=== PATIENT | female | born 1960 | race Caucasian/White ===

== ENCOUNTER → 2020-08-18 14:00 | Outpatient (BNVA) | payer OTHER, SELFPAY | PROVIDERS: PCP Nurse Practitioner Family; Referring Provider Nurse Practitioner Family; Visit Provider Nurse Practitioner Gerontology | DX: R73.03 Prediabetes (principal); E78.5 Hyperlipidemia, unspecified; I10 Essential (primary) hypertension; E66.9 Obesity, unspecified; Z59.9 Problem related to housing and economic circumstances, unspecified; F17.200 Nicotine dependence, unspecified, uncomplicated; Z71.6 Tobacco abuse counseling; Z71.3 Dietary counseling and surveillance; Z79.899 Other long term (current) drug therapy | CPT/HCPCS: 99212 ==

== ENCOUNTER 2020-08-19 11:13 | Outpatient (REF) | payer OTHER, SELFPAY ==
[2020-08-19 14:12] LABS: Estimated Average Glucose 120 mg/dL; Hemoglobin A1c % 5.8 %
[2020-08-19 14:24] LABS: Anion Gap 16 (12-20); Blood Urea Nitrogen 8 mg/dL (9-16); Calcium 8.5 mg/dL (8.4-10.2); Carbon Dioxide 25 mmol/L (22-29); Chloride 103 mmol/L (96-108); Cholesterol 110 mg/dL; Estimated Glomerular Filt Rate > 60; Glucose Fasting 105 mg/dL (60-99); HDL Cholesterol 34 mg/dL; LDL Cholesterol Calculated 53 mg/dl; Potassium 4.5 mmol/l (3.3-5.1); Sodium 139 mmol/L (135-145); Triglycerides 119 mg/dL
[2020-08-19 14:46] LABS: TSH reflex Free T4 1.52 mIU/mL (0.32-4.0)
== END 2020-08-19 11:14 | disposition home or self-care (01) ==
LOC: HO.HMGCLDS 11:13
PROVIDERS: PCP Nurse Practitioner Family; Visit Provider Nurse Practitioner Gerontology
DX: E78.5 Hyperlipidemia, unspecified (principal); R73.03 Prediabetes; I10 Essential (primary) hypertension
CPT/HCPCS: 80048; 80061; 83036; 84443

== ENCOUNTER → 2020-09-09 14:12 | Outpatient (BNVA) | payer OTHER, SELFPAY | PROVIDERS: PCP Nurse Practitioner Family; Visit Provider Internal Medicine Cardiovascular Disease | DX: I47.2 Ventricular tachycardia (principal); I10 Essential (primary) hypertension; I48.0 Paroxysmal atrial fibrillation; Z79.899 Other long term (current) drug therapy; Z86.79 Personal history of other diseases of the circulatory system; Z45.018 Encounter for adjustment and management of other part of cardiac pacemaker | CPT/HCPCS: 99212 ==

== ENCOUNTER → 2020-10-12 15:00 | Outpatient (BNVA) | payer OTHER, SELFPAY | PROVIDERS: PCP Nurse Practitioner Family; Visit Provider Nurse Practitioner | DX: Z76.89 Persons encountering health services in other specified circumstances (principal) ==

== ENCOUNTER 2020-10-18 15:08 | Outpatient (REF) | payer OTHER, SELFPAY ==
--- NOTE | 2020-10-18 15:12 | MM_ITS ---
EXAMINATION: MM SCREENING DIGITAL BREAST TOMOSYNTHESIS, BILATERAL CLINICAL INFORMATION: Screening. Asymptomatic. Family history breast cancer, daughter. The lifetime risk of breast cancer based on the Tyrer-Cuzick Model is 11%. COMPARISON: Mammography: 10/09/2019, 10/03/2018, 09/11/2017 TECHNIQUE: Digital breast tomosynthesis is performed in both the craniocaudal and mediolateral oblique views along with computer-aided detection (CAD). Synthesized 2D images are generated from the tomosynthesis. FINDINGS: There are scattered areas of fibroglandular density (ACR BI-RADS breast composition Category b). There are no significant masses, abnormal calcifications, or other abnormalities. There are no significant changes from prior studies. MM/MM tomosynthesis screening BI IMPRESSION: No mammographic evidence of malignancy. ASSESSMENT: BI-RADS 1: Negative RECOMMENDATION: Routine annual mammography screening. This patient's information was entered into a reminder system with a target due date for their next mammogram.
== END 2020-10-18 15:09 | disposition home or self-care (01) ==
LOC: HO.MAMMO 15:08
PROVIDERS: PCP Nurse Practitioner Family; Visit Provider Nurse Practitioner Family
DX: Z12.31 Encounter for screening mammogram for malignant neoplasm of breast (principal)
CPT/HCPCS: 77063; 77067

== ENCOUNTER 2021-01-26 15:12 | Outpatient (REF) | payer OTHER, SELFPAY ==
[2021-01-26 17:21] LABS: Creatinine Urine 153.72 mg/dL; Microalbum/Creatinine Ratio Ur 7.8 ug/mg cr
[2021-01-26 17:45] LABS: Estimated Average Glucose 117 mg/dL; Hemoglobin A1c % 5.7 %
[2021-01-26 18:25] LABS: Vitamin D 25-OH Total 5.6 ng/mL (>30)
[2021-01-26 18:31] LABS: Alanine Aminotransferase 12 U/L (0-31); Albumin Level 4.2 g/dL (3.5-5.0); Alkaline Phosphatase 90 U/L (39-117); Anion Gap 13 (12-20); Aspartate Amino Transferase 13 U/L (5-31); Bilirubin Total 0.3 mg/dL (0.0-1.0); Blood Urea Nitrogen 8 mg/dL (9-16); Calcium 8.7 mg/dL (8.4-10.2); Carbon Dioxide 25 mmol/L (22-29); Chloride 106 mmol/L (96-108); Cholesterol 128 mg/dL; Estimated Glomerular Filt Rate > 60; Glucose Fasting 99 mg/dL (60-99); HDL Cholesterol 46 mg/dL; LDL Cholesterol Calculated 59 mg/dl; Potassium 4.1 mmol/L (3.3-5.1); Sodium 140 mmol/L (135-145); Total Protein 6.8 g/dL (6.5-8.0); Triglycerides 116 mg/dL
== END 2021-01-26 15:13 | disposition home or self-care (01) ==
LOC: HO.HMGCLDS 15:12
PROVIDERS: Nurse Practitioner Gerontology; PCP Nurse Practitioner Family; Visit Provider Nurse Practitioner Family
DX: E11.9 Type 2 diabetes mellitus without complications (principal); E55.9 Vitamin D deficiency, unspecified
CPT/HCPCS: 36415; 80053; 80061; 82043; 82306; 83036; 84443

== ENCOUNTER → 2021-02-17 07:51 | Outpatient (BNVA) | payer OTHER, SELFPAY | PROVIDERS: PCP Nurse Practitioner Family; Visit Provider Nurse Practitioner Gerontology ==

== ENCOUNTER → 2021-03-03 14:22 | Outpatient (BNVA) | payer OTHER, SELFPAY | PROVIDERS: PCP Nurse Practitioner Family; Referring Provider Nurse Practitioner Family; Visit Provider Internal Medicine Cardiovascular Disease | DX: Z45.018 Encounter for adjustment and management of other part of cardiac pacemaker (principal); I48.0 Paroxysmal atrial fibrillation | CPT/HCPCS: 99212 ==

== ENCOUNTER 2021-04-07 14:15 | Outpatient (REF) | payer OTHER, SELFPAY ==
[2021-04-07 17:13] LABS: Vitamin D 25-OH Total 28.4 ng/mL (>30)
== END 2021-04-07 14:16 | disposition home or self-care (01) ==
LOC: HO.HMGCLDS 14:15
PROVIDERS: PCP Nurse Practitioner Family; Visit Provider Nurse Practitioner Family
DX: E55.9 Vitamin D deficiency, unspecified (principal)
CPT/HCPCS: 36415; 82306

== ENCOUNTER → 2021-04-15 09:15 | Outpatient (BNVA) | payer OTHER, SELFPAY | PROVIDERS: PCP Nurse Practitioner Family; Visit Provider Nurse Practitioner ==

== ENCOUNTER → 2021-05-30 13:50 | Outpatient (BNVA) | payer OTHER, SELFPAY | PROVIDERS: Visit Provider Nurse Practitioner ==

== ENCOUNTER → 2021-06-10 13:57 | Outpatient (BNVA) | payer OTHER, SELFPAY | PROVIDERS: PCP Nurse Practitioner Family; Visit Provider Nurse Practitioner ==

== ENCOUNTER 2021-06-14 15:17 | Outpatient (REF) | payer OTHER, SELFPAY ==
[2021-06-14 17:24] LABS: Alanine Aminotransferase 13 U/L (0-31); Albumin Level 4.1 g/dL (3.5-5.0); Alkaline Phosphatase 81 U/L (39-117); Anion Gap 14 (12-20); Aspartate Amino Transferase 14 U/L (5-31); Bilirubin Total 0.4 mg/dL (0.0-1.0); Blood Urea Nitrogen 12 mg/dL (9-16); Calcium 9.3 mg/dL (8.4-10.2); Carbon Dioxide 25 mmol/L (22-29); Chloride 107 mmol/L (96-108); Cholesterol 128 mg/dL; Estimated Glomerular Filt Rate > 60; Glucose Fasting 99 mg/dL (60-99); HDL Cholesterol 40 mg/dL; LDL Cholesterol Calculated 53 mg/dl; Potassium 4.5 mmol/L (3.3-5.1); Sodium 141 mmol/L (135-145); Total Protein 6.8 g/dL (6.5-8.0); Triglycerides 178 mg/dL
[2021-06-14 17:40] LABS: Vitamin D 25-OH Total 34.1 ng/mL (>30)
[2021-06-14 17:44] LABS: TSH reflex Free T4 1.76 uIU/mL (0.32-4.0)
== END 2021-06-14 15:18 | disposition home or self-care (01) ==
LOC: HO.HMGCLDS 15:17
PROVIDERS: Nurse Practitioner Gerontology; PCP Nurse Practitioner Family; Visit Provider Nurse Practitioner Family
DX: E11.9 Type 2 diabetes mellitus without complications (principal); E55.9 Vitamin D deficiency, unspecified
CPT/HCPCS: 36415; 80053; 80061; 82306; 84443

== ENCOUNTER 2021-08-11 09:59 | Outpatient (REF) | payer OTHER, SELFPAY ==
[2021-08-11 14:11] LABS: Appearance Urine HAZY; Color Urine YELLOW; Glucose Urine UA NEG (NEG); Leukocyte Esterase Urine 3+ (NEG); Nitrite Urine NEG (NEG); Specific Gravity - Urine <= 1.005 (1.005-1.025); UACC Culture Trigger YES; Urine Blood 1+ (NEG); Urine Ketones NEG (NEG); Urine Protein NEG (NEG-TRACE)
[2021-08-11 14:29] LABS: Bacteria Urine 1+ /LPF; UACC CULT YES
[2021-08-11 14:30] LABS: Squamous Epithelial Cell Urine 3+ /LPF
== END 2021-08-11 10:00 | disposition home or self-care (01) ==
LOC: HO.HMGCLDS 09:59
PROVIDERS: PCP Nurse Practitioner Family; Visit Provider Nurse Practitioner Family
DX: R30.0 Dysuria (principal)
CPT/HCPCS: 81001; 87086

== ENCOUNTER → 2021-08-24 13:55 | Outpatient (REF) | payer OTHER, SELFPAY ==
--- NOTE | 2021-08-24 13:59 | CA_ITS ---
Transthoracic Echocardiogram Patient (Last, First, Middle): Myrtle Ford R Gender: Female Date of : 1960 Age: 61 Procedure Date: 08/24/2021 Procedure Type: Transthoracic Echocardiogram Location: OP Height: 170.18 cm Weight: 87.09 kg BSA: 1.99 m2 Heart Rate: bpm BP: 98 / 56 mmHg Tub Mender: ROBERTO Zarate MD: Javier Callahan MD Adult Caregiver: Javier Callahan MD Symptoms: I48.0 - Paroxysmal atrial fibrillation Study Quality: Fair ECG Rhythm: Sinus Conclusions: - 1. Normal LV systolic function with impaired relaxation filling pattern 2. Normal cardiac valvular Doppler 3. Normal RV systolic pressure 4. Mildly dilated ascending aorta at 3.7 cm 5. No gross pericardial effusion Findings Left Ventricle Normal left ventricular size, thickness, and systolic function. The visually estimated ejection fraction is between 60-65%. Regional wall motion abnormalities can not be excluded due to suboptimal endocardial definition. Spectral Doppler is indicative of an impaired relaxation filling pattern. E/E prime ratio is <8, consistent with normal filling pressures. Evidence suggests grade I (mild) diastolic dysfunction. Right Ventricle Normal right ventricular cavity size and systolic function. Atria The left atrium is likely dilated. There is a mobile atrial septum noted. Interatrial shunt cannot be excluded. The right atrium is normal in size. Aortic Valve The aortic valve structure and function is likely normal. There is no aortic valve stenosis. There is no aortic valve regurgitation. Mitral Valve Likely normal mitral valve structure and function. There is trace mitral valve regurgitation. There is no mitral valve stenosis. Pulmonic Valve The pulmonic valve was not well visualized. Tricuspid Valve Likely normal tricuspid valve structure and function. There is trace tricuspid valve regurgitation. The right ventricular systolic pressure is normal. The right ventricular systolic pressure is 19 mmHg. Normal right atrial pressure. There is no evidence of pulmonary hypertension. Great Vessels The pulmonary artery was not well visualized. There is mild dilatation of the ascending aorta measuring 3.70 cm. Venous The inferior vena cava is normal in size and collapses greater than 50% with inspiration. Pericardium/Pleural There is no evidence of pericardial effusion. Prior Study Comparison No significant change compared to prior study dated: 07/18/2017. Measurements 2D Linear Measurements IVSd: 1.00 0.6-0.9/0.6-1.0 cm LVIDd: 4.63 3.9-5.3/4.2-5.9 cm LVIDd Index: 2.33 2.4-3.2/2.2-3.1 cm/m2 LVIDs: 2.30 2.0-3.6 cm LVPWd: 1.06 0.7-1.1 cm Ao Root: 3.60 2.1-3.5 cm LA Diam: 3.90 2.7-3.8/3.0-4.0 cm LAIDs Index: 1.96 1.5-2.3 cm/m2 LV Mass: 208.17 67-162/88-224 g LV Mass Index: 104.61 43-95/49-115 g/m2 LVOT Diam: 2.00 3.0+(-)1.3 cm 2D Systolic Function EF 4C: 61.90 >55% EF 2C: 52.50 >55% EF BiP: 59.40 >55% Mitral Valve MV Pk E: 0.84 MV PK A: 0.86 MV Decel Time: 304.00 E/A: 1.00 E'Lateral: 6.64 E'Medial: 7.94 E/E' Med: 10.50 E/E' Lat: 12.60 PHT: 89.00 MVA PHT: 2.47 Decel Foard: 2.76 Aortic Valve AoV Pk Srikanth: 1.27 AoV Mn Srikanth: 0.83 AoV VTI: 0.26 AoV Pk Grad: 6.00 Aov Mn Grad: 3.00 JOCY Cont.VTI: 2.69 LVOT LVOT Pk Srikanth: 1.07 LVOT Mn Srikanth: 0.67 LVOT VTI: 0.22 LVOT Pk Grad: 5.00 LVOT Mn Grad: 2.00 LVOT Diam: 2.00 LVOT Area: 3.14 Diastolic Function MV Pk E: 0.84 MV Pk A: 0.86 E/A: 1.00 E'Medial: 7.94 E/E' Med: 10.50 E' Laterial: 6.64 E/E' Lat: 12.60 Right Ventricle TAPSE (mm): 1.66 TVS' Srikanth: 9.79 Tricuspid Valve TR Pk Srikanth: 1.99 TR Pk Grad: 16.00 RA Press: 3.00 RVSP: 19.00 Great Vessels Aorta Ao Root-2D: 3.60 2.0-3.7 cm Ao Asc: 3.70 2.1-3.4 cm Ao Arch: 2.20 Updated in Other Vendor System with Status of Final Javier Callahan MD electronically signed on 08/24/2021 5:44:31 PM with status of Final
== END ==
LOC: HO.CARD 13:55
PROVIDERS: Visit Provider Internal Medicine Cardiovascular Disease
DX: I48.0 Paroxysmal atrial fibrillation (principal)
CPT/HCPCS: 93306

== ENCOUNTER 2021-09-08 14:15 | Outpatient (REF) | payer OTHER, SELFPAY ==
[2021-09-08 15:43] LABS: Appearance Urine CLEAR; Color Urine YELLOW; Glucose Urine UA NEG (NEG); Leukocyte Esterase Urine 1+ (NEG); Nitrite Urine NEG (NEG); Specific Gravity - Urine >= 1.030 (1.005-1.025); UACC Culture Trigger YES; Urine Blood 1+ (NEG); Urine Ketones NEG (NEG); Urine Protein 2+ MG/DL (NEG-TRACE)
[2021-09-08 16:00] LABS: Squamous Epithelial Cell Urine 1+ /LPF; WBC Urine 50-75 /HPF (0-4)
[2021-09-08 16:01] LABS: Bacteria Urine 1+ /LPF
== END 2021-09-08 14:16 | disposition home or self-care (01) ==
LOC: HO.LAB 14:15
PROVIDERS: PCP Nurse Practitioner Family; Referring Provider Nurse Practitioner Family; Visit Provider Internal Medicine Cardiovascular Disease
DX: I48.0 Paroxysmal atrial fibrillation (principal); Z95.0 Presence of cardiac pacemaker
CPT/HCPCS: 81001; 87086; 99212

== ENCOUNTER 2021-10-19 14:46 | Outpatient (REF) | payer OTHER, SELFPAY ==
--- NOTE | ~2021-10-19 | MM_ITS ---
EXAMINATION: MM SCREENING DIGITAL BREAST TOMOSYNTHESIS, BILATERAL CLINICAL INFORMATION: Screening. Asymptomatic. The lifetime risk of breast cancer based on the Tyrer-Cuzick Model is 11%. COMPARISON: Mammography: 10/18/2020, 10/09/2019 TECHNIQUE: Digital breast tomosynthesis is performed in both the craniocaudal and mediolateral oblique views along with computer-aided detection (CAD). Synthesized 2D images are generated from the tomosynthesis. FINDINGS: There are scattered areas of fibroglandular density (ACR BI-RADS breast composition Category b). Parenchymal pattern is similar to prior studies. There is no interval mass or developing density or architectural abnormality. The axilla and skin contours are unremarkable. No abnormal calcifications on left. Right CC view has tightly grouped punctate calcifications just medial to midline mid depth 10-11 cm from nipple. There are no grouped calcifications of similar number on MLO view. This may suggest pseudocalcification digital calcification digital processing artifact on CC view. Patient will be recalled for further imaging with magnification views. MM/MM tomosynthesis screening BI IMPRESSION: 1. Right: Tightly grouped punctate calcifications central posterior breast medial to midline on CC view. There may be superimposed digital calcification/digital processing artifact. 2. Left: No mammographic evidence of malignancy. ASSESSMENT: BI-RADS 0: Incomplete - Need Additional Imaging Evaluation RECOMMENDATION: 1. Additional views of the right breast (magnification CC, magnification LM. 2. Radiology department staff will contact the patient for additional imaging. This patient's information was entered into a reminder system with a target due date for their next mammogram.
== END 2021-10-19 14:47 | disposition home or self-care (01) ==
LOC: HO.MAMMO 14:46
PROVIDERS: Visit Provider Nurse Practitioner Family
DX: Z12.31 Encounter for screening mammogram for malignant neoplasm of breast (principal)
CPT/HCPCS: 77063; 77067

== ENCOUNTER 2021-11-01 10:24 | Outpatient (REF) | payer OTHER, SELFPAY ==
--- NOTE | ~2021-11-01 | MM_ITS ---
EXAMINATION: MM DIAGNOSTIC DIGITAL MAMMOGRAPHY, RIGHT CLINICAL INFORMATION: Recall from screening for tightly grouped punctate calcifications central posterior medial right breast. Family history breast cancer, daughter. TC score 11%. COMPARISON: Mammography: 10/19/2021, 10/18/2020, 10/09/2019 TECHNIQUE: Digital mammography is performed in the following views: Magnification CC x2, magnification LM x2. FINDINGS: There are scattered areas of fibroglandular density (ACR BI-RADS breast composition Category b). The additional magnification views confirm grouped calcifications posterior 1:00 position approximately 11 cm from nipple on CC view. There are at least 8-10 calcifications demonstrated. Calcifications vary in size and attenuation. This represents change from prior exams. Stereotactic sampling is recommended. Results are discussed with the patient at time of visit. MM/MM added views RT IMPRESSION: Grouped calcifications posterior 1:00 position which vary in size and attenuation. ASSESSMENT: BI-RADS 4: Suspicious RECOMMENDATION: Stereotactic sampling right breast calcifications. This patient's information was entered into a reminder system with a target due date for their next mammogram.
[2021-11-01] MEDS: Lidocaine HCl 1 % 20 ML VIAL 9 ML SUBCUT (10:56)
[2021-11-01] MEDS: Sodium Bicarbonate 8.4% 50 MEQ/50 ML VIAL SUBCUT (10:57)
== END 2021-11-01 10:25 | disposition home or self-care (01) ==
LOC: HO.MAMMO 10:24
PROVIDERS: Visit Provider Nurse Practitioner Family
DX: R92.1 Mammographic calcification found on diagnostic imaging of breast (principal)
CPT/HCPCS: 77065

== ENCOUNTER 2021-11-01 12:05 | Outpatient (REF) | payer OTHER, SELFPAY ==
[2021-11-01 13:44] LABS: Alanine Aminotransferase 14 U/L (0-31); Albumin Level 3.9 g/dL (3.5-5.0); Alkaline Phosphatase 77 U/L (39-117); Anion Gap 14 (12-20); Aspartate Amino Transferase 13 U/L (5-31); Bilirubin Total 0.3 mg/dL (0.0-1.0); Blood Urea Nitrogen 10 mg/dL (9-16); Calcium 9.9 mg/dL (8.4-10.2); Carbon Dioxide 27 mmol/L (22-29); Chloride 106 mmol/L (96-108); Cholesterol 147 mg/dL; Estimated Glomerular Filt Rate > 60; Glucose Fasting 91 mg/dL (60-99); HDL Cholesterol 48 mg/dL; LDL Cholesterol Calculated 56 mg/dl; Sodium 142 mmol/L (135-145); Total Protein 6.6 g/dL (6.5-8.0); Triglycerides 215 mg/dL
[2021-11-01 13:55] LABS: Appearance Urine CLEAR; Color Urine YELLOW; Glucose Urine UA NEG (NEG); Leukocyte Esterase Urine NEG (NEG); Nitrite Urine NEG (NEG); PH 5.5 (5.0-8.0); Specific Gravity - Urine >= 1.030 (1.005-1.025); Urine Blood NEG (NEG); Urine Ketones NEG (NEG); Urine Protein NEG (NEG-TRACE)
[2021-11-01 14:06] LABS: TSH reflex Free T4 1.93 uIU/mL (0.32-4.0)
== END 2021-11-01 12:06 | disposition home or self-care (01) ==
LOC: HO.LAB 12:05
PROVIDERS: PCP Nurse Practitioner Family; Visit Provider Nurse Practitioner Family
DX: E78.5 Hyperlipidemia, unspecified (principal); F17.200 Nicotine dependence, unspecified, uncomplicated
CPT/HCPCS: 36415; 80053; 80061; 81003; 84443

== ENCOUNTER 2021-11-09 09:36 | Outpatient (REF) | payer OTHER, SELFPAY ==
--- NOTE | ~2021-11-09 | MM_ITS ---
EXAMINATION: STEREOTACTIC TOMOSYNTHESIS-GUIDED VACUUM-ASSISTED BREAST BIOPSY, RIGHT SPECIMEN RADIOGRAPH, RIGHT POST PROCEDURE DIGITAL MAMMOGRAM, RIGHT CLINICAL INFORMATION: Grouped calcifications posterior central 1:00 right breast. Family history breast cancer, daughter. TC score 11%. COMPARISON: Mammography 11/01/2021, 10/19/2021, 10/18/2020. TECHNIQUE/PROCEDURE: Informed consent was obtained from the patient after discussion of the benefits, risks, and alternatives to biopsy today. Patient appeared to understand. Gave opportunity for questions. Patient signed consent form. BIOPSY TABLE: [employer] Prone Biopsy System. LESION: Grouped calcifications posterior central 1:00. LOCAL ANESTHESIA: 6 mL carbonated 1% lidocaine; 11 mL carbonated 1% lidocaine with epinephrine. DERMATOTOMY: Single skin kang dermatotomy performed. NEEDLE: TapnScrapiva 9-gauge vacuum assisted core biopsy device. APPROACH: craniocaudal. TARGETING: Combination of digital breast tomosynthesis and stereotactic digital mammography used for targeting. CORES: 6. CLIP: Platypus PlatformMark T-shaped marker. SPECIMEN RADIOGRAPH: Specimen radiograph is taken in separate room using digital mammography. The index calcifications are in the excised cores. There are at least 12 calcifications in the cores. POST PROCEDURE UNILATERAL DIGITAL MAMMOGRAM: The post biopsy mammogram is performed in separate room using separate digital mammography equipment from the biopsy procedure. CC and ML views are obtained. There are scattered areas of fibroglandular density (breast composition category: b). The clip marker is in position. The calcifications are decreased at the biopsy site and no longer clearly seen. No gross hematoma. The patient tolerated the procedure well. No immediate complications. Home instructions reviewed with the patient. Final pathology results are pending. MM/MM stereotactic biopsy RT IMPRESSION: 1. Digital tomosynthesis-guided core biopsy right breast with clip placement. 2. Specimen radiograph taken and post procedure mammogram. There is satisfactory positioning of the biopsy clip. 3. Final pathology results pending. An addendum report will be issued.
[2021-11-09] MEDS: Lidocaine HCl 1 % 20 ML VIAL 10 ML SUBCUT (13:51)
[2021-11-09] MEDS: Sodium Bicarbonate 8.4% 50 MEQ/50 ML VIAL SUBCUT (13:59)
== END 2021-11-09 09:37 | disposition home or self-care (01) ==
LOC: HO.MAMMO 09:36
PROVIDERS: Visit Provider Surgery
DX: R92.1 Mammographic calcification found on diagnostic imaging of breast (principal)
CPT/HCPCS: 19081; 88305; 99202; A4648

== ENCOUNTER → 2021-12-01 12:52 | Outpatient (BNVA) | payer OTHER, SELFPAY | PROVIDERS: PCP Nurse Practitioner Family; Referring Provider Nurse Practitioner Family; Visit Provider Nurse Practitioner | DX: K58.2 Mixed irritable bowel syndrome (principal); K21.9 Gastro-esophageal reflux disease without esophagitis; D12.6 Benign neoplasm of colon, unspecified; I48.0 Paroxysmal atrial fibrillation; Z79.01 Long term (current) use of anticoagulants | CPT/HCPCS: 99212 ==

== ENCOUNTER 2021-12-30 14:12 | Outpatient (REF) | payer OTHER, SELFPAY ==
[2021-12-30 16:41] LABS: Alanine Aminotransferase 16 U/L (0-31); Albumin Level 3.9 g/dL (3.5-5.0); Alkaline Phosphatase 73 U/L (39-117); Anion Gap 12 (12-20); Aspartate Amino Transferase 15 U/L (5-31); Bilirubin Total 0.4 mg/dL (0.0-1.0); Blood Urea Nitrogen 13 mg/dL (9-16); Calcium 9.4 mg/dL (8.4-10.2); Carbon Dioxide 30 mmol/L (22-29); Chloride 103 mmol/L (96-108); Cholesterol 128 mg/dL; Estimated Glomerular Filt Rate > 60; Glucose Fasting 97 mg/dL (60-99); HDL Cholesterol 49 mg/dL; LDL Cholesterol Calculated 61 mg/dl; Potassium 4.5 mmol/L (3.3-5.1); Sodium 140 mmol/L (135-145); Total Protein 6.5 g/dL (6.5-8.0); Triglycerides 93 mg/dL
[2021-12-30 17:02] LABS: TSH reflex Free T4 2.39 uIU/mL (0.32-4.0)
== END 2021-12-30 14:13 | disposition home or self-care (01) ==
LOC: HO.HMGCLDS 14:12
PROVIDERS: PCP Nurse Practitioner Family; Visit Provider Nurse Practitioner Family
DX: E78.5 Hyperlipidemia, unspecified (principal); Z00.00 Encounter for general adult medical examination without abnormal findings
CPT/HCPCS: 36415; 80053; 80061; 84443

== ENCOUNTER 2022-01-03 10:57 | Outpatient (REF) | payer OTHER, SELFPAY ==
[2022-01-03 14:36] LABS: Appearance Urine CLOUDY; Color Urine YELLOW; Glucose Urine UA NEG (NEG); Leukocyte Esterase Urine 1+ (NEG); Nitrite Urine POS (NEG); UACC Culture Trigger YES; Urine Blood TRACE (NEG); Urine Ketones NEG (NEG); Urine Protein TRACE MG/DL (NEG-TRACE)
[2022-01-03 15:05] LABS: Bacteria Urine 3+ /LPF; Squamous Epithelial Cell Urine 2+ /LPF; WBC Urine 50-75 /HPF (0-4)
== END 2022-01-03 10:58 | disposition home or self-care (01) ==
LOC: HO.HMGCLNP 10:57
PROVIDERS: Visit Provider Nurse Practitioner Family
DX: E11.9 Type 2 diabetes mellitus without complications (principal); E78.5 Hyperlipidemia, unspecified; R30.0 Dysuria
CPT/HCPCS: 81001; 81003; 87086; 87088; 87186

== ENCOUNTER → 2022-02-20 09:55 | Outpatient (BNVA) | payer OTHER, SELFPAY | PROVIDERS: PCP Nurse Practitioner Family; Visit Provider Nurse Practitioner Gerontology | DX: Z13.89 Encounter for screening for other disorder (principal) ==

== ENCOUNTER 2022-03-14 15:19 | Outpatient (REF) | payer OTHER, SELFPAY ==
[2022-03-14 18:14] LABS: Appearance Urine HAZY; Color Urine DK YELLOW; Glucose Urine UA NEG (NEG); Leukocyte Esterase Urine NEG (NEG); Nitrite Urine NEG (NEG); PH 5.5 (5.0-8.0); Specific Gravity - Urine >= 1.030 (1.005-1.025); UACC Culture Trigger NO; Urine Blood TRACE (NEG); Urine Ketones NEG (NEG); Urine Protein TRACE MG/DL (NEG-TRACE)
[2022-03-14 18:26] LABS: Bacteria Urine TRACE /LPF; Mucus Urine 4+ /LPF; Squamous Epithelial Cell Urine 3+ /LPF
[2022-03-14 18:27] LABS: Calcium Oxalate Crystals Urine TRACE /LPF
[2022-03-14 18:30] LABS: Microalbum/Creatinine Ratio Ur 10.2 ug/mg cr
[2022-03-15 06:27] LABS: Estimated Average Glucose 126 mg/dL
== END 2022-03-14 15:20 | disposition home or self-care (01) ==
LOC: HO.LAB 15:19
PROVIDERS: PCP Nurse Practitioner Family; Referring Provider Nurse Practitioner Family; Visit Provider Internal Medicine Cardiovascular Disease
DX: Z45.018 Encounter for adjustment and management of other part of cardiac pacemaker (principal); I48.0 Paroxysmal atrial fibrillation; I10 Essential (primary) hypertension; E11.9 Type 2 diabetes mellitus without complications
CPT/HCPCS: 36415; 81001; 82043; 83036; 93005; 93280; 99212

== ENCOUNTER 2022-03-17 08:03 | Day surgery (SDC) | payer OTHER, SELFPAY ==
[2022-01-20 11:08] VITALS: BMI 30.5
--- NOTE | 2022-03-16 08:58 | HO.ANESPROP2 ---
Documented by User: Ligia Rocha NP 03/16/22 09:03 HPI - Anesthesia Eval Consult details Narrative: 62yo F for Colonoscopy Xarelto for afib Pacer in situ Cardiac stable per 03/14/22 visit [facility] Active Problems Active Problems: All Active Problems (Updated 03/14/22 @ 18:37 by Elmer Dolan, [facility]) Microscopic hematuria (Acute) Acne (Acute) UTI (urinary tract infection) (Acute) Depression (Acute) GERD (gastroesophageal reflux disease) (Acute) Irritable bowel syndrome with both constipation and diarrhea (Acute) Diabetes (Acute) Vitamin D deficiency (Acute) Screening for colon cancer (Acute) Diarrhea (Acute) Tubular adenoma of colon (Acute) Diabetes (Acute) Otitis media (Acute) Urinary incontinence (Acute) Dysuria (Acute) Viral illness (Acute) Cough (Acute) Asthma (Acute) Chronic anticoagulation (Acute) Dyslipidemia (Acute) Breast calcification, right (Acute) Arthritis (Acute) Cardiac pacemaker in situ (Acute) NSVT (nonsustained ventricular tachycardia) (Acute) Paroxysmal atrial fibrillation (Acute) Pre-diabetes (Acute) Hyperlipidemia (Acute) Essential hypertension (Acute) Smoking (Acute) Obesity, Class I, BMI 30-34.9 (Acute) Past Medical History Medical History Arthritis Breast calcification, right Cardiac pacemaker in situ Chest pain Constipation COPD (chronic obstructive pulmonary disease) Depression Diverticulitis Essential hypertension Fatigue GERD (gastroesophageal reflux disease) Hematuria Hyperlipidemia Hypertensive retinopathy Insomnia LVH (left ventricular hypertrophy) Mesenteric lymphadenopathy NSVT (nonsustained ventricular tachycardia) Obesity, Class I, BMI 30-34.9 Paroxysmal atrial fibrillation Pre-diabetes Smoking SSS (sick sinus syndrome) Thrombocytopenia Tremor Family History Family History Father Family history of diabetes mellitus Mother Diabetes mellitus Substance use disorder Sister Uterine cancer Diabetes mellitus Mental health disorder Substance use disorder Maternal Grandfather No problems noted. Maternal Grandmother Unknown family medical history Paternal Grandfather No problems noted. Paternal Grandmother No problems noted. Surgical History Surgical History History of dilatation and curettage History of esophagogastroduodenoscopy (EGD) History of eye surgery History of pubovaginal sling History of tonsillectomy and adenoidectomy History of tubal ligation Hx of cholecystectomy Hx of colonoscopy Hx of right breast biopsy Social History Social History Household Members: Other Household Members Other:: Ex-, Daughter Housing: Apartment Alcohol intake: current Alcohol intake frequency: does not drink Patient Tobacco Use Status: Current everyday Tobacco user Tobacco use type: Cigarette Cigarette Packs Per Day: 10 Cigarettes Per Day: 200.0 e-Cigarette/Vaping Use: Never Used Use of substances other than those prescribed or required for medical reasons: No Have you been hit, kicked, punched, or otherwise hurt by someone within the past year? If so, by whom?: No Are you DNR?: No Advance Directives: Yes Advance Directives on File: Yes Advance Directives Date on File: 03/21/18 Recently lost weight without trying: No Nutrition Risks: No Nutritional Risk Current occupational status: disabled Meds Allergies Allergy/AdvReac Type Severity Reaction Status Date / Time dabigatran etexilate Allergy Intermediate SWELLING\hi Verified 02/20/22 10:18 [From PRADAXA] ves Home Medications Medication Instructions Recorded Confirmed Last Taken Type ssugpcyfnc-xprhothahbbwv-sbuigcjk 1 tab PO Q4H PRN 08/11/20 03/14/22 Unknown History 50 mg-325 mg-40 mg tablet clonazepam 1 mg tablet 1 mg PO BID 08/11/20 03/14/22 Unknown History lancets 28 gauge #100 ea 08/11/20 03/14/22 Unknown History mirabegron 50 mg tablet,extended 50 mg PO DAILY 08/11/20 03/14/22 Unknown History release 24 hr ofloxacin 0.3 % eye drops 0 drp OPHTHALMIC (EYE) 08/11/20 03/14/22 Unknown History primidone 50 mg tablet mg PO 08/11/20 03/14/22 Unknown History propranolol 40 mg tablet 40 mg PO BID 08/11/20 03/14/22 Unknown History trazodone 100 mg tablet 100 mg PO BEDTIME 08/11/20 03/14/22 Unknown History zolpidem 10 mg tablet 10 mg PO BEDTIME PRN 08/11/20 03/14/22 Unknown History lisinopril 40 mg tablet 20 mg PO DAILY tab 08/24/21 03/14/22 Unknown History Exam Exam Date and Time: March 16, 2022 0858 Height,Weight and Vital Signs: Height 5 ft 9 in Weight 93.894 kg Pertinent Lab Results Pertinent Lab Results: Laboratory Tests 10/19/19 12/30/21 06:34 14:22 WBC 6.6 Hgb 12.0 Hct 35.8 L Plt Count 114 L Sodium 140 Potassium 4.5 Chloride 103 Carbon Dioxide 30 H BUN 13 Creatinine 0.79 Narrative Narrative: EKG 02/2022 normal sinus rhythm with normal EKG Cardiac Device Check 02/2022 Details: Dual-chamber Medtronic pacemaker in place.? Programmed in MVP mode with rate response at 60 beats per minute.? Atrial pacing 56% of the time.? One fast ventricular rate episode consistent with SVT.? No episodes of atrial fibrillation noted.? Atrial ventricular pacing lead impedance is stable.? Atrial ventricular sensing is excellent.? Atrial pacing thresholds are adequate.? Ventricular pacing thresholds adequate and reprogrammed to enhance safety.? Battery life is 4 years ECHO 08/2021 Conclusions: - 1. Normal LV systolic function with impaired relaxation filling pattern? 2. Normal cardiac valvular Doppler ? 3. Normal RV systolic pressure ? 4. Mildly dilated ascending aorta at 3.7 cm? 5. No gross pericardial effusion ? ?? Assessment and Plan Assessment Anesthesia Assessment: Chart Reviewed
[2022-03-17 08:29] VITALS: BP 150/90; PULSE 75; RESP 16; TEMP 36.1; O2SAT 97
[2022-03-17 08:30] LABS: Glucose, Whole Blood 120 mg/dL (60-115)
[2022-03-17] MEDS: Lactated Ringers 1,000 ML 50 ML IVCONT (08:30)
--- NOTE | 2022-03-17 09:01 | MHC.SHP ---
Pre-Procedural Eval Section A Date of Service: 03/17/22 Section B Chief Complaint: benign neoplasm of colon Details of Present Illness: hx of colon polyps Relevant Family History (Specify if Yes): No Relevant Social History: Tobacco Use Present Medications: see Short Stay Collaborative assessment Medical History: Significant History (Arthritis Breast calcification, right Cardiac pacemaker in situ Chest pain Constipation COPD (chronic obstructive pulmonary disease) Depression Diverticulitis Essential hypertension Fatigue GERD (gastroesophageal reflux disease) Hematuria Hyperlipidemia Hypertensive retinopathy Insomnia LVH (left ve) History of Previous Operations: Relevant previous surgery/procedure and date(s) (History of dilatation and curettage History of esophagogastroduodenoscopy (EGD) History of eye surgery History of pubovaginal sling History of tonsillectomy and adenoidectomy History of tubal ligation Hx of cholecystectomy Hx of colonoscopy Hx of right breast biopsy) Allergies: Allergies Allergy/AdvReac Type Severity Reaction Status Date / Time dabigatran etexilate Allergy Intermediate SWELLING\hi Verified 02/20/22 10:18 [From PRADAXA] ves Review of Systems Sugical H&P ROS: Negative: Constitution, Cardiovascular, Respiratory, Neurological, Psychiatric, Hem-Onc, Allergic/Immunologic, Gastrointestinal, Genitourinary, Musculoskeletal, Integumentary, Endocrine and Eyes/Ears/Nose/Throat Exam Surgical H&P Exam: Normal: HEENT, Normal: Heart, Normal: Lungs, Normal: Extremities, Normal: Abdomen, Normal: Skin and Normal: Neurological Plan Diagnosis/Plan: Unchanged I have reviewed the history and physical and performed a pertinent physical examination on my patient. No changes have occurred unless specified.
--- NOTE | 2022-03-17 09:08 | P.CONAN_ITS ---
[facility] Active Problems Active Problems: All Active Problems (Updated 03/14/22 @ 18:37 by Elmer Dolan, [facility]) Microscopic hematuria (Acute) Acne (Acute) UTI (urinary tract infection) (Acute) Depression (Acute) GERD (gastroesophageal reflux disease) (Acute) Irritable bowel syndrome with both constipation and diarrhea (Acute) Diabetes (Acute) Vitamin D deficiency (Acute) Screening for colon cancer (Acute) Diarrhea (Acute) Tubular adenoma of colon (Acute) Diabetes (Acute) Otitis media (Acute) Urinary incontinence (Acute) Dysuria (Acute) Viral illness (Acute) Cough (Acute) Asthma (Acute) Chronic anticoagulation (Acute) Dyslipidemia (Acute) Breast calcification, right (Acute) Arthritis (Acute) Cardiac pacemaker in situ (Acute) NSVT (nonsustained ventricular tachycardia) (Acute) Paroxysmal atrial fibrillation (Acute) Pre-diabetes (Acute) Hyperlipidemia (Acute) Essential hypertension (Acute) Smoking (Acute) Obesity, Class I, BMI 30-34.9 (Acute) Past Medical History Medical History Arthritis Breast calcification, right Cardiac pacemaker in situ Chest pain Constipation COPD (chronic obstructive pulmonary disease) Depression Diverticulitis Essential hypertension Fatigue GERD (gastroesophageal reflux disease) Hematuria Hyperlipidemia Hypertensive retinopathy Insomnia LVH (left ventricular hypertrophy) Mesenteric lymphadenopathy NSVT (nonsustained ventricular tachycardia) Obesity, Class I, BMI 30-34.9 Paroxysmal atrial fibrillation Pre-diabetes Smoking SSS (sick sinus syndrome) Thrombocytopenia Tremor Family History Family History Father Family history of diabetes mellitus Mother Diabetes mellitus Substance use disorder Sister Uterine cancer Diabetes mellitus Mental health disorder Substance use disorder Maternal Grandfather No problems noted. Maternal Grandmother Unknown family medical history Paternal Grandfather No problems noted. Paternal Grandmother No problems noted. Surgical History Surgical History History of dilatation and curettage History of esophagogastroduodenoscopy (EGD) History of eye surgery History of pubovaginal sling History of tonsillectomy and adenoidectomy History of tubal ligation Hx of cholecystectomy Hx of colonoscopy Hx of right breast biopsy History of Problems with Anesthesia: No Social History Social History Household Members: Other Household Members Other:: Ex-, Daughter Housing: Apartment Alcohol intake: current Alcohol intake frequency: does not drink Patient Tobacco Use Status: Current everyday Tobacco user Tobacco use type: Cigarette Cigarette Packs Per Day: 10 Cigarettes Per Day: 200.0 e-Cigarette/Vaping Use: Never Used Use of substances other than those prescribed or required for medical reasons: No Have you been hit, kicked, punched, or otherwise hurt by someone within the past year? If so, by whom?: No Are you DNR?: No Advance Directives: Yes Advance Directives on File: Yes Advance Directives Date on File: 03/21/18 Recently lost weight without trying: No Nutrition Risks: No Nutritional Risk Current occupational status: disabled Meds Allergies Allergy/AdvReac Type Severity Reaction Status Date / Time dabigatran etexilate Allergy Intermediate SWELLING\hi Verified 02/20/22 10:18 [From PRADAXA] ves Active Medications: Current Medications Albuterol Sulfate (Albuterol Sulfate (0.083%) 2.5 Mg/3 Ml Vial.Neb) 2.5 mg INHALE ONCE PRN PRN Reason: Shortness of Breath/Wheezing Lactated Ringer's (Lr) 1,000 mls @ 50 mls/hr IVCONT .Q20H [facility] Last Admin: 03/17/22 08:30 Dose: 50 mls/hr Documented by: Lactated Ringer's (Lr) 1,000 mls @ 50 mls/hr IVCONT .Q20H [facility] Home Medications Medication Instructions Recorded Confirmed Last Taken Type huffmeitxp-wokvvikddamge-bqmnlcio 1 tab PO Q4H PRN 08/11/20 03/14/22 Unknown History 50 mg-325 mg-40 mg tablet clonazepam 1 mg tablet 1 mg PO BID 08/11/20 03/14/22 Unknown History lancets 28 gauge #100 ea 08/11/20 03/14/22 Unknown History mirabegron 50 mg tablet,extended 50 mg PO DAILY 08/11/20 03/14/22 Unknown History release 24 hr ofloxacin 0.3 % eye drops 0 drp OPHTHALMIC (EYE) 08/11/20 03/14/22 Unknown History primidone 50 mg tablet mg PO 08/11/20 03/14/22 Unknown History propranolol 40 mg tablet 40 mg PO BID 08/11/20 03/14/22 Unknown History trazodone 100 mg tablet 100 mg PO BEDTIME 08/11/20 03/14/22 Unknown History zolpidem 10 mg tablet 10 mg PO BEDTIME PRN 08/11/20 03/14/22 Unknown History lisinopril 40 mg tablet 20 mg PO DAILY tab 08/24/21 03/14/22 Unknown History Exam Exam Date and Time: March 17, 2022 0908 Height,Weight and Vital Signs: Height 5 ft 9 in Weight 93.894 kg Last Vital Signs Temp 97.0 F 03/17/22 08:29 Pulse 75 03/17/22 08:29 Resp 16 03/17/22 08:29 BP 150/90 H 03/17/22 08:29 Pulse Ox 97 03/17/22 08:29 Pertinent Lab Results Pertinent Lab Results: Laboratory Tests 03/17/22 08:25 POC Glucose 120 H Airway Mallampati Class: II TM Dist: >3cm Neck ROM: Full Heart: RRR Lungs: CTA Assessment and Plan Assessment Anesthesia Assessment: Anesthesia Plan Discussed and Chart Reviewed Final Anesthetic Review History of Problems with Anesthesia: No NPO: Yes ASA Class: III Final Preanesthetic Review: Meds/Allgs Chart Reviewed, Consent Obtained/Reviewed and Anes Risks/Benef Reviewed Patient Risk: Intermediate Procedure Risk: Low Anesthetic Plan Anesthetic Plan: MAC: Disposition: Standard PACU
--- NOTE | 2022-03-17 09:14 | PM.OP ---
Brief Operative Note Date of Service: 03/17/22 Pre-op diagnosis: hx of colon polyps Post-op diagnosis: same Procedure: see op note Surgeon: Verenice Quinn MD Anesthesia: MAC Was an Field Merchandiser used for this Procedure?: No Estimated blood loss (mL): 0 Condition: stable Disposition: PACU
--- NOTE | 2022-03-17 09:14 | W.PM.OPN ---
Operative Note Operative Note Date of Service: 03/17/22 Narrative: Operative Information Procedure Description: Colonoscopy Indication: hx of colon polyps Anesthesia: MAC COLONOSCOPY Instrument: Olympus variable stiffness pediatric scope 190L Colonoscopy Monitoring: Vital signs and clinical assessment, continuous EKG monitoring, Pulse oximetry, Carbon Dioxide monitoring and blood pressure monitoring were done throughout the procedure. Colon withdrawal time was 10 minutes. Procedure: The patient was placed in the left lateral decubitis position and pre-procedure medications were administered. After a digital rectal examination of the ano-rectum, the video colonoscope was inserted into the rectum and advanced through the colon to the cecum/TI. The colonoscope was slowly withdrawn in a retrograde panoramic fashion and the colon mucosa was carefully examined including a retroflexed view of the rectum. Findings and interventions are described below. Procedure Difficulty: moderate Findings: Terminal Ileum-normal Cecum:normal Ascending Colon: 8-10 mm sessile polyp removed with cold snare Transverse Colon -normal Descending Colon:normal Sigmoid Colon: moderate severe diverticulosis, with luminal narrowing and mucosal hypertrophy Rectum: Retroflexion with small internal hemorrhoids, grade I Anorectum - normal Colon preparation: [place] Bowel Preparation Scale Right colon; 2 Transverse colon: 2 Left colon; 1 (0 = Unprepared colon segment with mucosa not seen due to solid stool that cannot be cleared. 1 = Portion of mucosa of the colon segment seen, but other areas of the colon segment not well seen due to staining, residual stool and/or opaque liquid. 2 = Minor amount of residual staining, small fragments of stool and/or opaque liquid, but mucosa of colon segment seen well. 3 = Entire mucosa of colon segment seen well with no residual staining, small fragments of stool or opaque liquid) Impression and Post Procedure Diagnosis: polyp internal hemorrhoids diverticular disease Plan: High fiber diet leaflet Avoid straining at stool, epsom salts and sitz bath, anusol supps or cream Repeat Colonoscopy in 5 years due to prep on left side or earlier if clinically indicated can restart anti coagulation tomorrow Above findings were reviewed with the patient and relevant handouts were provided if indicated.
[2022-03-17 09:45] VITALS: BP 100/68; PULSE 69; RESP 10; TEMP 36.8; O2SAT 98
[2022-03-17 10:00] VITALS: BP 119/58; PULSE 64; RESP 18; TEMP 36.1; O2SAT 97
== END 2022-03-17 10:55 | disposition home or self-care (01) ==
PROVIDERS: PCP Nurse Practitioner Family; Visit Provider Internal Medicine Gastroenterology
PROC: 0DJD8ZZ Inspection of Lower Intestinal Tract, Via Natural or Artificial Opening Endoscopic (ICD-10-PCS; CPT 45378; principal; 2022-03-17 09:20)
DX: Z12.11 Encounter for screening for malignant neoplasm of colon (principal); Z86.010 Personal history of colon polyps; D12.2 Benign neoplasm of ascending colon; K57.30 Diverticulosis of large intestine without perforation or abscess without bleeding; K64.0 First degree hemorrhoids; K21.9 Gastro-esophageal reflux disease without esophagitis; K58.2 Mixed irritable bowel syndrome; I49.5 Sick sinus syndrome; Z95.0 Presence of cardiac pacemaker; I48.0 Paroxysmal atrial fibrillation; Z79.01 Long term (current) use of anticoagulants; E11.9 Type 2 diabetes mellitus without complications; E78.5 Hyperlipidemia, unspecified; J44.9 Chronic obstructive pulmonary disease, unspecified; I10 Essential (primary) hypertension; Z79.84 Long term (current) use of oral hypoglycemic drugs; Z79.899 Other long term (current) drug therapy; Z88.8 Allergy status to other drugs, medicaments and biological substances; Z90.49 Acquired absence of other specified parts of digestive tract; Z98.890 Other specified postprocedural states; F17.210 Nicotine dependence, cigarettes, uncomplicated
CPT/HCPCS: 45385; 82947; 88305

== ENCOUNTER 2022-05-11 16:02 | Outpatient (REF) | payer OTHER, SELFPAY | END 2022-05-11 16:03 | disposition home or self-care (01) | LOC: HO.LAB 16:02 | DX: R31.29 Other microscopic hematuria (principal) | CPT/HCPCS: 99202 ==

== ENCOUNTER → 2022-05-12 14:49 | Outpatient (BNVA) | payer OTHER, SELFPAY | PROVIDERS: PCP Nurse Practitioner Family; Visit Provider Nurse Practitioner | DX: K58.2 Mixed irritable bowel syndrome (principal); K21.9 Gastro-esophageal reflux disease without esophagitis | CPT/HCPCS: 99212 ==

== ENCOUNTER 2022-05-12 16:57 | Outpatient (REF) | payer OTHER, SELFPAY | END 2022-05-12 16:58 | disposition home or self-care (01) | LOC: HO.LNP 16:57 | PROVIDERS: Nurse Practitioner Family | DX: N39.0 Urinary tract infection, site not specified (principal); R30.0 Dysuria; E11.9 Type 2 diabetes mellitus without complications; E78.5 Hyperlipidemia, unspecified; B96.1 Klebsiella pneumoniae [K. pneumoniae] as the cause of diseases classified elsewhere; Z16.11 Resistance to penicillins | CPT/HCPCS: 81001; 81003; 87086; 87088; 87186 ==

== ENCOUNTER 2022-06-15 12:50 | Outpatient (REF) | payer OTHER, SELFPAY ==
[2022-06-15 16:44] LABS: Urine Cytology See Pathology rpt
== END 2022-06-15 12:51 | disposition home or self-care (01) ==
LOC: HO.LAB 12:50
PROVIDERS: PCP Nurse Practitioner Family; Visit Provider Urology
DX: C67.9 Malignant neoplasm of bladder, unspecified (principal); R32 Unspecified urinary incontinence; R31.29 Other microscopic hematuria
CPT/HCPCS: 51798; 88112

== ENCOUNTER 2022-06-15 12:50 | Outpatient (AMB) | payer OTHER, SELFPAY ==
--- NOTE | 2022-06-15 08:19 | A.OFFVIS_ITS ---
Intake Vital Signs 06/15/22 13:25 Height 5 ft 9 in Weight 204 lb BMI 30.1 BP 130/80 Blood Pressure Location Rt brachial Position Sitting Respiration 17 Pulse 84 Pulse Source Pulse Oximeter Intake Visit Reasons: 1 month follow up cytology / UA Intake Note: Patient is present for cytology/ UA Internal Medicine Doctor Required: No Accompanied by: Self / Same As Patient Allergies dabigatran etexilate [From PRADAXA] Allergy (Intermediate, Verified 12/10/23 15:28) SWELLING\hives Medication List - Last Reconciled 06/15/22 by Shahriar Dozier MD acetaminophen 1,000 mg (2 x 500 mg) PO Q8H PRN 15 days amlodipine 2.5 mg PO DAILY 90 days ascorbic acid (vitamin C) 500 mg PO BID 90 days atorvastatin 40 mg PO DAILY blood pressure test kit-large Use to check BP daily blood sugar diagnostic (FreeStyle Lite Strips) test BS TID blood-glucose meter (FreeStyle Lite Meter kit) Use to test blood sugar 3 times a day [id number]-ssodwcrrkvytn-yyrd 50-325-40 mg 1 tab PO Q4H PRN cholecalciferol (vitamin D3) 50 mcg PO DAILY clonazepam 1 mg PO BID cranberry fruit 450 mg PO BID 90 days ibuprofen 600 mg PO TID PRN 30 days lancets As directed lancets (FreeStyle Lancets) As directed lisinopril 20 mg PO DAILY metformin ER 500 mg PO DAILY mirabegron ER 50 mg PO DAILY ofloxacin 0.3% 0 drps ophthalmic (eye) omeprazole 20 mg PO .QD primidone 50 mg PO DAILY propranolol 40 mg PO BID [pull ups The patient is using 8 pull ups a day; size extra large] [Recliner lift chair As directed] rivaroxaban (Xarelto) 20 mg PO QPM 90 days sucralfate (Carafate) 2 grams (2 x 1 gram) PO .daily at 11pm 30 days sulfamethoxazole-trimethoprim 800-160 mg (Bactrim DS) 1 tab PO BID 10 days trazodone 100 mg PO BEDTIME zolpidem 10 mg PO BEDTIME PRN HPI HPI Comments History of Present Illness Details LAVERN IS A NEW PATIENT TO THE UROLOGY OFFICE.? SHE HAS BEEN REFERRED FOR EVALUATION AND MANAGEMENT OF MICRO HEMATURIA THIS WAS NOTED AT HER LAST DOCTOR'S OFFICE VISIT.? SHE HAS NOT SEEN ANY VISIBLE BLOOD IN THE URINE.? URINALYSIS TODAY IN THE OFFICE DEMONSTRATES 2+ LEUKOCYTE AND A TRACE AMOUNT OF BLOOD.? PATIENT DENIES COMPLAINTS OF PAIN OR DISCOMFORT.? SHE REPORTS HAVING GOOD APPETITE BUT IS HAVING SOME PROBLEMS WITH DIARRHEA WHICH MAKES HER NOT WANT TO EAT TOO MUCH.? SHE BELIEVES THAT HER LAST URINARY TRACT INFECTION WAS APPROXIMATELY 1 AND HALF MONTHS AGO.? SHE IS CURRENTLY SMOKING 2 CIGARETTES PER DAY WHICH IS DOWN FROM 10 PACK PER DAY SHE WAS UNABLE TO STOP PROVIDE ENOUGH URINE IN THE OFFICE TODAY TO SEND FOR CULTURE AND SENSITIVITY.? SHE REPEATEDLY ASKS IF SHE HAS URINARY TRACT INFECTION AND HAD BEEN TOLD 3 TIMES THAT THERE WAS NOT ENOUGH URINE TO SEND FOR CULTURE.? WE WOULD ALSO LIKE TO SEND URINE FOR CYTOLOGY SECONDARY TO THE FINDING OF MICRO HEMATURIA.? PATIENT WILL BE SENT HOME WITH A URINE CUP TO COLLECT URINE IF SHE IS ABLE TO AT HOME? PATIENT ADMITS TO BEING SEDENTARY AND IS SLEEPING MOST OF THE DAY. ? FOR[facility]LY [facility], [facility] Medical History Cardiac pacemaker in situ (~2014) Paroxysmal atrial fibrillation LVH (left ventricular hypertrophy) Essential hypertension Hyperlipidemia Diabetes COPD (chronic obstructive pulmonary disease) Nicotine dependence, cigarettes, uncomplicated Benign essential tremor Microscopic hematuria Recurrent UTI Osteopenia (~2021) Obesity, Class I, BMI 30-34.9 Hypertensive retinopathy GERD (gastroesophageal reflux disease) Diverticulitis Tubular adenoma of colon (~2017) Mesenteric lymphadenopathy Thrombocytopenia Depression Insomnia Arthritis Breast calcification, right Surgical History History of pacemaker History of cholecystectomy History of tonsillectomy and adenoidectomy History of eye surgery History of tubal ligation History of colonoscopy History of esophagogastroduodenoscopy (EGD) History of pubovaginal sling History of dilatation and curettage History of loop electrical excision procedure (LEEP) History of right breast biopsy History of vocal cord polypectomy Family History Father Family history of diabetes mellitus Mother Diabetes mellitus Substance use disorder Sister Uterine cancer Diabetes mellitus Mental health disorder Substance use disorder Maternal Grandfather No problems noted. Maternal Grandmother Unknown family medical history Paternal Grandfather No problems noted. Paternal Grandmother No problems noted. Social History Household Members: Other Household Members Other:: Ex-, Daughter Housing: Apartment Alcohol intake: former Year quit: 2001 Patient Tobacco Use Status: Current everyday Tobacco user Tobacco use type: Cigarette Cigarettes Per Day: 3 Years Smoked: (onset 16yo, 1ppd x 47yrs, 40pyh) e-Cigarette/Vaping Use: Never Used Second Hand Smoke Exposure: Yes Advance Directives Date on File: 03/21/22 service: No Current occupational status: disabled Cognitive needs: No Hearing needs: No Vision needs: No Female Reproductive History Menstrual Age of Menarche: 7 Review of Systems Const Denies chills and Denies fever(s) Card Reports no additional complaints and Denies syncope Resp Denies cough GI Denies abdominal pain and Denies heartburn Reports as per HPI and Denies change in libido Neuro Denies syncope Psych Denies change in libido Endo Denies change in libido Physical Exam Vital Signs: Last Vital Signs Pulse 84 06/15/22 13:25 Resp 17 06/15/22 13:25 BP 130/80 06/15/22 13:25 BMI result Body Mass Index 30.1 Const General: cooperative, healthy appearing, comfortable and no acute distress Orientation/consciousness: patient oriented x3 HEENT Face and sinus: Yes normal facial exam Mouth: moist mucous membranes Neck Neck: Yes normal visual inspection, Yes full ROM and Yes trachea midline Chest Chest palpation & inspection: normal inspection of the chest Resp Effort & Inspection: normal respiratory effort, able to speak in complete sentences and no respiratory distress GI Inspection: Yes normal to inspection Back/Spine/Pelvis Cervical Spine: normal cervical lordosis Thoracic/Lumbar Spine: thoracic and lumbar spine normal to inspection Skin General skin exam: no rashes or lesions noted Neuro General: patient oriented x3, gait normal, tone normal and moves all extremities Extrem General: Yes normal to inspection and Yes capillary refill normal Office Procedures Post Void Residual Post Residual Void Post Void Residual (PVR): 16 [id number] Void Residual by ultrasound Results AMB Urinalysis, Automated UA Leukoctes 0 Tamir/uL Last Edit by Gregorio Orellana on 06/15/22 13:19 UA Nitrite Negative Last Edit by Gregorio Orellana on 06/15/22 13:19 UA Urobilinogen 0.2 mg/dL Last Edit by Gregorio Orellana on 06/15/22 13:19 UA Protein 15 mg/dL Last Edit by Gregorio Orellana on 06/15/22 13:19 UA pH 6.0 Last Edit by Gregorio Orellana on 06/15/22 13:19 UA Blood 0 Vik/uL Last Edit by Gregorio Orellana on 06/15/22 13:19 UA Specific [place] 1.030 Last Edit by Gregorio Orellana on 06/15/22 13:19 UA Ketone Negative Last Edit by Gregorio Orellana on 06/15/22 13:19 UA Bilirubin 0 mg/dL Last Edit by Gregorio Orellana on 06/15/22 13:19 UA Glucose 250 mg/dL Last Edit by Gregorio Orellana on 06/15/22 13:19 Results Reviewed Results Reviewed: Laboratory Last Values Urine pH (Auto) 6.0 06/15/22 12:57 Specific [place] (Auto) 1.030 06/15/22 12:57 Urine Protein (Auto) 15 mg/dL 06/15/22 12:57 Glucose (UA)(Auto) 250 mg/dL 06/15/22 12:57 Urine Ketones (Auto) Negative 06/15/22 12:57 Urine Blood (Auto) 0 Vik/uL 06/15/22 12:57 Urine Nitrite (Auto) Negative 06/15/22 12:57 Urine Bilirubin (Auto) 0 mg/dL 06/15/22 12:57 Urine Urobilinogen (Auto) 0.2 mg/dL 06/15/22 12:57 Leukocyte Esterase (Auto) 0 Tamir/uL 06/15/22 12:57 Assessment & Plan Assessment & Plan (1) Recurrent UTI: Code(s): N39.0 - Urinary tract infection, site not specified Plan 12m f/u Orders: Orders US renal BI 1 Year R31.29 - Other microscopic hematuria Urine Cytology 06/15/22 C67.9 - Malignant neoplasm of bladder, unspecified AMB Urinalysis Automated 06/15/22 Z13.9 - Encounter for screening, unspecified AMB Post Void Residual by ultrasound 06/15/22 R32 - Unspecified urinary incontinence Patient Instructions: Imaging studies, laboratory and physical exam results were discussed and reviewed in detail. No major barriers to patient understanding were identified. An opportunity to ask questions regarding the treatment plan was provided. All questions were answered. The patient expressed understanding and agreement with the above treatment plan. The patient is aware they should contact our office by phone for worsening of their current condition or the appearance of new urologic symptoms. Compliance is encouraged with any medications and followup testing that is ordered. It is a privilege to participate in the urologic care of your patient. If you have any questions or concerns regarding treatment for the above conditions, or other urologic issues, please do not hesitate to contact me. The office telephone contact is [phone]. This note is constructed using voice recognition software. While every effort has been made to ensure accuracy admitting coordinator errors may have been included. Yours sincerely, Dr Shahriar Dozier MD, [facility] - Urology Providers of Expert, Compassionate Care for the Genitourinary System Coding Level of Care Code Est Pt Level 3 (99791) Diagnoses Recurrent UTI N39.0 CPT Codes Post Residual Void - PVR CPT Code: 08953-Vqsd Void Residual by ultrasound ([id number])
[2022-06-15 13:25] VITALS: BP 130/80; PULSE 84; RESP 17; BMI 30.1
== END 2022-06-15 13:55 | disposition home or self-care (01) ==
LOC: HO.HUSH 12:50
PROVIDERS: PCP Nurse Practitioner Family; Visit Provider Urology
DX: N39.0 Urinary tract infection, site not specified (principal)
CPT/HCPCS: 99499

== ENCOUNTER 2022-06-28 09:14 | Outpatient (REF) | payer OTHER, SELFPAY ==
[2022-06-28 11:29] LABS: Basophils Absolute Auto 0.1 X10*3/uL (0.0-0.2); Basophils Percent Auto 0.6 % (0-2); Eosinophils Absolute Auto 0.1 X10*3/uL (0.0-0.4); Eosinophils Percent Auto 1.1 % (0-4); Hematocrit 36.5 % (37.0-47.0); Hemoglobin 12.1 g/dl (12.0-16.0); Imm Gran Abs Auto 0.04 X10*3/uL (0.00-0.03); Imm Gran Pct Auto 0.5 % (0.0-0.4); Lymphocytes Percent Auto 24.7 % (20-40); MANUAL DIFF FLAG SCAN; Mean Corpuscular HGB Conc 33.2 g/dl (31.0-35.0); Mean Corpuscular Volume 87.5 fL (80.0-98.0); Monocytes Absolute Auto 0.7 X10*3/uL (0.1-1.2); Monocytes Percent Auto 8.3 % (2-11); Neutrophils Absolute Auto 5.2 x10*3/uL (2.0-8.3); Neutrophils Percent Auto 64.8 % (45-73); PLT CLUMP 1; Red Blood Count 4.17 X10*6/uL (4.20-5.50); Red Cell Distribution Width 14.3 % (11.0-16.0); SCAN SMEAR FLAG 1
[2022-06-28 11:30] LABS: Appearance Urine Clear; Color Urine Yellow; Glucose Urine UA Negative (Negative); Leukocyte Esterase Urine Trace (Negative); Nitrite Urine Negative (Negative); Specific Gravity - Urine 1.015 (1.005-1.025); Urine Blood Negative (Negative); Urine Ketones Negative (Negative); Urine Protein Negative (Neg-Trace)
[2022-06-28 11:37] LABS: Bacteria Urine Trace (None Seen); Hyaline Casts Urine 0-2 /LPF (0-2); RBC Urine 0-2 /HPF (0-2); WBC Urine 0-5 /HPF (0-5)
[2022-06-28 11:45] LABS: Alanine Aminotransferase 12 U/L (0-31); Albumin Level 3.8 g/dL (3.5-5.0); Alkaline Phosphatase 87 U/L (39-117); Anion Gap 17 (12-20); Aspartate Amino Transferase 15 U/L (5-31); Bilirubin Total 0.2 mg/dL (0.0-1.0); Blood Urea Nitrogen 10 mg/dL (9-16); Calcium 8.8 mg/dL (8.4-10.2); Carbon Dioxide 22 mmol/L (22-29); Chloride 105 mmol/L (96-108); Cholesterol 139 mg/dL; Estimated Glomerular Filt Rate > 60; Glucose Fasting 115 mg/dL (60-99); HDL Cholesterol 40 mg/dL; LDL Cholesterol Calculated 76 mg/dl; Potassium 4.2 mmol/L (3.3-5.1); Sodium 140 mmol/L (135-145); Total Protein 6.5 g/dL (6.5-8.0); Triglycerides 117 mg/dL
[2022-06-28 11:57] LABS: Platelet Count 109 X10*3/uL (160-400)
[2022-06-28 12:00] LABS: SLIDE REVIEW VERIFIED
== END 2022-06-28 09:15 | disposition home or self-care (01) ==
LOC: HO.HMGCLDS 09:14
PROVIDERS: PCP Nurse Practitioner Family; Visit Provider Nurse Practitioner Family
DX: E78.5 Hyperlipidemia, unspecified (principal); I10 Essential (primary) hypertension
CPT/HCPCS: 36415; 80053; 80061; 81001; 84443; 85025

== ENCOUNTER → 2022-07-20 14:19 | Outpatient (BNVA) | payer OTHER, SELFPAY | PROVIDERS: PCP Nurse Practitioner Family; Visit Provider Internal Medicine | DX: J44.9 Chronic obstructive pulmonary disease, unspecified (principal); G25.0 Essential tremor; Z87.891 Personal history of nicotine dependence | CPT/HCPCS: 99202 ==

== ENCOUNTER 2022-07-21 14:07 | Outpatient (REF) | payer OTHER, SELFPAY ==
--- NOTE | ~2022-07-21 | MM_ITS ---
EXAMINATION: BONE DENSITOMETRY CLINICAL INDICATION: Nicotine dependence, unspecified, uncomplicated. COMPARISON: Baseline BD dated 04/14/2010. TECHNIQUE: Using a [employer] DXA System (software version: 13.1) manufactured by [employer], dual-energy x-ray absorptiometry was performed of the lumbar spine and left hip. The images are of good technical quality. Summary results are attached. FINDINGS: AP SPINE L1-L4: Current: BMD 1.011 g/cm2, Z-score -0.8, T-score -1.4, osteopenia, 7.4% decrease from baseline (<5% change is not significant). Baseline: BMD 1.092 g/cm2. LEFT FEMUR, NECK: Current: BMD 0.821 g/cm2, Z-score -0.7, T-score -1.6, osteopenia. Baseline: BMD 0.922 g/cm2. LEFT FEMUR, TOTAL: Current: BMD 0.929 g/cm2, Z-score -0.1, T-score -0.6, normal, 7.7% decrease from baseline (<5% change is not significant). Baseline: BMD 1.007 g/cm2. IDENTIFIED RISK FACTORS: Rheumatoid arthritis. Current smoker. Recurrent falls. Secondary osteoporosis (early menopause). HISTORY OF FRACTURE: None listed. MEDICATIONS: Vitamin D. MM/XR DEXA axial skeleton IMPRESSION: 1. DIAGNOSIS: Osteopenia based on the lowest T-score value of -1.6 in the femoral neck applying World Health Organization criteria. 2. 10-YEAR FRACTURE RISK PREDICTION, FRAX: Major osteoporotic fracture (clinical spine, forearm, hip or shoulder) 11.2%. Hip fracture 2.1%. 3. Treatment Recommendations: NOF guidelines recommend consideration for treatment in postmenopausal women and men age 50 and older presenting with the following: -A hip or vertebral (clinical or morphometric) fracture. -T-score less than or equal to -2.5 at the femoral neck or spine after appropriate evaluation to exclude secondary causes. -Low bone mass at the hip or spine and a 10-year fracture probability by FRAX of greater than or equal to 3% for hip fracture or greater than or equal to 20% for major osteoporotic fracture based on the [place] adapted WHO algorithm. 4. Other Recommendations: All treatment decisions require clinical judgment and consideration of individual patient factors, including patient preferences, comorbidities, previous drug use, risk factors not captured in the FRAX model (e.g. frailty, falls, vitamin D deficiency, increased bone turnover, interval significant decline in bone density) and possible under or overestimation of fracture risk by FRAX. Additional medical evaluation for secondary cause of low bone mineral density may be appropriate. FUTURE SCAN RECOMMENDATION: People with diagnosed cases of osteoporosis or at high risk for fracture should have regular bone mineral density tests. For patients eligible for Medicare, routine testing is allowed once every 2 years. The testing frequency can be increased to one year for patients who have rapidly progressing disease, those who are receiving or discontinuing medical therapy to restore bone mass, or have additional risk factors.
== END 2022-07-21 14:08 | disposition home or self-care (01) ==
LOC: HO.MAMMO 14:07
PROVIDERS: PCP Nurse Practitioner Family; Visit Provider Nurse Practitioner Family
DX: Z13.820 Encounter for screening for osteoporosis (principal); Z78.0 Asymptomatic menopausal state; F17.200 Nicotine dependence, unspecified, uncomplicated
CPT/HCPCS: 77080

== ENCOUNTER 2022-09-01 13:45 | Outpatient (REF) | payer OTHER, SELFPAY ==
--- NOTE | 2022-09-01 16:33 | PFT_ITS ---
Forced vital capacity 37%, FEV1 30%, FEV1/FVC ratio is 62. HGH28-01 19% and MVV is 32%. Post bronchodilator therapy, there is significant improvement in FVC, FEV1, and FBL05-39. Total lung capacity 106%, residual volume 174%. Diffusion capacity 56%. CONCLUSION: Very severe obstructive airway disorder. Partial reversibility after bronchodilator therapy is noted. There is evidence of air trapping. These findings are consistent with asthma/COPD overlap syndrome. Clinical correlation recommended. MD KHOA Gibbons/MODL / [id number]
== END 2022-09-01 13:46 | disposition home or self-care (01) ==
LOC: HO.RESP 13:45
PROVIDERS: PCP Nurse Practitioner Family; Visit Provider Internal Medicine
DX: J44.9 Chronic obstructive pulmonary disease, unspecified (principal); Z87.891 Personal history of nicotine dependence
CPT/HCPCS: 94060; 94727; 94729

== ENCOUNTER → 2022-09-07 14:57 | Outpatient (BNVA) | payer OTHER, SELFPAY | PROVIDERS: PCP Nurse Practitioner Family; Visit Provider Internal Medicine | DX: J44.9 Chronic obstructive pulmonary disease, unspecified (principal); F17.210 Nicotine dependence, cigarettes, uncomplicated | CPT/HCPCS: 99212 ==

== ENCOUNTER 2022-09-11 15:33 | Outpatient (REF) | payer OTHER, SELFPAY ==
[2022-09-11 18:09] LABS: Anion Gap 12 (12-20); Blood Urea Nitrogen 17 mg/dL (9-16); Calcium 9.5 mg/dL (8.4-10.2); Carbon Dioxide 29 mmol/L (22-29); Chloride 104 mmol/L (96-108); Estimated Glomerular Filt Rate > 60; Glucose Random 137 mg/dL (60-115); Potassium 4.2 mmol/L (3.3-5.1); Sodium 141 mmol/L (135-145)
== END 2022-09-11 15:34 | disposition home or self-care (01) ==
LOC: HO.LAB 15:33
PROVIDERS: PCP Nurse Practitioner Family; Referring Provider Nurse Practitioner Family; Visit Provider Internal Medicine Cardiovascular Disease
DX: Z45.018 Encounter for adjustment and management of other part of cardiac pacemaker (principal); I48.0 Paroxysmal atrial fibrillation; I10 Essential (primary) hypertension; R19.7 Diarrhea, unspecified
CPT/HCPCS: 36415; 80048; 93280; 99212

== ENCOUNTER 2022-10-25 14:53 | Outpatient (REF) | payer OTHER, SELFPAY ==
--- NOTE | ~2022-10-25 | MM_ITS ---
EXAMINATION: MM SCREENING DIGITAL BREAST TOMOSYNTHESIS, BILATERAL CLINICAL INFORMATION: Screening. Asymptomatic. Benign right stereotactic biopsy 11/09/2021 (benign breast tissue with stromal fibrosis and calcification). The lifetime risk of breast cancer based on the Tyrer-Cuzick Model is 11%. COMPARISON: Mammography: 11/09/2021, 11/01/2021, 10/19/2021, 10/18/2020, 10/09/2019 TECHNIQUE: Digital breast tomosynthesis is performed in both the craniocaudal and mediolateral oblique views along with computer-aided detection (CAD). Synthesized 2D images are generated from the tomosynthesis. FINDINGS: There are scattered areas of fibroglandular density (ACR BI-RADS breast composition Category b). There are no significant masses, abnormal calcifications, or other abnormalities. Parenchymal pattern is similar to prior studies. There is no developing density or architectural abnormality. There is a biopsy clip marker posterior central 3:00 right breast. The axilla are unremarkable. Skin contours are smooth. No significant changes. MM/MM tomosynthesis screening BI IMPRESSION: No mammographic evidence of malignancy. ASSESSMENT: BI-RADS 2: Benign RECOMMENDATION: Routine annual mammography screening. This patient's information was entered into a reminder system with a target due date for their next mammogram.
== END 2022-10-25 14:54 | disposition home or self-care (01) ==
LOC: HO.MAMMO 14:53
PROVIDERS: PCP Nurse Practitioner Family; Visit Provider Nurse Practitioner Family
DX: Z12.31 Encounter for screening mammogram for malignant neoplasm of breast (principal)
CPT/HCPCS: 77063; 77067

== ENCOUNTER 2022-11-20 14:11 | Outpatient (REF) | payer OTHER, SELFPAY | END 2022-11-20 14:12 | disposition home or self-care (01) | LOC: HO.HMGCLDS 14:11 | PROVIDERS: Visit Provider Nurse Practitioner Family | DX: Z13.89 Encounter for screening for other disorder (principal) ==

== ENCOUNTER 2022-11-23 13:05 | Outpatient (REF) | payer OTHER, SELFPAY ==
[2022-11-23 14:01] LABS: MANUAL DIFF FLAG NO
[2022-11-23 14:08] LABS: Basophils Absolute Auto 0.1 X10*3/uL (0.0-0.2); Basophils Percent Auto 0.7 % (0-2); Eosinophils Absolute Auto 0.1 X10*3/uL (0.0-0.4); Eosinophils Percent Auto 1.2 % (0-4); Hematocrit 41.1 % (37.0-47.0); Hemoglobin 13.4 g/dl (12.0-16.0); Imm Gran Abs Auto 0.03 X10*3/uL (0.00-0.03); Imm Gran Pct Auto 0.3 % (0.0-0.4); Lymphocytes Absolute Auto 2.4 X10*3/uL (1.2-4.9); Lymphocytes Percent Auto 27.7 % (20-40); Mean Corpuscular HGB Conc 32.6 g/dl (31.0-35.0); Mean Corpuscular Hemoglobin 29.3 pg (27.0-33.0); Mean Corpuscular Volume 89.7 fL (80.0-98.0); Mean Platelet Volume 12.2 fL (9.4-12.3); Monocytes Absolute Auto 0.7 X10*3/uL (0.1-1.2); Monocytes Percent Auto 7.6 % (2-11); Neutrophils Absolute Auto 5.4 x10*3/uL (2.0-8.3); Neutrophils Percent Auto 62.5 % (45-73); Platelet Count 179 X10*3/uL (160-400); Red Blood Count 4.58 X10*6/uL (4.20-5.50); Red Cell Distribution Width 13.8 % (11.0-16.0); White Blood Count 8.7 X10*3/uL (4.8-10.8)
[2022-11-23 14:25] LABS: Estimated Average Glucose 148 mg/dL; Hemoglobin A1c % 6.8 %
[2022-11-23 14:34] LABS: Alanine Aminotransferase 17 U/L (0-31); Albumin Level 3.9 g/dL (3.5-5.0); Alkaline Phosphatase 89 U/L (39-117); Anion Gap 10 (12-20); Aspartate Amino Transferase 16 U/L (5-31); Bilirubin Total 0.3 mg/dL (0.0-1.0); Blood Urea Nitrogen 13 mg/dL (9-16); Carbon Dioxide 27 mmol/L (22-29); Chloride 107 mmol/L (96-108); Cholesterol 157 mg/dL; Estimated Glomerular Filt Rate > 60; Glucose Fasting 129 mg/dL (60-99); HDL Cholesterol 50 mg/dL; LDL Cholesterol Calculated 80 mg/dl; Potassium 4.3 mmol/L (3.3-5.1); Sodium 140 mmol/L (135-145); Total Protein 6.6 g/dL (6.5-8.0); Triglycerides 137 mg/dL
[2022-11-23 14:56] LABS: TSH reflex Free T4 2.47 uIU/mL (0.32-4.0)
== END 2022-11-23 13:06 | disposition home or self-care (01) ==
LOC: HO.HMGCLDS 13:05
PROVIDERS: PCP Nurse Practitioner Family; Visit Provider Nurse Practitioner Family
DX: E11.9 Type 2 diabetes mellitus without complications (principal); J44.9 Chronic obstructive pulmonary disease, unspecified; F17.200 Nicotine dependence, unspecified, uncomplicated; Z71.6 Tobacco abuse counseling
CPT/HCPCS: 36415; 80053; 80061; 81003; 83036; 84443; 85025; 99212

== ENCOUNTER → 2022-11-29 14:23 | Outpatient (BNVA) | payer OTHER, SELFPAY | PROVIDERS: PCP Nurse Practitioner Family; Visit Provider Nurse Practitioner | DX: Z01.818 Encounter for other preprocedural examination (principal); K21.9 Gastro-esophageal reflux disease without esophagitis; K58.2 Mixed irritable bowel syndrome; D12.6 Benign neoplasm of colon, unspecified | CPT/HCPCS: 99212 ==

== ENCOUNTER → 2023-01-24 15:43 | Outpatient (BNVA) | payer MEDICARE, MEDICAID, SELFPAY | PROVIDERS: PCP Nurse Practitioner Family; Visit Provider Internal Medicine | DX: J44.9 Chronic obstructive pulmonary disease, unspecified (principal); Z87.891 Personal history of nicotine dependence | CPT/HCPCS: 99212 ==

== ENCOUNTER 2023-02-14 19:31 | Emergency (ER) | payer MEDICARE, MEDICAID, SELFPAY ==
[2023-02-14] VITALS (7 sets, daily range): BP systolic 118–136; BP diastolic 61–84; PULSE 65–79; RESP 16–18; TEMP 36.9–37; O2SAT 94–97; BMI 34.4
--- NOTE | ~2023-02-14 | CT_ITS ---
EXAMINATION: CT HEAD WITHOUT CONTRAST CLINICAL INFORMATION: Dizziness. COMPARISON: Most recent head CT dated 07/29/2016. TECHNIQUE: Contiguous axial imaging was performed from the skull base to vertex without intravenous administration of contrast. This CT examination was performed using dose optimization techniques as appropriate, variously including the following: *Automated exposure control *Adjustment of mA and/or kV according to patient size (this includes techniques or standardized protocols for targeted exams where dose is matched to indication/reason for exam; i.e. extremities or head) *Use of iterative reconstruction technique DLP: 630 mGy-cm FINDINGS: No acute intracranial hemorrhage. No mass effect or midline shift. No parenchymal lesion. The zavala-white differentiation is maintained. No extra-axial fluid collection. The ventricles and sulci are unremarkable. The basal cisterns are patent. The calvarium is intact. The visualized paranasal sinuses and mastoid air cells are clear. CT/CT head/brain wo IV con IMPRESSION: No acute intracranial hemorrhage or mass effect.
--- NOTE | 2023-02-14 19:48 | ECG_ITS ---
Test Reason : DIZZINESS Blood Pressure : / mmHG Vent. Rate : 068 BPM Atrial Rate : 068 BPM P-R Int : 168 ms QRS Dur : 072 ms QT Int : 424 ms P-R-T Axes : 045 065 068 degrees QTc Int : 450 ms Normal sinus rhythm with sinus arrhythmia Normal ECG When compared with ECG of 17-OCT-2019 12:58, Premature atrial complexes are no longer Present T wave inversion less evident in Anterior leads Referred By: Meghna Davey Electronically Signed By:Shamar Araujo
--- NOTE | 2023-02-14 19:56 | ED_ITS ---
HPI - General Adult General Chief complaint: Urogenital-Female <MERVAT Dover - Last Filed: 02/14/23 20:01> Stated complaint: dizziness <MERVAT Dover - Last Filed: 02/14/23 20:01> Time Seen by Provider: 02/14/23 21:38 <MERVAT Dover - Last Filed: 02/14/23 20:01> Source: patient <Venkata Bey MD - Last Filed: 02/15/23 04:34> Mode of arrival: ambulatory <Venkata Bey MD - Last Filed: 02/15/23 04:34> Limitations: no limitations <Venkata Bey MD - Last Filed: 02/15/23 04:34> History of Present Illness HPI narrative: Patient with history of hypertension , COPD comes here for vertiginous feeling for last 4 days had similar episode last month but lasted only for 1 day this time been feeling dizzy whenever she turns her head especially to the left side with slight nausea and off balance no fever no chills no headache also complaining of urinary frequency last few days <Venkata Bey MD - Last Filed: 02/15/23 04:34> Related Data Home medications: Home Medications Medication Instructions Recorded Confirmed [id number] 1 tab PO Q4H PRN Migraine Headache 08/11/20 01/24/23 50 mg-325 mg-40 mg tablet clonazepam 1 mg tablet 1 mg PO BID 08/11/20 01/24/23 lancets 28 gauge #100 ea 08/11/20 01/24/23 mirabegron 50 mg tablet,extended 50 mg PO DAILY 08/11/20 01/24/23 release 24 hr propranolol 40 mg tablet 40 mg PO BID 08/11/20 01/24/23 trazodone 100 mg tablet 100 mg PO BEDTIME 08/11/20 01/24/23 zolpidem 10 mg tablet 10 mg PO BEDTIME PRN Insomnia 08/11/20 01/24/23 lisinopril 40 mg tablet 20 mg PO DAILY 08/24/21 01/24/23 budesonide-formoterol HFA 160 1 inh inhalation BID SEVERE COPD 01/24/23 01/24/23 mcg-4.5 mcg/actuation aerosol inhaler (Symbicort) Previous Rx's Medication Instructions Recorded Recliner lift chair #1 ea 08/25/21 acetaminophen 500 mg tablet 1,000 mg PO Q8H PRN pain 15 days 11/15/21 #90 tabs blood-glucose meter (FreeStyle #1 ea 01/05/22 Lite Meter kit) lancets 28 gauge (FreeStyle #100 ea 02/16/22 Lancets) pull ups #240 ea 05/22/22 blood pressure test kit-large #1 ea 06/01/22 amlodipine 2.5 mg tablet 2.5 mg PO DAILY 90 days #90 tabs 08/22/22 cranberry fruit 450 mg tablet 450 mg PO BID 90 days #180 tabs 09/06/22 albuterol sulfate 2.5 mg/3 mL 2.5 mg (3 mL) inhalation Q4-6H PRN 09/07/22 (0.083 %) solution for nebulization shortness of breath or wheezing 30 days #180 mL Ventolin HFA 90 mcg/actuation 2 puff inhalation Q4-6H PRN 09/11/22 aerosol inhaler (albuterol sulfate) shortness of breath or wheezing 30 days #18 grams rivaroxaban 20 mg tablet (Xarelto) 20 mg PO QPM #90 tabs 09/11/22 codeine 10 mg-guaifenesin 100 mg/5 10 ml PO Q4-6H PRN cough 5 days 11/02/22 mL oral liquid #120 mL omeprazole 20 mg capsule,delayed 20 mg PO .QD #30 caps 11/29/22 release sucralfate 1 gram tablet (Carafate) 2 g PO .daily at 11pm #60 tabs 11/29/22 ibuprofen 600 mg tablet 600 mg PO TID PRN pain 30 days #90 12/26/22 tabs Upright Posture Walker #1 ea 01/03/23 ascorbic acid (vitamin C) 500 mg 500 mg PO BID 90 days #180 tabs 01/09/23 tablet blood sugar diagnostic (FreeStyle #300 ea 01/09/23 Lite Strips) fluticasone 250 mcg-salmeterol 50 1 inh inhalation BID copd 30 days 01/24/23 mcg/dose blistr powdr for #60 ea inhalation (Advair Diskus) atorvastatin 40 mg tablet 40 mg PO DAILY #90 tabs 02/13/23 cholecalciferol (vitamin D3) 50 50 mcg PO DAILY #90 caps 02/13/23 mcg (2,000 unit) capsule cefuroxime axetil 250 mg tablet 250 mg PO BID 7 days #14 tabs 02/15/23 meclizine 25 mg tablet 25 mg PO TID PRN dizziness #20 tabs 02/15/23 phenazopyridine 200 mg tablet 200 mg PO TID 2 days #6 tabs 02/15/23 (Pyridium) tramadol 50 mg tablet 50 mg PO Q6H PRN pain #20 tabs 02/15/23 <MERVAT Dover - Last Filed: 02/14/23 20:01> Allergies/adverse reactions: Allergies Allergy/AdvReac Type Severity Reaction Status Date / Time dabigatran etexilate Allergy Intermediate SWELLING\hi Verified 02/14/23 19:56 [From PRADAXA] ves <MERVAT Dover - Last Filed: 02/14/23 20:01> Review of Systems Review of Systems: Yes all other systems are reviewed and are negative <Venkata Bey MD - Last Filed: 02/15/23 04:34> [facility] Past Medical History Medical History: Medical History Arthritis Benign essential tremor Breast calcification, right Cardiac pacemaker in situ Chest pain Constipation COPD (chronic obstructive pulmonary disease) Depression Diverticulitis Essential hypertension Fatigue GERD (gastroesophageal reflux disease) Hematuria History of smoking at least 1 pack per day for at least 30 years Hyperlipidemia Hypertensive retinopathy Insomnia LVH (left ventricular hypertrophy) Mesenteric lymphadenopathy NSVT (nonsustained ventricular tachycardia) Obesity, Class I, BMI 30-34.9 Paroxysmal atrial fibrillation Pre-diabetes Smoking SSS (sick sinus syndrome) Thrombocytopenia Tremor <MERVAT Dover - Last Filed: 02/14/23 20:01> Surgical History: Surgical History History of dilatation and curettage History of esophagogastroduodenoscopy (EGD) History of eye surgery History of pubovaginal sling History of tonsillectomy and adenoidectomy History of tubal ligation Hx of cholecystectomy Hx of colonoscopy Hx of right breast biopsy <MERVAT Dover Last Filed: 02/14/23 20:01> Family History Family History: Family History Father Family history of diabetes mellitus Mother Diabetes mellitus Substance use disorder Sister Uterine cancer Diabetes mellitus Mental health disorder Substance use disorder Maternal Grandfather No problems noted. Maternal Grandmother Unknown family medical history Paternal Grandfather No problems noted. Paternal Grandmother No problems noted. <MERVAT Dover - Last Filed: 02/14/23 20:01> Social History Social History: Social History Household Members: Other Household Members Other:: Ex-, Daughter Housing: Apartment Alcohol intake: former Year quit: 2001 Patient Tobacco Use Status: Former Tobacco user Quit Date: 10/12 Tobacco use type: Cigarette Years Smoked: 45 +/- e-Cigarette/Vaping Use: Never Used Second Hand Smoke Exposure: Yes Advance Directives: Yes Advance Directives on File: Yes Advance Directives Date on File: 03/21/22 Current occupational status: disabled Cognitive needs: No Hearing needs: No Vision needs: No <MERVAT Dover Last Filed: 02/14/23 20:01> Physical Exam ED Vital Signs: Vital Signs - 24 hr 02/14/23 19:56 02/14/23 21:44 02/14/23 21:49 Temperature 98.6 F 98.4 F Pulse Rate 79 68 68 Respiratory Rate 18 16 Blood Pressure 136/83 126/73 126/70 Pulse Oximetry 94 97 Oxygen Delivery Method Room Air Room Air 02/14/23 21:45 02/14/23 21:48 02/14/23 23:49 Temperature 98.5 F Pulse Rate 69 72 65 Respiratory Rate 16 Blood Pressure 129/74 127/84 129/65 Pulse Oximetry 95 Oxygen Delivery Method Room Air BMI result Body Mass Index 34.4 <MERVAT Dover Last Filed: 02/14/23 20:01> Vital Signs - 24 hr 02/14/23 19:56 02/14/23 21:44 02/14/23 21:49 Temperature 98.6 F 98.4 F Pulse Rate 79 68 68 Respiratory Rate 18 16 Blood Pressure 136/83 126/73 126/70 Pulse Oximetry 94 97 Oxygen Delivery Method Room Air Room Air 02/14/23 21:45 02/14/23 21:48 02/14/23 23:49 Temperature 98.5 F Pulse Rate 69 72 65 Respiratory Rate 16 Blood Pressure 129/74 127/84 129/65 Pulse Oximetry 95 Oxygen Delivery Method Room Air BMI result Body Mass Index 34.4 <Venkata Bey MD - Last Filed: 02/15/23 04:34> Appearance: Alert. Oriented X3. No acute distress. Eyes: PERRLA, No Nystagmus ENT: Pharynx normal. Oral Mucosa moist Neck: Normal inspection. Neck supple. CVS: Normal heart rate and rhythm. Pulses normal. Respiratory: No respiratory distress. Equal air entry bilateral, no wheezi ng/rales/rhonchi Abdomen: Soft and nontender. Bowel sounds are present, Skin: Skin warm and dry. Normal skin color. Normal skin turgor. Extremities: No lower extremity edema. No calf tenderness Neuro: Oriented X 3. No motor deficit. No sensory deficit.No cerebellar signs , cranial nerves II-XII intact <Venkata eBy MD - Last Filed: 02/15/23 04:34> Course Course Course Narrative: This is an RME: Additional HPI, ROS, PE not included below will be deferred to primary provider. 63 year old female presents with CC of dizziness and blurred vision that started 4 weeks ago. Patient denies sick contacts or recent travel. PE: NIHSS 0 Plan:labs, imaging, ekg <MERVAT Dover - Last Filed: 02/14/23 20:01> Medications Administered Discontinued Medications Generic Name Dose Route Start Last Admin Trade Name Freq PRN Reason Stop Dose Admin Cefuroxime Axetil 500 mg 02/14/23 23:28 02/14/23 23:40 Cefuroxime Axetil 500 Mg Tablet PO 02/14/23 23:29 500 mg ONCE ONE Administration Sodium Chloride 1,000 mls @ 999 mls/hr 02/14/23 20:00 02/14/23 22:41 Ns IV 02/14/23 21:00 Not Given .Q1H1M RUTHIE Meclizine HCl 50 mg 02/14/23 22:01 02/14/23 22:19 Meclizine Hcl 25 Mg Tablet PO 02/14/23 22:02 50 mg ONCE ONE Administration Ondansetron HCl 4 mg 02/15/23 00:22 02/15/23 00:25 Ondansetron Odt 4 Mg Tab.Rapdis TRANSLINGU 02/15/23 00:23 4 mg ONCE ONE Administration Oxycodone HCl 10 mg 02/14/23 22:06 02/14/23 22:19 Oxycodone Hcl Immed Release 5 Mg Tablet PO 02/14/23 22:07 10 mg ONCE ONE Administration Phenazopyridine HCl 200 mg 02/14/23 23:28 02/14/23 23:40 Phenazopyridine Hcl 200 Mg Tablet PO 02/14/23 23:29 200 mg ONCE ONE Administration <MERVAT Dover - Last Filed: 02/14/23 20:01> Medications Administered Discontinued Medications Generic Name Dose Route Start Last Admin Trade Name Mark PRN Reason Stop Dose Admin Cefuroxime Axetil 500 mg 02/14/23 23:28 02/14/23 23:40 Cefuroxime Axetil 500 Mg Tablet PO 02/14/23 23:29 500 mg ONCE ONE Administration Sodium Chloride 1,000 mls @ 999 mls/hr 02/14/23 20:00 02/14/23 22:41 Ns IV 02/14/23 21:00 Not Given .Q1H1M [facility] Meclizine HCl 50 mg 02/14/23 22:01 02/14/23 22:19 Meclizine Hcl 25 Mg Tablet PO 02/14/23 22:02 50 mg ONCE ONE Administration Ondansetron HCl 4 mg 02/15/23 00:22 02/15/23 00:25 Ondansetron Odt 4 Mg Tab.Rapdis TRANSLINGU 02/15/23 00:23 4 mg ONCE ONE Administration Oxycodone HCl 10 mg 02/14/23 22:06 02/14/23 22:19 Oxycodone Hcl Immed Release 5 Mg Tablet PO 02/14/23 22:07 10 mg ONCE ONE Administration Phenazopyridine HCl 200 mg 02/14/23 23:28 02/14/23 23:40 Phenazopyridine Hcl 200 Mg Tablet PO 02/14/23 23:29 200 mg ONCE ONE Administration <Venkata Bey MD - Last Filed: 02/15/23 04:34> Medical Decision Making Medical Decision Making [facility] Narrative: Patient clinically benign positional vertigo with history of similar episode last month no signs of [employer] involvement will give patient meclizine also will check the UA for UTI and give oxycodone for chronic back pain <Venkata Bey MD - Last Filed: 02/15/23 04:34> Lab Data [facility] Lab Attestation statement: I reviewed the patient's lab results. <Venkata Bey MD - Last Filed: 02/15/23 04:34> Result Diagrams: 02/14/23 20:23 02/14/23 20:23 <MERVAT Dover - Last Filed: 02/14/23 20:01> Labs: Lab Results 02/14/23 02/14/23 02/14/23 Range/Units 20:23 20:23 20:23 WBC 9.0 (4.8-10.8) X10*3/uL RBC 4.43 (4.20-5.50) X10*6/uL Hgb 13.0 (12.0-16.0) g/dl Hct 39.5 (37.0-47.0) % MCV 89.2 (80.0-98.0) fL MCH 29.3 (27.0-33.0) pg MCHC 32.9 (31.0-35.0) g/dl RDW 13.6 (11.0-16.0) % Plt Count 133 L D (160-400) X10*3/uL MPV 12.0 (9.4-12.3) fL Immature Gran % (Auto) 0.3 (0.0-0.4) % Neut % (Auto) 72.4 (45-73) % Lymph % (Auto) 16.1 L (20-40) % Calvert % (Auto) 10.8 (2-11) % Eos % (Auto) 0.1 (0-4) % Baso % (Auto) 0.3 (0-2) % Lymph # (Auto) 1.5 (1.2-4.9) X10*3/uL Calvert # (Auto) 1.0 (0.1-1.2) X10*3/uL Eos # (Auto) 0.0 (0.0-0.4) X10*3/uL Baso # (Auto) 0.0 (0.0-0.2) X10*3/uL Abs Immat Gran (auto) 0.03 (0.00-0.03) X10*3/uL Absolute Neuts (auto) 6.5 (2.0-8.3) x10*3/uL Absolute Nucleated RBC 0.000 (0.0-0.012) X10*3/uL Nucleated RBC % (auto) 0.0 (0.0-0.2) /100WBC Sodium (135-145) mmol/L Potassium (3.3-5.1) mmol/L Chloride (96-108) mmol/L Carbon Dioxide (22-29) mmol/L Anion Gap (12-20) BUN (9-16) mg/dL Creatinine (0.5-1.4) mg/dL Estim Creat Clear Calc Estimated GFR Random Glucose (60-115) mg/dL Calcium (8.4-10.2) mg/dL Magnesium 1.7 (1.6-2.6) mg/dL Total Bilirubin (0.0-1.0) mg/dL AST (5-31) U/L ALT (0-31) U/L Alkaline Phosphatase (39-117) U/L Troponin I High Sens (<3.5-17.0) ng/L Total Protein (6.5-8.0) g/dL Albumin (3.5-5.0) g/dL Lipase 12 (8-78) U/L Urine Color Urine Appearance Urine pH (5.0-9.0) Ur Specific Gates (1.005-1.025) Urine Protein (Neg-Trace) mg/dL Urine Glucose (UA) (Negative) mg/dL Urine Ketones (Negative) mg/dL Urine Blood (Negative) Urine Nitrite (Negative) Ur Leukocyte Esterase (Negative) Urine RBC (0-2) /HPF Urine WBC (0-5) /HPF Ur Squamous Epith Cells (0-2) /HPF Urine Bacteria (None Seen) Hyaline Casts (0-2) /LPF COVID-19 (LEA) Negative (Negative) COVID-19 Clin Com See Note 02/14/23 02/14/23 02/14/23 Range/Units 20:23 20:23 21:51 WBC (4.8-10.8) X10*3/uL RBC (4.20-5.50) X10*6/uL Hgb (12.0-16.0) g/dl Hct (37.0-47.0) % MCV (80.0-98.0) fL MCH (27.0-33.0) pg MCHC (31.0-35.0) g/dl RDW (11.0-16.0) % Plt Count (160-400) X10*3/uL MPV (9.4-12.3) fL Immature Gran % (Auto) (0.0-0.4) % Neut % (Auto) (45-73) % Lymph % (Auto) (20-40) % Calvert % (Auto) (2-11) % Eos % (Auto) (0-4) % Baso % (Auto) (0-2) % Lymph # (Auto) (1.2-4.9) X10*3/uL Calvert # (Auto) (0.1-1.2) X10*3/uL Eos # (Auto) (0.0-0.4) X10*3/uL Baso # (Auto) (0.0-0.2) X10*3/uL Abs Immat Gran (auto) (0.00-0.03) X10*3/uL Absolute Neuts (auto) (2.0-8.3) x10*3/uL Absolute Nucleated RBC (0.0-0.012) X10*3/uL Nucleated RBC % (auto) (0.0-0.2) /100WBC Sodium 139 (135-145) mmol/L Potassium 4.2 (3.3-5.1) mmol/L Chloride 105 (96-108) mmol/L Carbon Dioxide 24 (22-29) mmol/L Anion Gap 14 (12-20) BUN 8 L (9-16) mg/dL Creatinine 0.77 (0.5-1.4) mg/dL Estim Creat Clear Calc 88.3 Estimated GFR > 60 Random Glucose 105 (60-115) mg/dL Calcium 8.8 (8.4-10.2) mg/dL Magnesium 1.7 (1.6-2.6) mg/dL Total Bilirubin 0.5 (0.0-1.0) mg/dL AST 14 (5-31) U/L ALT 13 (0-31) U/L Alkaline Phosphatase 89 (39-117) U/L Troponin I High Sens 3.2 (<3.5-17.0) ng/L Total Protein 6.6 (6.5-8.0) g/dL Albumin 4.0 (3.5-5.0) g/dL Lipase (8-78) U/L Urine Color Dark Yellow Urine Appearance Cloudy Urine pH 6.0 (5.0-9.0) Ur Specific Gates 1.025 (1.005-1.025) Urine Protein 30 (1+) H (Neg-Trace) mg/dL Urine Glucose (UA) Negative (Negative) mg/dL Urine Ketones Trace (Negative) mg/dL Urine Blood Negative (Negative) Urine Nitrite Negative (Negative) Ur Leukocyte Esterase Moderate (2+) H (Negative) Urine RBC 3-5 H (0-2) /HPF Urine WBC >50 H (0-5) /HPF Ur Squamous Epith Cells >20 (0-2) /HPF Urine Bacteria 3+ (None Seen) Hyaline Casts 3-5 (0-2) /LPF COVID-19 (LEA) (Negative) COVID-19 Clin Com <MERVAT Dover - Last Filed: 02/14/23 20:01> Lab Results 02/14/23 02/14/23 02/14/23 Range/Units 20:23 20:23 20:23 WBC 9.0 (4.8-10.8) X10*3/uL RBC 4.43 (4.20-5.50) X10*6/uL Hgb 13.0 (12.0-16.0) g/dl Hct 39.5 (37.0-47.0) % MCV 89.2 (80.0-98.0) fL MCH 29.3 (27.0-33.0) pg MCHC 32.9 (31.0-35.0) g/dl RDW 13.6 (11.0-16.0) % Plt Count 133 L D (160-400) X10*3/uL MPV 12.0 (9.4-12.3) fL Immature Gran % (Auto) 0.3 (0.0-0.4) % Neut % (Auto) 72.4 (45-73) % Lymph % (Auto) 16.1 L (20-40) % Calvert % (Auto) 10.8 (2-11) % Eos % (Auto) 0.1 (0-4) % Baso % (Auto) 0.3 (0-2) % Lymph # (Auto) 1.5 (1.2-4.9) X10*3/uL Calvert # (Auto) 1.0 (0.1-1.2) X10*3/uL Eos # (Auto) 0.0 (0.0-0.4) X10*3/uL Baso # (Auto) 0.0 (0.0-0.2) X10*3/uL Abs Immat Gran (auto) 0.03 (0.00-0.03) X10*3/uL Absolute Neuts (auto) 6.5 (2.0-8.3) x10*3/uL Absolute Nucleated RBC 0.000 (0.0-0.012) X10*3/uL Nucleated RBC % (auto) 0.0 (0.0-0.2) /100WBC Sodium (135-145) mmol/L Potassium (3.3-5.1) mmol/L Chloride (96-108) mmol/L Carbon Dioxide (22-29) mmol/L Anion Gap (12-20) BUN (9-16) mg/dL Creatinine (0.5-1.4) mg/dL Estim Creat Clear Calc Estimated GFR Random Glucose (60-115) mg/dL Calcium (8.4-10.2) mg/dL Magnesium 1.7 (1.6-2.6) mg/dL Total Bilirubin (0.0-1.0) mg/dL AST (5-31) U/L ALT (0-31) U/L Alkaline Phosphatase (39-117) U/L Troponin I High Sens (<3.5-17.0) ng/L Total Protein (6.5-8.0) g/dL Albumin (3.5-5.0) g/dL Lipase 12 (8-78) U/L Urine Color Urine Appearance Urine pH (5.0-9.0) Ur Specific Gates (1.005-1.025) Urine Protein (Neg-Trace) mg/dL Urine Glucose (UA) (Negative) mg/dL Urine Ketones (Negative) mg/dL Urine Blood (Negative) Urine Nitrite (Negative) Ur Leukocyte Esterase (Negative) Urine RBC (0-2) /HPF Urine WBC (0-5) /HPF Ur Squamous Epith Cells (0-2) /HPF Urine Bacteria (None Seen) Hyaline Casts (0-2) /LPF COVID-19 (LEA) Negative (Negative) COVID-19 Clin Com See Note 02/14/23 02/14/23 02/14/23 Range/Units 20:23 20:23 21:51 WBC (4.8-10.8) X10*3/uL RBC (4.20-5.50) X10*6/uL Hgb (12.0-16.0) g/dl Hct (37.0-47.0) % MCV (80.0-98.0) fL MCH (27.0-33.0) pg MCHC (31.0-35.0) g/dl RDW (11.0-16.0) % Plt Count (160-400) X10*3/uL MPV (9.4-12.3) fL Immature Gran % (Auto) (0.0-0.4) % Neut % (Auto) (45-73) % Lymph % (Auto) (20-40) % Calvert % (Auto) (2-11) % Eos % (Auto) (0-4) % Baso % (Auto) (0-2) % Lymph # (Auto) (1.2-4.9) X10*3/uL Calvert # (Auto) (0.1-1.2) X10*3/uL Eos # (Auto) (0.0-0.4) X10*3/uL Baso # (Auto) (0.0-0.2) X10*3/uL Abs Immat Gran (auto) (0.00-0.03) X10*3/uL Absolute Neuts (auto) (2.0-8.3) x10*3/uL Absolute Nucleated RBC (0.0-0.012) X10*3/uL Nucleated RBC % (auto) (0.0-0.2) /100WBC Sodium 139 (135-145) mmol/L Potassium 4.2 (3.3-5.1) mmol/L Chloride 105 (96-108) mmol/L Carbon Dioxide 24 (22-29) mmol/L Anion Gap 14 (12-20) BUN 8 L (9-16) mg/dL Creatinine 0.77 (0.5-1.4) mg/dL Estim Creat Clear Calc 88.3 Estimated GFR > 60 Random Glucose 105 (60-115) mg/dL Calcium 8.8 (8.4-10.2) mg/dL Magnesium 1.7 (1.6-2.6) mg/dL Total Bilirubin 0.5 (0.0-1.0) mg/dL AST 14 (5-31) U/L ALT 13 (0-31) U/L Alkaline Phosphatase 89 (39-117) U/L Troponin I High Sens 3.2 (<3.5-17.0) ng/L Total Protein 6.6 (6.5-8.0) g/dL Albumin 4.0 (3.5-5.0) g/dL Lipase (8-78) U/L Urine Color Dark Yellow Urine Appearance Cloudy Urine pH 6.0 (5.0-9.0) Ur Specific Gates 1.025 (1.005-1.025) Urine Protein 30 (1+) H (Neg-Trace) mg/dL Urine Glucose (UA) Negative (Negative) mg/dL Urine Ketones Trace (Negative) mg/dL Urine Blood Negative (Negative) Urine Nitrite Negative (Negative) Ur Leukocyte Esterase Moderate (2+) H (Negative) Urine RBC 3-5 H (0-2) /HPF Urine WBC >50 H (0-5) /HPF Ur Squamous Epith Cells >20 (0-2) /HPF Urine Bacteria 3+ (None Seen) Hyaline Casts 3-5 (0-2) /LPF COVID-19 (LEA) (Negative) COVID-19 Clin Com <Venkata Bey MD - Last Filed: 02/15/23 04:34> Discharge Plan Discharge Clinical Impression: Benign paroxysmal positional nystagmus, Acute UTI (urinary tract infe ction) <MERVAT Dover Last Filed: 02/14/23 20:01> Patient Disposition: Home, Self-Care <MERVAT Dover Last Filed: 02/14/23 20:01> Instructions: Urinary Tract Infection in Women (ED), Benign Paroxysmal Positional Vertigo (ED) <MERVAT Dover Last Filed: 02/14/23 20:01> Additional Instructions: Drink plenty of fluids Care and cautions as advised Meclizine for dizziness Ceftin for urinary tract infection Pyridium for pain while urinating Follow-up with PCP if not better Tramadol for chronic back pain <MERVAT Dover Last Filed: 02/14/23 20:01> Prescriptions: New cefuroxime axetil 250 mg tablet 250 mg PO BID 7 Days Qty: 14 0RF phenazopyridine [Pyridium] 200 mg tablet 200 mg PO TID 2 Days Qty: 6 0RF tramadol 50 mg tablet 50 mg PO Q6H PRN (Reason: pain) Qty: 20 0RF meclizine 25 mg tablet 25 mg PO TID PRN (Reason: dizziness) Qty: 20 0RF No Action lisinopril 40 mg tablet 20 mg PO DAILY (DME) Recliner lift chair See Rx Instructions .Route .MEDSUPPLY Qty: 1 0RF Rx Instructions: As directed acetaminophen 500 mg tablet 1,000 mg PO Q8H PRN (Reason: pain) 15 Days Qty: 90 2RF (DME) blood-glucose meter [FreeStyle Lite Meter] Kit See Rx Instructions .Route Qty: 1 0RF Rx Instructions: Use to test blood sugar 3 times a day (DME) lancets [FreeStyle Lancets] 28 gauge misc See Rx Instructions .Route Qty: 100 0RF Rx Instructions: As directed (DME) pull ups Extra Large See Rx Instructions .Route .MEDSUPPLY Qty: 240 0RF Rx Instructions: The patient is using 8 pull ups a day; size extra large (DME) blood pressure test kit-large Kit See Rx Instructions .Route Qty: 1 0RF Rx Instructions: Use to check BP daily amlodipine 2.5 mg tablet 2.5 mg PO DAILY 90 Days Qty: 90 3RF cranberry fruit 450 mg tablet 450 mg PO BID 90 Days Qty: 180 0RF albuterol sulfate [Ventolin HFA] 90 mcg/actuation HFA aerosol inhaler 2 puff inhalation Q4-6H PRN (Reason: shortness of breath or wheezing) 30 Days Qty: 18 3RF Xarelto 20 mg tablet 20 mg PO QPM Qty: 90 3RF ibuprofen 600 mg tablet 600 mg PO TID PRN (Reason: pain) 30 Days Qty: 90 0RF Rx Instructions: use sparingly: not good for diabetics (DME) Upright Posture Walker See Rx Instructions .Route .MEDSUPPLY Qty: 1 0RF Rx Instructions: daily use ascorbic acid (vitamin C) 500 mg tablet 500 mg PO BID 90 Days Qty: 180 1RF (DME) FreeStyle Lite Strips Strip See Rx Instructions .Route Qty: 300 1RF Rx Instructions: test BS TID cholecalciferol (vitamin D3) 50 mcg (2,000 unit) capsule 50 mcg PO DAILY Qty: 90 0RF atorvastatin 40 mg tablet 40 mg PO DAILY Qty: 90 1RF [id number]-bbsu 50-325-40 mg tablet 1 tab PO Q4H PRN (Reason: Migraine Headache) propranolol 40 mg tablet 40 mg PO BID clonazepam 1 mg tablet 1 mg PO BID zolpidem 10 mg tablet 10 mg PO BEDTIME PRN (Reason: Insomnia) Myrbetriq 50 mg tablet extended release 24 hr 50 mg PO DAILY trazodone 100 mg tablet 100 mg PO BEDTIME (DME) lancets 28 gauge misc See Rx Instructions Not Applicable DAILY Qty: 100 Rx Instructions: As directed codeine-guaifenesin 10-100 mg/5 mL liquid 10 ml PO Q4-6H PRN (Reason: cough) 5 Days Qty: 120 0RF sucralfate [Carafate] 1 gram tablet 2 g PO .daily at 11pm Qty: 60 6RF omeprazole 20 mg capsule,delayed release(DR/EC) 20 mg PO .QD Qty: 30 6RF albuterol sulfate 2.5 mg /3 mL (0.083 %) solution for nebulization 2.5 mg inhalation Q4-6H PRN (Reason: shortness of breath or wheezing) 30 Days Qty: 180 4RF budesonide-formoterol [Symbicort] 160-4.5 mcg/actuation HFA aerosol inhaler 1 inh inhalation BID Rx Instructions: on hold right now fluticasone propion-salmeterol [Advair Diskus] 250-50 mcg/dose blister with device 1 inh inhalation BID 30 Days Qty: 60 3RF <MERVAT [place] - Last Filed: 02/14/23 20:01> Interventions: ED Discharge Assessment Last Done: 02/15/23 00:31 <MERVAT [place] - Last Filed: 02/14/23 20:01> Discharge Date/Time: 02/15/23 00:32 <MERVAT [place] - Last Filed: 02/14/23 20:01>
[2023-02-14 20:40] LABS: MANUAL DIFF FLAG NO
[2023-02-14 20:48] LABS: Basophils Percent Auto 0.3 % (0-2); Eosinophils Percent Auto 0.1 % (0-4); Hematocrit 39.5 % (37.0-47.0); Imm Gran Abs Auto 0.03 X10*3/uL (0.00-0.03); Imm Gran Pct Auto 0.3 % (0.0-0.4); Lymphocytes Absolute Auto 1.5 X10*3/uL (1.2-4.9); Lymphocytes Percent Auto 16.1 % (20-40); Mean Corpuscular HGB Conc 32.9 g/dl (31.0-35.0); Mean Corpuscular Hemoglobin 29.3 pg (27.0-33.0); Mean Corpuscular Volume 89.2 fL (80.0-98.0); Monocytes Percent Auto 10.8 % (2-11); Neutrophils Absolute Auto 6.5 x10*3/uL (2.0-8.3); Neutrophils Percent Auto 72.4 % (45-73); Platelet Count 133 X10*3/uL (160-400); Red Blood Count 4.43 X10*6/uL (4.20-5.50); Red Cell Distribution Width 13.6 % (11.0-16.0)
[2023-02-14 20:51] LABS: COVID-19 Test Negative (Negative); IDNOW Serial# 9DB6401D
[2023-02-14 21:04] LABS: Lipase 12 U/L (8-78); Magnesium 1.7 mg/dL (1.6-2.6)
[2023-02-14 21:05] LABS: Alanine Aminotransferase 13 U/L (0-31); Alkaline Phosphatase 89 U/L (39-117); Anion Gap 14 (12-20); Aspartate Amino Transferase 14 U/L (5-31); Bilirubin Total 0.5 mg/dL (0.0-1.0); Blood Urea Nitrogen 8 mg/dL (9-16); Calcium 8.8 mg/dL (8.4-10.2); Carbon Dioxide 24 mmol/L (22-29); Chloride 105 mmol/L (96-108); Creatinine Clr Calc Pharmacy 88.3; Estimated Glomerular Filt Rate > 60; Glucose Random 105 mg/dL (60-115); Magnesium 1.7 mg/dL (1.6-2.6); Potassium 4.2 mmol/L (3.3-5.1); Sodium 139 mmol/L (135-145); Total Protein 6.6 g/dL (6.5-8.0)
[2023-02-14 21:12] LABS: Troponin-I High Sensitivity 3.2 ng/L (<3.5-17.0)
[2023-02-14 22:16] LABS: Appearance Urine Cloudy; Color Urine Dark Yellow; Glucose Urine UA Negative (Negative); Leukocyte Esterase Urine Moderate (2+) (Negative); Nitrite Urine Negative (Negative); Specific Gravity - Urine 1.025 (1.005-1.025); UMIC TRIGGER UACC YES; Urine Blood Negative (Negative); Urine Ketones Trace mg/dL (Negative); Urine Protein 30 (1+) mg/dL (Neg-Trace)
[2023-02-14] MEDS: oxyCODONE HCl Immed Release 5 MG TABLET 10 MG PO (22:19)
[2023-02-14] MEDS: Meclizine HCl 25 MG TABLET 50 MG PO (22:19)
[2023-02-14 23:02] LABS: Bacteria Urine 3+ (None Seen); Squamous Epithelial Cell Urine >20 /HPF (0-2); UACC Culture Trigger YES; WBC Urine >50 /HPF (0-5)
[2023-02-14] MEDS: Phenazopyridine HCL 200 MG TABLET PO (23:40)
[2023-02-15] MEDS: Ondansetron ODT 4 MG TAB.RAPDIS TRANSLINGU (00:25)
== END 2023-02-15 00:32 | disposition home or self-care (01) ==
PROVIDERS: Physician Assistant; Emergency Provider Internal Medicine
DX: R42 Dizziness and giddiness (principal); I10 Essential (primary) hypertension; R11.0 Nausea; I49.8 Other specified cardiac arrhythmias; Z20.822 Contact with and (suspected) exposure to COVID-19; Z20.828 Contact with and (suspected) exposure to other viral communicable diseases; Z79.899 Other long term (current) drug therapy; Z87.891 Personal history of nicotine dependence
CPT/HCPCS: 36415; 70450; 80053; 81001; 81003; 83690; 83735; 84484; 85025; 87635; 93005; 99284

== ENCOUNTER 2023-03-07 15:00 | Outpatient (RCR) | payer MEDICARE, MEDICAID, SELFPAY ==
--- NOTE | 2023-01-31 14:54 | MHC.PT.EP ---
[facility] [place] Office [place] Office [place] Office [address] Anh Isaac [address] [phone] F: [phone] F: [phone] F: [phone] F: [phone] Physical Therapy Plan of Care Date of Evaluation: Date of Surgery: n/a Diagnosis: B lower extremity weakness Assessment: Patient is a 63 year old female presenting to PT with complaints of B lower extremity weakness. Pt reports onset began about 5 years ago due to insidious onset. She presents today with impairments in hip strength, gait mechanics, endurance, LE strength. Pt's current occupation is none, with baseline physical activities including ADLs, ambulating, stair negotiation, transfers. 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 Clinical presentation today is most consistent with signs and sx associated with LE weakness and pt will benefit from skilled PT 2 week x 4 weeks to address the following problems and impairments noted upon evaluation: hip strength, gait mechanics, endurance, LE strength. These problems limit the patient with the following functional activities: ADLs, stair negotiation, transfers, ambulating. The prescribed treatment plan of care is medically necessary. Co-morbidities of afib, pacemaker, COPD, HTN, DM, tremor were identified and taken into considerations of plan of care. Pt was educated on HEP, role of PT, prognosis, POC. Frequency and Duration: The patient will be seen 2 x week x 4 weeks Short Term Goals: Pt will demonstrate improved hip MMT strength by 1/3 grade in 2 weeks for improved lumbopelvic stability. Pt will demonstrate ability to 5/5 knee MMT strength in 2 weeks. Pt will report ability to ambulate from waiting room to treatment table with no rest breaks in 2 weeks. Prison Goals: Pt will demonstrate improved LEFI score by 9 points in 4 weeks for improved functional mobility. Pt will demonstrate improved TUG score by 3 seconds in 4 weeks for decreased risk of falls. Pt will demonstrate improved 30 second chair stand test score to at least 5 in 4 weeks for improved endurance. Treatment Plan: Modalities to reduce pain, spasms and effusion. Manual therapy to restore motion and function. Therapeutic exercise to improve strength and flexibility. Neuromuscular re-education for posture and balance. Therapeutic activities to return to functional activities of daily living. Electronically signed by: Leeanne Vargas, PT, DPT, ATC Please sign and return to therapist. Thank you for your referral.
--- NOTE | 2023-03-09 08:29 | MHC.PT.DC ---
[facility] [place] [facility] [place] [facility] [place] Office [address] Anh Isaac [address] [phone] F: [phone] F: [phone] F: [phone] F: [phone] Physical Therapy Discharge Report Diagnosis: B lower extremity weakness Date of Surgery: n/a Date of Evaluation: 01/31/23 Date of Discharge: 03/09/23 Treatments to Date: 8 Cancellations to Date: 2 No Shows to Date: 0 Discharge Status: Improved Function Independent with HEP Discharge Summary: Pt saw ACQUISITION MARKETING MANAGER for final appointment. She is independent in her program at this time. Her LE strength is improved but still is limited due to endurance problems but more so in terms of the lungs vs LE. Electronically signed by: Leeanne Vargas, PT, DPT, ATC Please sign and return to therapist. Thank you for your referral.
== END 2023-03-09 08:30 | disposition home or self-care (01) ==
LOC: HO.PTCHIC 15:00
PROVIDERS: PCP Nurse Practitioner Family; Visit Provider Nurse Practitioner Family
DX: R29.898 Other symptoms and signs involving the musculoskeletal system (principal)
CPT/HCPCS: 97110; 97112; 97162

== ENCOUNTER 2023-03-12 14:02 | Outpatient (REF) | payer MEDICARE, MEDICAID, SELFPAY | END 2023-03-12 14:03 | disposition home or self-care (01) | LOC: HO.HMGCLDS 14:02 | PROVIDERS: PCP Nurse Practitioner Family; Visit Provider Nurse Practitioner Family | DX: Z13.89 Encounter for screening for other disorder (principal) ==

== ENCOUNTER → 2023-03-13 14:48 | Outpatient (BNVA) | payer MEDICARE, MEDICAID, SELFPAY | PROVIDERS: PCP Nurse Practitioner Family; Referring Provider Nurse Practitioner Family; Visit Provider Internal Medicine Cardiovascular Disease | DX: Z45.018 Encounter for adjustment and management of other part of cardiac pacemaker (principal); I48.0 Paroxysmal atrial fibrillation | CPT/HCPCS: 93280; 99212 ==

== ENCOUNTER 2023-03-27 15:52 | Outpatient (REF) | payer MEDICARE, MEDICAID, SELFPAY | END 2023-03-27 15:53 | disposition home or self-care (01) | LOC: HO.LAB 15:52 | PROVIDERS: PCP Nurse Practitioner Family; Visit Provider Nurse Practitioner Family | DX: Z13.89 Encounter for screening for other disorder (principal) ==

== ENCOUNTER 2023-05-23 13:28 | Outpatient (AMB) | payer MEDICARE, MEDICAID, SELFPAY ==
--- NOTE | 2023-05-23 13:29 | MHC.OFFWIV ---
Intake Vital Signs 05/23/23 13:30 Height 5 ft 7 in BP 136/80 Blood Pressure Location Lt brachial Position Sitting Pulse 92 Pulse Source Pulse Oximeter Temp 97.6 F Temp Source Temporal Artery Scan Pulse Oximetry (%) 96 Oxygen Delivery Method Room Air Intake Visit Reasons: EST/ear pain(lobby) Intake Note: Pt is here c/o bilateral ear pain. Pt states her ears having been hurting in pain since last week. Pt states she also has a bump under her right, bad cough and sore throat. Patient Tobacco Use Status: Current everyday Tobacco user Allergies dabigatran etexilate [From PRADAXA] Allergy (Intermediate, Verified 05/23/23 13:57) SWELLING\hives Medication List - Last Reconciled 05/23/23 by Tyson Mathews MD acetaminophen 1,000 mg (2 x 500 mg) PO Q8H PRN 15 days albuterol sulfate 2.5 mg (3 mL) inhalation Q4-6H PRN 30 days amlodipine 2.5 mg PO DAILY 90 days ascorbic acid (vitamin C) 500 mg PO BID 90 days atorvastatin 40 mg PO DAILY blood pressure test kit-large Use to check BP daily blood sugar diagnostic (FreeStyle Lite Strips) test BS TID blood-glucose meter (FreeStyle Lite Meter kit) Use to test blood sugar 3 times a day budesonide-formoterol 160-4.5 mcg/actuation (Symbicort) 1 inh inhalation BID cholecalciferol (vitamin D3) 50 mcg PO DAILY clonazepam 1 mg PO BID cranberry fruit 450 mg PO BID 90 days fluticasone propion-salmeterol 250-50 mcg/dose (Advair Diskus) 1 inh inhalation BID 30 days ibuprofen 600 mg PO DAILY PRN 30 days lancets As directed lancets (FreeStyle Lancets) As directed lisinopril 20 mg PO DAILY meclizine 25 mg PO TID PRN mirabegron ER 50 mg PO DAILY omeprazole 20 mg PO .QD propranolol 40 mg PO BID [pull ups The patient is using 8 pull ups a day; size extra large] [Recliner lift chair As directed] rivaroxaban (Xarelto) 20 mg PO QPM sucralfate (Carafate) 2 grams (2 x 1 gram) PO .daily at 11pm tramadol 50 mg PO Q6H PRN trazodone 100 mg PO BEDTIME Ultra-Light Rollator (walker) lower extrem weakness, use daily NS [Upright Posture Walker daily use] Ventolin HFA 90 mcg/actuation (albuterol sulfate) 2 puffs inhalation Q4-6H PRN 30 days NS zolpidem 10 mg PO BEDTIME PRN Do you need a note to return to daycare/school/sports/work: No PFSH Medical History Arthritis Benign essential tremor Breast calcification, right Cardiac pacemaker in situ Chest pain Constipation COPD (chronic obstructive pulmonary disease) Depression Diverticulitis Essential hypertension Fatigue GERD (gastroesophageal reflux disease) Hematuria History of smoking at least 1 pack per day for at least 30 years Hyperlipidemia Hypertensive retinopathy Insomnia LVH (left ventricular hypertrophy) Mesenteric lymphadenopathy NSVT (nonsustained ventricular tachycardia) Obesity, Class I, BMI 30-34.9 Paroxysmal atrial fibrillation Pre-diabetes Smoking SSS (sick sinus syndrome) Thrombocytopenia Tremor Surgical History History of dilatation and curettage History of esophagogastroduodenoscopy (EGD) History of eye surgery History of pubovaginal sling History of tonsillectomy and adenoidectomy History of tubal ligation Hx of cholecystectomy Hx of colonoscopy Hx of right breast biopsy Family History Father Family history of diabetes mellitus Mother Diabetes mellitus Substance use disorder Sister Uterine cancer Diabetes mellitus Mental health disorder Substance use disorder Maternal Grandfather No problems noted. Maternal Grandmother Unknown family medical history Paternal Grandfather No problems noted. Paternal Grandmother No problems noted. Social History Household Members: Other Household Members Other:: Ex-, Daughter Housing: Apartment Alcohol intake: former Year quit: 2001 Patient Tobacco Use Status: Current everyday Tobacco user Tobacco use type: Cigarette Cigarettes Per Day: 3 Years Smoked: 45 +/- e-Cigarette/Vaping Use: Never Used Second Hand Smoke Exposure: Yes Advance Directives Date on File: 03/21/22 Current occupational status: disabled Cognitive needs: No Hearing needs: No Vision needs: No Female Reproductive History Menstrual Age of Menarche: 7 Physical Exam Vital Signs: Last Vital Signs Temp 97.6 F 05/23/23 13:30 Pulse 92 05/23/23 13:30 BP 136/80 05/23/23 13:30 Pulse Ox 96 05/23/23 13:30 Oxygen Delivery Method Room Air 05/23/23 13:30 Const General: cooperative and healthy appearing Nutritional Appearance: well nourished Orientation/consciousness: patient oriented x3 Limitations: no limitations HEENT Head: Yes normal to inspection Eyes General: appearance normal, both eyes and all related structures Neck Neck: Yes normal visual inspection Chest Chest palpation & inspection: normal palpation of entire chest wall Resp Effort & Inspection: normal respiratory effort Neuro General: patient oriented x3 Assessment & Plan Assessment & Plan (1) Upper respiratory tract infection: Code(s): J06.9 - Acute upper respiratory infection, unspecified Plan: Antibiotics ordered. Increase fluid intake. Tylenol for aches and pains. If symptoms worsen, follow-up here for a recheck. Coding Level of Care Code Est Pt Level 3 (17664) Diagnoses Upper respiratory tract infection J06.9
[2023-05-23 13:30] VITALS: BP 136/80; PULSE 92; TEMP 36.4; O2SAT 96
== END 2023-05-23 14:20 | disposition home or self-care (01) ==
PROVIDERS: PCP Nurse Practitioner Family; Visit Provider Internal Medicine
DX: J06.9 Acute upper respiratory infection, unspecified (principal)
CPT/HCPCS: 99213

== ENCOUNTER 2023-06-04 13:50 | Outpatient (REF) | payer MEDICARE, MEDICAID, SELFPAY ==
--- NOTE | ~2023-06-04 | US_ITS ---
EXAMINATION: US RETROPERITONEAL LIMITED (RENAL ONLY) CLINICAL INFORMATION: Other microscopic hematuria. COMPARISON: CT abdomen and pelvis 10/17/2019. Ultrasound abdomen 07/01/2014. TECHNIQUE: Real-time imaging of the kidneys. FINDINGS: RIGHT KIDNEY: 11.8 x 5.2 x 5.9 cm (SAG x AP x TRV). The kidney is normal in size, contour, and echogenicity. Renal cortical thickness is normal. No renal calculi or hydronephrosis. At the upper pole, a 4.7 x 3.8 x 3.3 cm mildly complex cyst is seen, with small wall calcification. This shows no mural nodularity or associated color Doppler flow. This mildly complex (Bosniak 2) appearance is stable from the CT examination dated 09/25/2018 (3:298). This is a likely benign finding, and no imaging follow-up is recommended. LEFT KIDNEY: 12.6 x 4.9 x 5.0 cm (SAG x AP x TRV). The kidney is normal in size, contour, and echogenicity. Renal cortical thickness is normal. No calculi or focal parenchymal lesions. No hydronephrosis. US/US renal BI IMPRESSION: A stable likely benign (Bosniak 2) right renal cyst is seen, for which no imaging follow-up is recommended. The examination is otherwise unremarkable.
[2023-06-04 16:17] LABS: Hemoglobin 12.3 g/dl (12.0-16.0); Imm Gran Abs Auto 0.03 X10*3/uL (0.00-0.03); Imm Gran Pct Auto 0.4 % (0.0-0.4); MANUAL DIFF FLAG SCAN; Mean Platelet Volume 13.3 fL (9.4-12.3); Platelet Count 135 X10*3/uL (160-400); SCAN SMEAR FLAG 1
[2023-06-04 16:19] LABS: Basophils Absolute Auto 0.1 X10*3/uL (0.0-0.2); Basophils Percent Auto 0.7 % (0-2); Eosinophils Percent Auto 0.4 % (0-4); Hematocrit 38.3 % (37.0-47.0); Lymphocytes Absolute Auto 1.9 X10*3/uL (1.2-4.9); Mean Corpuscular HGB Conc 32.1 g/dl (31.0-35.0); Mean Corpuscular Hemoglobin 28.5 pg (27.0-33.0); Mean Corpuscular Volume 88.9 fL (80.0-98.0); Monocytes Absolute Auto 0.7 X10*3/uL (0.1-1.2); Monocytes Percent Auto 9.1 % (2-11); Neutrophils Absolute Auto 4.4 x10*3/uL (2.0-8.3); Neutrophils Percent Auto 62.4 % (45-73); Red Blood Count 4.31 X10*6/uL (4.20-5.50); White Blood Count 7.1 X10*3/uL (4.8-10.8)
[2023-06-04 16:30] LABS: PLT ABN DIST 1
[2023-06-04 16:43] LABS: SLIDE REVIEW VERIFIED
[2023-06-05 02:32] LABS: Alanine Aminotransferase 18 U/L (0-31); Albumin Level 3.6 g/dL (3.5-5.0); Alkaline Phosphatase 86 U/L (39-117); Anion Gap 10 (12-20); Aspartate Amino Transferase 16 U/L (5-31); Bilirubin Total 0.3 mg/dL (0.0-1.0); Blood Urea Nitrogen 10 mg/dL (9-16); Calcium 8.7 mg/dL (8.4-10.2); Carbon Dioxide 27 mmol/L (22-29); Chloride 109 mmol/L (96-108); Cholesterol 119 mg/dL; Estimated Glomerular Filt Rate > 60; Glucose Fasting 104 mg/dL (60-99); HDL Cholesterol 41 mg/dL; LDL Cholesterol Calculated 42 mg/dl; Potassium 4.1 mmol/L (3.3-5.1); Sodium 142 mmol/L (135-145); TSH reflex Free T4 1.89 uIU/mL (0.32-4.0); Total Protein 6.5 g/dL (6.5-8.0); Triglycerides 181 mg/dL
[2023-06-05 05:24] LABS: Estimated Average Glucose 140 mg/dL; Hemoglobin A1C 152.5877 umol/L; Hemoglobin A1c % 6.5 %
== END 2023-06-04 13:51 | disposition home or self-care (01) ==
LOC: HO.HMGCX 13:50
PROVIDERS: Absent Provider Nurse Practitioner Family; PCP Nurse Practitioner Family; Visit Provider Urology
DX: R31.29 Other microscopic hematuria (principal); E11.9 Type 2 diabetes mellitus without complications
CPT/HCPCS: 36415; 76775; 80053; 80061; 83036; 84443; 85025

== ENCOUNTER 2023-06-13 15:24 | Outpatient (AMB) | payer MEDICARE, MEDICAID, SELFPAY ==
--- NOTE | 2023-06-13 15:31 | MHC.PC.OV ---
Vital Signs 06/13/23 15:35 Height 5 ft 7 in Weight 216 lb BMI 33.8 BP 110/76 Blood Pressure Location Rt brachial Position Sitting Pulse 68 Pulse Source Pulse Oximeter Pulse Oximetry (%) 96 Oxygen Delivery Method Room Air Intake Visit Reasons: Annual PE Allergies dabigatran etexilate [From PRADAXA] Allergy (Intermediate, Verified 06/13/23 17:15) SWELLING\hives Medication List - Last Reconciled 06/13/23 by KVNG RodriguezP- acetaminophen 1,000 mg (2 x 500 mg) PO Q8H PRN 15 days albuterol sulfate 2.5 mg (3 mL) inhalation Q4-6H PRN 30 days amlodipine 2.5 mg PO DAILY ascorbic acid (vitamin C) 500 mg PO BID 90 days atorvastatin 40 mg PO DAILY blood pressure test kit-large Use to check BP daily blood sugar diagnostic (FreeStyle Lite Strips) test BS TID blood-glucose meter (FreeStyle Lite Meter kit) Use to test blood sugar 3 times a day budesonide-formoterol 160-4.5 mcg/actuation (Symbicort) 1 inh inhalation BID cholecalciferol (vitamin D3) 50 mcg PO DAILY clonazepam 1 mg PO BID cranberry fruit 450 mg PO BID 90 days fluticasone propion-salmeterol 250-50 mcg/dose (Advair Diskus) 1 inh inhalation BID 30 days fluticasone propionate 50 mcg/actuation (Children's Flonase Allergy Relief) 1 spray intranasal DAILY ibuprofen 600 mg PO DAILY PRN 30 days lancets As directed lancets (FreeStyle Lancets) As directed lisinopril 20 mg PO DAILY meclizine 25 mg PO TID PRN mirabegron ER 50 mg PO DAILY omeprazole 20 mg PO .QD primidone 0 mg PO propranolol 60 mg PO BID [pull ups The patient is using 8 pull ups a day; size extra large] [Recliner lift chair As directed] rivaroxaban (Xarelto) 20 mg PO QPM sucralfate (Carafate) 2 grams (2 x 1 gram) PO .daily at 11pm tramadol 50 mg PO Q6H PRN trazodone 100 mg PO BEDTIME Ultra-Light Rollator (walker) lower extrem weakness, use daily NS [Upright Posture Walker daily use] Ventolin HFA 90 mcg/actuation (albuterol sulfate) 2 puffs inhalation Q4-6H PRN 30 days NS zolpidem 10 mg PO BEDTIME PRN Tobacco use date assessed: 06/13/23 Fall risk assessment: No Falls in past year Last assessed Fall Risk: 06/13/23 Dental Screening Dental Screen Date: 06/13/23 Did you have a dental visit in the last 12 months?: No Did you have a dental problem in the last 6 months where you did not have access to dental care?: No Was dental information given to patient?: No HPI Annual PE HPI Details Pt is here for a PE. Labs were already performed. Colon screen is up to date. Mammo is up to date. Bone density is up to date. Pt does not have a director of safety, will refer. Pt is a diabetic, on an DEBORAH and a statin. Last A1C was 6.5. Due for microalbumin, this has been ordered. Denies polyuria, polydipsia, and neuropathy. Pt denies any signs and symptoms of hypoglycemia and does know how to correct it. Pt reports decreased hearing. Will refer for hearing screen. Pt follows up with cardiology, GI, pulmonology, and urology. Pt has been a PPD smoker since age 12, will refer to thoracic for low-dose CTs. Pt c/o left heel discomfort. She believes she has had a piece of glass in her foot for 3 weeks. Will order xr. [facility] Medical History Arthritis Benign essential tremor Breast calcification, right Cardiac pacemaker in situ Chest pain Constipation COPD (chronic obstructive pulmonary disease) Depression Diverticulitis Essential hypertension Fatigue GERD (gastroesophageal reflux disease) Hematuria History of smoking at least 1 pack per day for at least 30 years Hyperlipidemia Hypertensive retinopathy Insomnia LVH (left ventricular hypertrophy) Mesenteric lymphadenopathy NSVT (nonsustained ventricular tachycardia) Obesity, Class I, BMI 30-34.9 Paroxysmal atrial fibrillation Pre-diabetes Smoking SSS (sick sinus syndrome) Thrombocytopenia Tremor Surgical History History of dilatation and curettage History of esophagogastroduodenoscopy (EGD) History of eye surgery History of pubovaginal sling History of tonsillectomy and adenoidectomy History of tubal ligation Hx of cholecystectomy Hx of colonoscopy Hx of right breast biopsy Family History Father Family history of diabetes mellitus Mother Diabetes mellitus Substance use disorder Sister Uterine cancer Diabetes mellitus Mental health disorder Substance use disorder Maternal Grandfather No problems noted. Maternal Grandmother Unknown family medical history Paternal Grandfather No problems noted. Paternal Grandmother No problems noted. Social History Household Members: Other Household Members Other:: Ex-, Daughter Housing: Apartment Alcohol intake: former Year quit: 2001 Patient Tobacco Use Status: Current everyday Tobacco user Tobacco use type: Cigarette Cigarettes Per Day: 6 Years Smoked: 45 +/- e-Cigarette/Vaping Use: Never Used Second Hand Smoke Exposure: Yes Advance Directives Date on File: 03/21/22 Current occupational status: disabled Cognitive needs: No Hearing needs: No Vision needs: No Female Reproductive History Menstrual Age of Menarche: 7 Questionnaire Thrive Questionnaire Date Thrive assessed: 11/20/22 ESTEFANIA-7 AMB Questionnaire ESTEFANIA-7 Date ESTEFANIA - 7 assessed: 11/20/22 Source: Developed by Drs. Rich Colmenares, Kelly Wasserman, Zbigniew Robert and colleagues, with an educational jeffrey from [employer]. Review of Systems Const Denies chills and Denies fever(s) Eyes Denies blurry vision ENT Denies vertigo, Denies dizziness and Denies sore throat Card Denies chest pain at rest, Denies chest pain with activity, Denies diaphoresis, Denies dyspnea and Denies dyspnea on exertion Resp Denies cough, Denies dyspnea, Denies dyspnea on exertion and Denies wheezing GI Denies abdominal pain, Denies melena, Denies hematochezia, Denies constipation, Denies diarrhea and Denies loose stools Denies hematuria Musc Denies numbness and Denies tingling Skin/Breast Denies lesions Neuro Denies vertigo, Denies dizziness, Denies numbness and Denies tingling Psych Denies anxiety, Denies depression, Denies homicidal ideation, Denies suicidal ideation and Denies other (substance abuse) Aller/Immun Denies wheezing Physical exam (Primary Care) Vital Signs: Last Vital Signs Pulse 68 06/13/23 15:35 BP 110/76 06/13/23 15:35 Pulse Ox 96 06/13/23 15:35 Oxygen Delivery Method Room Air 06/13/23 15:35 BMI result Body Mass Index 33.8 Tobacco/Smoking Status: Tobacco use Status Tobacco use date assessed 06/13/23 06/13/23 15:44 Patient Tobacco Use Status Current everyday Tobacco 06/13/23 15:34 Tobacco use type Cigarette 06/13/23 15:34 e-Cigarette/Vaping Use Never Used 06/13/23 15:34 Thrive Assessment: Date of Thrive Assessment Date Thrive assessed 11/20/22 06/13/23 15:34 Const General: cooperative Nutritional Appearance: obese Orientation/consciousness: patient oriented x3 HENMT Head: Yes normal to inspection, Yes normocephalic and Yes atraumatic Ears: TM's normal bilaterally Eyes General: appearance normal, both eyes and all related structures Alignment and Position: alignment normal and position normal Neck Neck: Yes normal visual inspection and Yes no lymphadenopathy Thyroid: Thyroid normal Resp Effort & Inspection: normal respiratory effort Auscultation: clear to auscultation bilaterally Cardio Rate: regular rate Rhythm: regular rhythm Heart sounds: S1 normal heart sound present, S2 normal heart sound present and no murmurs GI Palpation (GI): Soft to palpation and nontender Auscultation: normal bowel sounds Skin Rashes: no rashes Neuro General: patient oriented x3, moves all extremities, no focal motor deficits and deep tendon reflexes 2+ bilaterally Romberg Test: Negative Extrem Other: bilat feet: + sensation with use of monofilament, left heel with pea-size area of erythema, no discharge, no drainage, no signs of infection Psych Appearance: grossly normal Mental Status: mental status grossly normal Speech and movement: Normal speech and movement present Affect: normal affect Attitude: cooperative Thought process: Normal thought process present Thought content: Normal thought content present Insight: Good insight present (Psych) Judgement: Good judgement present (Psych) Assessment and Plan Assessment & Plan (1) Hard of hearing: Code(s): H91.90 - Unspecified hearing loss, unspecified ear Plan: Referred for hearing screen (2) History of smoking at least 1 pack per day for at least 30 years: Code(s): Z87.891 - Personal history of nicotine dependence Plan: Referred to thoracic (3) Heel pain: Comment: ordering XR to assess for foreign body Code(s): M79.673 - Pain in unspecified foot Plan: XR ordered (4) Screening for cervical cancer: Comment: reports used to see INDUSTRIAL MACHINE OPERATOR, had abnormal paps in the past Code(s): Z12.4 - Encounter for screening for malignant neoplasm of cervix Plan: Referred to director of safety (5) Physical exam: Code(s): Z00.00 - Encounter for general adult medical examination without abnormal findings Plan The patient agreed to the use of a medical physicist for this encounter. Scribed for DONOVAN Hollis-BC by Kate Ventura medical physicist, on 06/13/2023 at 15:50 EST. Orders: Referrals Speech and Hearing Referral H91.90 - Unspecified hearing loss, unspecified ear Thoracic Surgery Referral Z87.891 - Personal history of nicotine dependence CARPENTERS HELPER Referral Z12.4 - Encounter for screening for malignant neoplasm of cervix Medications: Changed From lancets (FreeStyle Lancets) As directed 100 ea 0RF test BS TID E11.9 - Type 2 diabetes mellitus without complications To lancets (FreeStyle Lancets) tid 100 ea 3RF test BS TID E11.9 - Type 2 diabetes mellitus without complications Coding Level of Care Code Est Pt Prev Care >65y(60990) Diagnoses Hard of hearing H91.90 History of smoking at least 1 pack per day for at least 30 years Z87.891 Heel pain M79.673 Screening for cervical cancer Z12.4 Physical exam Z00.00
[2023-06-13 15:35] VITALS: BP 110/76; PULSE 68; O2SAT 96; BMI 33.8
== END 2023-06-13 16:18 | disposition home or self-care (01) ==
PROVIDERS: PCP Nurse Practitioner Family; Visit Provider Nurse Practitioner Family
DX: Z00.00 Encounter for general adult medical examination without abnormal findings (principal); H91.93 Unspecified hearing loss, bilateral; Z87.891 Personal history of nicotine dependence; M79.672 Pain in left foot
CPT/HCPCS: 99397

== ENCOUNTER 2023-06-13 16:19 | Outpatient (REF) | payer MEDICARE, MEDICAID, SELFPAY ==
--- NOTE | ~2023-06-13 | XR_ITS ---
EXAMINATION: XR FOOT, LEFT CLINICAL INFORMATION: Left foot pain stepping on glass. Rule out foreign body. COMPARISON: None available. TECHNIQUE: AP, lateral, and oblique views of the left foot. FINDINGS: A 0.4 cm radiopaque density seen superficial soft tissues of the heel just deep to the skin surface. The underlying soft tissues are unremarkable. There is no acute fracture or dislocation. The joint spaces are unremarkable. XR/XR foot LT min 3V IMPRESSION: 0.4 cm radiopaque density in the superficial soft tissues of the heel likely represents a foreign body. No acute underlying osseous abnormality.
== END 2023-06-13 16:20 | disposition home or self-care (01) ==
LOC: HO.HMGCX 16:19
PROVIDERS: PCP Nurse Practitioner Family; Visit Provider Nurse Practitioner Family
DX: M79.672 Pain in left foot (principal)
CPT/HCPCS: 73630

== ENCOUNTER 2023-06-20 13:10 | Outpatient (AMB) | payer MEDICARE, MEDICAID, SELFPAY ==
--- NOTE | 2023-06-20 13:29 | MHC.OFFVIS ---
Intake Intake Visit Reasons: 1Y US(set) Intake Note: Patient is present for Follow Up Ultrasound Urology Med: Myrbetriq Antibiotic Allergy: None Blood Thinner: Xarelto Pharmacy: [facility] Allergies dabigatran etexilate [From PRADAXA] Allergy (Intermediate, Verified 06/20/23 13:46) SWELLING\hives HPI HPI Comments History of Present Illness Details Myrtle is a pleasant female. She is a patient of Dr. Botello. She seen for the following urologic conditions - microscopic hematuria - recurrent urinary tract infection - overactive bladder Yearly review Diapers for overactive bladder Continue with Myrbetriq Prior use cranberry referral recurring tract infections Prescription refill No evidence of hematuria today Prior smoking history. ON LICENSE OF [facility] Medical History Arthritis Benign essential tremor Breast calcification, right Cardiac pacemaker in situ Chest pain Constipation COPD (chronic obstructive pulmonary disease) Depression Diverticulitis Essential hypertension Fatigue GERD (gastroesophageal reflux disease) Hematuria History of smoking at least 1 pack per day for at least 30 years Hyperlipidemia Hypertensive retinopathy Insomnia LVH (left ventricular hypertrophy) Mesenteric lymphadenopathy NSVT (nonsustained ventricular tachycardia) Obesity, Class I, BMI 30-34.9 Paroxysmal atrial fibrillation Pre-diabetes Smoking SSS (sick sinus syndrome) Thrombocytopenia Tremor Surgical History History of dilatation and curettage History of esophagogastroduodenoscopy (EGD) History of eye surgery History of pubovaginal sling History of tonsillectomy and adenoidectomy History of tubal ligation Hx of cholecystectomy Hx of colonoscopy Hx of right breast biopsy Family History Father Family history of diabetes mellitus Mother Diabetes mellitus Substance use disorder Sister Uterine cancer Diabetes mellitus Mental health disorder Substance use disorder Maternal Grandfather No problems noted. Maternal Grandmother Unknown family medical history Paternal Grandfather No problems noted. Paternal Grandmother No problems noted. Social History Household Members: Other Household Members Other:: Ex-, Daughter Housing: Apartment Alcohol intake: former Year quit: 2001 Patient Tobacco Use Status: Current everyday Tobacco user Tobacco use type: Cigarette Cigarettes Per Day: 6 Years Smoked: 45 +/- e-Cigarette/Vaping Use: Never Used Second Hand Smoke Exposure: Yes Advance Directives Date on File: 03/21/22 Current occupational status: disabled Cognitive needs: No Hearing needs: No Vision needs: No Female Reproductive History Menstrual Age of Menarche: 7 Review of Systems Const Denies chills and Denies fever(s) Card Reports no additional complaints and Denies syncope Resp Denies cough GI Denies abdominal pain and Denies heartburn Reports as per HPI and Denies change in libido Neuro Denies syncope Psych Denies change in libido Endo Denies change in libido Physical Exam Const General: cooperative, healthy appearing, comfortable and no acute distress Orientation/consciousness: patient oriented x3 HEENT Face and sinus: Yes normal facial exam Mouth: moist mucous membranes Neck Neck: Yes normal visual inspection, Yes full ROM and Yes trachea midline Chest Chest palpation & inspection: normal inspection of the chest Resp Effort & Inspection: normal respiratory effort, able to speak in complete sentences and no respiratory distress GI Inspection: Yes normal to inspection Back/Spine/Pelvis Cervical Spine: normal cervical lordosis Thoracic/Lumbar Spine: thoracic and lumbar spine normal to inspection Skin General skin exam: no rashes or lesions noted Neuro General: patient oriented x3, gait normal, tone normal and moves all extremities Extrem General: Yes normal to inspection and Yes capillary refill normal Assessment & Plan Assessment & Plan (1) Microscopic hematuria: Code(s): R31.29 - Other microscopic hematuria (2) Urinary incontinence: Code(s): R32 - Unspecified urinary incontinence (3) Recurrent UTI: Code(s): N39.0 - Urinary tract infection, site not specified Plan Twelve month Medications: Changed From mirabegron ER 50 mg PO DAILY To mirabegron ER 50 mg PO DAILY 90 tabs 3RF 90 days Refilled cranberry fruit 450 mg PO BID 180 tabs 1RF 90 days Patient Instructions: Imaging studies, laboratory and physical exam results were discussed and reviewed in detail. No major barriers to patient understanding were identified. An opportunity to ask questions regarding the treatment plan was provided. All questions were answered. The patient expressed understanding and agreement with the above treatment plan. The patient is aware they should contact our office by phone for worsening of their current condition or the appearance of new urologic symptoms. Compliance is encouraged with any medications and followup testing that is ordered. It is a privilege to participate in the urologic care of your patient. If you have any questions or concerns regarding treatment for the above conditions, or other urologic issues, please do not hesitate to contact me. The office telephone contact is [phone]. This note is constructed using voice recognition software. While every effort has been made to ensure accuracy metallurgical engineering teacher errors may have been included. Yours sincerely, Dr Shahriar Dozier MD, [facility] - Urology Providers of Expert, Compassionate Care for the Genitourinary System Coding Level of Care Code Est Pt Level 4 (20115) Diagnoses Microscopic hematuria R31.29 Urinary incontinence R32 Recurrent UTI N39.0
== END 2023-06-20 13:59 | disposition home or self-care (01) ==
PROVIDERS: PCP Nurse Practitioner Family; Visit Provider Urology
DX: R31.29 Other microscopic hematuria (principal); R32 Unspecified urinary incontinence; N39.0 Urinary tract infection, site not specified
CPT/HCPCS: 99214

== ENCOUNTER 2023-06-20 14:17 | Emergency (ER) | payer MEDICARE, MEDICAID, SELFPAY ==
--- NOTE | ~2023-06-20 | XR_ITS ---
EXAMINATION: XR FOOT, LEFT CLINICAL INFORMATION: Radiopaque foreign body in heel. COMPARISON: None available. TECHNIQUE: AP, lateral, and oblique views of the left foot. FINDINGS: Again seen is a small superficially located triangular radiopaque foreign body measuring 0.4 cm without significant change. Mild superficial skin thickening is seen at this level. The underlying subcutaneous fat is unremarkable. The osseous structures are unremarkable. XR/XR foot LT min 3V IMPRESSION: 0.4 cm superficially located triangular radiopaque foreign body in the heel similar to the previous study.
[2023-06-20 14:39] VITALS: BP 120/87; PULSE 78; RESP 19; TEMP 36.6; O2SAT 98; BMI 33.8
--- NOTE | 2023-06-20 14:39 | ED_ITS ---
HPI - General Adult General Chief complaint: General Medical Stated complaint: Glass in foot Time Seen by Provider: 06/20/23 15:18 Source: patient Mode of arrival: wheelchair Limitations: no limitations History of Present Illness HPI narrative: 63 yo female with history of HTN, COPD here with complaints of piece of glass being stuck in her foot >1 month. No redness, swelling. Having pain with weight bearing. Related Data Home Medications Medication Instructions Recorded Confirmed clonazepam 1 mg tablet 1 mg PO BID 08/11/20 06/13/23 lancets 28 gauge #100 ea 08/11/20 05/23/23 trazodone 100 mg tablet 100 mg PO BEDTIME 08/11/20 06/13/23 zolpidem 10 mg tablet 10 mg PO BEDTIME PRN Insomnia 08/11/20 06/13/23 lisinopril 40 mg tablet 20 mg PO DAILY 08/24/21 06/13/23 budesonide-formoterol HFA 160 1 inh inhalation BID SEVERE COPD 01/24/23 06/13/23 mcg-4.5 mcg/actuation aerosol inhaler (Symbicort) primidone 50 mg tablet 0 mg PO 06/13/23 06/13/23 propranolol 60 mg tablet 60 mg PO BID 06/13/23 06/13/23 Previous Rx's Medication Instructions Recorded Recliner lift chair #1 ea 08/25/21 acetaminophen 500 mg tablet 1,000 mg PO Q8H PRN pain 15 days 11/15/21 #90 tabs blood-glucose meter (FreeStyle #1 ea 01/05/22 Lite Meter kit) pull ups #240 ea 05/22/22 blood pressure test kit-large #1 ea 06/01/22 albuterol sulfate 2.5 mg/3 mL 2.5 mg (3 mL) inhalation Q4-6H PRN 09/07/22 (0.083 %) solution for nebulization shortness of breath or wheezing 30 days #180 mL Ventolin HFA 90 mcg/actuation 2 puff inhalation Q4-6H PRN 09/11/22 aerosol inhaler (albuterol sulfate) shortness of breath or wheezing 30 days #18 grams omeprazole 20 mg capsule,delayed 20 mg PO .QD #30 caps 11/29/22 release sucralfate 1 gram tablet (Carafate) 2 g PO .daily at 11pm #60 tabs 11/29/22 blood sugar diagnostic (FreeStyle #300 ea 01/09/23 Lite Strips) fluticasone 250 mcg-salmeterol 50 1 inh inhalation BID copd 30 days 01/24/23 mcg/dose blistr powdr for #60 ea inhalation (Advair Diskus) meclizine 25 mg tablet 25 mg PO TID PRN dizziness #20 tabs 02/15/23 tramadol 50 mg tablet 50 mg PO Q6H PRN pain #20 tabs 02/15/23 rivaroxaban 20 mg tablet (Xarelto) 20 mg PO QPM #90 tabs 02/23/23 cholecalciferol (vitamin D3) 50 50 mcg PO DAILY #90 caps 02/26/23 mcg (2,000 unit) capsule Ultra-Light Rollator (walker) #1 ea 03/14/23 Upright Posture Walker #1 ea 03/14/23 ibuprofen 600 mg tablet 600 mg PO DAILY PRN pain 30 days 03/24/23 #30 tabs ascorbic acid (vitamin C) 500 mg 500 mg PO BID 90 days #180 tabs 04/19/23 tablet fluticasone propionate 50 1 spray intranasal DAILY #16 grams 05/23/23 mcg/actuation nasal spray,suspension (Children's Flonase Allergy Relief) amlodipine 2.5 mg tablet 2.5 mg PO DAILY #90 tabs 05/28/23 atorvastatin 40 mg tablet 40 mg PO DAILY #90 tabs 05/29/23 lancets 28 gauge (FreeStyle #100 ea 06/13/23 Lancets) cranberry fruit 450 mg tablet 450 mg PO BID 90 days #180 tabs 06/20/23 mirabegron 50 mg tablet,extended 50 mg PO DAILY 90 days #90 tabs 06/20/23 release 24 hr Allergies Allergy/AdvReac Type Severity Reaction Status Date / Time dabigatran etexilate Allergy Intermediate SWELLING\hi Verified 06/20/23 14:38 [From PRADAXA] ves Review of Systems Review of Systems: Yes all other systems are reviewed and are negative Constitutional: Constitutional: Reports no additional constitutional complaints, Denies body ache(s), Denies chills, Denies fever(s), Denies headache(s) and Denies weakness Eyes: Eyes: Reports no additional eye complaints and Denies change in vision ENT: Reports system reviewed and no additional complaints, except as docume nted, Denies dizziness, Denies headache(s), Denies nasal congestion, Denies nasal discharge and Denies neck pain Cardiovascular: Cardiovascular: Reports no additional cardiovascular complaints, Denies chest pain, Denies leg edema and Denies dyspnea Respiratory: Respiratory: Reports no additional respiratory complaints, Denies cough and Denies dyspnea Gastrointestinal: Gastrointestinal: Reports no additional gastrointestinal complaints, Denies abdominal pain, Denies diarrhea, Denies nausea and Denies vomiting Genitourinary: Genitourinary: Reports no additional female genitourinary complaints and Denies urinary incontinence Musculoskeletal: Musculoskeletal: Reports no additional musculoskeletal complaints, Denies back pain, Reports arthralgias, Denies joint swelling, Denies neck pain, Denies numbness and Denies tingling Integumentary/Breasts: Skin/Breast: Reports system reviewed and no additional complaints, except as docu and Denies rash Neurologic: Reports system reviewed and no additional complaints, except as documented, Denies dizziness, Denies headache(s), Denies numbness, Denies tingling and Denies weakness [facility] Past Medical History Attestation statement: The following information was validated with the patient. Source: old records reviewed and nursing notes reviewed Medical History Arthritis Benign essential tremor Breast calcification, right Cardiac pacemaker in situ Chest pain Constipation COPD (chronic obstructive pulmonary disease) Depression Diverticulitis Essential hypertension Fatigue GERD (gastroesophageal reflux disease) Hematuria History of smoking at least 1 pack per day for at least 30 years Hyperlipidemia Hypertensive retinopathy Insomnia LVH (left ventricular hypertrophy) Mesenteric lymphadenopathy NSVT (nonsustained ventricular tachycardia) Obesity, Class I, BMI 30-34.9 Paroxysmal atrial fibrillation Pre-diabetes Smoking SSS (sick sinus syndrome) Thrombocytopenia Tremor Surgical History History of dilatation and curettage History of esophagogastroduodenoscopy (EGD) History of eye surgery History of pubovaginal sling History of tonsillectomy and adenoidectomy History of tubal ligation Hx of cholecystectomy Hx of colonoscopy Hx of right breast biopsy Family History Family History Father Family history of diabetes mellitus Mother Diabetes mellitus Substance use disorder Sister Uterine cancer Diabetes mellitus Mental health disorder Substance use disorder Maternal Grandfather No problems noted. Maternal Grandmother Unknown family medical history Paternal Grandfather No problems noted. Paternal Grandmother No problems noted. Social History Social History Household Members: Other Household Members Other:: Ex-, Daughter Housing: Apartment Alcohol intake: former Year quit: 2001 Patient Tobacco Use Status: Current everyday Tobacco user Tobacco use type: Cigarette Cigarettes Per Day: 6 Years Smoked: 45 +/- e-Cigarette/Vaping Use: Never Used Second Hand Smoke Exposure: Yes Advance Directives: Yes Advance Directives on File: Yes Advance Directives Date on File: 03/21/22 Current occupational status: disabled Cognitive needs: No Hearing needs: No Vision needs: No Physical Exam ED Vital Signs: Vital Signs - 24 hr 06/20/23 14:39 Temperature 98 F Pulse Rate 78 Respiratory Rate 19 Blood Pressure 120/87 Pulse Oximetry 98 Oxygen Delivery Method Room Air BMI result Body Mass Index 33.8 Const General: cooperative, healthy appearing, comfortable and no acute distress Orientation/consciousness: patient oriented x3 HENMT Head: Yes normal to inspection Ears: hearing grossly normal bilaterally Eyes General: appearance normal, both eyes and all related structures Pupils: Equal, round and reactive pupils present Neck Neck: Yes normal visual inspection and Yes full ROM Chest Chest palpation & inspection: normal inspection of the chest Resp Effort & Inspection: normal respiratory effort Auscultation: clear to auscultation bilaterally Cardio Rate: regular rate Rhythm: regular rhythm Peripheral pulses: Peripheral pulses 2+ throughout GI Inspection: Yes normal to inspection Back/Spine/Pelvis Thoracic/Lumbar Spine: thoracic and lumbar spine normal to inspection Skin General skin exam: no rashes or lesions noted Neuro General: patient oriented x3 Cranial nerves: Yes Equal, round and reactive pupils present Cognition (Neuro): normal cognition Extrem Other: To the left heel there is no palpable soft tissue FB, no redness, warmth, drainage Course Course Course Narrative: This is an RME: Additional HPI, ROS, PE not included below will be deferred to primary provider. This is a [id number]-female presenting to the emergency department with glass in left foot x 1 month. Had x-ray performed on 06/13 confirming glass in foot. TTP over heel. No evidence of infection. No fevers or chills. Plan: needs removal. Medications Administered Discontinued Medications Generic Name Dose Route Start Last Admin Trade Name Mark PRN Reason Stop Dose Admin Acetaminophen 975 mg 06/20/23 16:06 06/20/23 16:09 Acetaminophen 325 Mg Tablet PO 06/20/23 16:07 975 mg ONCE ONE Administration Medical Decision Making Medical Decision Making MDM Narrative: 63 yo female with history of HTN, COPD here with complaints of piece of glass being stuck in her foot >1 month. No redness, swelling. Having pain with weight bearing. On exam I cannot palpate a soft tissue FB although on 2 different x-rays a superficial FB is noted. I explained to patient she can f/u outpatient with general surgery for removal as this is been there for quite some time and I am unable to palpate a soft ti ssue FB that would be easily amenable to removal. Given post op shoe for comfort, APAP for pain Differential Diagnosis Differential Diagnoses: The differential diagnosis associated with the presentation includes soft tissue fb low concern for infection Independent Interpretation I performed an independent interpretation of an: Plain X-Ray Interpretation: I independently received the x-ray and agree with rad report Radiology Impression Discussion of test interpretation with radiology: I have reviewed the radiologist's reading. Radiologist Impression: [place] [id number] XRay Report Signed Patient: Myrtle Ford MR#: [id number] : 1960 Acct:[id number] Age/Sex: 63 / F ADM Date: 06/20/23 Loc: HO.ED Attending Dr: Ordering Physician: Hannah Patterson MD Date of Service: 06/20/23 Procedure(s): XR foot LT min 3V Accession Number(s): [id number] cc: Hannah Patterson MD~ EXAMINATION: XR FOOT, LEFT CLINICAL INFORMATION: Radiopaque foreign body in heel.? COMPARISON: None available.? TECHNIQUE: AP, lateral, and oblique views of the left foot. FINDINGS: Again seen is a small superficially located triangular radiopaque foreign body measuring 0.4 cm without significant change. Mild superficial skin thickening is seen at this level. The underlying subcutaneous fat is unremarkable. The osseous structures are unremarkable.? XR/XR foot LT min 3V IMPRESSION: 0.4 cm superficially located triangular radiopaque foreign body in the heel similar to the previous study. Prescription Management no need for antibiotic as no sign/symptoms of infection Discharge Plan Discharge Clinical Impression: Foreign body (FB) in soft tissue Patient Disposition: Home, Self-Care Instructions: Soft Tissue Foreign Body (ED) Additional Instructions: Use the shoe for comfort Tylenol for pain Ice Follow-up with general surgery Prescriptions: No Action lisinopril 40 mg tablet 20 mg PO DAILY (DME) Recliner lift chair See Rx Instructions .Route .MEDSUPPLY Qty: 1 0RF Rx Instructions: As directed acetaminophen 500 mg tablet 1,000 mg PO Q8H PRN (Reason: pain) 15 Days Qty: 90 2RF (DME) blood-glucose meter [FreeStyle Lite Meter] Kit See Rx Instructions .Route Qty: 1 0RF Rx Instructions: Use to test blood sugar 3 times a day (DME) pull ups Extra Large See Rx Instructions .Route .MEDSUPPLY Qty: 240 0RF Rx Instructions: The patient is using 8 pull ups a day; size extra large (DME) blood pressure test kit-large Kit See Rx Instructions .Route Qty: 1 0RF Rx Instructions: Use to check BP daily albuterol sulfate [Ventolin HFA] 90 mcg/actuation HFA aerosol inhaler 2 puff inhalation Q4-6H PRN (Reason: shortness of breath or wheezing) 30 Days Qty: 18 3RF (DME) FreeStyle Lite Strips Strip See Rx Instructions .Route Qty: 300 1RF Rx Instructions: test BS TID Xarelto 20 mg tablet 20 mg PO QPM Qty: 90 3RF cholecalciferol (vitamin D3) 50 mcg (2,000 unit) capsule 50 mcg PO DAILY Qty: 90 1RF (DME) Upright Posture Walker See Rx Instructions .Route .MEDSUPPLY Qty: 1 0RF Rx Instructions: daily use (DME) Ultra-Light Rollator Misc See Rx Instructions .Route Qty: 1 0RF Rx Instructions: lower extrem weakness, use daily ibuprofen 600 mg tablet 600 mg PO DAILY PRN (Reason: pain) 30 Days Qty: 30 0RF Rx Instructions: use sparingly: not good for diabetics, and also on xarelto ascorbic acid (vitamin C) 500 mg tablet 500 mg PO BID 90 Days Qty: 180 1RF amlodipine 2.5 mg tablet 2.5 mg PO DAILY Qty: 90 3RF atorvastatin 40 mg tablet 40 mg PO DAILY Qty: 90 1RF tramadol 50 mg tablet 50 mg PO Q6H PRN (Reason: pain) Qty: 20 0RF meclizine 25 mg tablet 25 mg PO TID PRN (Reason: dizziness) Qty: 20 0RF clonazepam 1 mg tablet 1 mg PO BID zolpidem 10 mg tablet 10 mg PO BEDTIME PRN (Reason: Insomnia) trazodone 100 mg tablet 100 mg PO BEDTIME (DME) lancets 28 gauge misc See Rx Instructions Not Applicable DAILY Qty: 100 Rx Instructions: As directed propranolol 60 mg tablet 60 mg PO BID primidone 50 mg tablet 0 mg PO (DME) lancets [FreeStyle Lancets] 28 gauge misc See Rx Instructions .Route Qty: 100 3RF Rx Instructions: tid fluticasone propionate [Children's Flonase Allergy Rlf] 50 mcg/actuation spray,suspension 1 spray intranasal DAILY Qty: 16 0RF Rx Instructions: administer into each nostril sucralfate [Carafate] 1 gram tablet 2 g PO .daily at 11pm Qty: 60 6RF omeprazole 20 mg capsule,delayed release(DR/EC) 20 mg PO .QD Qty: 30 6RF cranberry fruit 450 mg tablet 450 mg PO BID 90 Days Qty: 180 1RF mirabegron 50 mg tablet extended release 24 hr 50 mg PO DAILY 90 Days Qty: 90 3RF albuterol sulfate 2.5 mg /3 mL (0.083 %) solution for nebulization 2.5 mg inhalation Q4-6H PRN (Reason: shortness of breath or wheezing) 30 Days Qty: 180 4RF budesonide-formoterol [Symbicort] 160-4.5 mcg/actuation HFA aerosol inhaler 1 inh inhalation BID Rx Instructions: on hold right now fluticasone propion-salmeterol [Advair Diskus] 250-50 mcg/dose blister with device 1 inh inhalation BID 30 Days Qty: 60 3RF Referrals: Oliverio Waters MD [Physician] - 1 week Interventions: ED Discharge Assessment Last Done: 06/20/23 16:31 Discharge Date/Time: 06/20/23 16:31
[2023-06-20] MEDS: Acetaminophen 325 MG TABLET 975 MG PO (16:09)
== END 2023-06-20 16:31 | disposition home or self-care (01) ==
PROVIDERS: Emergency Provider Emergency Medicine Emergency Medical Services; PCP Nurse Practitioner Family
DX: M79.5 Residual foreign body in soft tissue (principal); M79.672 Pain in left foot
CPT/HCPCS: 73630; 99212; 99283

== ENCOUNTER 2023-06-22 08:46 | Outpatient (AMB) | payer MEDICARE, MEDICAID, SELFPAY ==
[2023-06-22 08:57] VITALS: BP 136/78; PULSE 88; BMI 34.0
--- NOTE | 2023-06-22 08:57 | A.OFFVIS_ITS ---
Intake Vital Signs 06/22/23 08:57 Height 5 ft 7 in Weight 217 lb BMI 34.0 BP 136/78 Blood Pressure Location Rt brachial Position Sitting Pulse 88 Intake Visit Reasons: foreign body in heel Intake Note: Patient here for f/u ER visit on 06-20-23. Patient wearing boot on Lt foot. C/o glass stuck on heel very painful to walk on. Gate Watch Required: No Accompanied by: Self / Same As Patient Allergies dabigatran etexilate [From PRADAXA] Allergy (Intermediate, Verified 06/22/23 09:00) SWELLING\hives Medication List - Last Reconciled 06/22/23 by Kulwant Rao MD acetaminophen 1,000 mg (2 x 500 mg) PO Q8H PRN 15 days albuterol sulfate 2.5 mg (3 mL) inhalation Q4-6H PRN 30 days amlodipine 2.5 mg PO DAILY ascorbic acid (vitamin C) 500 mg PO BID 90 days atorvastatin 40 mg PO DAILY blood pressure test kit-large Use to check BP daily blood sugar diagnostic (FreeStyle Lite Strips) test BS TID blood-glucose meter (FreeStyle Lite Meter kit) Use to test blood sugar 3 times a day budesonide-formoterol 160-4.5 mcg/actuation (Symbicort) 1 inh inhalation BID cholecalciferol (vitamin D3) 50 mcg PO DAILY clonazepam 1 mg PO BID cranberry fruit 450 mg PO BID 90 days fluticasone propion-salmeterol 250-50 mcg/dose (Advair Diskus) 1 inh inhalation BID 30 days fluticasone propionate 50 mcg/actuation (Children's Flonase Allergy Relief) 1 spray intranasal DAILY ibuprofen 600 mg PO DAILY PRN 30 days lancets As directed lancets (FreeStyle Lancets) tid lisinopril 20 mg PO DAILY meclizine 25 mg PO TID PRN mirabegron ER 50 mg PO DAILY 90 days omeprazole 20 mg PO .QD primidone 0 mg PO propranolol 60 mg PO BID [pull ups The patient is using 8 pull ups a day; size extra large] [Recliner lift chair As directed] rivaroxaban (Xarelto) 20 mg PO QPM sucralfate (Carafate) 2 grams (2 x 1 gram) PO .daily at 11pm tramadol 50 mg PO Q6H PRN trazodone 100 mg PO BEDTIME Ultra-Light Rollator (walker) lower extrem weakness, use daily NS [Upright Posture Walker daily use] Ventolin HFA 90 mcg/actuation (albuterol sulfate) 2 puffs inhalation Q4-6H PRN 30 days NS zolpidem 10 mg PO BEDTIME PRN HPI HPI Comments History of Present Illness Details Patient presents for evaluation because of a left heel foreign body. She sustained this walking barefoot approximate 1 month ago. She was seen emergency department and was referred here. X-ray demonstrated radio-opaque small foreign body of the left heel. Chart was reviewed and patient evaluated ON LICENSE OF [facility] Medical History (Reviewed 06/22/23 @ 09: by ZAYRA Clayton) Arthritis Benign essential tremor Breast calcification, right Cardiac pacemaker in situ Chest pain Constipation COPD (chronic obstructive pulmonary disease) Depression Diverticulitis Essential hypertension Fatigue GERD (gastroesophageal reflux disease) Hematuria History of smoking at least 1 pack per day for at least 30 years Hyperlipidemia Hypertensive retinopathy Insomnia LVH (left ventricular hypertrophy) Mesenteric lymphadenopathy NSVT (nonsustained ventricular tachycardia) Obesity, Class I, BMI 30-34.9 Paroxysmal atrial fibrillation Pre-diabetes Smoking SSS (sick sinus syndrome) Thrombocytopenia Tremor Surgical History (Reviewed 06/22/23 @ 09: by ZAYRA Clayton) History of dilatation and curettage History of esophagogastroduodenoscopy (EGD) History of eye surgery History of pubovaginal sling History of tonsillectomy and adenoidectomy History of tubal ligation Hx of cholecystectomy Hx of colonoscopy Hx of right breast biopsy Family History Father Family history of diabetes mellitus Mother Diabetes mellitus Substance use disorder Sister Uterine cancer Diabetes mellitus Mental health disorder Substance use disorder Maternal Grandfather No problems noted. Maternal Grandmother Unknown family medical history Paternal Grandfather No problems noted. Paternal Grandmother No problems noted. Social History Household Members: Other Household Members Other:: Ex-, Daughter Housing: Apartment Alcohol intake: former Year quit: 2001 Patient Tobacco Use Status: Current everyday Tobacco user Tobacco use type: Cigarette Cigarettes Per Day: 6 Years Smoked: 45 +/- e-Cigarette/Vaping Use: Never Used Second Hand Smoke Exposure: Yes Advance Directives Date on File: 03/21/22 Current occupational status: disabled Cognitive needs: No Hearing needs: No Vision needs: No Female Reproductive History Menstrual Age of Menarche: 7 Physical Exam Vital Signs: Last Vital Signs Pulse 88 06/22/23 08:57 BP 136/78 06/22/23 08:57 BMI result Body Mass Index 34.0 Extrem Other: Indurated very tender approximately 2 x 1 cm area of the left heel. No evidence of any cellulitis or abscess. Office Procedures I&D Drain Details: After appropriate positioning, patient under 1% lidocaine and Betadine prep and uneventful incision was made over the indurated area in question and a piece of glass which was the offending foreign body was identified and removed. Wounds irrigated, secured hemostasis, and bacitracin and sterile dressing were applied. Patient tolerated procedure well. [id number] of Skin Abscess, complex All charges added?: Procedure code (CPT) selection complete Assessment & Plan Assessment & Plan (1) Foreign body (FB) in soft tissue: Code(s): M79.5 - Residual foreign body in soft tissue Plan: Patient has been given local instructions, and will follow-up p.r.n. Plan Risks, benefits, alternatives of wound exploration reviewed with the patient and included but not limited to bleeding, infection, non diagnosis, numbness, pain, scarring the patient was to proceed. All questions were answered. Orders: Orders AMB Incision & Drainage Today M79.5 - Residual foreign body in soft tissue Coding Level of Care Code New Pt Level 4 (37720) Diagnoses Foreign body (FB) in soft tissue M79.5 CPT Codes I&D Drain - Drain 2: [id number]-[id number] of Skin Abscess, complex ([id number])
== END 2023-06-22 09:35 | disposition home or self-care (01) ==
PROVIDERS: PCP Nurse Practitioner Family; Visit Provider Surgery
DX: M79.5 Residual foreign body in soft tissue (principal); S90.852A Superficial foreign body, left foot, initial encounter
CPT/HCPCS: 10120; 99214

== ENCOUNTER → 2023-06-22 08:46 | Outpatient (BNVA) | payer MEDICARE, MEDICAID, SELFPAY | PROVIDERS: PCP Nurse Practitioner Family; Visit Provider Surgery | DX: M79.5 Residual foreign body in soft tissue (principal) | CPT/HCPCS: 10120 ==

== ENCOUNTER 2023-07-02 15:38 | Outpatient (AMB) | payer MEDICARE, MEDICAID, SELFPAY ==
--- NOTE | 2023-07-02 15:43 | A.OFFVIS_ITS ---
Intake Vital Signs 07/02/23 15:45 Height 5 ft 7 in Weight 216 lb BMI 33.8 BP 130/80 Blood Pressure Location Lt brachial Position Sitting Pulse 95 Pulse Source Pulse Oximeter Pulse Oximetry (%) 95 Oxygen Delivery Method Room Air Intake Visit Reasons: copd Intake Note: pt is here for follow up and states she is feeling she is about the same. pt needs refill on both inhalers, she stated she never received them. Also, needs to resend supplies for nebulizer, she never received them also. 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 Allergies dabigatran etexilate [From PRADAXA] Allergy (Intermediate, Verified 07/02/23 16:22) SWELLING\hives Medication List - Last Reconciled 07/02/23 by Ruth Thomas MD acetaminophen 1,000 mg (2 x 500 mg) PO Q8H PRN 15 days albuterol sulfate 2.5 mg (3 mL) inhalation Q4-6H PRN 30 days amlodipine 2.5 mg PO DAILY ascorbic acid (vitamin C) 500 mg PO BID 90 days atorvastatin 40 mg PO DAILY blood pressure test kit-large Use to check BP daily blood sugar diagnostic (FreeStyle Lite Strips) test BS TID blood-glucose meter (FreeStyle Lite Meter kit) Use to test blood sugar 3 times a day cholecalciferol (vitamin D3) 50 mcg PO DAILY clonazepam 1 mg PO BID cranberry fruit 450 mg PO BID 90 days fluticasone propion-salmeterol 250-50 mcg/dose (Advair Diskus) 1 inh inhalation BID 30 days fluticasone propionate 50 mcg/actuation (Children's Flonase Allergy Relief) 1 spray intranasal DAILY ibuprofen 600 mg PO DAILY PRN 30 days lancets As directed lancets (FreeStyle Lancets) tid lisinopril 20 mg PO DAILY meclizine 25 mg PO TID PRN mirabegron ER 50 mg PO DAILY 90 days omeprazole 20 mg PO .QD primidone 0 mg PO propranolol 60 mg PO BID [pull ups The patient is using 8 pull ups a day; size extra large] [Recliner lift chair As directed] rivaroxaban (Xarelto) 20 mg PO QPM sucralfate (Carafate) 2 grams (2 x 1 gram) PO .daily at 11pm tramadol 50 mg PO Q6H PRN trazodone 100 mg PO BEDTIME Ultra-Light Rollator (walker) lower extrem weakness, use daily NS [Upright Posture Walker daily use] Ventolin HFA 90 mcg/actuation (albuterol sulfate) 2 puffs inhalation Q4-6H PRN 30 days NS zolpidem 10 mg PO BEDTIME PRN Do you need a note to return to daycare/school/sports/work: No HPI copd HPI Details THIS 63 YEARS OLD VERY PLEASANT FEMALE WHO IS MODERATELY OBESE BUT DENIES SYMPTOMS, OF SLEEP APNEA COMES FOR FOLLOW-UP FOR HER COPD. SHE STILL SMOKES ABOUT 6 CIGARETTES A DAY AND DOES HAVE MILD TO MODERATE AMOUNT OF COUGH FOLLOWING SMOKING. GETS SHORT OF BREATH VERY EASILY ON WALKING AROUND, DENIES ANY ATTACKS OF WHEEZING WHEN SHE IS RESTING. SHE DID NOT RECEIVED THE INHALERS IN THAT WE HAD PRESCRIBED. [facility] Medical History Benign essential tremor History of smoking at least 1 pack per day for at least 30 years Breast calcification, right Cardiac pacemaker in situ NSVT (nonsustained ventricular tachycardia) Paroxysmal atrial fibrillation Pre-diabetes Hyperlipidemia Essential hypertension Smoking Obesity, Class I, BMI 30-34.9 Arthritis Hypertensive retinopathy SSS (sick sinus syndrome) Mesenteric lymphadenopathy Diverticulitis Constipation Chest pain Fatigue Thrombocytopenia Tremor Hematuria LVH (left ventricular hypertrophy) Depression GERD (gastroesophageal reflux disease) Insomnia COPD (chronic obstructive pulmonary disease) Surgical History Hx of right breast biopsy History of pubovaginal sling History of dilatation and curettage History of esophagogastroduodenoscopy (EGD) Hx of colonoscopy Hx of cholecystectomy History of tonsillectomy and adenoidectomy History of eye surgery History of tubal ligation Family History Father Family history of diabetes mellitus Mother Diabetes mellitus Substance use disorder Sister Uterine cancer Diabetes mellitus Mental health disorder Substance use disorder Maternal Grandfather No problems noted. Maternal Grandmother Unknown family medical history Paternal Grandfather No problems noted. Paternal Grandmother No problems noted. Social History Household Members: Other Household Members Other:: Ex-, Daughter Housing: Apartment Alcohol intake: former Year quit: 2001 Patient Tobacco Use Status: Current everyday Tobacco user Tobacco use type: Cigarette Cigarettes Per Day: 6 Years Smoked: 45 +/- e-Cigarette/Vaping Use: Never Used Second Hand Smoke Exposure: Yes Advance Directives Date on File: 03/21/22 Current occupational status: disabled Cognitive needs: No Hearing needs: No Vision needs: No Female Reproductive History Menstrual Age of Menarche: 7 Review of Systems Const All systems reviewed & are unremarkable except as noted in HPI and below Eyes Reports no additional complaints ENT Reports no additional complaints Card Denies chest pain, Denies irregular heart rhythm and Reports other (Has demand pacemaker in the left pectoral area) Resp Reports as per HPI GI Reports abdominal pain, Reports constipation, Reports heartburn, Reports diarrhea and Reports other (Irritable bowel syndrome) Reports nocturia Musc Reports back pain Skin/Breast Reports system reviewed and no additional complaints, except as documented Neuro Reports tremor(s) (Essential tremors) Psych Reports anxiety and Reports depression Endo Reports other (Diabetes mellitus) Physical Exam Vital Signs: Last Vital Signs Pulse 95 07/02/23 15:45 BP 130/80 07/02/23 15:45 Pulse Ox 95 07/02/23 15:45 Oxygen Delivery Method Room Air 07/02/23 15:45 BMI result Body Mass Index 33.8 Const General: comfortable, no acute distress, alert and awake Orientation/consciousness: patient oriented x3 HEENT Head: Yes normal to inspection General nose exam: No nasal polyps present and No nasal discharge present Face and sinus: Yes sinuses nontender Mouth: oropharynx normal Throat: Yes posterior oropharynx normal Eyes General: appearance normal, both eyes and all related structures Neck Neck: Yes normal visual inspection, Yes no lymphadenopathy, Yes trachea midline and Yes no JVD Thyroid: Thyroid normal Chest Chest palpation & inspection: normal inspection of the chest, normal palpation of entire chest wall and no tenderness Resp Other: Percussion note is resonant, breath sounds are distant with prolonged expiratory phase. No wheezes rhonchi or crepitations are heard . Cardio Palpation: normal PMI Rate: regular rate Rhythm: regular rhythm and other (Pacemaker in left pectoral area) Heart sounds: no gallops and no murmurs Peripheral pulses: Peripheral pulses 2+ throughout GI Palpation (GI): Soft to palpation, nontender, No hepatosplenomegaly present and no masses Auscultation: normal bowel sounds Back/Spine/Pelvis Thoracic/Lumbar Spine: thoracic and lumbar spine normal to inspection Skin General skin exam: no rashes or lesions noted Neuro Other: Patient has tremors of the head, and slightly tremorous speech General: patient oriented x3 and no focal motor deficits Cranial nerves: Yes CN's II-XII intact bilaterally Extrem General: Yes normal to inspection, Yes no clubbing, cyanosis or edema and Yes no calf tenderness Psych Speech and movement: Normal speech and movement present Affect: Anxious affect present Assessment & Plan Assessment & Plan (1) History of smoking at least 1 pack per day for at least 30 years: Comment: She continues to smoke but down to 6 cigarettes a day. I spent lot of time discussing with her and convincing her to stop smoking completely. She does not want any assistance, such as nicotine patches. Code(s): Z87.891 - Personal history of nicotine dependence (2) COPD (chronic obstructive pulmonary disease): Comment: She has long-standing history of chronic obstructive pulmonary disease, As per pulmonary function test her COPD is very severe with component of asthma. TX: 1- SPIRIVA HANDIHALER 1 INHALATION DAILY 2- ADVAIR 250-50 1 INHALATION B.I.D.. 3- ALBUTEROL SOLUTION VIA NEBULIZER Q 4-6 HOURS P.R.N.. 4- PROAIR HFA 2 puffs Q 4-6 hours p.r.n. ( TO USE WHEN OUTDOORS ) Code(s): J44.9 - Chronic obstructive pulmonary disease, unspecified Medications: New umeclidinium 62.5 mcg/actuation (Incruse Ellipta) 1 inh inhalation DAILY 30 days 30 ea 5RF COPD Refilled fluticasone propion-salmeterol 250-50 mcg/dose (Advair Diskus) 1 inh inhalation BID 30 days 60 ea 3RF copd Coding Level of Care Code Est Pt Level 3 (67622) Diagnoses History of smoking at least 1 pack per day for at least 30 years Z87.891 COPD (chronic obstructive pulmonary disease) J44.9
[2023-07-02 15:45] VITALS: BP 130/80; PULSE 95; O2SAT 95; BMI 33.8
== END 2023-07-02 16:11 | disposition home or self-care (01) ==
PROVIDERS: PCP Nurse Practitioner Family; Visit Provider Internal Medicine
DX: Z87.891 Personal history of nicotine dependence (principal); J44.9 Chronic obstructive pulmonary disease, unspecified
CPT/HCPCS: 99213

== ENCOUNTER → 2023-07-02 15:38 | Outpatient (BNVA) | payer MEDICARE, MEDICAID, SELFPAY | PROVIDERS: PCP Nurse Practitioner Family; Visit Provider Internal Medicine | DX: J44.9 Chronic obstructive pulmonary disease, unspecified (principal); Z87.891 Personal history of nicotine dependence | CPT/HCPCS: 99212 ==

== ENCOUNTER 2023-07-10 12:52 | Outpatient (AMB) | payer MEDICARE, MEDICAID, SELFPAY ==
--- NOTE | 2023-07-10 12:55 | A.OFFVIS_ITS ---
Intake Vital Signs 07/10/23 12:57 Height 5 ft 7 in Weight 213 lb 13.574 oz BMI 33.5 BP 131/73 Blood Pressure Location Lt brachial Position Sitting Pulse 83 Intake Visit Reasons: follow up missed from 05/30 Intake Note: Myrtle presents in the office as a follow up. CC: She states that she has diarrhea that is normal for her. She does not have it as often as before. Certified Medical Aide Required: No Allergies dabigatran etexilate [From PRADAXA] Allergy (Intermediate, Verified 07/10/23 12:57) SWELLING\hives HPI follow up missed from 05/30 HPI Details Assessment & Plan (1) GERD (gastroesophageal reflux diseas e): ?Code(s): K21.9 - Gastro-esophageal reflux disease without esophagitis ?Plan: She quit smoking, she went cold turkey 2 mos ago.? She is somewhat concerned [place] t she has gained weight but this is common after smoking cessation.? She also quit drinking alcohol over 20 years ago so she understands that there is a given take when it comes to quitting something that is been in great habit.? She continues to do well on her Carafate and on her omeprazole twice a day.? She remains satisfied with her GI regimen.? I thought she was due for colonoscopy but she reminds me that she just had one,? and in checking the record she is quite right about that! Return office visit in 6 months (2) Irritable bowel syndrome with both c onstipation and diarrhea: ?Code(s): K58.2 - Mixed irritable bowel syndrome (3) Tubular adenoma of colon: ?Comment: 2021= neg scope repeat 5 years, 2017 ?Code(s): D12.6 - Benign neoplasm of colon, unspecified (4) Pre-op examination: ?Code(s): Z01.818 - Encounter for other preprocedural examination ? ? ? Medications: New sucralfate (Carafa te) 2 grams (2 x 1 gra m) PO .daily at 11 pm 60 tabs 6RF R19.7 - Diarrhea, unspecified ? Refilled omeprazole 20 mg? PO .QD 30 c aps 6RF K21.9 - Gastro-eso phageal reflux dis ease without esoph agitis ? TODAY'S VISIT She says that the sucralfate is really helping her diarrhea, but she is only taking 1 a day because I take enough meds! I advise her that she could take up to 4 a day, just to give her a perspective, but she wants to stay here. She has been working to lose weight, she is walking more and has lost about 10 lbs. She continues on her omeprazole 20mg qd. ROV 6 mos. [facility] Medical History Benign essential tremor History of smoking at least 1 pack per day for at least 30 years Breast calcification, right Cardiac pacemaker in situ NSVT (nonsustained ventricular tachycardia) Paroxysmal atrial fibrillation Pre-diabetes Hyperlipidemia Essential hypertension Smoking Obesity, Class I, BMI 30-34.9 Arthritis Hypertensive retinopathy SSS (sick sinus syndrome) Mesenteric lymphadenopathy Diverticulitis Constipation Chest pain Fatigue Thrombocytopenia Tremor Hematuria LVH (left ventricular hypertrophy) Depression GERD (gastroesophageal reflux disease) Insomnia COPD (chronic obstructive pulmonary disease) Surgical History Hx of right breast biopsy History of pubovaginal sling History of dilatation and curettage History of esophagogastroduodenoscopy (EGD) Hx of colonoscopy Hx of cholecystectomy History of tonsillectomy and adenoidectomy History of eye surgery History of tubal ligation Family History Father Family history of diabetes mellitus Mother Diabetes mellitus Substance use disorder Sister Uterine cancer Diabetes mellitus Mental health disorder Substance use disorder Maternal Grandfather No problems noted. Maternal Grandmother Unknown family medical history Paternal Grandfather No problems noted. Paternal Grandmother No problems noted. Social History Household Members: Other Household Members Other:: Ex-, Daughter Housing: Apartment Alcohol intake: former Year quit: 2001 Patient Tobacco Use Status: Current everyday Tobacco user Tobacco use type: Cigarette Cigarettes Per Day: 6 Years Smoked: 45 +/- e-Cigarette/Vaping Use: Never Used Second Hand Smoke Exposure: Yes Advance Directives Date on File: 03/21/22 Current occupational status: disabled Cognitive needs: No Hearing needs: No Vision needs: No Female Reproductive History Menstrual Age of Menarche: 7 Review of Systems Const Denies fatigue, Denies fever(s), Denies night sweats, Denies poor appetite and Reports weight loss ENT Reports Normal hearing present, Denies dental pain, Denies dysphagia, Denies hearing loss, Denies mouth pain, Denies odynophagia, Denies throat swelling, Denies tongue swelling and Reports other (Dentition adequate) Card Reports no additional complaints Resp Reports no additional complaints GI Denies abdominal pain, Denies melena, Denies bloating, Denies hematochezia, Denies constipation, Denies GI cramping, Denies dysphagia, Denies excessive flatus, Denies early satiety, Reports heartburn, Reports diarrhea, Denies nausea, Denies odynophagia, Denies vomiting and Denies hematemesis Skin/Breast Denies pruritus, Denies lesions, Denies rash and Denies jaundice Neuro Reports Normal hearing present and Denies Abnormal speech present Endo Denies fatigue Aller/Immun Denies throat swelling and Denies tongue swelling Physical Exam Vital Signs: Last Vital Signs Pulse 83 07/10/23 12:57 BP 131/73 07/10/23 12:57 BMI result Body Mass Index 33.5 Const General: cooperative, no acute distress, well developed and well groomed Nutritional Appearance: well nourished and obese Orientation/consciousness: oriented to person, oriented to place and oriented to time Limitations: No language barrier HEENT Head: Yes normocephalic and Yes atraumatic Eyes General: appearance normal, both eyes and all related structures Pupils: Equal, round and reactive pupils present Neck Neck: Yes normal visual inspection and Yes no lymphadenopathy Thyroid: Thyroid normal Resp Effort & Inspection: normal respiratory effort and able to speak in complete sentences Auscultation: clear to auscultation bilaterally Cardio Rate: regular rate Rhythm: regular rhythm Heart sounds: Normal, physiologic split S2 sound present Peripheral pulses: radial pulses present and posterior tibial pulses present GI Inspection: No distended, Yes Abdominal panniculus present and Yes obesity Palpation (GI): Soft to palpation, nontender, no guarding, not rigid and No hepatosplenomegaly present Percussion: Yes normal to percussion Auscultation: normal bowel sounds Rectal Exam - Female: deferred Skin General skin exam: no rashes or lesions noted, turgor normal, skin not dry, no jaundice, No spider nevi and no striae Rashes: no rashes Nails: normal Neuro General: oriented to person, oriented to place and oriented to time Cranial nerves: Yes Equal, round and reactive pupils present and Yes Normal hearing present Speech: No Abnormal speech present Extrem General: Yes normal to inspection, No clubbing, No cyanosis and No edema Psych Appearance: grossly normal and well kempt Mental Status: mental status grossly normal Speech and movement: Normal speech and movement present Affect: normal affect Attitude: cooperative Thought process: Normal thought process present and not confabulating Thought content: Normal thought content present Insight: Limited insight present (Psych) and Poor insight present (Psych) Judgement: Limited judgement present (Psych) and Poor judgement present (Psych) Assessment & Plan Assessment & Plan (1) GERD (gastroesophageal reflux disease): Code(s): K21.9 - Gastro-esophageal reflux disease without esophagitis Plan: She says that the sucralfate is really helping her diarrhea, but she is only taking 1 a day because I take enough meds! I advise her that she could take up to 4 a day, just to give her a perspective, but she wants to stay here. She has been working to lose weight, she is walking more and has lost about 10 lbs. She continues on her omeprazole 20mg qd. ROV 6 mos. (2) Irritable bowel syndrome with both constipation and diarrhea: Code(s): K58.2 - Mixed irritable bowel syndrome Medications: Changed From sucralfate 2 grams (2 x 1 gram) PO .daily at 11pm 60 tabs 6RF R19.7 - Diarrhea, unspecified To sucralfate (Carafate) 2 grams (2 x 1 gram) PO .daily at 11pm 60 tabs 6RF R19.7 - Diarrhea, unspecified Refilled omeprazole 20 mg PO .QD 30 caps 6RF K21.9 - Gastro-esophageal reflux disease without esophagitis Coding Level of Care Code Est Pt Level 3 (03954) Diagnoses GERD (gastroesophageal reflux disease) K21.9 Irritable bowel syndrome with both constipation and diarrhea K58.2
[2023-07-10 12:57] VITALS: BP 131/73; PULSE 83; BMI 33.5
== END 2023-07-10 14:16 | disposition home or self-care (01) ==
PROVIDERS: PCP Nurse Practitioner Family; Visit Provider Nurse Practitioner
DX: K21.9 Gastro-esophageal reflux disease without esophagitis (principal); K58.2 Mixed irritable bowel syndrome
CPT/HCPCS: 99213

== ENCOUNTER → 2023-07-10 12:52 | Outpatient (BNVA) | payer MEDICARE, MEDICAID, SELFPAY | PROVIDERS: PCP Nurse Practitioner Family; Visit Provider Nurse Practitioner | DX: K21.9 Gastro-esophageal reflux disease without esophagitis (principal); K58.2 Mixed irritable bowel syndrome | CPT/HCPCS: 99212 ==

== ENCOUNTER 2023-08-17 12:50 | Outpatient (AMB) | payer MEDICARE, MEDICAID, SELFPAY ==
[2023-08-17 12:56] VITALS: BP 128/66; PULSE 92; O2SAT 93; BMI 34.0
--- NOTE | 2023-08-17 12:56 | AM.OFFWIN_ITS ---
Intake Vital Signs 3 08/17/23 12:56 Height 5 ft 7 in Weight 217 lb BMI 34.0 BP 128/66 Blood Pressure Location Rt brachial Position Sitting Pulse 92 Pulse Source Pulse Oximeter Pulse Oximetry (%) 93 Oxygen Delivery Method Room Air Intake Visit Reasons: EP ?Bite Ring finger Patient Tobacco Use Status: Current everyday Tobacco user Allergies dabigatran etexilate [From PRADAXA] Allergy (Intermediate, Verified 08/17/23 12:58) SWELLING\hives Medication List - Last Reconciled 08/17/23 by Sophia August MD acetaminophen 1,000 mg (2 x 500 mg) PO Q8H PRN 15 days albuterol sulfate 2.5 mg (3 mL) inhalation Q4-6H PRN 30 days amlodipine 2.5 mg PO DAILY ascorbic acid (vitamin C) 500 mg PO BID 90 days atorvastatin 40 mg PO DAILY blood pressure test kit-large Use to check BP daily blood sugar diagnostic (FreeStyle Lite Strips) test BS TID blood-glucose meter (FreeStyle Lite Meter kit) Use to test blood sugar 3 times a day cholecalciferol (vitamin D3) 50 mcg PO DAILY clonazepam 1 mg PO BID cranberry fruit 450 mg PO BID 90 days fluticasone propion-salmeterol 250-50 mcg/dose (Advair Diskus) 1 inh inhalation BID 30 days fluticasone propionate 50 mcg/actuation (Children's Flonase Allergy Relief) 1 spray intranasal DAILY ibuprofen 600 mg PO DAILY PRN 30 days lancets As directed lancets (FreeStyle Lancets) tid lisinopril 20 mg PO DAILY meclizine 25 mg PO TID PRN mirabegron ER 50 mg PO DAILY 90 days omeprazole 20 mg PO .QD primidone 0 mg PO propranolol 60 mg PO BID [pull ups The patient is using 8 pull ups a day; size extra large] [Recliner lift chair As directed] rivaroxaban (Xarelto) 20 mg PO QPM sucralfate (Carafate) 2 grams (2 x 1 gram) PO .daily at 11pm tramadol 50 mg PO Q6H PRN trazodone 100 mg PO BEDTIME Ultra-Light Rollator (walker) lower extrem weakness, use daily NS umeclidinium 62.5 mcg/actuation (Incruse Ellipta) 1 inh inhalation DAILY 30 days [Upright Posture Walker daily use] Ventolin HFA 90 mcg/actuation (albuterol sulfate) 2 puffs inhalation Q4-6H PRN 30 days NS zolpidem 10 mg PO BEDTIME PRN Do you need a note to return to daycare/school/sports/work: Yes HPI EP ?Bite Ring finger 2 HPI0 Details Patient is a 63-year-old female came in today to be evaluated for bug bite on her left ring finger Patient says that she woke up this morning with redness and swelling. She is able to make a full fist with some discomfort. The base of her left ring finger dorsal aspect is erythematous with central bite tremayne I am starting her on Augmentin b.i.d. Patient was instructed to keep an eye on that and if it gets worse start spreading to her hand she need to go to emergency room for IV antibiotic and further management Tetanus vaccine was given today [facility] Medical History Cardiac pacemaker in situ (~2014) Paroxysmal atrial fibrillation LVH (left ventricular hypertrophy) Essential hypertension Hyperlipidemia Diabetes COPD (chronic obstructive pulmonary disease) Nicotine dependence, cigarettes, uncomplicated Benign essential tremor Microscopic hematuria Recurrent UTI Osteopenia (~2021) Obesity, Class I, BMI 30-34.9 Hypertensive retinopathy GERD (gastroesophageal reflux disease) Diverticulitis Tubular adenoma of colon (~2017) Mesenteric lymphadenopathy Thrombocytopenia Depression Insomnia Arthritis Breast calcification, right Surgical History History of pacemaker History of cholecystectomy History of tonsillectomy and adenoidectomy History of eye surgery History of tubal ligation History of colonoscopy History of esophagogastroduodenoscopy (EGD) History of pubovaginal sling History of dilatation and curettage History of loop electrical excision procedure (LEEP) History of right breast biopsy History of vocal cord polypectomy Family History Father Family history of diabetes mellitus Mother Diabetes mellitus Substance use disorder Sister Uterine cancer Diabetes mellitus Mental health disorder Substance use disorder Maternal Grandfather No problems noted. Maternal Grandmother Unknown family medical history Paternal Grandfather No problems noted. Paternal Grandmother No problems noted. Social History Household Members: Other Household Members Other:: Ex-, Daughter Housing: Apartment Alcohol intake: former Year quit: 2001 Patient Tobacco Use Status: Current everyday Tobacco user Tobacco use type: Cigarette Cigarettes Per Day: 6 Years Smoked: 45 +/- e-Cigarette/Vaping Use: Never Used Second Hand Smoke Exposure: Yes Advance Directives Date on File: 03/21/22 Current occupational status: disabled Cognitive needs: No Hearing needs: No Vision needs: No Female Reproductive History Menstrual Age of Menarche: 7 Review of Systems Const All systems reviewed & are unremarkable except as noted in HPI and below Physical Exam Vital Signs: Last Vital Signs Pulse 92 08/17/23 12:56 BP 128/66 08/17/23 12:56 Pulse Ox 93 08/17/23 12:56 Oxygen Delivery Method Room Air 08/17/23 12:56 BMI result Body Mass Index 34.0 Const General: no acute distress Orientation/consciousness: patient oriented x3 Eyes General: appearance normal, both eyes and all related structures Resp Effort & Inspection: normal respiratory effort and able to speak in complete sentences Auscultation: clear to auscultation bilaterally Neuro General: patient oriented x3 Extrem Hand/finger images: 2 1. Side of bug bite any inflammation Psych Mental Status: mental status grossly normal Assessment & Plan Assessment & Plan (1) Cellulitis of finger of left hand: Code(s): L03.012 - Cellulitis of left finger (2) Bug bite: Code(s): W57.XXXA - Bitten or stung by nonvenomous insect and other nonvenomous arthropods, initial encounter Qualifiers: Encounter type: initial encounter Qualified Code(s): W57.XXXA - Bitten or stung by nonvenomous insect and other nonvenomous arthropods, initial encounter Plan Patient is a 63-year-old female came in today to be evaluated for bug bite on her left ring finger Patient says that she woke up this morning with redness and swelling. She is able to make a full fist with some discomfort. There is no fever chills no nausea vomiting abdominal pain Headache dizziness The base of her left ring finger dorsal aspect is erythematous with central bite tremayne I am starting her on Augmentin b.i.d. Patient was instructed to keep an eye on that and if it gets worse start spreading to her hand she need to go to emergency room for IV antibiotic and further management Tetanus vaccine was given today Follow-up with the primary care on Sunday Orders: Orders 2 TDaP Immunization Today Z23 - Encounter for immunization Medications: New 2 amoxicillin-pot clavulanate 875-125 mg 1 tab PO BID 14 tabs 0RF 7 days Coding Level of Care Code Est Pt Level 3 (70961) Diagnoses Cellulitis of finger of left hand L03.012 Bug bite, initial encounter W57.XXXA Encounter type: initial encounter
== END 2023-08-17 13:35 | disposition home or self-care (01) ==
PROVIDERS: PCP Nurse Practitioner Family; Visit Provider Internal Medicine
DX: L03.012 Cellulitis of left finger (principal); W57.XXXA Bitten or stung by nonvenomous insect and other nonvenomous arthropods, initial encounter; Z23 Encounter for immunization
CPT/HCPCS: 90471; 90715; 99213

== ENCOUNTER 2023-08-24 14:21 | Outpatient (AMB) | payer MEDICARE, MEDICAID, SELFPAY ==
--- NOTE | 2023-08-24 10:07 | MHC.OFFVIS ---
Intake Intake Visit Reasons: LDCT SD Allergies dabigatran etexilate [From PRADAXA] Allergy (Intermediate, Verified 08/17/23 12:58) SWELLING\hives HPI HPI Comments History of Present Illness Details Initial visit for this 63yo smoker with a 40PYH. Patient has been smoking since age 16 for 47 years at 1ppd. Max 3ppd. Mainly 1ppd. . Denies marijuana use. Denies second hand smoke exposure. Denies exposure to chemicals or substances like asbestos. . Denies known family history of lung cancer. Denies personal history of cancers. Denies chest CT in last year. . Denies recent travel outside the [place]. Denies recent respiratory illness or recent hospitalization for respiratory issues. Denies testing positive for COVID. Admits receiving COVID Vaccine. x4. . She just completed a 7 day course of antibiotics for spider bite to left 4th digit which still appears infected. Denies fever, chills, new/worsening cough, hemoptysis, hoarseness or dysphagia. Denies significant chest pain, significant dyspnea or unintentional weight loss. Patient Lung Cancer Screening Questionnaire reviewed with patient by provider. . Shared Decision Making Completed. Patient meets criteria. Discussed in detail with patient, the risk vs benefit of LDCT screening. Patient consents to proceed with scan. Discussed smoking cessation. [facility] Medical History (Updated 08/24/23 @ 14:47 by Yamileth Ku PA-C) Cardiac pacemaker in situ (~2014) Paroxysmal atrial fibrillation LVH (left ventricular hypertrophy) Essential hypertension Hyperlipidemia Diabetes COPD (chronic obstructive pulmonary disease) Nicotine dependence, cigarettes, uncomplicated Benign essential tremor Microscopic hematuria Recurrent UTI Osteopenia (~2021) Obesity, Class I, BMI 30-34.9 Hypertensive retinopathy GERD (gastroesophageal reflux disease) Diverticulitis Tubular adenoma of colon (~2017) Mesenteric lymphadenopathy Thrombocytopenia Depression Insomnia Arthritis Breast calcification, right Surgical History (Updated 08/20/23 @ 11:24 by Yamileth Ku PA-C) History of pacemaker History of cholecystectomy History of tonsillectomy and adenoidectomy History of eye surgery History of tubal ligation History of colonoscopy History of esophagogastroduodenoscopy (EGD) History of pubovaginal sling History of dilatation and curettage History of loop electrical excision procedure (LEEP) History of right breast biopsy History of vocal cord polypectomy Family History Father Family history of diabetes mellitus Mother Diabetes mellitus Substance use disorder Sister Uterine cancer Diabetes mellitus Mental health disorder Substance use disorder Maternal Grandfather No problems noted. Maternal Grandmother Unknown family medical history Paternal Grandfather No problems noted. Paternal Grandmother No problems noted. Social History (Updated 08/24/23 @ 14:47 by Yamileth Ku PA-C) Household Members: Other Household Members Other:: Ex-, Daughter Housing: Apartment Alcohol intake: former Year quit: 2001 Patient Tobacco Use Status: Current everyday Tobacco user Tobacco use type: Cigarette Cigarettes Per Day: 6 Years Smoked: (onset 16yo, 1ppd x 47yrs, 40pyh) e-Cigarette/Vaping Use: Never Used Second Hand Smoke Exposure: Yes Advance Directives Date on File: 03/21/22 Current occupational status: disabled Cognitive needs: No Hearing needs: No Vision needs: No Female Reproductive History Menstrual Age of Menarche: 7 Assessment & Plan Assessment & Plan (1) Nicotine dependence, cigarettes, uncomplicated: Comment: (Current smoker - onset 16yo, 1ppd x 47yrs, 40pyh) Code(s): F17.210 - Nicotine dependence, cigarettes, uncomplicated Plan: - SDM visit completed today in office. - Patient meets criteria for LDCT for lung cancer screening purposes and is asymptomatic. - Smoking cessation counseling offered. Patients can always call [phone]. - Will arrange for a LDCT scan of the chest for screening purposes at [facility]. - Risks, benefits, and alternatives were discussed in detail and the patient agrees to proceed. - Risks discussed include but are not limited to: radiation exposure, anxiety during testing and while awaiting results, false negatives, false positives and possibility of additional intervention such as further imaging or surgical procedures for benign disease. - Benefits are obviously detection of lung cancer at an early stage which can lead to improved outcomes. - Discussed the importance of screening program compliance with adherence to yearly LDCT scan as scheduled - or sooner interval scans for personalized screening regimen. - Discussed follow up plan. Our office will send a letter discussing results and if needed set up phone call and office visit based on CT findings. - Patient educated on results categorization and the management decisions for suspicious findings potentially found on the screening LDCT scan. Any patient with a Lung RADS score of 3 or 4 will be reviewed by a multidisciplinary team at [facility] to form a plan of action in regards to scan findings. - If further work up is warranted for a suspicious lung finding this will be followed by the Lung Cancer Screening program in conjunction with the Thoracic Surgery Department at [facility]. - A copy of the office note and LDCT will be sent to the patient's PCP - as well as documentation on any associated further plans of care. - Incidental findings on LDCT are the PCP's responsibility. These findings are indicated with an S finding on the LDCT Assessment. A note discussing the findings will be sent to the PCP who is then responsible for further management. - All questions answered.? Plan She just completed a 7 day course of antibiotics for spider bite to left 4th digit which still appears infected. She is advised to follow up with her primary care or go back to the walk-in clinic for further management. Coding Level of Care Code Lung Cancer Screening [id number] Diagnoses Nicotine dependence, cigarettes, uncomplicated F17.210
== END 2023-08-24 14:55 | disposition home or self-care (01) ==
PROVIDERS: PCP Nurse Practitioner Family; Referring Provider Nurse Practitioner Family; Visit Provider Physician Assistant Medical
DX: F17.210 Nicotine dependence, cigarettes, uncomplicated (principal)
CPT/HCPCS: G0296

== ENCOUNTER 2023-08-24 14:48 | Outpatient (REF) | payer MEDICARE, MEDICAID, SELFPAY ==
--- NOTE | ~2023-08-24 | CT_ITS ---
EXAMINATION: CT CHEST SCREENING CLINICAL INFORMATION: 51 pack year current smoker COMPARISON: None available. TECHNIQUE: Multidetector volumetric CT imaging of the chest is performed without contrast using low dose technique. Additional 2D coronal and sagittal reformatted images and axial 3D maximum intensity projection (MIP) images are generated on the CT workstation. This CT examination was performed using dose optimization techniques as appropriate, variously including the following: *Automated exposure control *Adjustment of mA and/or kV according to patient size (this includes techniques or standardized protocols for targeted exams where dose is matched to indication/reason for exam; i.e. 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 Clear lungs. LUNGS: Trachea and bronchi are patent. Diffuse mild bronchial wall thickening. Mild centrilobular emphysema. No consolidations or nodules. Mild mosaic attenuation left upper lobe. Scattered atelectasis, most prominent anterior upper lobe. Incidental note is made of an azygos lobe. MEDIASTINUM: Unremarkable thyroid. No pathologic lymphadenopathy. Nonenlarged heart. No pericardial effusion. Bipolar pacer in place. Nonaneurysmal aorta with atherosclerotic calcifications. Nonenlarged pulmonary arteries. CORONARY ARTERY CALCIFICATION: None visualized on this study. PLEURA: There is no pleural effusion. No pleural mass or thickening. AXILLA: No lymphadenopathy. UPPER ABDOMEN: Status post cholecystectomy. Likely right upper pole renal cyst. OSSEOUS STRUCTURES: Unremarkable. CT/CT lung screening IMPRESSION: No lung nodules. ASSESSMENT: Lung-RADS category 1: Negative RECOMMENDATION: Routine annual low-dose CT screening in 12 months.
== END 2023-08-24 14:49 | disposition home or self-care (01) ==
LOC: HO.CT 14:48
PROVIDERS: PCP Nurse Practitioner Family; Visit Provider Physician Assistant Medical
DX: Z12.2 Encounter for screening for malignant neoplasm of respiratory organs (principal); F17.210 Nicotine dependence, cigarettes, uncomplicated
CPT/HCPCS: 71271; G0296

== ENCOUNTER 2023-08-29 09:40 | Outpatient (AMB) | payer MEDICARE, MEDICAID, SELFPAY ==
--- NOTE | 2023-08-29 09:46 | MHC.PC.OV ---
Vital Signs 08/29/23 09:57 Height 5 ft 7 in Weight 216 lb BMI 33.8 BP 120/76 Blood Pressure Location Lt brachial Position Sitting Pulse 72 Pulse Source Pulse Oximeter Pulse Oximetry (%) 96 Oxygen Delivery Method Room Air Intake Visit Reasons: 2 month follow up Allergies dabigatran etexilate [From PRADAXA] Allergy (Intermediate, Verified 08/17/23 12:58) SWELLING\hives Tobacco use date assessed: 06/13/23 HPI 2 month follow up HPI Details Pt is a diabetic, on an DEBORAH and a statin. A1C in office today is . Due for microalbumin. Denies polyuria, polydipsia, and neuropathy. Pt denies any signs and symptoms of hypoglycemia and does know how to correct it. Eye exam is scheduled. Pt reports that she has not been able to check her blood sugar because she is out of strips, will send. Labs ordered [facility], [facility] Medical History Cardiac pacemaker in situ (~2014) Paroxysmal atrial fibrillation LVH (left ventricular hypertrophy) Essential hypertension Hyperlipidemia Diabetes COPD (chronic obstructive pulmonary disease) Nicotine dependence, cigarettes, uncomplicated Benign essential tremor Microscopic hematuria Recurrent UTI Osteopenia (~2021) Obesity, Class I, BMI 30-34.9 Hypertensive retinopathy GERD (gastroesophageal reflux disease) Diverticulitis Tubular adenoma of colon (~2017) Mesenteric lymphadenopathy Thrombocytopenia Depression Insomnia Arthritis Breast calcification, right Surgical History History of pacemaker History of cholecystectomy History of tonsillectomy and adenoidectomy History of eye surgery History of tubal ligation History of colonoscopy History of esophagogastroduodenoscopy (EGD) History of pubovaginal sling History of dilatation and curettage History of loop electrical excision procedure (LEEP) History of right breast biopsy History of vocal cord polypectomy Family History Father Family history of diabetes mellitus Mother Diabetes mellitus Substance use disorder Sister Uterine cancer Diabetes mellitus Mental health disorder Substance use disorder Maternal Grandfather No problems noted. Maternal Grandmother Unknown family medical history Paternal Grandfather No problems noted. Paternal Grandmother No problems noted. Social History Household Members: Other Household Members Other:: Ex-, Daughter Housing: Apartment Alcohol intake: former Year quit: 2001 Patient Tobacco Use Status: Current everyday Tobacco user Tobacco use type: Cigarette Cigarettes Per Day: 6 Years Smoked: (onset 16yo, 1ppd x 47yrs, 40pyh) e-Cigarette/Vaping Use: Never Used Second Hand Smoke Exposure: Yes Advance Directives Date on File: 03/21/22 Current occupational status: disabled Cognitive needs: No Hearing needs: No Vision needs: No Female Reproductive History Menstrual Age of Menarche: 7 Questionnaire Thrive Questionnaire Date Thrive assessed: 11/20/22 ESTEFANIA-7 AMB Questionnaire ESTEFANIA-7 Date ESTEFANIA - 7 assessed: 11/20/22 Source: Developed by Drs. Rich Colmenares, Kelly Wasserman, Zbigniew Robert and colleagues, with an educational jeffrey from [employer]. Review of Systems Const Reports as per HPI Physical exam (Primary Care) Vital Signs: Last Vital Signs Pulse 72 08/29/23 09:57 BP 120/76 08/29/23 09:57 Pulse Ox 96 08/29/23 09:57 Oxygen Delivery Method Room Air 08/29/23 09:57 BMI result Body Mass Index 33.8 Tobacco/Smoking Status: Tobacco use Status Tobacco use date assessed 06/13/23 08/29/23 09:48 Patient Tobacco Use Status Current everyday Tobacco 08/29/23 09:48 Tobacco use type Cigarette 08/29/23 09:48 e-Cigarette/Vaping Use Never Used 08/29/23 09:48 Thrive Assessment: Date of Thrive Assessment Date Thrive assessed 11/20/22 08/29/23 09:48 Const General: cooperative Nutritional Appearance: obese Orientation/consciousness: patient oriented x3 Resp Other: lungs with faint scattered wheezes though moving air Effort & Inspection: normal respiratory effort Cardio Rate: regular rate Rhythm: regular rhythm Heart sounds: S1 normal heart sound present and S2 normal heart sound present Neuro General: patient oriented x3 Extrem Other: bilat feet: + sensation with use of monofilament Psych Appearance: grossly normal Mental Status: mental status grossly normal Speech and movement: Normal speech and movement present Affect: normal affect Attitude: cooperative Thought process: Normal thought process present Thought content: Normal thought content present Insight: Good insight present (Psych) Judgement: Good judgement present (Psych) Assessment and Plan Assessment & Plan (1) Diabetes: Code(s): E11.9 - Type 2 diabetes mellitus without complications Plan The patient agreed to the use of a medical language specialist for this encounter. Scribed for DONOVAN Hollis- by Kate Ventura medical language specialist, on 08/29/2023 at 10:20 EST. Orders: Orders Comprehensive [place]. Panel Fast Today E11.9 - Type 2 diabetes mellitus without complications TSH reflex Free T4 Today E11.9 - Type 2 diabetes mellitus without complications Lipid Panel Today E11.9 - Type 2 diabetes mellitus without complications Hemoglobin A1c Today E11.9 - Type 2 diabetes mellitus without complications Complete Blood Count Auto Diff Today E11.9 - Type 2 diabetes mellitus without complications UA CC w/rflx Micro + Cult Today E11.9 - Type 2 diabetes mellitus without complications Microalbumin, Random (w Creat) Today E11.9 - Type 2 diabetes mellitus without complications Medications: Refilled blood sugar diagnostic (FreeStyle Lite Strips) test BS TID 300 ea 1RF E11.9 - Type 2 diabetes mellitus without complications lancets (FreeStyle Lancets) tid 100 ea 3RF test BS TID E11.9 - Type 2 diabetes mellitus without complications Coding Level of Care Code Est Pt Level 3 (16992) Diagnoses Diabetes E11.9
[2023-08-29 09:57] VITALS: BP 120/76; PULSE 72; O2SAT 96; BMI 33.8
== END 2023-08-29 11:15 | disposition home or self-care (01) ==
PROVIDERS: PCP Nurse Practitioner Family; Visit Provider Nurse Practitioner Family
DX: E11.9 Type 2 diabetes mellitus without complications (principal)
CPT/HCPCS: 99213

== ENCOUNTER 2023-08-29 10:32 | Outpatient (REF) | payer MEDICARE, MEDICAID, SELFPAY ==
[2023-08-29 13:28] LABS: Appearance Urine Clear; Color Urine Dark Yellow; Glucose Urine UA Negative (Negative); Leukocyte Esterase Urine Trace (Negative); Nitrite Urine Negative (Negative); PH 5.5 (5.0-9.0); Specific Gravity - Urine 1.025 (1.005-1.025); UMIC TRIGGER UACC YES; Urine Blood Negative (Negative); Urine Ketones Trace mg/dL (Negative); Urine Protein 30 (1+) mg/dL (Neg-Trace)
[2023-08-29 13:31] LABS: MANUAL DIFF FLAG NO
[2023-08-29 13:39] LABS: Basophils Percent Auto 0.4 % (0-2); Eosinophils Absolute Auto 0.1 X10*3/uL (0.0-0.4); Eosinophils Percent Auto 0.5 % (0-4); Hematocrit 40.5 % (37.0-47.0); Hemoglobin 13.1 g/dl (12.0-16.0); Imm Gran Abs Auto 0.05 X10*3/uL (0.00-0.03); Imm Gran Pct Auto 0.5 % (0.0-0.4); Lymphocytes Absolute Auto 2.1 X10*3/uL (1.2-4.9); Lymphocytes Percent Auto 21.1 % (20-40); Mean Corpuscular HGB Conc 32.3 g/dl (31.0-35.0); Mean Corpuscular Hemoglobin 28.9 pg (27.0-33.0); Mean Corpuscular Volume 89.4 fL (80.0-98.0); Mean Platelet Volume 12.8 fL (9.4-12.3); Monocytes Absolute Auto 0.7 X10*3/uL (0.1-1.2); Monocytes Percent Auto 7.3 % (2-11); Neutrophils Percent Auto 70.2 % (45-73); Platelet Count 139 X10*3/uL (160-400); Red Blood Count 4.53 X10*6/uL (4.20-5.50); Red Cell Distribution Width 13.9 % (11.0-16.0)
[2023-08-29 13:53] LABS: Estimated Average Glucose 131 mg/dL; Hemoglobin A1c % 6.2 % (<6.0)
[2023-08-29 13:57] LABS: Bacteria Urine None Seen (None Seen); Granular Casts Urine Present; RBC Urine 0-2 /HPF (0-2); Squamous Epithelial Cell Urine >20 /HPF (0-2); WBC Urine 0-5 /HPF (0-5)
[2023-08-29 14:08] LABS: Alanine Aminotransferase 9 U/L (0-31); Alkaline Phosphatase 89 U/L (39-117); Anion Gap 11 (12-20); Aspartate Amino Transferase 14 U/L (5-31); Bilirubin Total 0.2 mg/dL (0.0-1.0); Blood Urea Nitrogen 10 mg/dL (9-16); Calcium 9.4 mg/dL (8.4-10.2); Carbon Dioxide 27 mmol/L (22-29); Chloride 106 mmol/L (96-108); Cholesterol 147 mg/dL (<200); Estimated Glomerular Filt Rate > 60; Glucose Fasting 115 mg/dL (60-99); HDL Cholesterol 41 mg/dL (>40); LDL Cholesterol Calculated 67 mg/dL (<100); Potassium 4.2 mmol/L (3.3-5.1); Sodium 140 mmol/L (135-145); Total Protein 7.2 g/dL (6.5-8.0); Triglycerides 199 mg/dL (<150)
[2023-08-29 14:27] LABS: Creatinine Urine 371.07 mg/dL; Microalbum/Creatinine Ratio Ur 17.7 ug/mg cr (<30)
== END 2023-08-29 10:33 | disposition home or self-care (01) ==
LOC: HO.HMGCLDS 10:32
PROVIDERS: PCP Nurse Practitioner Family; Visit Provider Nurse Practitioner Family
DX: E11.9 Type 2 diabetes mellitus without complications (principal)
CPT/HCPCS: 36415; 80053; 80061; 81001; 82043; 82570; 83036; 84443; 85025

== ENCOUNTER 2023-09-03 15:42 | Outpatient (AMB) | payer MEDICARE, MEDICAID, SELFPAY ==
--- NOTE | 2023-09-03 15:54 | HO.NEPHOV_ITS ---
HPI HPI Comments History of Present Illness Details Myrtle is a middle aged woman with Obesity and HTN , referred for Proteinuria She has no history of diabetes mellitus and not on any antidiabetic medications. She has borderline elevation of blood sugar and this is being monitored. Negative is back on ultrasound to have minimal proteinuria enhances evaluation. [facility] Medical History Cardiac pacemaker in situ (~2014) Paroxysmal atrial fibrillation LVH (left ventricular hypertrophy) Essential hypertension Hyperlipidemia Diabetes COPD (chronic obstructive pulmonary disease) Nicotine dependence, cigarettes, uncomplicated Benign essential tremor Microscopic hematuria Recurrent UTI Osteopenia (~2021) Obesity, Class I, BMI 30-34.9 Hypertensive retinopathy GERD (gastroesophageal reflux disease) Diverticulitis Tubular adenoma of colon (~2017) Mesenteric lymphadenopathy Thrombocytopenia Depression Insomnia Arthritis Breast calcification, right Surgical History History of pacemaker History of cholecystectomy History of tonsillectomy and adenoidectomy History of eye surgery History of tubal ligation History of colonoscopy History of esophagogastroduodenoscopy (EGD) History of pubovaginal sling History of dilatation and curettage History of loop electrical excision procedure (LEEP) History of right breast biopsy History of vocal cord polypectomy Family History Father Family history of diabetes mellitus Mother Diabetes mellitus Substance use disorder Sister Uterine cancer Diabetes mellitus Mental health disorder Substance use disorder Maternal Grandfather No problems noted. Maternal Grandmother Unknown family medical history Paternal Grandfather No problems noted. Paternal Grandmother No problems noted. Social History Household Members: Other Household Members Other:: Ex-, Daughter Housing: Apartment Alcohol intake: former Year quit: 2001 Patient Tobacco Use Status: Current everyday Tobacco user Tobacco use type: Cigarette Cigarettes Per Day: 6 Years Smoked: (onset 16yo, 1ppd x 47yrs, 40pyh) e-Cigarette/Vaping Use: Never Used Second Hand Smoke Exposure: Yes Advance Directives Date on File: 03/21/22 Current occupational status: disabled Cognitive needs: No Hearing needs: No Vision needs: No Female Reproductive History Menstrual Age of Menarche: 7 Vital Signs 09/03/23 15:55 Height 5 ft 7 in Weight 216 lb BMI 33.8 BP 142/80 H Blood Pressure Location Lt brachial Position Sitting Pulse 68 Pulse Source Pulse Oximeter Pulse Oximetry (%) 95 Oxygen Delivery Method Room Air Physical Exam Vital Signs: Last Vital Signs Pulse 68 09/03/23 15:55 BP 142/80 H 09/03/23 15:55 Pulse Ox 95 09/03/23 15:55 Oxygen Delivery Method Room Air 09/03/23 15:55 BMI result Body Mass Index 33.8 Const General: comfortable Nutritional Appearance: well nourished Orientation/consciousness: patient oriented x3 HEENT Head: No normal to inspection Mouth: moist mucous membranes Neck Neck: Yes supple and Yes no JVD Resp Auscultation: clear to auscultation bilaterally, no rales and rub present Cardio Jugular venous distension: no JVD Palpation: no palpable S3 and no palpable S4 Heart sounds: no rubs GI Palpation (GI): Soft to palpation and nontender Percussion: No Fluid wave present General: Yes no CVA tenderness Back/Spine/Pelvis Back: no CVA tenderness Skin General skin exam: no rashes or lesions noted Neuro General: patient oriented x3 Extrem General: Yes no pedal edema and No clubbing Results Reviewed Results Reviewed: All results were reviewed Assessment & Plan Assessment & Plan (1) Proteinuria: Code(s): R80.9 - Proteinuria, unspecified Plan: Middle-aged woman with hypertension obesity with proteinuria by dipstick. Proteinuria may be due to the both hypertension and obesity. Other causes should be ruled out. I ordered a workup as outlined below. Check urine protein creatinine ratio. The meantime continue with the current medications. Nine Blood maintain blood pressure less than 130/80 mmHg Agree with Terrell inhibitors for renal protection. Further workup will be determined by the outcome of this patient indications. I have reassured her (2) Essential hypertension: Code(s): I10 - Essential (primary) hypertension Plan: Currently blood pressure is well controlled Discussed weight loss and low-salt diet. Continue with current antihypertensive regimen Orders: Orders Total Protein Urine Random Today R80.9 - Proteinuria, unspecified UA and rflx microscopic Today R80.9 - Proteinuria, unspecified Creatinine Urine Today R80.9 - Proteinuria, unspecified Protein Electrophoresis, Serum Today R80.9 - Proteinuria, unspecified Coding Level of Care Code New Pt Level 4 (39197) Diagnoses Proteinuria R80.9 Essential hypertension I10
[2023-09-03 15:55] VITALS: BP 142/80; PULSE 68; O2SAT 95; BMI 33.8
== END 2023-09-03 16:18 | disposition home or self-care (01) ==
PROVIDERS: PCP Nurse Practitioner Family; Visit Provider Internal Medicine Hypertension Specialist
DX: R80.9 Proteinuria, unspecified (principal); I10 Essential (primary) hypertension; E66.9 Obesity, unspecified; Z68.33 Body mass index [BMI] 33.0-33.9, adult
CPT/HCPCS: 99204

== ENCOUNTER 2023-09-03 15:42 | Outpatient (REF) | payer MEDICARE, MEDICAID, SELFPAY ==
[2023-09-05 16:58] LABS: Prot Elec - Albumin 3.9 g/dL (3.8-4.8); Prot Elec - Alpha1 0.4 g/dL (0.2-0.3); Prot Elec - Alpha2 0.8 g/dL (0.5-0.9); Prot Elec - Beta 1 0.5 g/dL (0.4-0.6); Prot Elec - Beta 2 0.4 g/dL (0.2-0.5); Prot Elec - Total Protein 7.1 g/dL (6.1-8.1)
== END 2023-09-03 15:43 | disposition home or self-care (01) ==
LOC: HO.LAB 15:42
PROVIDERS: PCP Nurse Practitioner Family; Visit Provider Internal Medicine Hypertension Specialist
DX: R80.9 Proteinuria, unspecified (principal); I10 Essential (primary) hypertension
CPT/HCPCS: 36415; 84165; 99202

== ENCOUNTER 2023-09-11 14:54 | Outpatient (AMB) | payer MEDICARE, MEDICAID, SELFPAY ==
[2023-09-11 15:04] VITALS: BP 130/70; PULSE 80; BMI 33.5
--- NOTE | 2023-09-11 15:04 | MHC.OFFVIS ---
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 and device ck Intake Note: 6 month follow-up with [employer] check feeling ok Awning Hanger Required: No Allergies dabigatran etexilate [From PRADAXA] Allergy (Intermediate, Verified 09/03/23 15:54) SWELLING\hives Medication List - Last Reconciled 09/11/23 by Javier Callahan MD acetaminophen 1,000 mg (2 x 500 mg) PO Q8H PRN 15 days albuterol sulfate 2.5 mg (3 mL) inhalation Q4-6H PRN 30 days amlodipine 2.5 mg PO DAILY ascorbic acid (vitamin C) 500 mg PO BID 90 days atorvastatin 40 mg PO DAILY blood pressure test kit-large Use to check BP daily blood sugar diagnostic (FreeStyle Lite Strips) Test blood sugar daily blood-glucose meter (FreeStyle Lite Meter kit) Use to test blood sugar 3 times a day cholecalciferol (vitamin D3) 50 mcg PO DAILY clonazepam 1 mg PO BID cranberry fruit 450 mg PO BID 90 days fluticasone propion-salmeterol 250-50 mcg/dose (Advair Diskus) 1 inh inhalation BID 30 days fluticasone propionate 50 mcg/actuation (Children's Flonase Allergy Relief) 1 spray intranasal DAILY ibuprofen 600 mg PO DAILY PRN 30 days lancets (FreeStyle Lancets) Test blood sugar daily lisinopril 20 mg PO DAILY meclizine 25 mg PO TID PRN mirabegron ER 50 mg PO DAILY 90 days omeprazole 20 mg PO .QD primidone 0 mg PO propranolol 60 mg PO BID [pull ups The patient is using 8 pull ups a day; size extra large] [Recliner lift chair As directed] rivaroxaban (Xarelto) 20 mg PO QPM sucralfate (Carafate) 2 grams (2 x 1 gram) PO .daily at 11pm tiotropium bromide (Spiriva with HandiHaler) 1 cap inhalation DAILY tramadol 50 mg PO Q6H PRN trazodone 100 mg PO BEDTIME Ultra-Light Rollator (walker) lower extrem weakness, use daily NS umeclidinium 62.5 mcg/actuation (Incruse Ellipta) 1 inh inhalation DAILY 30 days [Upright Posture Walker daily use] Ventolin HFA 90 mcg/actuation (albuterol sulfate) 2 puffs inhalation Q4-6H PRN 30 days NS zolpidem 10 mg PO BEDTIME PRN HPI HPI Comments History of Present Illness Details Myrtle comes for follow-up. Recently she says a propranolol was increased because of her movement disorder. No side effects related to it. She has been taking all her medications. Denies any palpitations. No bleeding issues or neurologic events. Denies any worsening shortness of breath, orthopnea, PND. No exertional chest pain. COUNTS INCLUDE 234 BEDS AT THE [facility] Medical History Cardiac pacemaker in situ (~2014) Paroxysmal atrial fibrillation LVH (left ventricular hypertrophy) Essential hypertension Hyperlipidemia Diabetes COPD (chronic obstructive pulmonary disease) Nicotine dependence, cigarettes, uncomplicated Benign essential tremor Microscopic hematuria Recurrent UTI Osteopenia (~2021) Obesity, Class I, BMI 30-34.9 Hypertensive retinopathy GERD (gastroesophageal reflux disease) Diverticulitis Tubular adenoma of colon (~2017) Mesenteric lymphadenopathy Thrombocytopenia Depression Insomnia Arthritis Breast calcification, right Surgical History History of pacemaker History of cholecystectomy History of tonsillectomy and adenoidectomy History of eye surgery History of tubal ligation History of colonoscopy History of esophagogastroduodenoscopy (EGD) History of pubovaginal sling History of dilatation and curettage History of loop electrical excision procedure (LEEP) History of right breast biopsy History of vocal cord polypectomy Family History Father Family history of diabetes mellitus Mother Diabetes mellitus Substance use disorder Sister Uterine cancer Diabetes mellitus Mental health disorder Substance use disorder Maternal Grandfather No problems noted. Maternal Grandmother Unknown family medical history Paternal Grandfather No problems noted. Paternal Grandmother No problems noted. Household Members: Other Household Members Other:: Ex-, Daughter Housing: Apartment Alcohol intake: former Year quit: 2001 Patient Tobacco Use Status: Current everyday Tobacco user Tobacco use type: Cigarette Cigarettes Per Day: 6 Years Smoked: (onset 16yo, 1ppd x 47yrs, 40pyh) e-Cigarette/Vaping Use: Never Used Second Hand Smoke Exposure: Yes Advance Directives Date on File: 03/21/22 Current occupational status: disabled Cognitive needs: No Hearing needs: No Vision needs: No Female Reproductive History Menstrual Age of Menarche: 7 Review of Systems Const Denies chills, Denies fatigue, Denies fever(s), Denies frequent falls, Denies weakness, Denies weight gain and Denies weight loss ENT Denies dizziness Card Denies chest pain, Denies leg edema, Denies lightheadedness, Denies palpitations, Denies dyspnea, Denies dyspnea on exertion, Denies orthopnea and Denies other (loss of consciousness) Resp Denies cough, Denies dyspnea and Denies dyspnea on exertion GI Denies hematochezia and Denies change in stool character Musc Denies abnormal gait, Denies muscle weakness, Denies numbness, Denies radiating pain into limb and Denies tingling Neuro Denies abnormal gait, Denies dizziness, Denies frequent falls, Denies numbness, Denies tingling and Denies weakness Endo Denies fatigue and Denies palpitations Physical Exam Vital Signs: Last Vital Signs Pulse 80 09/11/23 15:04 BP 130/70 09/11/23 15:04 BMI result Body Mass Index 33.5 Const General: cooperative, comfortable, no acute distress, alert and awake Nutritional Appearance: obese Orientation/consciousness: patient oriented x3 Limitations: no limitations Neck Neck: Yes trachea midline, Yes supple and Yes no JVD Resp Effort & Inspection: normal respiratory effort Auscultation: wheezes scattered wheezes and diminished lung sounds Cardio Jugular venous distension: no JVD Palpation: normal PMI Rate: regular rate Rhythm: abnormal rhythm with ectopic beats Heart sounds: S1 normal heart sound present and S2 normal heart sound present GI Auscultation: normal bowel sounds Skin General skin exam: no rashes or lesions noted Neuro General: patient oriented x3 and no focal motor deficits Extrem General: Yes no clubbing, cyanosis or edema Psych Appearance: grossly normal Affect: Anxious affect present Office Procedures Cardiac Device Check Cardiac Device Check Details: Dual-chamber Medtronic pacemaker in place programmed in DDDR at 60 beats per minute. Atrial pacing 50% of the time. Two episodes of nonsustained VT noted. No episodes of atrial fibrillation noted. Atrial pacing thresholds adequate and reprogrammed. Ventricular pacing thresholds adequate. Atrial ventricular sensing is adequate. Pacing lead impedance is stable. Battery life is at 2 and half years [id number] Cardiac Device Check, pacemaker dual lead Procedure code (CPT) selection complete Assessment & Plan Assessment & Plan (1) Paroxysmal atrial fibrillation: Code(s): I48.0 - Paroxysmal atrial fibrillation Plan: Patient prior history of paroxysmal atrial fibrillation without any recurrence at this point time. Continue to avoid stimulants. Continue propranolol therapy. There is no indication for antiarrhythmic drug therapy. Continue full oral anticoagulation, currently on Xarelto 20 mg daily. Semi annual renal function test should be pursued. Continue aggressive treatment of risk factors including hypertension. Goal blood pressure less than 130/84. Continue current therapy for the same. (2) Cardiac pacemaker in situ: Onset Date: ~2014 Comment: (Medtronic DCPP - placed 05/10/2015) Code(s): Z95.0 - Presence of cardiac pacemaker Plan: Cardiac pacemaker in-situ for sick sinus syndrome. Pacemaker is working well. Reprogrammed for adequate function. Follow-up remotely every 3 months. Follow up in the clinic in 6 months time. (3) Nonsustained ventricular tachycardia: Code(s): I47.29 - Other ventricular tachycardia Plan: Nonsustained ventricular tachycardia noted on cardiac pacer telemetry. Continue propranolol therapy. Avoidance of stimulants was discussed. Will need workup for structural heart disease with echocardiogram as well as stress testing. Will schedule them in near future. Will follow up in the clinic in 6 months time, sooner p.r.n.. Orders: Orders CA echo transthoracic complete Today I47.29 - Other ventricular tachycardia CA lexiscan stress w payton Today I47.29 - Other ventricular tachycardia Coding Level of Care Code Est Pt Level 4 (38294) Diagnoses Paroxysmal atrial fibrillation I48.0 Cardiac pacemaker in situ Z95.0 Nonsustained ventricular tachycardia I47.29 CPT Codes Cardiac Device Check - Cardiac Device 2: [id number] Cardiac Device Check, pacemaker dual lead ([id number])
== END 2023-09-11 15:40 | disposition home or self-care (01) ==
PROVIDERS: Visit Provider Internal Medicine Cardiovascular Disease
DX: I48.0 Paroxysmal atrial fibrillation (principal); Z95.0 Presence of cardiac pacemaker; I47.29 Other ventricular tachycardia
CPT/HCPCS: 93280; 99214

== ENCOUNTER → 2023-09-11 14:54 | Outpatient (BNVA) | payer MEDICARE, MEDICAID, SELFPAY | PROVIDERS: Visit Provider Internal Medicine Cardiovascular Disease | DX: Z45.018 Encounter for adjustment and management of other part of cardiac pacemaker (principal); I48.0 Paroxysmal atrial fibrillation; I47.29 Other ventricular tachycardia | CPT/HCPCS: 93280; 99212 ==

== ENCOUNTER 2023-10-01 14:40 | Outpatient (AMB) | payer MEDICARE, MEDICAID, SELFPAY ==
[2023-10-01 15:02] VITALS: BP 130/80; PULSE 87; O2SAT 94; BMI 34.1
--- NOTE | 2023-10-01 15:02 | MHC.OFFVIS ---
Intake Vital Signs 10/01/23 15:02 Height 5 ft 7 in Weight 218 lb BMI 34.1 BP 130/80 Blood Pressure Location Lt brachial Position Sitting Pulse 87 Pulse Source Pulse Oximeter Pulse Oximetry (%) 94 Oxygen Delivery Method Room Air Intake Visit Reasons: copd Intake Note: pt is here for follow up and states she is states sometimes she has a problem with her breathing. Allergies dabigatran etexilate [From PRADAXA] Allergy (Intermediate, Verified 10/01/23 15:30) SWELLING\hives Medication List - Last Reconciled 10/01/23 by Ruth Thomas MD acetaminophen 1,000 mg (2 x 500 mg) PO Q8H PRN 15 days albuterol sulfate 2.5 mg (3 mL) inhalation Q4-6H PRN amlodipine 2.5 mg PO DAILY ascorbic acid (vitamin C) 500 mg PO BID 90 days atorvastatin 40 mg PO DAILY blood pressure test kit-large Use to check BP daily blood sugar diagnostic (FreeStyle Lite Strips) Test blood sugar daily blood-glucose meter (FreeStyle Lite Meter kit) Use to test blood sugar 3 times a day cholecalciferol (vitamin D3) 50 mcg PO DAILY clonazepam 1 mg PO BID cranberry fruit 450 mg PO BID 90 days fluticasone propion-salmeterol 250-50 mcg/dose (Advair Diskus) 1 inh inhalation BID 30 days fluticasone propionate 50 mcg/actuation (Children's Flonase Allergy Relief) 1 spray intranasal DAILY ibuprofen 600 mg PO DAILY PRN 30 days lancets (FreeStyle Lancets) Test blood sugar daily lisinopril 20 mg PO DAILY meclizine 25 mg PO TID PRN mirabegron ER 50 mg PO DAILY 90 days omeprazole 20 mg PO .QD primidone 0 mg PO propranolol 60 mg PO BID [pull ups The patient is using 8 pull ups a day; size extra large] [Recliner lift chair As directed] rivaroxaban (Xarelto) 20 mg PO QPM sucralfate (Carafate) 2 grams (2 x 1 gram) PO .daily at 11pm tiotropium bromide (Spiriva with HandiHaler) 1 cap inhalation DAILY tramadol 50 mg PO Q6H PRN trazodone 100 mg PO BEDTIME Ultra-Light Rollator (walker) lower extrem weakness, use daily NS umeclidinium 62.5 mcg/actuation (Incruse Ellipta) 1 inh inhalation DAILY 30 days [Upright Posture Walker daily use] Ventolin HFA 90 mcg/actuation (albuterol sulfate) 2 puffs inhalation Q4-6H PRN 30 days NS zolpidem 10 mg PO BEDTIME PRN Do you need a note to return to daycare/school/sports/work: No HPI copd HPI Details 63 YEARS OLD FEMALE, LONG-TIME SMOKER, IS BEING TREATED FOR CHRONIC OBSTRUCTIVE PULMONARY DISEASE, SHE IS HERE FOR FOLLOW-UP AFTER 3 MONTHS. SHE IS, TRYING TO CUT DOWN ON THE CIGARETTES AND CURRENTLY DOWN TO 3 CIGARETTES A DAY. [address] THE [address] SCAN OF THE LUNGS WHICH WAS NEGATIVE FOR ANY. PULMONARY NODULES. SOMEWHAT CONFUSED ABOUT THE MEDICATIONS AND I HAD TO CLARIFY THE LIST. OVERALL SHE IS DOING FAIRLY. WELL AT THIS TIME [facility] Medical History Cardiac pacemaker in situ (~2014) Paroxysmal atrial fibrillation LVH (left ventricular hypertrophy) Essential hypertension Hyperlipidemia Diabetes COPD (chronic obstructive pulmonary disease) Nicotine dependence, cigarettes, uncomplicated Benign essential tremor Microscopic hematuria Recurrent UTI Osteopenia (~2021) Obesity, Class I, BMI 30-34.9 Hypertensive retinopathy GERD (gastroesophageal reflux disease) Diverticulitis Tubular adenoma of colon (~2017) Mesenteric lymphadenopathy Thrombocytopenia Depression Insomnia Arthritis Breast calcification, right Surgical History History of pacemaker History of cholecystectomy History of tonsillectomy and adenoidectomy History of eye surgery History of tubal ligation History of colonoscopy History of esophagogastroduodenoscopy (EGD) History of pubovaginal sling History of dilatation and curettage History of loop electrical excision procedure (LEEP) History of right breast biopsy History of vocal cord polypectomy Family History Father Family history of diabetes mellitus Mother Diabetes mellitus Substance use disorder Sister Uterine cancer Diabetes mellitus Mental health disorder Substance use disorder Maternal Grandfather No problems noted. Maternal Grandmother Unknown family medical history Paternal Grandfather No problems noted. Paternal Grandmother No problems noted. Social History Household Members: Other Household Members Other:: Ex-, Daughter Housing: Apartment Alcohol intake: former Year quit: 2001 Patient Tobacco Use Status: Current everyday Tobacco user Tobacco use type: Cigarette Cigarettes Per Day: 3 Years Smoked: (onset 16yo, 1ppd x 47yrs, 40pyh) e-Cigarette/Vaping Use: Never Used Second Hand Smoke Exposure: Yes Advance Directives Date on File: 03/21/22 Current occupational status: disabled Cognitive needs: No Hearing needs: No Vision needs: No Female Reproductive History Menstrual Age of Menarche: 7 Review of Systems Const All systems reviewed & are unremarkable except as noted in HPI and below Eyes Reports no additional complaints ENT Reports no additional complaints Card Denies chest pain, Denies irregular heart rhythm and Reports other (Has demand pacemaker in the left pectoral area) Resp Reports as per HPI GI Reports abdominal pain, Reports constipation, Reports heartburn, Reports diarrhea and Reports other (Irritable bowel syndrome) Reports nocturia Musc Reports back pain Skin/Breast Reports system reviewed and no additional complaints, except as documented Neuro Reports tremor(s) (Essential tremors) Psych Reports anxiety and Reports depression Endo Reports other (Diabetes mellitus) Physical Exam Vital Signs: Last Vital Signs Pulse 87 10/01/23 15:02 BP 130/80 10/01/23 15:02 Pulse Ox 94 10/01/23 15:02 Oxygen Delivery Method Room Air 10/01/23 15:02 BMI result Body Mass Index 34.1 Const General: comfortable, no acute distress, alert and awake Orientation/consciousness: patient oriented x3 HEENT Head: Yes normal to inspection General nose exam: No nasal polyps present and No nasal discharge present Face and sinus: Yes sinuses nontender Mouth: oropharynx normal Throat: Yes posterior oropharynx normal Eyes General: appearance normal, both eyes and all related structures Neck Neck: Yes normal visual inspection, Yes no lymphadenopathy, Yes trachea midline and Yes no JVD Thyroid: Thyroid normal Chest Chest palpation & inspection: normal inspection of the chest, normal palpation of entire chest wall and no tenderness Resp Other: Percussion note is resonant, breath sounds are distant with prolonged expiratory phase. No wheezes rhonchi or crepitations are heard . Cardio Palpation: normal PMI Rate: regular rate Rhythm: regular rhythm and other (Pacemaker in left pectoral area) Heart sounds: no gallops and no murmurs Peripheral pulses: Peripheral pulses 2+ throughout GI Palpation (GI): Soft to palpation, nontender, No hepatosplenomegaly present and no masses Auscultation: normal bowel sounds Back/Spine/Pelvis Thoracic/Lumbar Spine: thoracic and lumbar spine normal to inspection Skin General skin exam: no rashes or lesions noted Neuro Other: Patient has tremors of the head, and slightly tremorous speech General: patient oriented x3 and no focal motor deficits Cranial nerves: Yes CN's II-XII intact bilaterally Extrem General: Yes normal to inspection, Yes no clubbing, cyanosis or edema and Yes no calf tenderness Psych Speech and movement: Normal speech and movement present Affect: Anxious affect present Results Reviewed Results Reviewed: LDCT OF THE LUNGS, ON 09/20/23 NO LUNG NODULES WERE NOTED. Assessment & Plan Assessment & Plan (1) Nicotine dependence, cigarettes, uncomplicated: Comment: (Current smoker - onset 16yo, 1ppd x 47yrs, 40pyh) TRYING TO CUT DOWN AND NOW SMOKES 3 CIGARETTES A DAY. Code(s): F17.210 - Nicotine dependence, cigarettes, uncomplicated Plan: ENCOURAGED TO QUIT SMOKING COMPLETELY. (2) COPD (chronic obstructive pulmonary disease): Comment: Long-standing history of COPD, severe per PFT with component of asthma. It is relatively stable at this time Code(s): J44.9 - Chronic obstructive pulmonary disease, unspecified Plan: TX: 1- SPIRIVA HANDIHALER 1 INHALATION DAILY 2- ADVAIR 250-50 1 INHALATION B.I.D.. 3- ALBUTEROL SOLUTION VIA NEBULIZER Q 4-6 HOURS P.R.N.. 4- VENTOLIN HFA 2 puffs Q 4-6 hours p.r.n. ( TO USE WHEN OUTDOORS ) LIST IS WRITTEN AND REVIEWED WITH HER. Coding Level of Care Code Est Pt Level 3 (48020) Diagnoses Nicotine dependence, cigarettes, uncomplicated F17.210 COPD (chronic obstructive pulmonary disease) J44.9
== END 2023-10-01 15:31 | disposition home or self-care (01) ==
PROVIDERS: PCP Nurse Practitioner Family; Visit Provider Internal Medicine
DX: F17.210 Nicotine dependence, cigarettes, uncomplicated (principal); J44.9 Chronic obstructive pulmonary disease, unspecified
CPT/HCPCS: 99213

== ENCOUNTER → 2023-10-01 14:40 | Outpatient (BNVA) | payer MEDICARE, MEDICAID, SELFPAY | PROVIDERS: PCP Nurse Practitioner Family; Visit Provider Internal Medicine | DX: J44.9 Chronic obstructive pulmonary disease, unspecified (principal); F17.210 Nicotine dependence, cigarettes, uncomplicated | CPT/HCPCS: 99212 ==

== ENCOUNTER 2023-10-11 13:52 | Outpatient (AMB) | payer MEDICARE, MEDICAID, SELFPAY ==
[2023-10-11 13:56] VITALS: BP 116/80; PULSE 69; O2SAT 96; BMI 33.7
--- NOTE | 2023-10-11 13:56 | HO.NEPHOV_ITS ---
HPI HPI Comments History of Present Illness Details Myrtle is a middle aged woman with Obesity and HTN , referred for Proteinuria She has no history of diabetes mellitus and not on any antidiabetic medications. She has borderline elevation of blood sugar and this is being monitored. Negative is back on ultrasound to have minimal proteinuria enhances evaluation. [facility]LY [facility] Medical History Cardiac pacemaker in situ (~2014) Paroxysmal atrial fibrillation LVH (left ventricular hypertrophy) Essential hypertension Hyperlipidemia Diabetes COPD (chronic obstructive pulmonary disease) Nicotine dependence, cigarettes, uncomplicated Benign essential tremor Microscopic hematuria Recurrent UTI Osteopenia (~2021) Obesity, Class I, BMI 30-34.9 Hypertensive retinopathy GERD (gastroesophageal reflux disease) Diverticulitis Tubular adenoma of colon (~2017) Mesenteric lymphadenopathy Thrombocytopenia Depression Insomnia Arthritis Breast calcification, right Surgical History History of pacemaker History of cholecystectomy History of tonsillectomy and adenoidectomy History of eye surgery History of tubal ligation History of colonoscopy History of esophagogastroduodenoscopy (EGD) History of pubovaginal sling History of dilatation and curettage History of loop electrical excision procedure (LEEP) History of right breast biopsy History of vocal cord polypectomy Family History Father Family history of diabetes mellitus Mother Diabetes mellitus Substance use disorder Sister Uterine cancer Diabetes mellitus Mental health disorder Substance use disorder Maternal Grandfather No problems noted. Maternal Grandmother Unknown family medical history Paternal Grandfather No problems noted. Paternal Grandmother No problems noted. Social History Household Members: Other Household Members Other:: Ex-, Daughter Housing: Apartment Alcohol intake: former Year quit: 2001 Patient Tobacco Use Status: Current everyday Tobacco user Tobacco use type: Cigarette Cigarettes Per Day: 3 Years Smoked: (onset 16yo, 1ppd x 47yrs, 40pyh) e-Cigarette/Vaping Use: Never Used Second Hand Smoke Exposure: Yes Advance Directives Date on File: 03/21/22 Current occupational status: disabled Cognitive needs: No Hearing needs: No Vision needs: No Female Reproductive History Menstrual Age of Menarche: 7 Vital Signs 10/11/23 13:56 Height 5 ft 7 in Weight 215 lb 2 oz BMI 33.7 BP 116/80 Blood Pressure Location Lt brachial Position Sitting Pulse 69 Pulse Source Pulse Oximeter Pulse Oximetry (%) 96 Oxygen Delivery Method Room Air Physical Exam Vital Signs: Last Vital Signs Pulse 69 10/11/23 13:56 BP 116/80 10/11/23 13:56 Pulse Ox 96 10/11/23 13:56 Oxygen Delivery Method Room Air 10/11/23 13:56 BMI result Body Mass Index 33.7 Assessment & Plan Assessment & Plan (1) Proteinuria: Code(s): R80.9 - Proteinuria, unspecified Plan: Middle-aged woman with hypertension obesity with proteinuria by dipstick. Transient Proteinuria h/o hypertension and obesity. urine protein creatinine ratio was normal Creatinine stable at 0.8 The meantime continue with the current medications. blood pressure less than 130/80 mmHg Agree with Terrell inhibitors for renal protection. No need for Further workup (2) Essential hypertension: Code(s): I10 - Essential (primary) hypertension Plan: Currently blood pressure is well controlled Discussed weight loss and low-salt diet. Continue with current antihypertensive regimen Coding Level of Care Code Est Pt Level 3 (65679) Diagnoses Proteinuria R80.9 Essential hypertension I10 Results Reviewed Nephrology Results: Hgb 13.1 g/dl (12.0-16.0) 08/29/23 WBC 10.0 X10*3/uL (4.8-10.8) 08/29/23 Plt Count 139 X10*3/uL (160-400) L 08/29/23 Sodium 140 mmol/L (135-145) 08/29/23 Potassium 4.2 mmol/L (3.3-5.1) 08/29/23 Chloride 106 mmol/L (96-108) 08/29/23 Carbon Dioxide 27 mmol/L (22-29) 08/29/23 BUN 10 mg/dL (9-16) 08/29/23 Creatinine 0.84 mg/dL (0.5-1.4) 08/29/23 Calcium 9.4 mg/dL (8.4-10.2) 08/29/23 Urine Protein 30 (1+) mg/dL (Neg-Trace) H 08/29/23 Urine Creatinine 371.07 mg/dL 08/29/23
== END 2023-10-11 14:15 | disposition home or self-care (01) ==
PROVIDERS: PCP Nurse Practitioner Family; Visit Provider Internal Medicine Hypertension Specialist
DX: R80.9 Proteinuria, unspecified (principal); I10 Essential (primary) hypertension
CPT/HCPCS: 99213

== ENCOUNTER → 2023-10-11 13:52 | Outpatient (BNVA) | payer MEDICARE, MEDICAID, SELFPAY | PROVIDERS: PCP Nurse Practitioner Family; Visit Provider Internal Medicine Hypertension Specialist | DX: R80.9 Proteinuria, unspecified (principal); I10 Essential (primary) hypertension | CPT/HCPCS: 99212 ==

== ENCOUNTER 2023-10-29 14:46 | Outpatient (REF) | payer OTHER, SELFPAY ==
--- NOTE | ~2023-10-29 | MM_ITS ---
EXAMINATION: MM SCREENING DIGITAL BREAST TOMOSYNTHESIS, BILATERAL CLINICAL INFORMATION: Screening. Asymptomatic. COMPARISON: Mammography: This study is compared with prior exams dating back to 2018. TECHNIQUE: Digital breast tomosynthesis is performed in both the craniocaudal and mediolateral oblique views along with computer-aided detection (CAD). Synthesized 2D images are generated from the tomosynthesis. FINDINGS: There are scattered areas of fibroglandular density (ACR BI-RADS breast composition Category b). There are no significant masses, abnormal calcifications, or other abnormalities. There is a tissue marker present in the upper inner quadrant of the right breast from prior benign percutaneous biopsy. MM/MM tomosynthesis screening BI IMPRESSION: No mammographic evidence of malignancy. ASSESSMENT: BI-RADS BI-RADS 2 - Benign Findings RECOMMENDATION: Routine annual mammography screening. 1 year F/U This examination should not preclude the clinical evaluation of a suspicious palpable abnormality. This patient's information was entered into a reminder system with a target due date for their next mammogram.
== END 2023-10-29 14:47 | disposition home or self-care (01) ==
LOC: HO.MAMMO 14:46
PROVIDERS: Visit Provider Nurse Practitioner Family
DX: Z12.31 Encounter for screening mammogram for malignant neoplasm of breast (principal)
CPT/HCPCS: 77063; 77067

== ENCOUNTER → 2023-10-29 15:00 | Outpatient (BNV) | payer OTHER, SELFPAY | PROVIDERS: Visit Provider Radiology Diagnostic Radiology | DX: Z12.31 Encounter for screening mammogram for malignant neoplasm of breast (principal) | CPT/HCPCS: 77063; 77067 ==

== ENCOUNTER → 2023-11-02 08:40 | Outpatient (REF) | payer OTHER, SELFPAY ==
--- NOTE | ~2023-11-02 | NM_ITS ---
Lexiscan Myocardial perfusion study Indication: Atrial fibrillation, assess for coronary disease and ischemia Technique: The patient was brought in for a Lexiscan perfusion study on 11/02/2023 and was injected 0.4 mg of Lexiscan intravenously. Within a minute of this injection 35 mCi of sestamibi was given intravenously. Images were obtained using the SPECT gamma camera interlaced with the gating device. Images were obtained in supine position. Resting perfusion study was performed on 11/07/2023. Patient was administered 35 mCi of sestamibi intravenously at rest. Images were then obtained in supine position. Images were processed with the software and compared side to side in short axis, horizontal long axis and vertical long axis views. Total DLP 104mGy-cm. Findings: Raw acquisition reviewed. The stress perfusion study showed no significant perfusion abnormality. Both uncorrected as well as CT attenuation corrected images were reviewed. The gated study shows normal LV systolic function with calculated LVEF of 47%-but visually normal. LV cavity is normal in size. The gated study shows normal wall thickening and contraction of segments. Resting study shows no significant perfusion abnormality. Gating at rest reveals normal wall motion with ejection fraction at 54%, but visually normal. The findings are consistent with no clear reversible or fixed perfusion defects. NM/NM payton perf SPECT rest & str Impression: 1. Myocardial perfusion imaging study shows normal myocardial perfusion. 2. Gated LVEF is 47% during stress and 54% during rest, but visually in the normal range. 3. Transient ischemic dilatation not present. EKG component of the test reported separately.
--- NOTE | 2023-11-02 08:44 | CA_ITS ---
Acquisition Time: 2023-11-02 09:51:46 Total Exercise Time: 00:02:00 Test Indications: AFIB, NSVT Medications: SEE H Protocol: LEXISCAN Max HR: 080 BPM 51% of Pred: 155 BPM Max BP: 142/068 mmHG Max Work Load: 1.0 METS Pharmacological stress test with Lexiscan injection, while sitting and kicking her legs, without anginal symptoms, with isolated PVCs, with normotensive response to inection, with nondiagnostic EKG for ischemia. In recovery she reported dizziness and was treated with Aminophylline 75mg IVP to reverse Lexiscan with resolution of symptom. Nuclear images pending. Test reviewed with Dr Callahan. Referred By: Javier Callahan Overread By: BHUPENDRA BURK
--- NOTE | 2023-11-02 08:44 | CA_ITS ---
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 Normal LV ejection fraction of 60-65% with grade 1 diastolic dysfunction 2. Normal cardiac valvular Doppler 3. Normal RV systolic pressure 4. Mildly dilated ascending aorta at 3.7 cm 5. No gross pericardial effusion Findings Left Ventricle Normal left ventricular size, thickness, and systolic function. The visually estimated ejection fraction is between 60-65%. Spectral Doppler is indicative of an impaired relaxation filling pattern. E/E prime ratio is <8, consistent with normal filling pressures. Evidence suggests grade I (mild) diastolic dysfunction. Peak GLS is -18.5%, within normal limits. Right Ventricle Normal right ventricular cavity size and systolic function. There is a pacemaker wire seen in the right ventricle. Atria Both atria are normal in size. Interatrial shunt cannot be excluded. A pacemaker wire is identified in the right atrium. Aortic Valve There is mild calcification of the aortic valve. There is no aortic valve stenosis. There is no aortic valve regurgitation. Mitral Valve Likely normal mitral valve structure and function. There is trace mitral valve regurgitation. There is no mitral valve stenosis. Pulmonic Valve The pulmonic valve was not well visualized. Tricuspid Valve Normal tricuspid valve structure. There is mild tricuspid valve regurgitation. The right ventricular systolic pressure is 35 mmHg. Normal right atrial pressure. There is no evidence of pulmonary hypertension. Great Vessels The pulmonary artery was not well visualized. There is mild dilatation of the ascending aorta measuring 3.70 cm. Venous The inferior vena cava is normal in size and collapses greater than 50% with inspiration. Pericardium/Pleural There is no evidence of pericardial effusion. Prior Study Comparison No significant change compared to prior study dated: 08/24/2021. Measurements 2D Linear Measurements IVSd: 1.23 0.6-0.9/0.6-1.0 cm LVIDd: 4.88 3.9-5.3/4.2-5.9 cm LVIDd Index: 2.33 2.4-3.2/2.2-3.1 cm/m2 LVIDs: 3.36 2.0-3.6 cm LVPWd: 0.83 0.7-1.1 cm LA Diam: 2.90 2.7-3.8/3.0-4.0 cm LAIDs Index: 1.39 1.5-2.3 cm/m2 LV Mass: 226.91 67-162/88-224 g LV Mass Index: 108.57 43-95/49-115 g/m2 LVOT Diam: 2.00 3.0+(-)1.3 cm 2D Systolic Function EF 4C: 60.20 >55% EF 2C: 68.00 >55% EF BiP: 63.10 >55% Mitral Valve MV Pk E: 0.59 MV PK A: 0.70 MV Decel Time: 283.00 E/A: 0.80 E'Lateral: 6.20 E'Medial: 5.00 E/E' Med: 11.80 E/E' Lat: 9.50 PHT: 83.00 MVA PHT: 2.65 Decel Stephenson: 2.09 Aortic Valve AoV Pk Srikanth: 1.35 AoV Mn Srikanth: 0.80 AoV VTI: 0.28 AoV Pk Grad: 7.00 Aov Mn Grad: 3.00 JOCY Cont.VTI: 2.09 LVOT LVOT Pk Srikanth: 0.80 LVOT Mn Srikanth: 0.52 LVOT VTI: 0.18 LVOT Pk Grad: 3.00 LVOT Mn Grad: 1.00 LVOT Diam: 2.00 LVOT Area: 3.14 Diastolic Function MV Pk E: 0.59 MV Pk A: 0.70 E/A: 0.80 E'Medial: 5.00 E/E' Med: 11.80 E' Laterial: 6.20 E/E' Lat: 9.50 Right Ventricle TAPSE (mm): 21.20 TVS' Srikanth: 11.30 Tricuspid Valve TR Pk Srikanth: 2.84 TR Pk Grad: 32.00 RA Press: 3.00 RVSP: 35.00 Great Vessels Aorta Sinus of Valsalva: 4.08 2.0-3.5 cm Ao Asc: 3.70 2.1-3.4 cm Updated in Other Vendor System with Status of Final Javier Callahan MD electronically signed on 11/03/2023 10:27:25 AM with status of Final
== END ==
LOC: HO.CARD 08:40
PROVIDERS: PCP Nurse Practitioner Family; Visit Provider Internal Medicine Cardiovascular Disease
DX: I47.29 Other ventricular tachycardia (principal)
CPT/HCPCS: 78452; 93017; 93306; 93356; A9500; J0280; J2785

== ENCOUNTER → 2023-11-02 08:44 | Outpatient (BNV) | payer OTHER, SELFPAY | PROVIDERS: PCP Nurse Practitioner Family; Visit Provider Nurse Practitioner Family | DX: I48.0 Paroxysmal atrial fibrillation (principal) | CPT/HCPCS: 78452; 93016; 93018; 93306 ==

== ENCOUNTER 2023-11-07 14:40 | Outpatient (REF) | payer OTHER, SELFPAY ==
[2023-11-07 15:49] LABS: Appearance Urine Cloudy; Color Urine Yellow; Glucose Urine UA Negative (Negative); Leukocyte Esterase Urine Moderate (2+) (Negative); Nitrite Urine Positive (Negative); PH 5.5 (5.0-9.0); UMIC TRIGGER UA YES; Urine Blood Negative (Negative); Urine Ketones Trace mg/dL (Negative); Urine Protein Trace mg/dL (Neg-Trace)
[2023-11-07 16:02] LABS: Bacteria Urine 4+ (None Seen); Hyaline Casts Urine 0-2 /LPF (0-2); RBC Urine 0-2 /HPF (0-2)
[2023-11-07 16:51] LABS: Creatinine Urine 230.19 mg/dL; Total Protein Urine Random 18 mg/dL (<12)
[2023-11-07 16:52] LABS: Creatinine Urine 231.34 mg/dL; Microalbum/Creatinine Ratio Ur 16.8 ug/mg cr (<30)
== END 2023-11-07 14:41 | disposition home or self-care (01) ==
LOC: HO.LAB 14:40
PROVIDERS: Internal Medicine Hypertension Specialist; PCP Nurse Practitioner Family; Visit Provider Nurse Practitioner Family
DX: R80.9 Proteinuria, unspecified (principal); N39.0 Urinary tract infection, site not specified; E11.9 Type 2 diabetes mellitus without complications
CPT/HCPCS: 81001; 82043; 82570; 84156; 87086; 87088; 87186

== ENCOUNTER 2023-12-10 14:42 | Outpatient (AMB) | payer MEDICARE, MEDICAID, SELFPAY ==
--- NOTE | 2023-12-10 14:49 | A.OFFPC_ITS ---
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: No Accompanied by: Other Relationship Allergies dabigatran etexilate [From PRADAXA] Allergy (Intermediate, Verified 12/10/23 15:28) SWELLING\hives Medication List - Last Reconciled 12/10/23 by Elmer Dolan CAR SEAT MAKER- acetaminophen 1,000 mg (2 x 500 mg) PO Q8H PRN 15 days albuterol sulfate 2.5 mg (3 mL) inhalation Q4-6H PRN alcohol swabs (Alcohol Pads) 1 pad topical DAILY amlodipine 2.5 mg PO DAILY ascorbic acid (vitamin C) 500 mg PO BID 90 days atorvastatin 40 mg PO DAILY blood pressure test kit-large Use to check BP daily blood sugar diagnostic (FreeStyle Lite Strips) Test blood sugar daily blood-glucose meter (FreeStyle Lite Meter kit) Use to test blood sugar 3 times a day cholecalciferol (vitamin D3) 50 mcg PO DAILY clonazepam 1 mg PO BID cranberry fruit 450 mg PO BID 90 days fluticasone propion-salmeterol 250-50 mcg/dose (Advair Diskus) 1 inh inhalation BID 30 days ibuprofen 600 mg PO DAILY PRN 30 days lancets (FreeStyle Lancets) Test blood sugar daily lisinopril 20 mg PO DAILY meclizine 25 mg PO TID PRN mirabegron ER 50 mg PO DAILY 90 days omeprazole 20 mg PO .QD primidone 0 mg PO propranolol 60 mg PO BID [pull ups The patient is using 8 pull ups a day; size extra large] [Quad care As directed] [Recliner lift chair As directed] rivaroxaban (Xarelto) 20 mg PO QPM sucralfate (Carafate) 2 grams (2 x 1 gram) PO .daily at 11pm tiotropium bromide (Spiriva with HandiHaler) 1 cap inhalation DAILY trazodone 100 mg PO BEDTIME Ultra-Light Rollator (walker) lower extrem weakness, use daily NS umeclidinium 62.5 mcg/actuation (Incruse Ellipta) 1 inh inhalation DAILY 30 days [Upright Posture Walker daily use] Ventolin HFA 90 mcg/actuation (albuterol sulfate) 2 puffs inhalation Q4-6H PRN 30 days NS zolpidem 10 mg PO BEDTIME PRN Tobacco use date assessed: 12/10/23 Fall risk assessment: 2 + Falls in past year Last assessed Fall Risk: 12/10/23 Dental Screening Dental Screen Date: 12/10/23 Did you have a dental visit in the last 12 months?: No Did you have a dental problem in the last 6 months where you did not have access to dental care?: No Was dental information given to patient?: Patient declined HPI 3 Month follow up HPI Details Pt is a diabetic, on an DEBORAH and a statin. A1C in office today is 6.7. Microalbumin is up to date. Denies polyuria, polydipsia, and neuropathy. Pt denies any signs and symptoms of hypoglycemia and does know how to correct it. Eye exam is up to date. 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 Pt reports increased fatigue. ? if symptoms are related to polypharmacy, pt is on many medications. Will stop zolpidem and tramadol. Will have pt take trazodone prn only. [facility] Medical History Cardiac pacemaker in situ (~2014) Paroxysmal atrial fibrillation LVH (left ventricular hypertrophy) Essential hypertension Hyperlipidemia Diabetes COPD (chronic obstructive pulmonary disease) Nicotine dependence, cigarettes, uncomplicated Benign essential tremor Microscopic hematuria Recurrent UTI Osteopenia (~2021) Obesity, Class I, BMI 30-34.9 Hypertensive retinopathy GERD (gastroesophageal reflux disease) Diverticulitis Tubular adenoma of colon (~2017) Mesenteric lymphadenopathy Thrombocytopenia Depression Insomnia Arthritis Breast calcification, right Surgical History History of pacemaker History of cholecystectomy History of tonsillectomy and adenoidectomy History of eye surgery History of tubal ligation History of colonoscopy History of esophagogastroduodenoscopy (EGD) History of pubovaginal sling History of dilatation and curettage History of loop electrical excision procedure (LEEP) History of right breast biopsy History of vocal cord polypectomy Family History Father Family history of diabetes mellitus Mother Diabetes mellitus Substance use disorder Sister Uterine cancer Diabetes mellitus Mental health disorder Substance use disorder Maternal Grandfather No problems noted. Maternal Grandmother Unknown family medical history Paternal Grandfather No problems noted. Paternal Grandmother No problems noted. Social History Household Members: Other Household Members Other:: Ex-, Daughter Housing: Apartment Alcohol intake: former Year quit: 2001 Patient Tobacco Use Status: Current everyday Tobacco user Tobacco use type: Cigarette Cigarettes Per Day: 3 Years Smoked: (onset 16yo, 1ppd x 47yrs, 40pyh) e-Cigarette/Vaping Use: Never Used Second Hand Smoke Exposure: Yes Advance Directives Date on File: 03/21/22 service: No Current occupational status: disabled Cognitive needs: No Hearing needs: No Vision needs: No Female Reproductive History Menstrual Age of Menarche: 7 Questionnaire PHQ-9 Over the last 2 weeks, how often have you been bothered by any of the following problems? 1. Little interest or pleasure in doing things: nearly every day 2. Feeling down, depressed, or hopeless: nearly every day 3. Trouble falling or staying asleep, or sleeping too much: nearly every day 4. Feeling tired or having little energy: nearly every day 5. Poor appetite or overeating: not at all 6. Feeling bad about yourself - or that you are a failure or have let yourself or your family down: nearly every day 7. Trouble concentrating on things, such as reading the newspaper or watching television: nearly every day 8. Moving or speaking so slowly that other people could have noticed. Or the opposite - being so fidgety or restless that you have been moving around a lot more than usual: nearly every day 9. Thoughts that you would be better off or of hurting yourself in some way: not at all Total score: 21 Depression Screening Interpretation: Positive (denies any SI or HI) Depression Screening Follow-up: Existing condition and In treatment Depression Screening Done: Yes 99541 - PHQ-9 Billing: Yes Source: Developed by Drs. Kelly Chaidez, Zbigniew Robert and colleagues, with an educational jeffrey from [employer]. Thrive Questionnaire Date Thrive assessed: 12/10/23 I am a: Patient What is your living situation today?: I have a place to live, but I am worried about losing it in the future Within the past 12 months, did the food you bought not last and you didn't have the money to get more?: Never true Within the past 12 months, did you worry whether your food would run out before you got money to buy more?: Never true Do you have trouble paying for medicines?: No Do you have trouble getting transportation to medical appointments?: No Do you have trouble paying your heating and electricity bill?: No Do you have trouble taking care of your child, family member or friend?: No Do you have trouble with day-to-day activities such as bathing, preparing meals, shopping, managing finances, etc.?: No Are you currently unemployed and looking for a job?: No Are you interested in more education?: No Please select the resources that you would like help with: None Currently or been in a relationship where the following occur: no concerns reported THRIVE Score: 1 AUDIT C Alcohol Use Questionnaire (AUDIT-C) 1. How often do you have a drink containing alcohol?: Never 3. How often do you have six or more drinks on one occasion?: Never Total Score: 0 Score Reviewed/Action Taken: Yes ESTEFANIA-7 AMB Questionnaire ESTEFANIA-7 Date ESTEFANIA - 7 assessed: 12/10/23 Feeling nervous, anxious, or on edge: 1 = Several days Not being able to stop or control worryin = Several days Worrying too much about different things: 3 = Nearly every day Trouble relaxin = Not at all Being so restless that it is hard to sit still: 0 = Not at all Becoming easily annoyed or irritable: 3 = Nearly every day Feeling afraid as if something awful might happen: 3 = Nearly every day Total ESTEFANIA-7 score (0-4 normal; 5-9 mild; 10-14 moderate; 15-21 severe): 11 Source: Developed by Kelly Reyes, Zbigniew Robert and colleagues, with an educational jeffrey from [employer]. ESTEFANIA-7 Assessment Billing ESTEFANIA-7 Assessment Tool: ESTEFANIA-7 Assessment 67551 Review of Systems Const Reports as per HPI Physical exam (Primary Care) Vital Signs: Last Vital Signs Pulse 65 12/10/23 14:51 BP 120/70 12/10/23 14:51 Pulse Ox 96 12/10/23 14:51 Oxygen Delivery Method Room Air 12/10/23 14:51 BMI result Body Mass Index 33.8 Tobacco/Smoking Status: Tobacco use Status Tobacco use date assessed 12/10/23 12/10/23 15:11 Patient Tobacco Use Status Current everyday Tobacco 12/10/23 14:51 Tobacco use type Cigarette 12/10/23 14:51 e-Cigarette/Vaping Use Never Used 12/10/23 14:51 PHQ-9: PHQ-9 Score PHQ-9: Total score 21 12/10/23 15:29 Depression Screening Interpretation: Positive (denies any SI or HI) Depression Screening Follow-up: Existing condition and In treatment Thrive Assessment: Date of Thrive Assessment Date Thrive assessed 12/10/23 12/10/23 15:11 Currently or been in a relationship where the following occur: no concerns reported Const General: cooperative Nutritional Appearance: obese Orientation/consciousness: patient oriented x3 Resp Other: lungs diminished throughout, though moving air Effort & Inspection: normal respiratory effort Cardio Rate: regular rate Rhythm: regular rhythm Heart sounds: S1 normal heart sound present and S2 normal heart sound present Neuro General: patient oriented x3 Extrem Other: bilat feet: + sensation with use of monofilament, intact bilat Psych Appearance: grossly normal Mental Status: mental status grossly normal Speech and movement: Normal speech and movement present Affect: normal affect Attitude: cooperative Thought process: Normal thought process present Thought content: Normal thought content present Insight: Good insight present (Psych) Judgement: Good judgement present (Psych) Results AMB Hemoglobin A1c AMB Hemoglobin A1c 6.7 % Last Edit by Lalito Emery CMA on 12/10/23 15: 33 Results Reviewed Results Reviewed: Laboratory Last Values Hgb A1c (Clinic) 6.7 % (4.0-6.0) H 12/10/23 15:32 Assessment and Plan Assessment & Plan (1) Diabetes: Code(s): E11.9 - Type 2 diabetes mellitus without complications Plan: Labs ordered Plan The patient agreed to the use of a mobile paramedical examiner for this encounter. Scribed for DONOVAN Hollis-BC by Kate Ventura mobile paramedical examiner, on 12/10/2023 at 15:30 EST. Orders: Orders Complete Blood Count Auto Diff Today E11.9 - Type 2 diabetes mellitus without complications Lipid Panel Today E11.9 - Type 2 diabetes mellitus without complications Comprehensive [place]. Panel Fast Today E11.9 - Type 2 diabetes mellitus without complications TSH reflex Free T4 Today E11.9 - Type 2 diabetes mellitus without complications UA CC w/rflx Micro + Cult Today E11.9 - Type 2 diabetes mellitus without complications AMB Hemoglobin A1c Today Z13.9 - Encounter for screening, unspecified Medications: Discontinued ascorbic acid (vitamin C) Discontinued Reason: Doctor's Order 500 mg PO BID 90 days 180 tabs 1RF Coding Level of Care Code Est Pt Level 3 (42252) Diagnoses Diabetes E11.9 Additional Codes ESTEFANIA-7 Assessment Billing - ESTEFANIA-7 Assessment Tool: ESTEFANIA-7 Assessment [id number] ([id number])
[2023-12-10 14:51] VITALS: BP 120/70; PULSE 65; O2SAT 96; BMI 33.8
== END 2023-12-10 16:13 | disposition home or self-care (01) ==
PROVIDERS: PCP Nurse Practitioner Family; Visit Provider Nurse Practitioner Family
DX: E11.9 Type 2 diabetes mellitus without complications (principal)
CPT/HCPCS: 83036; 99213

== ENCOUNTER 2024-02-11 15:30 | Outpatient (AMB) | payer MEDICARE, MEDICAID, SELFPAY ==
[2024-02-11 15:43] VITALS: BP 102/62; PULSE 90; O2SAT 95; BMI 31.8
--- NOTE | 2024-02-11 15:43 | A.OFFVIS_ITS ---
Vital Signs 02/11/24 15:43 Height 5 ft 7 in Weight 203 lb BMI 31.8 BP 102/62 Blood Pressure Location Lt brachial Position Sitting Pulse 90 Pulse Source Pulse Oximeter Pulse Oximetry (%) 95 Oxygen Delivery Method Room Air Intake Visit Reasons: copd Intake Note: pt is here for follow up and pcp stopped some of inhalers, only using sprivia and nebulizer. Bellows Tester Required: No Allergies dabigatran etexilate [From PRADAXA] Allergy (Intermediate, Verified 02/11/24 15:50) SWELLING\hives Medication List - Last Reconciled 02/11/24 by Ruth Thomas MD acetaminophen 1,000 mg (2 x 500 mg) PO Q8H PRN 15 days albuterol sulfate 2.5 mg (3 mL) inhalation Q4-6H PRN alcohol swabs (Alcohol Pads) 1 pad topical DAILY amlodipine 2.5 mg PO DAILY atorvastatin 40 mg PO DAILY blood pressure test kit-large Use to check BP daily blood sugar diagnostic (FreeStyle Lite Strips) Test blood sugar daily blood-glucose meter (FreeStyle Lite Meter kit) Use to test blood sugar 3 times a day cholecalciferol (vitamin D3) 50 mcg PO DAILY clonazepam 1 mg PO BID cranberry fruit 450 mg PO BID 90 days fluticasone propion-salmeterol 250-50 mcg/dose (Advair Diskus) 1 inh inhalation BID 30 days ibuprofen 600 mg PO DAILY PRN 30 days lancets (FreeStyle Lancets) Test blood sugar daily lisinopril 20 mg PO DAILY meclizine 25 mg PO TID PRN mirabegron ER 50 mg PO DAILY 90 days omeprazole 20 mg PO .QD primidone 0 mg PO propranolol 60 mg PO BID [pull ups The patient is using 8 pull ups a day; size extra large] [Quad care As directed] [Recliner lift chair As directed] rivaroxaban (Xarelto) 20 mg PO QPM sucralfate (Carafate) 2 grams (2 x 1 gram) PO .daily at 11pm tiotropium bromide (Spiriva with HandiHaler) 1 cap inhalation DAILY trazodone 100 mg PO BEDTIME Ultra-Light Rollator (walker) lower extrem weakness, use daily NS [Upright Posture Walker daily use] Ventolin HFA 90 mcg/actuation (albuterol sulfate) 2 puffs inhalation Q4-6H PRN 30 days NS Do you need a note to return to daycare/school/sports/work: No HPI HPI copd: Details: This 64 years old female is here for follow-up, . For her COPD She claims that as she has cut down, her cigarettes to 3 a day her breathing is better and she does not need to use as much medications as before. Her PCP has stopped some of her respiratory meds which were more like a duplic ation. Still not very clear about the list of her meds. She does have mild intermittent. Cough but does not expectorates much She gets short of breath only on walking fast or climbing stairs. Overall she is doing better and is stable. [facility] Medical History Cardiac pacemaker in situ (~2014) Paroxysmal atrial fibrillation LVH (left ventricular hypertrophy) Essential hypertension Hyperlipidemia Diabetes COPD (chronic obstructive pulmonary disease) Nicotine dependence, cigarettes, uncomplicated Benign essential tremor Microscopic hematuria Recurrent UTI Osteopenia (~2021) Obesity, Class I, BMI 30-34.9 Hypertensive retinopathy GERD (gastroesophageal reflux disease) Diverticulitis Tubular adenoma of colon (~2017) Mesenteric lymphadenopathy Thrombocytopenia Depression Insomnia Arthritis Breast calcification, right Surgical History History of pacemaker History of cholecystectomy History of tonsillectomy and adenoidectomy History of eye surgery History of tubal ligation History of colonoscopy History of esophagogastroduodenoscopy (EGD) History of pubovaginal sling History of dilatation and curettage History of loop electrical excision procedure (LEEP) History of right breast biopsy History of vocal cord polypectomy Family History Father Family history of diabetes mellitus Mother Diabetes mellitus Substance use disorder Sister Uterine cancer Diabetes mellitus Mental health disorder Substance use disorder Maternal Grandfather No problems noted. Maternal Grandmother Unknown family medical history Paternal Grandfather No problems noted. Paternal Grandmother No problems noted. Social History Household Members: Other Household Members Other:: Ex-, Daughter Housing: Apartment Alcohol intake: former Year quit: 2001 Patient Tobacco Use Status: Current everyday Tobacco user Tobacco use type: Cigarette Cigarettes Per Day: 3 Years Smoked: (onset 16yo, 1ppd x 47yrs, 40pyh) e-Cigarette/Vaping Use: Never Used Second Hand Smoke Exposure: Yes Advance Directives Date on File: 03/21/22 service: No Current occupational status: disabled Cognitive needs: No Hearing needs: No Vision needs: No Female Reproductive History Menstrual Age of Menarche: 7 Review of Systems Const All systems reviewed & are unremarkable except as noted in HPI and below Eyes Reports no additional complaints ENT Reports no additional complaints Card Denies chest pain, Denies irregular heart rhythm and Reports other (Has demand pacemaker in the left pectoral area) Resp Reports as per HPI GI Reports abdominal pain, Reports constipation, Reports heartburn, Reports diarrhea and Reports other (Irritable bowel syndrome) Reports nocturia Musc Reports back pain Skin/Breast Reports system reviewed and no additional complaints, except as documented Neuro Reports tremor(s) (Essential tremors) Psych Reports anxiety and Reports depression Endo Reports other (Diabetes mellitus) Physical Exam Vital Signs: Last Vital Signs Pulse 90 02/11/24 15:43 BP 102/62 02/11/24 15:43 Pulse Ox 95 02/11/24 15:43 Oxygen Delivery Method Room Air 02/11/24 15:43 BMI result Body Mass Index 31.8 Const General: comfortable, no acute distress, alert and awake Orientation/consciousness: patient oriented x3 HEENT Head: Yes normal to inspection General nose exam: No nasal polyps present and No nasal discharge present Face and sinus: Yes sinuses nontender Mouth: oropharynx normal Throat: Yes posterior oropharynx normal Eyes General: appearance normal, both eyes and all related structures Neck Neck: Yes normal visual inspection, Yes no lymphadenopathy, Yes trachea midline and Yes no JVD Thyroid: Thyroid normal Chest Chest palpation & inspection: normal inspection of the chest, normal palpation of entire chest wall and no tenderness Resp Other: Percussion note is resonant, breath sounds are distant with prolonged expiratory phase. No wheezes rhonchi or crepitations are heard . Cardio Palpation: normal PMI Rate: regular rate Rhythm: regular rhythm and other (Pacemaker in left pectoral area) Heart sounds: no gallops and no murmurs Peripheral pulses: Peripheral pulses 2+ throughout GI Palpation (GI): Soft to palpation, nontender, No hepatosplenomegaly present and no masses Auscultation: normal bowel sounds Back/Spine/Pelvis Thoracic/Lumbar Spine: thoracic and lumbar spine normal to inspection Skin General skin exam: no rashes or lesions noted Neuro Other: Patient has tremors of the head, and slightly tremorous speech General: patient oriented x3 and no focal motor deficits Cranial nerves: Yes CN's II-XII intact bilaterally Extrem General: Yes normal to inspection, Yes no clubbing, cyanosis or edema and Yes no calf tenderness Psych Speech and movement: Normal speech and movement present Affect: Anxious affect present Assessment & Plan Assessment & Plan (1) COPD (chronic obstructive pulmonary disease): Comment: Long-standing history of COPD, severe per PFT with component of asthma. It is relatively stable at this time Code(s): J44.9 - Chronic obstructive pulmonary disease, unspecified Category: Medical Plan: SPIRIVA HANDIHALER 1 INHALATION DAILY. ALBUTEROL SOLUTION BY NEBULIZER Q 6 HOURS P.R.N.. ALTERNATIVELY MAY USE PROAIR 2 PUFFS Q.4 HOURS P.R.N.. SHE ALSO DOES HAVE FLUTICASONE-SALMETEROL ( ADVAIR) 250-50 ) AT HOME BUT SHE IS SUPPOSED TO USE IT ONLY IF HER BREATHING GETS WORSE . (2) Nicotine dependence, cigarettes, uncomplicated: Comment: (Current smoker - onset 16yo, 1ppd x 47yrs, 40pyh) TRYING TO CUT DOWN AND NOW SMOKES 3 CIGARETTES A DAY. Code(s): F17.210 - Nicotine dependence, cigarettes, uncomplicated Category: Medical Plan: THREE CIGARETTES A DAY BUT IF SHE COULD STOP COMPLETELY WOULD BE BETTER
== END 2024-02-11 16:04 | disposition home or self-care (01) ==
LOC: HO.HPS 15:39
PROVIDERS: PCP Nurse Practitioner Family; Visit Provider Internal Medicine
DX: J44.9 Chronic obstructive pulmonary disease, unspecified (principal); F17.210 Nicotine dependence, cigarettes, uncomplicated
CPT/HCPCS: 99213

== ENCOUNTER → 2024-02-11 15:39 | Outpatient (BNVA) | payer MEDICARE, MEDICAID, SELFPAY | PROVIDERS: PCP Nurse Practitioner Family; Visit Provider Internal Medicine | DX: J44.9 Chronic obstructive pulmonary disease, unspecified (principal); F17.210 Nicotine dependence, cigarettes, uncomplicated; Z71.6 Tobacco abuse counseling | CPT/HCPCS: 99212 ==

== ENCOUNTER 2024-03-11 14:34 | Outpatient (REF) | payer MEDICARE, SELFPAY ==
[2024-03-11 15:56] LABS: Hematocrit 42.3 % (37.0-47.0); Hemoglobin 14.1 g/dl (12.0-16.0); Mean Corpuscular HGB Conc 33.3 g/dl (31.0-35.0); Mean Corpuscular Hemoglobin 29.1 pg (27.0-33.0); Mean Corpuscular Volume 87.2 fL (80.0-98.0); Mean Platelet Volume 12.7 fL (9.4-12.3); Platelet Count 156 X10*3/uL (160-400); Red Blood Count 4.85 X10*6/uL (4.20-5.50); Red Cell Distribution Width 13.4 % (11.0-16.0); White Blood Count 8.2 X10*3/uL (4.8-10.8)
[2024-03-11 17:18] LABS: Anion Gap 15 (12-20); Blood Urea Nitrogen 11 mg/dL (9-16); Calcium 9.8 mg/dL (8.4-10.2); Carbon Dioxide 24 mmol/L (22-29); Chloride 103 mmol/L (96-108); Estimated Glomerular Filt Rate 57; Glucose Random 133 mg/dL (60-115); Potassium 4.4 mmol/L (3.3-5.1); Sodium 138 mmol/L (135-145)
== END 2024-03-11 14:35 | disposition home or self-care (01) ==
LOC: HO.LAB 14:34
PROVIDERS: PCP Nurse Practitioner Family; Visit Provider Internal Medicine Cardiovascular Disease
DX: I48.0 Paroxysmal atrial fibrillation (principal); F17.210 Nicotine dependence, cigarettes, uncomplicated; Z45.018 Encounter for adjustment and management of other part of cardiac pacemaker
CPT/HCPCS: 36415; 80048; 85027; 93280; 99212

== ENCOUNTER 2024-03-11 14:34 | Outpatient (AMB) | payer MEDICARE, MEDICAID, SELFPAY ==
[2024-03-11 14:38] VITALS: BP 124/76; PULSE 74; BMI 31.8
--- NOTE | 2024-03-11 14:38 | MHC.OFFVIS ---
Vital Signs 03/11/24 14:38 Height 5 ft 7 in Weight 202 lb 13.204 oz BMI 31.8 BP 124/76 Blood Pressure Location Lt brachial Position Sitting Pulse 74 Intake Visit Reasons: 6 mth w/ device ck Intake Note: 6 month follow-up with [facility] c/o fatigue Disaster Recovery Manager Required: No Software Asset Management Analyst: Software Asset Management Analyst Present Accompanied by: Friend Allergies dabigatran etexilate [From PRADAXA] Allergy (Intermediate, Verified 02/11/24 15:50) SWELLING\hives Medication List - Last Reconciled 03/11/24 by Javier Callahan MD acetaminophen 1,000 mg (2 x 500 mg) PO Q8H PRN 15 days albuterol sulfate 2.5 mg (3 mL) inhalation Q4-6H PRN alcohol swabs (Alcohol Pads) 1 pad topical DAILY amlodipine 2.5 mg PO DAILY atorvastatin 40 mg PO DAILY blood pressure test kit-large Use to check BP daily blood sugar diagnostic (FreeStyle Lite Strips) Test blood sugar daily blood-glucose meter (FreeStyle Lite Meter kit) Use to test blood sugar 3 times a day cholecalciferol (vitamin D3) 50 mcg PO DAILY clonazepam 1 mg PO BID cranberry fruit 450 mg PO BID 90 days ibuprofen 600 mg PO DAILY PRN 30 days lancets (FreeStyle Lancets) Test blood sugar daily lisinopril 20 mg PO DAILY meclizine 25 mg PO TID PRN mirabegron ER 50 mg PO DAILY 90 days omeprazole 20 mg PO .QD primidone 0 mg PO propranolol 60 mg PO BID [pull ups The patient is using 8 pull ups a day; size extra large] [Quad care As directed] [Recliner lift chair As directed] rivaroxaban (Xarelto) 20 mg PO BEDTIME sucralfate (Carafate) 2 grams (2 x 1 gram) PO .daily at 11pm tiotropium bromide (Spiriva with HandiHaler) 1 cap inhalation DAILY trazodone 100 mg PO BEDTIME Ultra-Light Rollator (walker) lower extrem weakness, use daily NS [Upright Posture Walker daily use] Ventolin HFA 90 mcg/actuation (albuterol sulfate) 2 puffs inhalation Q4-6H PRN 30 days NS HPI Comments Details: Myrtle comes for follow-up. She has been doing well. No episodes of syncope. Overall taking medications. Denies any prolonged palpitation irregular heartbeat. Denies any bleeding issues or neurologic events. Unfortunately continues to smoke. She is working with Pulmonary for her bronchodilators therapy. Denies orthopnea, PND, leg edema. Blood pressures been generally well controlled. No exertional chest pain. [facility] Medical History Cardiac pacemaker in situ (~2014) Paroxysmal atrial fibrillation LVH (left ventricular hypertrophy) Essential hypertension Hyperlipidemia Diabetes COPD (chronic obstructive pulmonary disease) Nicotine dependence, cigarettes, uncomplicated Benign essential tremor Microscopic hematuria Recurrent UTI Osteopenia (~2021) Obesity, Class I, BMI 30-34.9 Hypertensive retinopathy GERD (gastroesophageal reflux disease) Diverticulitis Tubular adenoma of colon (~2017) Mesenteric lymphadenopathy Thrombocytopenia Depression Insomnia Arthritis Breast calcification, right Surgical History History of pacemaker History of cholecystectomy History of tonsillectomy and adenoidectomy History of eye surgery History of tubal ligation History of colonoscopy History of esophagogastroduodenoscopy (EGD) History of pubovaginal sling History of dilatation and curettage History of loop electrical excision procedure (LEEP) History of right breast biopsy History of vocal cord polypectomy Family History Father Family history of diabetes mellitus Mother Diabetes mellitus Substance use disorder Sister Uterine cancer Diabetes mellitus Mental health disorder Substance use disorder Maternal Grandfather No problems noted. Maternal Grandmother Unknown family medical history Paternal Grandfather No problems noted. Paternal Grandmother No problems noted. Social History Household Members: Other Household Members Other:: Ex-, Daughter Housing: Apartment Alcohol intake: former Year quit: 2001 Patient Tobacco Use Status: Current everyday Tobacco user Tobacco use type: Cigarette Cigarettes Per Day: 3 Years Smoked: (onset 16yo, 1ppd x 47yrs, 40pyh) e-Cigarette/Vaping Use: Never Used Second Hand Smoke Exposure: Yes Advance Directives Date on File: 03/21/22 service: No Current occupational status: disabled Cognitive needs: No Hearing needs: No Vision needs: No Female Reproductive History Menstrual Age of Menarche: 7 Review of Systems Const Denies chills, Denies fatigue, Denies fever(s), Denies frequent falls, Denies weakness, Denies weight gain and Denies weight loss ENT Denies dizziness Card Denies chest pain, Denies leg edema, Denies lightheadedness, Denies palpitations, Denies dyspnea, Denies dyspnea on exertion, Denies orthopnea and Denies other (loss of consciousness) Resp Denies cough, Denies dyspnea and Denies dyspnea on exertion GI Denies hematochezia and Denies change in stool character Musc Denies abnormal gait, Denies muscle weakness, Denies numbness, Denies radiating pain into limb and Denies tingling Neuro Denies abnormal gait, Denies dizziness, Denies frequent falls, Denies numbness, Denies tingling and Denies weakness Endo Denies fatigue and Denies palpitations Physical Exam Vital Signs: Last Vital Signs Pulse 74 03/11/24 14:38 BP 124/76 03/11/24 14:38 BMI result Body Mass Index 31.8 Const General: cooperative, comfortable, no acute distress, alert and awake Nutritional Appearance: obese Orientation/consciousness: patient oriented x3 Limitations: no limitations Neck Neck: Yes trachea midline, Yes supple and Yes no JVD Resp Effort & Inspection: normal respiratory effort Auscultation: wheezes scattered wheezes and diminished lung sounds Cardio Jugular venous distension: no JVD Palpation: normal PMI Rate: regular rate Rhythm: abnormal rhythm with ectopic beats Heart sounds: S1 normal heart sound present and S2 normal heart sound present GI Auscultation: normal bowel sounds Skin General skin exam: no rashes or lesions noted Neuro General: patient oriented x3 and no focal motor deficits Extrem General: Yes no clubbing, cyanosis or edema Psych Appearance: grossly normal Affect: Anxious affect present Office Procedures Cardiac Device Check Cardiac Device Check Details: Dual-chamber Medtronic pacemaker in place programmed in MVP mode with rate response at 60 beats per minute. Atrial pacing and ventricular pacing thresholds adequate. Atrial and ventricular pacing lead impedance is stable. Atrial ventricular sensing is adequate. Battery life is adequate. No significant episodes of atrial fibrillation noted. Few episodes of high ventricular rate consistent with SVT at 1 [place] [id number] Cardiac Device Check, pacemaker dual lead Procedure code (CPT) selection complete Assessment & Plan Assessment & Plan (1) Cardiac pacemaker in situ: Onset Date: ~2014 Comment: (Medtronic DCPP - placed 05/10/2015) Code(s): Z95.0 - Presence of cardiac pacemaker Category: Medical Plan: Cardiac pacemaker in-situ for sick sinus syndrome. Pacemaker is working well. Reprogrammed for adequate function. Will follow remotely every 3 months and follow up in the clinic in 6 months time. (2) Paroxysmal atrial fibrillation: Code(s): I48.0 - Paroxysmal atrial fibrillation Category: Medical Plan: Paroxysmal atrial fibrillation without any overt recurrences. She has no symptoms related to it. Continue therapy with propranolol to reduce cardiac excitability. There is no indication for antiarrhythmic drug therapy at this point time. Continue full oral anticoagulation, currently on Xarelto 20 mg daily. Semi annual renal function test should be pursued. (3) Essential hypertension: Code(s): I10 - Essential (primary) hypertension Category: Medical Plan: Hypertension which is currently well optimized advised to monitor blood pressure at home maintain a log. Goal blood pressure less than 130/84. Low-salt diet was discussed. In terms of generalized risk factor modification strongly encouraged her to quit smoking. She is wheezing and needs further optimization for pulmonary function. Will follow up in the clinic in 6 months time, sooner p.r.n.. Thank you for allowing me to partake in the care Orders: Orders Basic Metabolic Panel 03/11/24 I48.0 - Paroxysmal atrial fibrillation Complete Blood Count no Diff 03/11/24 I48.0 - Paroxysmal atrial fibrillation Coding Level of Care Code Est Pt Level 4 (59360) Diagnoses Cardiac pacemaker in situ Z95.0 Paroxysmal atrial fibrillation I48.0 Essential hypertension I10 CPT Codes Cardiac Device Check - Cardiac Device 2: [id number] Cardiac Device Check, pacemaker dual lead ([id number])
== END 2024-03-11 15:02 | disposition home or self-care (01) ==
PROVIDERS: PCP Nurse Practitioner Family; Visit Provider Internal Medicine Cardiovascular Disease
DX: I48.0 Paroxysmal atrial fibrillation (principal); I10 Essential (primary) hypertension; Z95.0 Presence of cardiac pacemaker
CPT/HCPCS: 93280; 99214

== ENCOUNTER 2024-03-13 10:16 | Outpatient (REF) | payer OTHER, SELFPAY ==
[2024-03-13 13:16] LABS: MANUAL DIFF FLAG NO
[2024-03-13 13:30] LABS: Appearance Urine Clear; Color Urine Yellow; Glucose Urine UA Negative (Negative); Leukocyte Esterase Urine Trace (Negative); Nitrite Urine Negative (Negative); UMIC TRIGGER UACC YES; Urine Blood Negative (Negative); Urine Ketones Negative (Negative); Urine Protein Negative (Neg-Trace)
[2024-03-13 13:31] LABS: Basophils Percent Auto 0.4 % (0-2); Eosinophils Absolute Auto 0.2 X10*3/uL (0.0-0.4); Hematocrit 42.2 % (37.0-47.0); Hemoglobin 13.5 g/dl (12.0-16.0); Imm Gran Abs Auto 0.04 X10*3/uL (0.00-0.03); Imm Gran Pct Auto 0.4 % (0.0-0.4); Lymphocytes Absolute Auto 2.1 X10*3/uL (1.2-4.9); Lymphocytes Percent Auto 21.8 % (20-40); Mean Corpuscular Hemoglobin 28.8 pg (27.0-33.0); Mean Platelet Volume 12.7 fL (9.4-12.3); Monocytes Absolute Auto 0.8 X10*3/uL (0.1-1.2); Monocytes Percent Auto 8.8 % (2-11); Neutrophils Absolute Auto 6.3 x10*3/uL (2.0-8.3); Neutrophils Percent Auto 66.6 % (45-73); Platelet Count 134 X10*3/uL (160-400); Red Blood Count 4.69 X10*6/uL (4.20-5.50); Red Cell Distribution Width 13.7 % (11.0-16.0); White Blood Count 9.4 X10*3/uL (4.8-10.8)
[2024-03-13 13:47] LABS: Alanine Aminotransferase 10 U/L (0-31); Albumin Level 3.8 g/dL (3.5-5.0); Alkaline Phosphatase 92 U/L (39-117); Anion Gap 14 (12-20); Aspartate Amino Transferase 14 U/L (5-31); Bilirubin Total 0.3 mg/dL (0.0-1.0); Blood Urea Nitrogen 9 mg/dL (9-16); Calcium 9.5 mg/dL (8.4-10.2); Carbon Dioxide 26 mmol/L (22-29); Chloride 103 mmol/L (96-108); Cholesterol 139 mg/dL (<200); Estimated Glomerular Filt Rate > 60; Glucose Fasting 114 mg/dL (60-99); HDL Cholesterol 36 mg/dL (>40); LDL Cholesterol Calculated 63 mg/dL (<100); Potassium 4.3 mmol/L (3.3-5.1); Sodium 139 mmol/L (135-145); Total Protein 7.1 g/dL (6.5-8.0); Triglycerides 200 mg/dL (<150)
[2024-03-13 13:48] LABS: Bacteria Urine Trace (None Seen); Hyaline Casts Urine 0-2 /LPF (0-2); RBC Urine 0-2 /HPF (0-2); WBC Urine 0-5 /HPF (0-5)
[2024-03-13 14:04] LABS: TSH reflex Free T4 2.56 uIU/mL (0.32-4.0)
== END 2024-03-13 10:17 | disposition home or self-care (01) ==
LOC: HO.HMGCLDS 10:16
PROVIDERS: PCP Nurse Practitioner Family; Visit Provider Nurse Practitioner Family
DX: E11.9 Type 2 diabetes mellitus without complications (principal)
CPT/HCPCS: 36415; 80053; 80061; 81001; 84443; 85025

== ENCOUNTER 2024-03-18 07:33 | Outpatient (AMB) | payer OTHER, SELFPAY ==
--- NOTE | 2024-03-18 07:06 | A.OFFPC_ITS ---
Intake Visit Reasons: [phone] land line Allergies dabigatran etexilate [From PRADAXA] Allergy (Intermediate, Verified 03/18/24 07:50) SWELLING\hives Medication List - Last Reconciled 03/18/24 by Elmer Dolan MAMMA LOGIST- acetaminophen 1,000 mg (2 x 500 mg) PO Q8H PRN 15 days albuterol sulfate 2.5 mg (3 mL) inhalation Q4-6H PRN alcohol swabs (Alcohol Pads) 1 pad topical DAILY amlodipine 2.5 mg PO DAILY atorvastatin 40 mg PO DAILY blood pressure test kit-large Use to check BP daily blood sugar diagnostic (FreeStyle Lite Strips) Test blood sugar daily blood-glucose meter (FreeStyle Lite Meter kit) Use to test blood sugar 3 times a day cetirizine 10 mg PO DAILY PRN 30 days cholecalciferol (vitamin D3) 50 mcg PO DAILY clonazepam 1 mg PO BID cranberry fruit 450 mg PO BID 90 days ibuprofen 600 mg PO DAILY PRN 30 days lancets (FreeStyle Lancets) Test blood sugar daily lisinopril 20 mg PO DAILY meclizine 25 mg PO TID PRN mirabegron ER 50 mg PO DAILY 90 days omeprazole 20 mg PO .QD primidone 0 mg PO propranolol 60 mg PO BID [pull ups The patient is using 8 pull ups a day; size extra large] [Quad care As directed] [Recliner lift chair As directed] rivaroxaban (Xarelto) 20 mg PO BEDTIME sucralfate (Carafate) 2 grams (2 x 1 gram) PO .daily at 11pm tiotropium bromide (Spiriva with HandiHaler) 1 cap inhalation DAILY trazodone 100 mg PO BEDTIME Ultra-Light Rollator (walker) lower extrem weakness, use daily NS [Upright Posture Walker daily use] Ventolin HFA 90 mcg/actuation (albuterol sulfate) 2 puffs inhalation Q4-6H PRN 30 days NS Tobacco use date assessed: 12/10/23 Dental Screening Dental Screen Date: 12/10/23 HPI [phone] land line HPI Details Pt c/o increased allergy symptoms. She reports that her eyes are itchy and irritated. Will send cetirizine. Denies fever, chills, and dizziness. [facility] Medical History Cardiac pacemaker in situ (~2014) Paroxysmal atrial fibrillation LVH (left ventricular hypertrophy) Essential hypertension Hyperlipidemia Diabetes COPD (chronic obstructive pulmonary disease) Nicotine dependence, cigarettes, uncomplicated Benign essential tremor Microscopic hematuria Recurrent UTI Osteopenia (~2021) Obesity, Class I, BMI 30-34.9 Hypertensive retinopathy GERD (gastroesophageal reflux disease) Diverticulitis Tubular adenoma of colon (~2017) Mesenteric lymphadenopathy Thrombocytopenia Depression Insomnia Arthritis Breast calcification, right Surgical History History of pacemaker History of cholecystectomy History of tonsillectomy and adenoidectomy History of eye surgery History of tubal ligation History of colonoscopy History of esophagogastroduodenoscopy (EGD) History of pubovaginal sling History of dilatation and curettage History of loop electrical excision procedure (LEEP) History of right breast biopsy History of vocal cord polypectomy Family History Father Family history of diabetes mellitus Mother Diabetes mellitus Substance use disorder Sister Uterine cancer Diabetes mellitus Mental health disorder Substance use disorder Maternal Grandfather No problems noted. Maternal Grandmother Unknown family medical history Paternal Grandfather No problems noted. Paternal Grandmother No problems noted. Social History Household Members: Other Household Members Other:: Ex-, Daughter Housing: Apartment Alcohol intake: former Year quit: 2001 Patient Tobacco Use Status: Current everyday Tobacco user Tobacco use type: Cigarette Cigarettes Per Day: 3 Years Smoked: (onset 16yo, 1ppd x 47yrs, 40pyh) Packs per year/per ci.00 e-Cigarette/Vaping Use: Never Used Second Hand Smoke Exposure: Yes Advance Directives Date on File: 03/21/22 service: No Current occupational status: disabled Cognitive needs: No Hearing needs: No Vision needs: No Female Reproductive History Menstrual Age of Menarche: 7 Questionnaire Thrive Questionnaire Date Thrive assessed: 12/10/23 ESTEFANIA-7 AMB Questionnaire ESTEFANIA-7 Date ESTEFANIA - 7 assessed: 12/10/23 Source: Developed by Drs. Rich Colmenares, Kelly Wasserman, Zbigniew Robert and colleagues, with an educational jeffrey from [employer]. Review of Systems Const Reports as per HPI Physical exam (Primary Care) Tobacco/Smoking Status: Tobacco use Status Tobacco use date assessed 12/10/23 03/18/24 07:09 Patient Tobacco Use Status Current everyday Tobacco 03/18/24 07:09 Tobacco use type Cigarette 03/18/24 07:09 e-Cigarette/Vaping Use Never Used 03/18/24 07:09 Thrive Assessment: Date of Thrive Assessment Date Thrive assessed 12/10/23 03/18/24 07:09 Const General: cooperative Orientation/consciousness: patient oriented x3 Neuro General: patient oriented x3 Psych Mental Status: mental status grossly normal Speech and movement: Clear speech present Affect: normal affect Attitude: cooperative Thought process: Normal thought process present Thought content: Normal thought content present Insight: Good insight present (Psych) Judgement: Good judgement present (Psych) Telehealth Telehealth Telehealth Platform: Telephone Location of provider rendering services: practice address Location of patient: address on file Patient Identification confirmed using: Name, : Yes Telehealth method: voice only Patient verbally consented to treatment: Yes Patient verbally consented to billing insurance company: Yes Patient informed of any privacy concerns related to visit: Yes Minutes spent on Phone/Video with Pt.: 10 Assessment and Plan Assessment & Plan (1) Allergies: Code(s): T78.40XA - Allergy, unspecified, initial encounter (2) Allergic conjunctivitis: Code(s): H10.10 - Acute atopic conjunctivitis, unspecified eye Plan: starting cetirizine Plan The patient agreed to the use of a medical clinic manager for this encounter. Scribed for AURELIO Hollis by Kate Ventura medical clinic manager, on 03/18/2024 at 07:00 EST. Medications: New cetirizine 10 mg PO DAILY PRN 30 tabs 0RF allergy symptoms 30 days Coding Level of Care Code Tele Est Pt Level 3 (28672) Diagnoses Allergies T78.40XA Allergic conjunctivitis H10.10
== END 2024-03-18 08:30 | disposition home or self-care (01) ==
LOC: HO.HMGC 07:33
PROVIDERS: PCP Nurse Practitioner Family; Visit Provider Nurse Practitioner Family
DX: H10.13 Acute atopic conjunctivitis, bilateral (principal); T78.40XA Allergy, unspecified, initial encounter
CPT/HCPCS: G2012

== ENCOUNTER 2024-03-21 10:59 | Outpatient (AMB) | payer MEDICARE, MEDICAID, SELFPAY ==
[2024-03-21 11:12] VITALS: BP 126/78; PULSE 87; O2SAT 95; BMI 32.3
--- NOTE | 2024-03-21 11:12 | HO.NEPHOV_ITS ---
Vital Signs 03/21/24 11:12 Height 5 ft 7 in Weight 206 lb BMI 32.3 BP 126/78 Blood Pressure Location Rt brachial Position Sitting Pulse 87 Pulse Source Pulse Oximeter Pulse Oximetry (%) 95 Oxygen Delivery Method Room Air Intake Visit Reasons: HTN FU- Confirmed Groundskeeper Required: No Accompanied by: Self / Same As Patient Allergies dabigatran etexilate [From PRADAXA] Allergy (Intermediate, Verified 03/21/24 11:13) SWELLING\hives Medication List - Last Reconciled 03/21/24 by Pawel Avalos MD acetaminophen 1,000 mg (2 x 500 mg) PO Q8H PRN 15 days albuterol sulfate 2.5 mg (3 mL) inhalation Q4-6H PRN alcohol swabs (Alcohol Pads) 1 pad topical DAILY amlodipine 2.5 mg PO DAILY atorvastatin 40 mg PO DAILY blood pressure test kit-large Use to check BP daily blood sugar diagnostic (FreeStyle Lite Strips) Test blood sugar daily blood-glucose meter (FreeStyle Lite Meter kit) Use to test blood sugar 3 times a day cetirizine 10 mg PO DAILY PRN 30 days cholecalciferol (vitamin D3) 50 mcg PO DAILY clonazepam 1 mg PO BID cranberry fruit 450 mg PO BID 90 days ibuprofen 600 mg PO DAILY PRN 30 days lancets (FreeStyle Lancets) Test blood sugar daily lisinopril 20 mg PO DAILY meclizine 25 mg PO TID PRN mirabegron ER 50 mg PO DAILY 90 days omeprazole 20 mg PO .QD primidone 0 mg PO propranolol 60 mg PO BID [pull ups The patient is using 8 pull ups a day; size extra large] [Quad care As directed] [Recliner lift chair As directed] rivaroxaban (Xarelto) 20 mg PO BEDTIME sucralfate (Carafate) 2 grams (2 x 1 gram) PO .daily at 11pm tiotropium bromide (Spiriva with HandiHaler) 1 cap inhalation DAILY trazodone 100 mg PO BEDTIME Ultra-Light Rollator (walker) lower extrem weakness, use daily NS [Upright Posture Walker daily use] Ventolin HFA 90 mcg/actuation (albuterol sulfate) 2 puffs inhalation Q4-6H PRN 30 days NS HPI Comments Details: Myrtle is a middle aged woman with Obesity and HTN , referred for Proteinuria She has no history of diabetes mellitus and not on any antidiabetic medications. She has borderline elevation of blood sugar and this is being monitored. No new issues today [facility] Medical History Cardiac pacemaker in situ (~2014) Paroxysmal atrial fibrillation LVH (left ventricular hypertrophy) Essential hypertension Hyperlipidemia Diabetes COPD (chronic obstructive pulmonary disease) Nicotine dependence, cigarettes, uncomplicated Benign essential tremor Microscopic hematuria Recurrent UTI Osteopenia (~2021) Obesity, Class I, BMI 30-34.9 Hypertensive retinopathy GERD (gastroesophageal reflux disease) Diverticulitis Tubular adenoma of colon (~2017) Mesenteric lymphadenopathy Thrombocytopenia Depression Insomnia Arthritis Breast calcification, right Surgical History History of pacemaker History of cholecystectomy History of tonsillectomy and adenoidectomy History of eye surgery History of tubal ligation History of colonoscopy History of esophagogastroduodenoscopy (EGD) History of pubovaginal sling History of dilatation and curettage History of loop electrical excision procedure (LEEP) History of right breast biopsy History of vocal cord polypectomy Family History Father Family history of diabetes mellitus Mother Diabetes mellitus Substance use disorder Sister Uterine cancer Diabetes mellitus Mental health disorder Substance use disorder Maternal Grandfather No problems noted. Maternal Grandmother Unknown family medical history Paternal Grandfather No problems noted. Paternal Grandmother No problems noted. Social History Household Members: Other Household Members Other:: Ex-, Daughter Housing: Apartment Alcohol intake: former Year quit: 2001 Patient Tobacco Use Status: Current everyday Tobacco user Tobacco use type: Cigarette Cigarettes Per Day: 3 Years Smoked: (onset 16yo, 1ppd x 47yrs, 40pyh) e-Cigarette/Vaping Use: Never Used Second Hand Smoke Exposure: Yes Advance Directives Date on File: 03/21/22 service: No Current occupational status: disabled Cognitive needs: No Hearing needs: No Vision needs: No Female Reproductive History Menstrual Age of Menarche: 7 Physical Exam Vital Signs: Last Vital Signs Pulse 87 03/21/24 11:12 BP 126/78 03/21/24 11:12 Pulse Ox 95 03/21/24 11:12 Oxygen Delivery Method Room Air 03/21/24 11:12 BMI result Body Mass Index 32.3 Results Reviewed Nephrology Results: Hgb 13.5 g/dl (12.0-16.0) 03/13/24 WBC 9.4 X10*3/uL (4.8-10.8) 03/13/24 Plt Count 134 X10*3/uL (160-400) L 03/13/24 Sodium 139 mmol/L (135-145) 03/13/24 Potassium 4.3 mmol/L (3.3-5.1) 03/13/24 Chloride 103 mmol/L (96-108) 03/13/24 Carbon Dioxide 26 mmol/L (22-29) 03/13/24 BUN 9 mg/dL (9-16) 03/13/24 Creatinine 0.83 mg/dL (0.5-1.4) 03/13/24 Calcium 9.5 mg/dL (8.4-10.2) 03/13/24 Urine Protein Negative mg/dL (Neg-Trace) 03/13/24 Urine Creatinine 231.34 mg/dL 11/07/23 Assessment & Plan Assessment & Plan (1) Proteinuria: Code(s): R80.9 - Proteinuria, unspecified Category: Medical Plan: Middle-aged woman with hypertension obesity with proteinuria by dipstick. Transient Proteinuria h/o hypertension and obesity. urine protein creatinine ratio was normal Creatinine stable at 0.8 The meantime continue with the current medications. blood pressure less than 130/80 mmHg Agree with Terrell inhibitors for renal protection. No need for Further workup (2) Essential hypertension: Code(s): I10 - Essential (primary) hypertension Category: Medical Plan: Currently blood pressure is well controlled Discussed weight loss and low-salt diet. Continue with current antihypertensive regimen Orders: Orders Basic Metabolic Panel 6 Months I10 - Essential (primary) hypertension Creatinine Urine 6 Months I10 - Essential (primary) hypertension Complete Blood Count Auto Diff 6 Months I10 - Essential (primary) hypertension, N18.30 - Chronic kidney disease, stage 3 unspecified Total Protein Urine Random 6 Months I10 - Essential (primary) hypertension UA and rflx microscopic 6 Months I10 - Essential (primary) hypertension Coding Level of Care Code Est Pt Level 3 (78856) Diagnoses Proteinuria R80.9 Essential hypertension I10
== END 2024-03-21 11:31 | disposition home or self-care (01) ==
PROVIDERS: PCP Nurse Practitioner Family; Visit Provider Internal Medicine Hypertension Specialist
DX: R80.9 Proteinuria, unspecified (principal); I10 Essential (primary) hypertension
CPT/HCPCS: 99213

== ENCOUNTER → 2024-03-21 10:59 | Outpatient (BNVA) | payer MEDICARE, SELFPAY | PROVIDERS: PCP Nurse Practitioner Family; Visit Provider Internal Medicine Hypertension Specialist | DX: R80.9 Proteinuria, unspecified (principal); I10 Essential (primary) hypertension | CPT/HCPCS: 99212 ==

== ENCOUNTER 2024-04-07 10:55 | Outpatient (AMB) | payer OTHER, SELFPAY ==
[2024-04-07 11:05] VITALS: BP 130/78; PULSE 80; TEMP 36.6; O2SAT 95; BMI 32.1
--- NOTE | 2024-04-07 11:05 | AM.OFFWIN_ITS ---
Intake Vital Signs 04/07/24 11:05 Height 5 ft 7 in Weight 205 lb BMI 32.1 BP 130/78 Blood Pressure Location Lt brachial Position Sitting Pulse 80 Pulse Source Pulse Oximeter Temp 97.9 F Temp Source Temporal Artery Scan Pulse Oximetry (%) 95 Oxygen Delivery Method Room Air Intake Visit Reasons: EP Itchy Eyes- here with spouse Intake Note: pt is here today for itchy eye started 2 months ago Patient Tobacco Use Status: Current everyday Tobacco user Allergies dabigatran etexilate [From PRADAXA] Allergy (Intermediate, Verified 04/07/24 11:18) SWELLING\hives Do you need a note to return to daycare/school/sports/work: Yes HPI HPI Comments History of Present Illness Details presents to walkin today for sick visit Endorses left ear pain and itching Muscle complaining itchy watery eyes for last 2 months Was started on oral allergy medication by primary care doctor, reports that it has not made any difference Denies hearing loss, drainage from ear, ringing in the ear, dizziness, syncope. Patient denies sore throat, cough, fever, vomiting, diarrhea, headache. [facility] Medical History Cardiac pacemaker in situ (~2014) Paroxysmal atrial fibrillation LVH (left ventricular hypertrophy) Essential hypertension Hyperlipidemia Diabetes COPD (chronic obstructive pulmonary disease) Nicotine dependence, cigarettes, uncomplicated Benign essential tremor Microscopic hematuria Recurrent UTI Osteopenia (~2021) Obesity, Class I, BMI 30-34.9 Hypertensive retinopathy GERD (gastroesophageal reflux disease) Diverticulitis Tubular adenoma of colon (~2017) Mesenteric lymphadenopathy Thrombocytopenia Depression Insomnia Arthritis Breast calcification, right Surgical History History of pacemaker History of cholecystectomy History of tonsillectomy and adenoidectomy History of eye surgery History of tubal ligation History of colonoscopy History of esophagogastroduodenoscopy (EGD) History of pubovaginal sling History of dilatation and curettage History of loop electrical excision procedure (LEEP) History of right breast biopsy History of vocal cord polypectomy Family History Father Family history of diabetes mellitus Mother Diabetes mellitus Substance use disorder Sister Uterine cancer Diabetes mellitus Mental health disorder Substance use disorder Maternal Grandfather No problems noted. Maternal Grandmother Unknown family medical history Paternal Grandfather No problems noted. Paternal Grandmother No problems noted. Social History Household Members: Other Household Members Other:: Ex-, Daughter Housing: Apartment Alcohol intake: former Year quit: 2001 Patient Tobacco Use Status: Current everyday Tobacco user Tobacco use type: Cigarette Cigarettes Per Day: 3 Years Smoked: (onset 16yo, 1ppd x 47yrs, 40pyh) e-Cigarette/Vaping Use: Never Used Second Hand Smoke Exposure: Yes Advance Directives Date on File: 03/21/22 service: No Current occupational status: disabled Cognitive needs: No Hearing needs: No Vision needs: No Female Reproductive History Menstrual Age of Menarche: 7 Review of Systems Const All systems reviewed & are unremarkable except as noted in HPI and below Physical Exam Vital Signs: Last Vital Signs Temp 97.9 F 04/07/24 11:05 Pulse 80 04/07/24 11:05 BP 130/78 04/07/24 11:05 Pulse Ox 95 04/07/24 11:05 Oxygen Delivery Method Room Air 04/07/24 11:05 BMI result Body Mass Index 32.1 General: awake, alert, oriented. Answers questions appropriately. Fully engaged in examination. Skin: warm, dry, intact HEENT: Normocephalic. Hearing intact. Bilateral eyes: Redness, irritation or exudate. + watery discharge. Left TM erythematous, cloudy. Right TM normal to visual inspection. Cardiac: External chest normal in appearance. Respiratory: No cough, audible wheezing or stridor. Abdomen: without gross distension. MS: No obvious swelling or deformities. Neurological: Oriented to person, place, time and situation. Thought process intact. Psychiatric: Appropriate mood and affect. Good judgment and insight. Assessment & Plan Assessment & Plan (1) Allergic conjunctivitis: Code(s): H10.10 - Acute atopic conjunctivitis, unspecified eye (2) Otitis media, left: Code(s): H66.92 - Otitis media, unspecified, left ear Plan presented to walkin today with complaints of left ear pain Z-Eladio as prescribed Cetirizine eyedrops twice daily as needed Drink plenty of fluids, avoid getting anything in the ear, tylenol/motrin as needed. All questions and concerns were addressed during the visit, patient agrees with the plan. Follow up with pcp or in walkin for any new or worsening symptoms. Medications: New azithromycin For 250 mg dose pack: take 500 mg today (day 1), then 250 mg for 4 days (days 2-5) PO 6 tabs 0RF cetirizine 0.24% 1 drp ophthalmic (eye) BID PRN 30 ea 0RF itching Coding Level of Care Code Est Pt Level 3 (19287) Diagnoses Allergic conjunctivitis H10.10 Otitis media, left H66.92
== END 2024-04-07 12:32 | disposition home or self-care (01) ==
PROVIDERS: PCP Nurse Practitioner Family; Visit Provider Registered Nurse Emergency
DX: H10.13 Acute atopic conjunctivitis, bilateral (principal); H66.92 Otitis media, unspecified, left ear
CPT/HCPCS: 99213

== ENCOUNTER 2024-04-14 10:20 | Emergency (ER) | payer OTHER, SELFPAY ==
--- NOTE | ~2024-04-14 | CT_ITS ---
EXAMINATION: CT HEAD WITHOUT CONTRAST CT CERVICAL SPINE WITHOUT CONTRAST CLINICAL INFORMATION: 64-year-old female status post fall COMPARISON: None TECHNIQUE: Contiguous axial imaging was performed from the skull base to vertex without intravenous administration of contrast. Contiguous axial imaging was performed from the upper chest through the skull base without intravenous administration of contrast. Coronal and sagittal reformats were obtained at the acquisition workstation. This CT examination was performed using dose optimization techniques as appropriate, variously including the following: *Automated exposure control. *Adjustment of mA and/or kV according to patient size (this includes techniques or standardized protocols for targeted exams where dose is matched to indication/reason for exam; i.e. extremities or head). *Use of iterative reconstruction technique. DLP: 688 mGy-cm FINDINGS: Head: There is no evidence of acute intracranial hemorrhage or edematous territorial infarction. Curran-white matter differentiation is preserved. There is no abnormal attenuation within the brain parenchyma. The ventricles are normal in morphology and size. No evidence for obstructive hydrocephalus. No abnormal mass effect or midline shift. No extra-axial fluid collections. No acute soft tissue or osseous abnormalities. The mastoid air cells and visualized paranasal sinuses are clear. Cervical Spine: The atlantooccipital and atlantoaxial articulations remain well aligned. Straightening of the normal cervical lordosis. Otherwise, there is anatomic alignment of the vertebral bodies and posterior elements. No evidence of acute fracture or subluxation. The vertebral body heights is well maintained and there are degenerative changes at the level of C3-C4, C4-C5, C5-C6 with vacuum phenomenon and Schmorl's hernias and uncovertebral osteophytosis. There is no prevertebral soft tissue swelling. The thyroid gland and remaining cervical soft tissues are within normal limits. The lung apices demonstrate no abnormalities. CT/CT cervical spine wo IV con IMPRESSION: 1. No acute intracranial pathology. 2. No acute cervical abnormalities. 3. Degenerative changes of the cervical spine as above.
[2024-04-14 10:33] VITALS: BP 132/86; PULSE 70; O2SAT 93
[2024-04-14 10:35] VITALS: BP 119/78; PULSE 61; RESP 18; TEMP 36.2; O2SAT 91; BMI 32.5
--- NOTE | 2024-04-14 10:45 | ED.FALL ---
HPI - Fall General Chief Complaint: Fall Stated Complaint: fall Time Seen by Provider: 04/14/24 10:26 Source: patient Mode of arrival: ambulatory Limitations: no limitations History of Present Illness HPI Narrative: 64-year-old female with a past medical history of paroxysmal AFib on anticoagulants, HTN, DM, COPD presents emergency department, via EMS, after a fall 2 days ago. She states that she tripped and fell and denies any dizziness, chest pain, headache, vision changes prior to falling. She reports she did hit the left side of her head and believes that she had loss of consciousness. She reports neck pain but denies any neck stiffness or difficulty with range of motion, or paresthesias. Patient reports her visiting nurse saw her today and reported concern regarding patient left-sided black eye. She denies any current dizziness, lightheadedness, headache, vision changes, nausea, vomiting, chest pain, shortness of breath Pertinent positives and negatives discussed in HPI Related Data Home Medications ?Medication ?Instructions ?Recorded ?Confirmed clonazepam 1 mg tablet 1 mg PO BID 08/11/20 03/21/24 trazodone 100 mg tablet 100 mg PO BEDTIME 08/11/20 03/21/24 lisinopril 40 mg tablet 20 mg PO DAILY 08/24/21 03/21/24 primidone 50 mg tablet 0 mg PO 06/13/23 03/21/24 propranolol 60 mg tablet 60 mg PO BID 06/13/23 03/21/24 Previous Rx's ?Medication ?Instructions ?Recorded Recliner lift chair #1 ea 08/25/21 acetaminophen 500 mg tablet 1,000 mg (2 x 500 mg) PO Q8H PRN 11/15/21 pain 15 days #90 tabs blood-glucose meter (FreeStyle #1 ea 01/05/22 Lite Meter kit) blood pressure test kit-large #1 ea 06/01/22 Ventolin HFA 90 mcg/actuation 2 puff inhalation Q4-6H PRN 09/11/22 aerosol inhaler (albuterol sulfate) shortness of breath or wheezing 30 days #18 grams meclizine 25 mg tablet 25 mg PO TID PRN dizziness #20 tabs 02/15/23 Ultra-Light Rollator (walker) #1 ea 03/14/23 Upright Posture Walker #1 ea 03/14/23 amlodipine 2.5 mg tablet 2.5 mg PO DAILY #90 tabs 05/28/23 cranberry fruit 450 mg tablet 450 mg PO BID 90 days #180 tabs 06/20/23 mirabegron 50 mg tablet,extended 50 mg PO DAILY 90 days #90 tabs 06/20/23 release 24 hr omeprazole 20 mg capsule,delayed 20 mg PO .QD #30 caps 07/10/23 release sucralfate 1 gram tablet (Carafate) 2 g (2 x 1 gram) PO .daily at 11pm 07/10/23 #60 tabs tiotropium bromide 18 mcg capsule 1 cap inhalation DAILY #30 ea 08/27/23 with inhalation device (Spiriva with HandiHaler) blood sugar diagnostic (FreeStyle #100 ea 09/06/23 Lite Strips) lancets 28 gauge (FreeStyle #100 ea 09/06/23 Lancets) albuterol sulfate 2.5 mg/3 mL 2.5 mg (3 mL) inhalation Q4-6H PRN 09/26/23 (0.083 %) solution for nebulization for wheezing #150 mL alcohol swabs (Alcohol Pads) 1 pad topical DAILY #200 ea 10/02/23 atorvastatin 40 mg tablet 40 mg PO DAILY #90 tabs 11/04/23 Quad care #1 ea 12/07/23 pull ups #240 ea 12/07/23 rivaroxaban 20 mg tablet (Xarelto) 20 mg PO BEDTIME #90 tabs 03/11/24 cholecalciferol (vitamin D3) 50 50 mcg PO DAILY #90 caps 03/12/24 mcg (2,000 unit) capsule ibuprofen 600 mg tablet 600 mg PO DAILY PRN pain 30 days 03/12/24 #30 tabs cetirizine 10 mg tablet 10 mg PO DAILY PRN allergy 03/18/24 symptoms 30 days #30 tabs azithromycin 250 mg tablet See Rx Instructions PO .COMPLEX #6 04/07/24 tabs cetirizine 0.24 % eye drops in a 1 drp ophthalmic (eye) BID PRN 04/07/24 dropperette itching #30 ea Allergies Allergy/AdvReac Type Severity Reaction Status Date / Time dabigatran etexilate Allergy Intermediate SWELLING\hi Verified 04/14/24 10:37 [From PRADAXA] ves Review of Systems Review of Systems: Yes all other systems are reviewed and are negative PMFSH Past Medical History Medical History Cardiac pacemaker in situ (~2014) Paroxysmal atrial fibrillation LVH (left ventricular hypertrophy) Essential hypertension Hyperlipidemia Diabetes COPD (chronic obstructive pulmonary disease) Nicotine dependence, cigarettes, uncomplicated Benign essential tremor Microscopic hematuria Recurrent UTI Osteopenia (~2021) Obesity, Class I, BMI 30-34.9 Hypertensive retinopathy GERD (gastroesophageal reflux disease) Diverticulitis Tubular adenoma of colon (~2017) Mesenteric lymphadenopathy Thrombocytopenia Depression Insomnia Arthritis Breast calcification, right Surgical History History of pacemaker History of cholecystectomy History of tonsillectomy and adenoidectomy History of eye surgery History of tubal ligation History of colonoscopy History of esophagogastroduodenoscopy (EGD) History of pubovaginal sling History of dilatation and curettage History of loop electrical excision procedure (LEEP) History of right breast biopsy History of vocal cord polypectomy Family History Family History Father Family history of diabetes mellitus Mother Diabetes mellitus Substance use disorder Sister Uterine cancer Diabetes mellitus Mental health disorder Substance use disorder Maternal Grandfather No problems noted. Maternal Grandmother Unknown family medical history Paternal Grandfather No problems noted. Paternal Grandmother No problems noted. Social History Social History Household Members: Other Household Members Other:: Ex-, Daughter Housing: Apartment Alcohol intake: former Year quit: 2001 Patient Tobacco Use Status: Current everyday Tobacco user Tobacco use type: Cigarette Cigarettes Per Day: 3 Years Smoked: (onset 16yo, 1ppd x 47yrs, 40pyh) e-Cigarette/Vaping Use: Never Used Second Hand Smoke Exposure: Yes Advance Directives: Yes Advance Directives on File: Yes Advance Directives Date on File: 03/21/22 Do you have a plan to hurt others: No Plan service: No Current occupational status: disabled Cognitive needs: No Hearing needs: No Vision needs: No Physical Exam Vital Signs: Vital Signs: Last Vital Signs Temp 97.2 F 04/14/24 15:02 Pulse 61 04/14/24 15:02 Resp 16 06/24/24 15:02 BP 117/64 04/14/24 15:02 Pulse Ox 95 04/14/24 15:02 O2 Del Method Room Air 04/14/24 15:02 BMI result Body Mass Index 32.5 Nursing notes and vital signs reviewed. GENERAL APPEARANCE: A&0 x 4, generally well appearing, no acute distress HENMT: Normal to inspection, face symmetrical. Normal external ears, nose, and oropharynx clear. EYE: PERRLA, EOM intact, structures appear normal. Ecchymosis to left eyelid NECK: Initial examined. By C-collar CHEST: Normal to inspection HEART: Normal rate and regular rhythm, normal S1/S2, no M/R/G LUNGS: LS CTA, moving air well. Able to speak in complete sentences. No crackles, wheezes, or rhonchi auscultated ABDOMEN: Soft, nontender, nondistended. Normal bowel sounds noted BACK: No CVAT, no obvious deformity EXTREMITIES: Moving all extremities without difficulty. No cyanosis, clubbing, or edema. Normal capillary refill. NEUROLOGICAL: Alert and oriented, moving all 4 extremities with equal strength. CN not formally tested but appearing grossly intact. Observed to ambulate with normal gait. Cognition normal SKIN: Warm and dry without any lesions, rash, or visible sores PSYCH: Cooperative, normal affect, normal thought process Medications Administered Discontinued Medications Generic Name Dose Route Start Last Admin Trade Name Freq PRN Reason Stop Dose Admin Acetaminophen 650 mg 04/14/24 14:47 04/14/24 15:02 Acetaminophen 325 Mg Tablet PO 04/14/24 14:48 650 mg ONCE ONE Administration Medical Decision Making Medical Decision Making MDM Narrative: Old records reviewed for previous imaging, lab studies, ECGs, and notes. Patient was assessed the emergency department with no acute distress or toxicity noted. CT head and C-spine completed with no evidence of acute fractures, dislocation, or intracranial injury, per my interpretation. Radiologist reports on degenerative changes of the cervical spine. C-collar removed without any movement tenderness. Patient reports midline cervical pain without step-offs or red flag symptoms. Patient educated to follow-up with her primary care provider. Patient is safe for discharge at this time with plan for [id number] Tylenol for fever/discomfort with dosing as per packaging. HPI, PE, diagnostics, and plan discussed with patient and family with no unanswered questions at this time. Strict return precautions given to return to the emergency department with new, worsening, or concerning emergent symptoms. Recommended to follow-up with there primary care provider in 24-48 hours for further treatment and management. Differential Diagnosis Differential Diagnoses: The differential diagnosis associated with the presentation includes But not limited to fracture, dislocation, strain, sprain, spasm, central cord compression, intracranial injury, CVA Admission/Observation Consideration of admission/observation: Escalation of care including admission/observation considered Independent Interpretation I performed an independent interpretation of an: CT Scan Interpretation: As negative for acute findings Prescription Management I considered prescription management with: Pain Medication Narcotic pain medication was considered, however; based on exam, side effects, and high-risk of addiction was deemed necessary at this time. Chronic Conditions Patient?s care impacted by: Diabetes and Hypertension Social Determinants Patient?s care significantly limited by Social Determinants of Health including: Other Social Determinant of Health Discharge Plan Discharge Clinical Impression: Fall, Contusion of eyelid, left, Cervical strain Patient Disposition: Home, Self-Care Instructions: Cervical Strain (ED), Black Eye (ED), Fall Prevention for Older Adults (ED), Post Concussion Syndrome (ED), Cold Compress or Soak (ED) Prescriptions: No Action lisinopril 40 mg tablet 20 mg PO DAILY (DME) Recliner lift chair See Rx Instructions .Route .MEDSUPPLY Qty: 1 0RF Rx Instructions: As directed acetaminophen 500 mg tablet 1,000 mg PO Q8H PRN (Reason: pain) 15 Days Qty: 90 2RF (DME) blood-glucose meter [FreeStyle Lite Meter] Kit See Rx Instructions .Route Qty: 1 0RF Rx Instructions: Use to test blood sugar 3 times a day (DME) blood pressure test kit-large Kit See Rx Instructions .Route Qty: 1 0RF Rx Instructions: Use to check BP daily albuterol sulfate [Ventolin HFA] 90 mcg/actuation HFA aerosol inhaler 2 puff inhalation Q4-6H PRN (Reason: shortness of breath or wheezing) 30 Days Qty: 18 3RF (DME) Upright Posture Walker See Rx Instructions .Route .MEDSUPPLY Qty: 1 0RF Rx Instructions: daily use (DME) Ultra-Light Rollator Misc See Rx Instructions .Route Qty: 1 0RF Rx Instructions: lower extrem weakness, use daily amlodipine 2.5 mg tablet 2.5 mg PO DAILY Qty: 90 3RF Spiriva with HandiHaler 18 mcg capsule, w/inhalation device 1 cap inhalation DAILY Qty: 30 3RF (DME) lancets [FreeStyle Lancets] 28 gauge misc See Rx Instructions .Route Qty: 100 3RF Rx Instructions: Test blood sugar daily (DME) FreeStyle Lite Strips Strip See Rx Instructions .Route Qty: 100 3RF Rx Instructions: Test blood sugar daily albuterol sulfate 2.5 mg /3 mL (0.083 %) solution for nebulization 2.5 mg inhalation Q4-6H PRN (Reason: for wheezing) Qty: 150 4RF alcohol swabs [Alcohol Pads] Pads, Medicated 1 pad topical DAILY Qty: 200 3RF atorvastatin 40 mg tablet 40 mg PO DAILY Qty: 90 1RF (DME) pull ups Extra Large See Rx Instructions .Route .MEDSUPPLY Qty: 240 11RF Rx Instructions: The patient is using 8 pull ups a day; size extra large (DME) Quad care See Rx Instructions .Route .MEDSUPPLY Qty: 1 0RF Rx Instructions: As directed Xarelto 20 mg tablet 20 mg PO BEDTIME Qty: 90 1RF cholecalciferol (vitamin D3) 50 mcg (2,000 unit) capsule 50 mcg PO DAILY Qty: 90 1RF ibuprofen 600 mg tablet 600 mg PO DAILY PRN (Reason: pain) 30 Days Qty: 30 0RF Rx Instructions: use sparingly: not good for diabetics, and also on xarelto meclizine 25 mg tablet 25 mg PO TID PRN (Reason: dizziness) Qty: 20 0RF clonazepam 1 mg tablet 1 mg PO BID trazodone 100 mg tablet 100 mg PO BEDTIME propranolol 60 mg tablet 60 mg PO BID primidone 50 mg tablet 0 mg PO cetirizine 10 mg tablet 10 mg PO DAILY PRN (Reason: allergy symptoms) 30 Days Qty: 30 0RF azithromycin 250 mg tablet See Rx Instructions PO .COMPLEX Qty: 6 0RF Rx Instructions: For 250 mg dose pack: take 500 mg today (day 1), then 250 mg for 4 days (days 2-5) PO cetirizine 0.24 % dropperette 1 drp ophthalmic (eye) BID PRN (Reason: itching) Qty: 30 0RF cranberry fruit 450 mg tablet 450 mg PO BID 90 Days Qty: 180 1RF mirabegron 50 mg tablet extended release 24 hr 50 mg PO DAILY 90 Days Qty: 90 3RF omeprazole 20 mg capsule,delayed release(DR/EC) 20 mg PO .QD Qty: 30 6RF sucralfate [Carafate] 1 gram tablet 2 g PO .daily at 11pm Qty: 60 6RF Referrals: Elmer Dolan, [facility] [employer] [facility] [Primary Care Provider] - Interventions: ED Discharge Assessment Last Done: 04/14/24 15:02 Discharge Date/Time: 04/14/24 15:03 Print Language: Libyan
[2024-04-14 14:35] VITALS: BP 117/64; PULSE 61; RESP 16; O2SAT 95
[2024-04-14 15:02] VITALS: BP 117/64; PULSE 61; RESP 16; TEMP 36.2; O2SAT 95
[2024-04-14] MEDS: Acetaminophen 325 MG TABLET 650 MG PO (15:02)
--- NOTE | 2024-04-14 15:03 | PC.NURSE ---
pt medicated upon discharge, pt also given ticket for hospital transportation who will pickle processor pt at the ed entrance
== END 2024-04-14 15:03 | disposition home or self-care (01) ==
PROVIDERS: Emergency Provider Emergency Medicine; PCP Nurse Practitioner Family
DX: S00.12XA Contusion of left eyelid and periocular area, initial encounter (principal); S16.1XXA Strain of muscle, fascia and tendon at neck level, initial encounter; M54.2 Cervicalgia; R51.9 Headache, unspecified; W01.10XA Fall on same level from slipping, tripping and stumbling with subsequent striking against unspecified object, initial encounter; Y93.9 Activity, unspecified; Y92.9 Unspecified place or not applicable; Y99.8 Other external cause status; Z79.01 Long term (current) use of anticoagulants; Z79.899 Other long term (current) drug therapy
CPT/HCPCS: 70450; 72125; 99284

== ENCOUNTER 2024-05-07 12:58 | Outpatient (AMB) | payer OTHER, SELFPAY ==
--- NOTE | 2024-05-07 13:13 | A.OFFVIS_ITS ---
Vital Signs 05/07/24 14:23 Height 5 ft 7 in Weight 205 lb 0.478 oz BMI 32.1 BP 117/73 Blood Pressure Location Lt brachial Position Sitting Pulse 75 Intake Visit Reasons: Follow up medication Intake Note: Myrtle presents in the office as a follow up for her medications. CC: She states that she is here so she can continue to get her medications from her pharmacy. Day Care Home Provider Required: No Allergies dabigatran etexilate [From PRADAXA] Allergy (Intermediate, Verified 05/07/24 14:25) SWELLING\hives HPI HPI Follow up medication: Details: Assessment & Plan (1) GERD (gastroesophageal reflux disease): Code(s): K21.9 - Gastro-esophageal reflux disease without esophagitis Plan: She says that the sucralfate is really helping her diarrhea, but she is only taking 1 a day because I take enough meds! I advise her that she could take up to 4 a day, just to give her a perspective, but she wants to stay here. She has been working to lose weight, she is walking more and has lost about 10 lbs. She continues on her omeprazole 20mg qd. ROV 6 mos. (2) Irritable bowel syndrome with both constipation and diarrhea: Code(s): K58.2 - Mixed irritable bowel syndrome Medications: Changed From sucralfate 2 grams (2 x 1 gram) PO .daily at 11pm 60 tabs 6RF R19.7 - Diarrhea, unspecified To sucralfate (Carafate) 2 grams (2 x 1 gram) PO .daily at 11pm 60 tabs 6RF R19.7 - Diarrhea, unspecified Refilled omeprazole 20 mg PO .QD 30 caps 6RF K21.9 - Gastro-esophageal reflux disease without esophagitis TODAY'S VISIT She still has diarrhea intermittently. She needs a note for her [employer] hours because they want to reduce them, she needs the assistance for showering with the diarrhea. she has 18.5 hours now and wants to keep these (she has had to have her ex shower her not her dtr). She wants 2 copies of the letter Myrtle needs to get me where to send the letter. She continues on sucralfate and omeprazole. ROV 6 mos. PFSH Medical History Cardiac pacemaker in situ (~2014) Paroxysmal atrial fibrillation LVH (left ventricular hypertrophy) Essential hypertension Hyperlipidemia Diabetes COPD (chronic obstructive pulmonary disease) Nicotine dependence, cigarettes, uncomplicated Benign essential tremor Microscopic hematuria Recurrent UTI Osteopenia (~2021) Obesity, Class I, BMI 30-34.9 Hypertensive retinopathy GERD (gastroesophageal reflux disease) Diverticulitis Tubular adenoma of colon (~2017) Mesenteric lymphadenopathy Thrombocytopenia Depression Insomnia Arthritis Breast calcification, right Surgical History History of pacemaker History of cholecystectomy History of tonsillectomy and adenoidectomy History of eye surgery History of tubal ligation History of colonoscopy History of esophagogastroduodenoscopy (EGD) History of pubovaginal sling History of dilatation and curettage History of loop electrical excision procedure (LEEP) History of right breast biopsy History of vocal cord polypectomy Family History Father Family history of diabetes mellitus Mother Diabetes mellitus Substance use disorder Sister Uterine cancer Diabetes mellitus Mental health disorder Substance use disorder Maternal Grandfather No problems noted. Maternal Grandmother Unknown family medical history Paternal Grandfather No problems noted. Paternal Grandmother No problems noted. Social History Household Members: Other Household Members Other:: Ex-, Daughter Housing: Apartment Alcohol intake: former Year quit: 2001 Patient Tobacco Use Status: Current everyday Tobacco user Tobacco use type: Cigarette Cigarettes Per Day: 3 Years Smoked: (onset 16yo, 1ppd x 47yrs, 40pyh) e-Cigarette/Vaping Use: Never Used Second Hand Smoke Exposure: Yes Advance Directives Date on File: 03/21/22 service: No Current occupational status: disabled Cognitive needs: No Hearing needs: No Vision needs: No Female Reproductive History Menstrual Age of Menarche: 7 Review of Systems Const Denies fatigue, Denies fever(s), Denies night sweats, Denies poor appetite and Denies weight loss ENT Reports Normal hearing present, Denies dental pain, Denies dysphagia, Denies hearing loss, Denies mouth pain, Denies odynophagia, Denies throat swelling, Denies tongue swelling and Reports other (Dentition adequate) Card Reports no additional complaints Resp Reports no additional complaints GI Details: Denies abdominal pain, Denies melena, Denies bloating, Denies hematochezia, Denies constipation, Denies GI cramping, Denies dysphagia, Denies excessive flatus, Denies early satiety, Reports heartburn, Reports diarrhea, Denies nausea, Denies odynophagia, Denies vomiting and Denies hematemesis Skin/Breast Denies pruritus, Denies lesions, Denies rash and Denies jaundice Neuro Reports Normal hearing present and Denies Abnormal speech present Endo Denies fatigue Aller/Immun Denies throat swelling and Denies tongue swelling Physical Exam Vital Signs: Last Vital Signs Pulse 75 05/07/24 14:23 BP 117/73 05/07/24 14:23 BMI result Body Mass Index 32.1 Const General: cooperative, no acute distress, well developed and well groomed Nutritional Appearance: well nourished and obese Orientation/consciousness: oriented to person, oriented to place and oriented to time Limitations: No language barrier HEENT Head: Yes normocephalic and Yes atraumatic Eyes General: appearance normal, both eyes and all related structures Pupils: Equal, round and reactive pupils present Neck Neck: Yes normal visual inspection and Yes no lymphadenopathy Thyroid: Thyroid normal Resp Effort & Inspection: normal respiratory effort and able to speak in complete sentences Auscultation: clear to auscultation bilaterally Cardio Rate: regular rate Rhythm: regular rhythm Heart sounds: Normal, physiologic split S2 sound present Peripheral pulses: radial pulses present and posterior tibial pulses present GI Inspection: No distended, No Abdominal panniculus present and Yes obesity Palpation (GI): Soft to palpation, nontender, no guarding, not rigid and No hepatosplenomegaly present Percussion: Yes normal to percussion Auscultation: normal bowel sounds Rectal Exam - Female: deferred Skin General skin exam: no rashes or lesions noted, turgor normal, skin not dry, no jaundice, No spider nevi and no striae Rashes: no rashes Nails: normal Neuro General: oriented to person, oriented to place and oriented to time Cranial nerves: Yes Equal, round and reactive pupils present and Yes Normal hearing present Speech: No Abnormal speech present Extrem General: Yes normal to inspection, No clubbing, No cyanosis and No edema Psych Appearance: grossly normal and well kempt Mental Status: mental status grossly normal Speech and movement: Normal speech and movement present Affect: normal affect Attitude: cooperative Thought process: Normal thought process present and not confabulating Thought content: Normal thought content present Insight: Limited insight present (Psych) Judgement: Limited judgement present (Psych) Assessment & Plan Assessment & Plan (1) Irritable bowel syndrome with both constipation and diarrhea: Code(s): K58.2 - Mixed irritable bowel syndrome Category: Medical (2) GERD (gastroesophageal reflux disease): Code(s): K21.9 - Gastro-esophageal reflux disease without esophagitis Category: Medical Plan She still has diarrhea intermittently. She needs a note for her [employer] hours because they want to reduce them, she needs the assistance for showering with the diarrhea. she has 18.5 hours now and wants to keep these (she has had to have her ex shower her not her dtr). She wants 2 copies of the letter Myrtle needs to get me where to send the letter. She continues on sucralfate and omeprazole. ROV 6 mos. Medications: Changed From sucralfate 2 grams (2 x 1 gram) PO .daily at 11pm 60 tabs 6RF R19.7 - Diarrhea, unspecified To sucralfate (Carafate) 2 grams (2 x 1 gram) PO .daily at 11pm 60 tabs 6RF R19.7 - Diarrhea, unspecified Refilled omeprazole 20 mg PO DAILY 90 caps 2RF K21.9 - Gastro-esophageal reflux disease without esophagitis Coding Level of Care Code Est Pt Level 3 (70612) Diagnoses Irritable bowel syndrome with both constipation and diarrhea K58.2 GERD (gastroesophageal reflux disease) K21.9
[2024-05-07 14:23] VITALS: BP 117/73; PULSE 75; BMI 32.1
== END 2024-05-07 14:52 | disposition home or self-care (01) ==
PROVIDERS: PCP Nurse Practitioner Family; Visit Provider Nurse Practitioner
DX: K58.2 Mixed irritable bowel syndrome (principal); K21.9 Gastro-esophageal reflux disease without esophagitis
CPT/HCPCS: 99213

== ENCOUNTER → 2024-05-07 12:58 | Outpatient (BNVA) | payer OTHER, SELFPAY | PROVIDERS: PCP Nurse Practitioner Family; Visit Provider Nurse Practitioner | DX: K21.9 Gastro-esophageal reflux disease without esophagitis (principal); K58.2 Mixed irritable bowel syndrome; Z51.81 Encounter for therapeutic drug level monitoring; Z79.899 Other long term (current) drug therapy | CPT/HCPCS: 99212 ==

== ENCOUNTER 2024-06-19 14:39 | Outpatient (REF) | payer OTHER, SELFPAY | END 2024-06-19 14:40 | disposition home or self-care (01) | LOC: HO.LAB 14:39 | PROVIDERS: PCP Nurse Practitioner Family; Visit Provider Internal Medicine Hypertension Specialist | DX: Z13.89 Encounter for screening for other disorder (principal) | CPT/HCPCS: 51798; 81003; 99212 ==

== ENCOUNTER 2024-06-19 15:20 | Outpatient (AMB) | payer OTHER, SELFPAY ==
--- NOTE | 2024-06-19 15:27 | MHC.OFFVIS ---
Intake Visit Reasons: 1y follow up Intake Note: Patient is present for Follow Up Incontinence, recurrent uti, and microscopic hematuria Urology Med: Myrbetriq, Cranberry Fruit Antibiotic Allergy: None Blood Thinner: Xarelto Pharmacy: [facility] Truck Required: No Accompanied by: Self / Same As Patient Allergies dabigatran etexilate [From PRADAXA] Allergy (Intermediate, Verified 06/19/24 16:21) SWELLING\hives Medication List - Last Reconciled 06/19/24 by DONOVAN Whiting-HECTOR acetaminophen 1,000 mg (2 x 500 mg) PO Q8H PRN 15 days albuterol sulfate 2.5 mg (3 mL) inhalation Q4-6H PRN alcohol swabs (Alcohol Pads) 1 pad topical DAILY amlodipine 2.5 mg PO DAILY atorvastatin 40 mg PO DAILY blood pressure test kit-large Use to check BP daily blood sugar diagnostic (FreeStyle Lite Strips) Test blood sugar daily blood-glucose meter (FreeStyle Lite Meter kit) Use to test blood sugar 3 times a day cetirizine 10 mg PO DAILY PRN cetirizine 0.24% 1 drp ophthalmic (eye) BID PRN cholecalciferol (vitamin D3) 50 mcg PO DAILY clonazepam 1 mg PO BID cranberry fruit 450 mg PO BID 90 days fluticasone propion-salmeterol 250-50 mcg/dose (Wixela Inhub) 1 ea inhalation BID ibuprofen 600 mg PO DAILY PRN 30 days lancets (FreeStyle Lancets) Test blood sugar daily lisinopril 20 mg PO DAILY meclizine 25 mg PO TID PRN mirabegron ER 50 mg PO DAILY 90 days omeprazole 20 mg PO DAILY primidone 0 mg PO propranolol 60 mg PO BID [pull ups The patient is using 8 pull ups a day; size extra large] [Quad care As directed] [Recliner lift chair As directed] rivaroxaban (Xarelto) 20 mg PO BEDTIME sucralfate (Carafate) 2 grams (2 x 1 gram) PO .daily at 11pm tiotropium bromide (Spiriva with HandiHaler) 1 cap inhalation DAILY 30 days trazodone 100 mg PO BEDTIME Ultra-Light Rollator (walker) lower extrem weakness, use daily NS [Upright Posture Walker daily use] Ventolin HFA 90 mcg/actuation (albuterol sulfate) 2 puffs inhalation Q4-6H PRN 30 days NS zolpidem 10 mg PO BEDTIME PRN HPI Comments Details: Myrtle is a pleasant 64-year-old female patient of Dr. Botello. She has a past medical history of paroxysmal AFib, hypertension, hyperlipidemia, diabetes, COPD, nicotine dependence, essential tremor, microscopic hematuria, recurrent UTIs, osteopenia, depression, insomnia, arthritis, and GERD. She presents to the office today for follow-up of her recurrent urinary tract infections, overactive bladder, and microscopic hematuria. In discussion with the patient today she reports since her last office visit here approximately 1 year ago she has been doing and feeling well. She reports noting intermittent issues with dysuria however feels episodes subside when increasing fluid intake. She reports feeling Myrbetriq has been helpful with urinary urgency and frequency she had been experiencing. In office urinalysis results reviewed with the patient today 1+ leukocytes negative microscopic hematuria. PVR 0 mL. When asked she denies urinary urgency, urinary frequency, incontinence, nocturia, hematuria, foul smelling urine, changes to urinary stream, flank pain, fever, and or chills. She is happy with her current voiding parameters. [facility] Medical History Cardiac pacemaker in situ (~2014) Paroxysmal atrial fibrillation LVH (left ventricular hypertrophy) Essential hypertension Hyperlipidemia Diabetes COPD (chronic obstructive pulmonary disease) Nicotine dependence, cigarettes, uncomplicated Benign essential tremor Microscopic hematuria Recurrent UTI Osteopenia (~2021) Obesity, Class I, BMI 30-34.9 Hypertensive retinopathy GERD (gastroesophageal reflux disease) Diverticulitis Tubular adenoma of colon (~2017) Mesenteric lymphadenopathy Thrombocytopenia Depression Insomnia Arthritis Breast calcification, right Surgical History History of pacemaker History of cholecystectomy History of tonsillectomy and adenoidectomy History of eye surgery History of tubal ligation History of colonoscopy History of esophagogastroduodenoscopy (EGD) History of pubovaginal sling History of dilatation and curettage History of loop electrical excision procedure (LEEP) History of right breast biopsy History of vocal cord polypectomy Family History Father Family history of diabetes mellitus Mother Diabetes mellitus Substance use disorder Sister Uterine cancer Diabetes mellitus Mental health disorder Substance use disorder Maternal Grandfather No problems noted. Maternal Grandmother Unknown family medical history Paternal Grandfather No problems noted. Paternal Grandmother No problems noted. Social History Household Members: Other Household Members Other:: Ex-, Daughter Housing: Apartment Alcohol intake: former Year quit: 2001 Patient Tobacco Use Status: Current everyday Tobacco user Tobacco use type: Cigarette Cigarettes Per Day: 3 Years Smoked: (onset 16yo, 1ppd x 47yrs, 40pyh) e-Cigarette/Vaping Use: Never Used Second Hand Smoke Exposure: Yes Advance Directives Date on File: 03/21/22 service: No Current occupational status: disabled Cognitive needs: No Hearing needs: No Vision needs: No Female Reproductive History Menstrual Age of Menarche: 7 Review of Systems Eyes Reports no additional complaints ENT Reports no additional complaints Card Reports as per HPI Resp Reports as per HPI GI Reports as per HPI Reports as per HPI Musc Reports as per HPI Neuro Reports as per HPI Psych Reports as per HPI Endo Reports as per HPI Physical Exam Const General: cooperative, comfortable, no acute distress, well developed, alert and awake Orientation/consciousness: patient oriented x3 Limitations: no limitations HEENT Head: Yes normal to inspection, Yes normocephalic and Yes atraumatic Ears: hearing grossly normal bilaterally Eyes General: appearance normal, both eyes and all related structures Neck Neck: Yes normal visual inspection and Yes trachea midline Chest Chest palpation & inspection: normal inspection of the chest Resp Effort & Inspection: normal respiratory effort and able to speak in complete sentences Cardio Rate: regular rate GI Inspection: Yes normal to inspection General: Yes no CVA tenderness Back/Spine/Pelvis Back: no CVA tenderness Skin General skin exam: no rashes or lesions noted Neuro General: patient oriented x3 Extrem General: Yes normal to inspection Psych Appearance: grossly normal and well kempt Mental Status: mental status grossly normal Speech and movement: Normal speech and movement present and Clear speech present Affect: normal affect Attitude: cooperative Thought process: Normal thought process present Thought content: Normal thought content present Insight: Fair insight present (Psych) Judgement: Fair judgement present (Psych) Office Procedures Post Void Residual Post Residual Void Post Void Residual (PVR): 0 41702-Lfeo Void Residual by ultrasound Results AMB Urinalysis, Automated UA Leukoctes 70 Tamir/uL Last Edit by Bambi Flores on 06/19/24 15:45 UA Nitrite Last Edit by Bambi Flores on 06/19/24 15:45 UA Urobilinogen 0.2 mg/dL Last Edit by Bambi Flores on 06/19/24 15:45 UA Protein 15 mg/dL Last Edit by Bambi Flores on 06/19/24 15:45 UA pH 6.0 Last Edit by Bambi Flores on 06/19/24 15:45 UA Blood 0 Vik/uL Last Edit by [email or web address] on 06/19/24 15:45 UA Specific [place] 1.030 Last Edit by Bambi Flores on 06/19/24 15:45 UA Ketone Last Edit by Bambi Flores on 06/19/24 15:45 UA Bilirubin 1 mg/dL Last Edit by [email or web address] on 06/19/24 15:45 UA Glucose 0 mg/dL Last Edit by [email or web address] on 06/19/24 15:45 Results Reviewed Results Reviewed: Laboratory Last Values Urine pH (Auto) 6.0 06/19/24 15:30 Specific [place] (Auto) 1.030 06/19/24 15:30 Urine Protein (Auto) 15 mg/dL 06/19/24 15:30 Glucose (UA)(Auto) 0 mg/dL 06/19/24 15:30 Urine Blood (Auto) 0 Vik/uL 06/19/24 15:30 Urine Bilirubin (Auto) 1 mg/dL 06/19/24 15:30 Urine Urobilinogen (Auto) 0.2 mg/dL 06/19/24 15:30 Leukocyte Esterase (Auto) 70 Tamir/uL 06/19/24 15:30 Assessment & Plan Assessment & Plan (1) Recurrent UTI: Code(s): N39.0 - Urinary tract infection, site not specified Category: Medical (2) Microscopic hematuria: Code(s): R31.29 - Other microscopic hematuria Category: Medical (3) Overactive bladder: Code(s): N32.81 - Overactive bladder Category: Medical Plan In office urinalysis results reviewed with the patient today; will send for urine culture; will await results for possible treatment. Discussed, educated, and stressed the importance of adequate hydration. Continue Myrbetriq as discussed and prescribed. Discussed bladder triggers/irritants. Discussed at length potential causes of intermittent episodes of dysuria. Discussed possible microgen for further assessment and evaluation if dysuria continues. Follow up in 3 months with PVR; or sooner . Orders: Orders AMB Post Void Residual by ultrasound Today N39.0 - Urinary tract infection, site not specified AMB Urinalysis Automated Today Z13.9 - Encounter for screening, unspecified Urine Culture Today N39.0 - Urinary tract infection, site not specified Medications: Refilled cranberry fruit 450 mg PO BID 90 days 180 tabs 1RF mirabegron ER 50 mg PO DAILY 90 days 90 tabs 3RF Patient Instructions: The patient had an opportunity to ask questions regarding the treatment plan. All questions were answered. Physical exam, labs, and imaging were discussed and reviewed in detail. As well as risks, benefits, and discussion of treatment choices. No major barriers to understanding were identified. The patient expressed understanding and agreement with the above treatment plan. The patient was made aware they should contact our office by phone for worsening of their current condition, the appearance of new symptoms, or with any questions or concerns. Compliance is encouraged with any medications and follow up testing that is ordered. It is a privilege to be allowed the opportunity to participate in? your urological care.? Again, if you have any questions or concerns If you have any questions or concerns please do not hesitate to contact me. The office is [phone]. This note is constructed using voice recognition software. While every effort has been made to ensure accuracy small products i assembler errors may have been included. Yours sincerely, AURELIO Whiting Coding Level of Care Code Est Pt Level 3 (79597) Complex EM visit Add On G2211 Diagnoses Recurrent UTI N39.0 Microscopic hematuria R31.29 Overactive bladder N32.81 CPT Codes Post Residual Void - PVR CPT Code: 54513-Nila Void Residual by ultrasound ([id number])
== END 2024-06-19 16:30 | disposition home or self-care (01) ==
PROVIDERS: PCP Nurse Practitioner Family; Visit Provider Nurse Practitioner Family
DX: N39.0 Urinary tract infection, site not specified (principal); R31.29 Other microscopic hematuria; N32.81 Overactive bladder; Z13.9 Encounter for screening, unspecified
CPT/HCPCS: 99213; G2211

== ENCOUNTER 2024-06-19 16:08 | Outpatient (REF) | payer OTHER, SELFPAY | END 2024-06-19 16:09 | disposition home or self-care (01) | LOC: HO.LNP 16:08 | PROVIDERS: Visit Provider Nurse Practitioner Family | DX: N39.0 Urinary tract infection, site not specified (principal); R80.9 Proteinuria, unspecified | CPT/HCPCS: 51798; 81003; 87086; 87088; 87186; 99212 ==

== ENCOUNTER 2024-06-24 15:32 | Outpatient (AMB) | payer OTHER, SELFPAY ==
[2024-06-24 15:36] VITALS: BP 110/70; PULSE 73; O2SAT 94; BMI 31.8
--- NOTE | 2024-06-24 15:36 | A.OFFPC_ITS ---
Vital Signs 06/24/24 15:36 Height 5 ft 7 in Weight 203 lb BMI 31.8 BP 110/70 Blood Pressure Location Rt brachial Position Sitting Pulse 73 Pulse Source Pulse Oximeter Pulse Oximetry (%) 94 Oxygen Delivery Method Room Air Intake Visit Reasons: Annual PE - see comments Intake Note: pt is here for annual exam Chemist Water Purification Required: No Accompanied by: Self / Same As Patient Allergies dabigatran etexilate [From PRADAXA] Allergy (Intermediate, Verified 06/24/24 17:20) SWELLING\hives Medication List - Last Reconciled 06/24/24 by Elmer Dolan, FILLING ROOM OPERATOR- acetaminophen 1,000 mg (2 x 500 mg) PO Q8H PRN 15 days albuterol sulfate 2.5 mg (3 mL) inhalation Q4-6H PRN alcohol swabs (Alcohol Pads) 1 pad topical DAILY amlodipine 2.5 mg PO DAILY atorvastatin 40 mg PO DAILY blood pressure test kit-large Use to check BP daily blood sugar diagnostic (FreeStyle Lite Strips) Test blood sugar daily blood-glucose meter (FreeStyle Lite Meter kit) Use to test blood sugar 3 times a day cetirizine 10 mg PO DAILY PRN cetirizine 0.24% 1 drp ophthalmic (eye) BID PRN cholecalciferol (vitamin D3) 50 mcg PO DAILY clonazepam 1 mg PO BID cranberry fruit 450 mg PO BID 90 days fluticasone propion-salmeterol 250-50 mcg/dose (Wixela Inhub) 1 ea inhalation BID ibuprofen 600 mg PO DAILY PRN 30 days lancets (FreeStyle Lancets) Test blood sugar daily lisinopril 20 mg PO DAILY meclizine 25 mg PO TID PRN mirabegron ER 50 mg PO DAILY 90 days nitrofurantoin macrocrystal 100 mg PO BID 10 days omeprazole 20 mg PO DAILY primidone 0 mg PO propranolol 60 mg PO BID [pull ups The patient is using 8 pull ups a day; size extra large] [Quad care As directed] [Recliner lift chair As directed] rivaroxaban (Xarelto) 20 mg PO BEDTIME sucralfate (Carafate) 2 grams (2 x 1 gram) PO .daily at 11pm tiotropium bromide (Spiriva with HandiHaler) 1 cap inhalation DAILY 30 days trazodone 100 mg PO BEDTIME Ultra-Light Rollator (walker) lower extrem weakness, use daily NS [Upright Posture Walker daily use] Ventolin HFA 90 mcg/actuation (albuterol sulfate) 2 puffs inhalation Q4-6H PRN 30 days NS zolpidem 10 mg PO BEDTIME PRN Tobacco use date assessed: 12/10/23 Fall risk assessment: No Falls in past year Last assessed Fall Risk: 06/24/24 Dental Screening Dental Screen Date: 12/10/23 HPI Annual PE - see comments HPI Details Pt is here for a PE. Will order labs. Colon screen is up to date. Mammo is up to date. Due for bone density, will order. Pt follows up with pulmonology, nephrology, urology, cardiology, and GI. Pt is a diabetic, on an DEBORAH and a statin. A1C in office today is 6.3. Microalbumin is up to date. Denies polyuria, polydipsia, and neuropathy. Pt denies any signs and symptoms of hypoglycemia and does know how to correct it. Eye exam is scheduled. [facility] Medical History Cardiac pacemaker in situ (~2014) Paroxysmal atrial fibrillation LVH (left ventricular hypertrophy) Essential hypertension Hyperlipidemia Diabetes COPD (chronic obstructive pulmonary disease) Nicotine dependence, cigarettes, uncomplicated Benign essential tremor Microscopic hematuria Recurrent UTI Osteopenia (~2021) Obesity, Class I, BMI 30-34.9 Hypertensive retinopathy GERD (gastroesophageal reflux disease) Diverticulitis Tubular adenoma of colon (~2017) Mesenteric lymphadenopathy Thrombocytopenia Depression Insomnia Arthritis Breast calcification, right Surgical History History of pacemaker History of cholecystectomy History of tonsillectomy and adenoidectomy History of eye surgery History of tubal ligation History of colonoscopy History of esophagogastroduodenoscopy (EGD) History of pubovaginal sling History of dilatation and curettage History of loop electrical excision procedure (LEEP) History of right breast biopsy History of vocal cord polypectomy Family History Father Family history of diabetes mellitus Mother Diabetes mellitus Substance use disorder Sister Uterine cancer Diabetes mellitus Mental health disorder Substance use disorder Maternal Grandfather No problems noted. Maternal Grandmother Unknown family medical history Paternal Grandfather No problems noted. Paternal Grandmother No problems noted. Social History Household Members: Other Household Members Other:: Ex-, Daughter Housing: Apartment Alcohol intake: former Year quit: 2001 Patient Tobacco Use Status: Current everyday Tobacco user Tobacco use type: Cigarette Cigarettes Per Day: 3 Years Smoked: (onset 16yo, 1ppd x 47yrs, 40pyh) e-Cigarette/Vaping Use: Never Used Second Hand Smoke Exposure: Yes Advance Directives Date on File: 03/21/22 service: No Current occupational status: disabled Cognitive needs: No Hearing needs: No Vision needs: No Female Reproductive History Menstrual Age of Menarche: 7 Questionnaire Thrive Questionnaire Date Thrive assessed: 12/10/23 ESTEFANIA-7 AMB Questionnaire ESTEFANIA-7 Date ESTEFANIA - 7 assessed: 12/10/23 Source: Developed by Drs. Rich Colmneares, Kelly Wasserman, Zbigniew Robert and colleagues, with an educational jeffrey from [employer]. Review of Systems Const Denies chills and Denies fever(s) Eyes Denies blurry vision ENT Denies vertigo, Denies dizziness and Denies sore throat Card Denies chest pain at rest, Denies chest pain with activity, Denies diaphoresis, Denies dyspnea and Denies dyspnea on exertion Resp Denies cough, Denies dyspnea, Denies dyspnea on exertion and Denies wheezing GI Denies abdominal pain, Denies melena, Denies hematochezia, Denies constipation, Denies diarrhea and Denies loose stools Denies hematuria Musc Denies numbness and Denies tingling Skin/Breast Denies lesions Neuro Denies vertigo, Denies dizziness, Denies numbness and Denies tingling Psych Denies anxiety, Denies depression, Denies homicidal ideation, Denies suicidal ideation and Denies other (substance abuse) Aller/Immun Denies wheezing Physical exam (Primary Care) Vital Signs: Last Vital Signs Pulse 73 06/24/24 15:36 BP 110/70 06/24/24 15:36 Pulse Ox 94 06/24/24 15:36 Oxygen Delivery Method Room Air 06/24/24 15:36 BMI result Body Mass Index 31.8 Tobacco/Smoking Status: Tobacco use Status Tobacco use date assessed 12/10/23 06/24/24 15:43 Patient Tobacco Use Status Current everyday Tobacco 06/24/24 15:43 Tobacco use type Cigarette 06/24/24 15:43 e-Cigarette/Vaping Use Never Used 06/24/24 15:43 Thrive Assessment: Date of Thrive Assessment Date Thrive assessed 12/10/23 06/24/24 15:43 Const General: cooperative Nutritional Appearance: well nourished Orientation/consciousness: patient oriented x3 HENMT Head: Yes normal to inspection, Yes normocephalic and Yes atraumatic Ears: TM's normal bilaterally Eyes General: appearance normal, both eyes and all related structures Alignment and Position: alignment normal and position normal Neck Neck: Yes normal visual inspection, Yes no lymphadenopathy and Yes supple Resp Effort & Inspection: normal respiratory effort Auscultation: clear to auscultation bilaterally (dim) Cardio Rate: regular rate Rhythm: regular rhythm Heart sounds: S1 normal heart sound present, S2 normal heart sound present and no murmurs GI Palpation (GI): Soft to palpation and nontender Auscultation: normal bowel sounds Skin Rashes: no rashes Neuro General: patient oriented x3, moves all extremities, no focal motor deficits and deep tendon reflexes 2+ bilaterally Romberg Test: Negative Extrem Other: bilat feet: + sensation with use of monofilament, feet intact Psych Appearance: grossly normal Mental Status: mental status grossly normal Speech and movement: Normal speech and movement present Affect: normal affect Attitude: cooperative Thought process: Normal thought process present Thought content: Normal thought content present Insight: Good insight present (Psych) Judgement: Good judgement present (Psych) Assessment and Plan Assessment & Plan (1) Osteopenia: Onset Date: ~2021 Comment: (Bone Dexa Femoral T-score: -1.6 on 07/21/2022) Code(s): M85.80 - Other specified disorders of bone density and structure, unspecified site Plan: Bone density ordered (2) Encounter for routine adult physical exam with abnormal findings: Code(s): Z00.01 - Encounter for general adult medical examination with abnormal findings Plan: Labs ordered (3) Diabetes: Code(s): E11.9 - Type 2 diabetes mellitus without complications Plan: controlled currently Plan The patient agreed to the use of a medical field representative for this encounter. Scribed for Elmer Dolan, FILLING ROOM OPERATOR-BC by Kate Ventura medical field representative, on 06/24/2024 at 15:55 EST. Orders: Orders AMB Hemoglobin A1c Today Z13.9 - Encounter for screening, unspecified UA CC w/rflx Micro + Cult Today Z00.01 - Encounter for general adult medical examination with abnormal findings Lipid Panel Today Z00.01 - Encounter for general adult medical examination with abnormal findings Microalbumin, Random (w Creat) Today E11.9 - Type 2 diabetes mellitus without complications XR DEXA axial skeleton Today M85.80 - Other specified disorders of bone density and structure, unspecified site Complete Blood Count Auto Diff Today Z00.01 - Encounter for general adult medical examination with abnormal findings Comprehensive [place]. Panel Fast Today Z00.01 - Encounter for general adult medical examination with abnormal findings TSH reflex Free T4 Today Z00.01 - Encounter for general adult medical examination with abnormal findings Medications: Refilled cetirizine 0.24% 1 drp ophthalmic (eye) BID PRN 30 ea 0RF itching Coding Level of Care Code Est Pt Prev Care >65y(22296) Diagnoses Osteopenia M85.80 Encounter for routine adult physical exam with abnormal findings Z00.01 Diabetes E11.9
== END 2024-06-24 16:14 | disposition home or self-care (01) ==
PROVIDERS: PCP Nurse Practitioner Family; Visit Provider Nurse Practitioner Family
DX: Z00.00 Encounter for general adult medical examination without abnormal findings (principal); M85.80 Other specified disorders of bone density and structure, unspecified site; E11.9 Type 2 diabetes mellitus without complications
CPT/HCPCS: 99397

== ENCOUNTER 2024-07-07 14:09 | Outpatient (AMB) | payer OTHER, SELFPAY ==
[2024-07-07 14:30] VITALS: BP 117/74; PULSE 89; O2SAT 93; BMI 31.6
--- NOTE | 2024-07-07 14:30 | A.OFFVIS_ITS ---
Vital Signs 07/07/24 14:30 Height 5 ft 7 in Weight 201 lb 11.567 oz BMI 31.6 BP 117/74 Blood Pressure Location Rt brachial Position Sitting Pulse 89 Pulse Source Doppler Pulse Oximetry (%) 93 Oxygen Delivery Method Room Air Intake Visit Reasons: COPD Allergies dabigatran etexilate [From PRADAXA] Allergy (Intermediate, Verified 07/07/24 14:39) SWELLING\hives Medication List - Last Reconciled 07/07/24 by Ruth Thomas MD acetaminophen 1,000 mg (2 x 500 mg) PO Q8H PRN 15 days albuterol sulfate 2.5 mg (3 mL) inhalation Q4-6H PRN alcohol swabs (Alcohol Pads) 1 pad topical DAILY amlodipine 2.5 mg PO DAILY atorvastatin 40 mg PO DAILY azelastine 0.05% 1 drp ophthalmic (eye) BID blood pressure test kit-large Use to check BP daily blood sugar diagnostic (FreeStyle Lite Strips) Test blood sugar daily blood-glucose meter (FreeStyle Lite Meter kit) Use to test blood sugar 3 times a day cetirizine 10 mg PO DAILY PRN cetirizine 0.24% 1 drp ophthalmic (eye) BID PRN cholecalciferol (vitamin D3) 50 mcg PO DAILY clonazepam 1 mg PO BID cranberry fruit 450 mg PO BID 90 days fluticasone propion-salmeterol 250-50 mcg/dose (Wixela Inhub) 1 inh inhalation BID ibuprofen 600 mg PO DAILY PRN 30 days lancets (FreeStyle Lancets) Test blood sugar daily lisinopril 20 mg PO DAILY meclizine 25 mg PO TID PRN mirabegron ER 50 mg PO DAILY 90 days nitrofurantoin monohyd/m-cryst 100 mg (Macrobid) 100 mg PO BID 10 days omeprazole 20 mg PO DAILY primidone 0 mg PO propranolol 60 mg PO BID [pull ups The patient is using 8 pull ups a day; size extra large] [Quad care As directed] [Recliner lift chair As directed] rivaroxaban (Xarelto) 20 mg PO BEDTIME sucralfate (Carafate) 2 grams (2 x 1 gram) PO .daily at 11pm tiotropium bromide (Spiriva with HandiHaler) 1 cap inhalation DAILY 30 days trazodone 100 mg PO BEDTIME Ultra-Light Rollator (walker) lower extrem weakness, use daily NS [Upright Posture Walker daily use] Ventolin HFA 90 mcg/actuation (albuterol sulfate) 2 puffs inhalation Q4-6H PRN 30 days NS zolpidem 10 mg PO BEDTIME PRN Do you need a note to return to daycare/school/sports/work: No HPI HPI COPD: Details: Myrtle is coming after 4 months for her routine follow-up for COPD. Claims that her breathing has been fairly stable without any acute exacerbation. She had cut down her smoking to 3-4 cigarettes a day. And now for the last 2 days she has not smoked at all. She does have mild intermittent cough has usual. She gets short of breath has usual, but only when she walks up hill or climbs stairs. She had mild confusion about the meds and I have screened her list and explained to her . [facility] Medical History Cardiac pacemaker in situ (~2014) Paroxysmal atrial fibrillation LVH (left ventricular hypertrophy) Essential hypertension Hyperlipidemia Diabetes COPD (chronic obstructive pulmonary disease) Nicotine dependence, cigarettes, uncomplicated Benign essential tremor Microscopic hematuria Recurrent UTI Osteopenia (~2021) Obesity, Class I, BMI 30-34.9 Hypertensive retinopathy GERD (gastroesophageal reflux disease) Diverticulitis Tubular adenoma of colon (~2017) Mesenteric lymphadenopathy Thrombocytopenia Depression Insomnia Arthritis Breast calcification, right Surgical History History of pacemaker History of cholecystectomy History of tonsillectomy and adenoidectomy History of eye surgery History of tubal ligation History of colonoscopy History of esophagogastroduodenoscopy (EGD) History of pubovaginal sling History of dilatation and curettage History of loop electrical excision procedure (LEEP) History of right breast biopsy History of vocal cord polypectomy Family History Father Family history of diabetes mellitus Mother Diabetes mellitus Substance use disorder Sister Uterine cancer Diabetes mellitus Mental health disorder Substance use disorder Maternal Grandfather No problems noted. Maternal Grandmother Unknown family medical history Paternal Grandfather No problems noted. Paternal Grandmother No problems noted. Social History Household Members: Other Household Members Other:: Ex-, Daughter Housing: Apartment Alcohol intake: former Year quit: 2001 Patient Tobacco Use Status: Current everyday Tobacco user Tobacco use type: Cigarette Cigarettes Per Day: 3 Years Smoked: (onset 16yo, 1ppd x 47yrs, 40pyh) e-Cigarette/Vaping Use: Never Used Second Hand Smoke Exposure: Yes Advance Directives Date on File: 03/21/22 service: No Current occupational status: disabled Cognitive needs: No Hearing needs: No Vision needs: No Female Reproductive History Menstrual Age of Menarche: 7 Review of Systems Const All systems reviewed & are unremarkable except as noted in HPI and below Eyes Reports no additional complaints ENT Reports no additional complaints Card Denies chest pain, Denies irregular heart rhythm and Reports other (Has demand pacemaker in the left pectoral area) Resp Reports as per HPI GI Reports abdominal pain, Reports constipation, Reports heartburn, Reports diarrhea and Reports other (Irritable bowel syndrome) Reports nocturia Musc Reports back pain Skin/Breast Reports system reviewed and no additional complaints, except as documented Neuro Reports tremor(s) (Essential tremors) Psych Reports anxiety and Reports depression Endo Reports other (Diabetes mellitus) Physical Exam Vital Signs: Last Vital Signs Pulse 89 07/07/24 14:30 BP 117/74 07/07/24 14:30 Pulse Ox 93 07/07/24 14:30 Oxygen Delivery Method Room Air 07/07/24 14:30 BMI result Body Mass Index 31.6 Const General: comfortable, no acute distress, alert and awake Orientation/consciousness: patient oriented x3 HEENT Head: Yes normal to inspection General nose exam: No nasal polyps present and No nasal discharge present Face and sinus: Yes sinuses nontender Mouth: oropharynx normal Throat: Yes posterior oropharynx normal Eyes General: appearance normal, both eyes and all related structures Neck Neck: Yes normal visual inspection, Yes no lymphadenopathy, Yes trachea midline and Yes no JVD Thyroid: Thyroid normal Chest Chest palpation & inspection: normal inspection of the chest, normal palpation of entire chest wall and no tenderness Resp Other: Percussion note is resonant, breath sounds are distant with prolonged expiratory phase. No wheezes rhonchi or crepitations are heard . Cardio Palpation: normal PMI Rate: regular rate Rhythm: regular rhythm and other (Pacemaker in left pectoral area) Heart sounds: no gallops and no murmurs Peripheral pulses: Peripheral pulses 2+ throughout GI Palpation (GI): Soft to palpation, nontender, No hepatosplenomegaly present and no masses Auscultation: normal bowel sounds Back/Spine/Pelvis Thoracic/Lumbar Spine: thoracic and lumbar spine normal to inspection Skin General skin exam: no rashes or lesions noted Neuro Other: Patient has tremors of the head, and slightly tremorous speech General: patient oriented x3 and no focal motor deficits Cranial nerves: Yes CN's II-XII intact bilaterally Extrem General: Yes normal to inspection, Yes no clubbing, cyanosis or edema and Yes no calf tenderness Psych Speech and movement: Normal speech and movement present Affect: Anxious affect present Assessment & Plan Assessment & Plan (1) COPD (chronic obstructive pulmonary disease): Comment: Long-standing history of COPD, severe per PFT with component of asthma. It is relatively stable at this time Code(s): J44.9 - Chronic obstructive pulmonary disease, unspecified Category: Medical Plan: Continue to use Wixela 250-50 1 inhalation b.i.d. Spiriva HandiHaler 1 inhalation daily Ventolin HFA 2 puffs Q 4-6 hours p.r.n. Alternatively may use albuterol solution in the nebulizer Q 4-6 hours p.r.n.. (2) Nicotine dependence, cigarettes, uncomplicated: Comment: (Current smoker - onset 16yo, 1ppd x 47yrs, 40pyh) TRYING TO CUT DOWN AND NOW SMOKES 3 CIGARETTES A DAY. Code(s): F17.210 - Nicotine dependence, cigarettes, uncomplicated Category: Medical Plan: Encouraged to stop smoking completely. She is participating in annual lung screening program , due for the next CT scan in August 2024. (3) Benign essential tremor: Comment: Patient has chronic benign tremors, holding stable rPropanolol 40 mg b.i.d. She is being followed by Dr. Vieira Code(s): G25.0 - Essential tremor Category: Medical Plan: Continue the same med and continue to follow-up with Dr. Vieira Medications: New albuterol sulfate 90 mcg/actuation (Ventolin HFA) 2 puffs inhalation Q4-6H PRN 8.5 grams 3RF shortness of breath or wheezing 30 days fluticasone propion-salmeterol 250-50 mcg/dose (Wixela Inhub) 1 inh inhalation BID 60 ea 0RF copd J44.9 - Chronic obstructive pulmonary disease, unspecified Coding Level of Care Code Est Pt Level 3 (41156) Diagnoses COPD (chronic obstructive pulmonary disease) J44.9 Nicotine dependence, cigarettes, uncomplicated F17.210 Benign essential tremor G25.0
== END 2024-07-07 14:51 | disposition home or self-care (01) ==
PROVIDERS: PCP Nurse Practitioner Family; Visit Provider Internal Medicine
DX: J44.9 Chronic obstructive pulmonary disease, unspecified (principal); F17.210 Nicotine dependence, cigarettes, uncomplicated; G25.0 Essential tremor
CPT/HCPCS: 99213

== ENCOUNTER → 2024-07-07 14:09 | Outpatient (BNVA) | payer OTHER, SELFPAY | PROVIDERS: PCP Nurse Practitioner Family; Visit Provider Internal Medicine | DX: J44.9 Chronic obstructive pulmonary disease, unspecified (principal); G25.0 Essential tremor; F17.210 Nicotine dependence, cigarettes, uncomplicated | CPT/HCPCS: 99212 ==

== ENCOUNTER 2024-07-23 14:20 | Outpatient (REF) | payer OTHER, SELFPAY ==
--- NOTE | ~2024-07-23 | MM_ITS ---
EXAMINATION: BONE DENSITOMETRY CLINICAL INDICATION: Osteopenia. COMPARISON: Previous BD dated 07/21/2022 and baseline BD dated 04/14/2010. TECHNIQUE: Using a [employer] DXA System (software version: 13.1) manufactured by [employer], dual-energy x-ray absorptiometry was performed of the lumbar spine and left hip. The images are of good technical quality. Summary results are attached. FINDINGS: LEFT FEMUR, NECK: Current: BMD 0.870 g/cm2, Z-score -0.2, T-score -1.2, osteopenia. Prior: BMD 0.821 g/cm2. Baseline: BMD 0.922 g/cm2. LEFT FEMUR, TOTAL: Current: BMD 0.931 g/cm2, Z-score 0.1, T-score -0.6, normal, 0.2% increase from previous, 7.5% decrease from baseline (<5% change is not significant). Prior: BMD 0.929 g/cm2. Baseline: BMD 1.007 g/cm2. AP SPINE L1-L2 (excluding L3 and L4): The data of L1-L4 has been changed to exclude the L3 and L4 vertebral bodies, because degenerative sclerosis at these levels may cause overestimation of lumbar spine density. Current: BMD 0.905 g/cm2, Z-score -1.4, T-score -2.2, osteopenia, 1.8% increase from previous, 13.8% decrease from baseline (<5% change is not significant). Prior: BMD 0.889 g/cm2. Baseline: BMD 1.050 g/cm2. IDENTIFIED RISK FACTORS: Menopause, recurrent falls, tobacco use (current smoker), family history (parent hip fracture). HISTORY OF FRACTURE: None listed. MEDICATIONS: Vitamin D. MM/XR DEXA axial skeleton IMPRESSION: 1. DIAGNOSIS: Osteopenia based on the lowest T-score value of -2.2 in the lumbar spine applying World Health Organization criteria. 2. 10-YEAR FRACTURE RISK PREDICTION, FRAX: Major osteoporotic fracture (clinical spine, forearm, hip or shoulder) 14.9%. Hip fracture 1.6%. 3. Treatment Recommendations: NOF guidelines recommend consideration for treatment in postmenopausal women and men age 50 and older presenting with the following: -A hip or vertebral (clinical or morphometric) fracture. -T-score less than or equal to -2.5 at the femoral neck or spine after appropriate evaluation to exclude secondary causes. -Low bone mass at the hip or spine and a 10-year fracture probability by FRAX of greater than or equal to 3% for hip fracture or greater than or equal to 20% for major osteoporotic fracture based on the [place] adapted WHO algorithm. 4. Other Recommendations: All treatment decisions require clinical judgment and consideration of individual patient factors, including patient preferences, comorbidities, previous drug use, risk factors not captured in the FRAX model (e.g. frailty, falls, vitamin D deficiency, increased bone turnover, interval significant decline in bone density) and possible under or overestimation of fracture risk by FRAX. Additional medical evaluation for secondary cause of low bone mineral density may be appropriate. FUTURE SCAN RECOMMENDATION: People with diagnosed cases of osteoporosis or at high risk for fracture should have regular bone mineral density tests. For patients eligible for Medicare, routine testing is allowed once every 2 years. The testing frequency can be increased to one year for patients who have rapidly progressing disease, those who are receiving or discontinuing medical therapy to restore bone mass, or have additional risk factors. Electronically signed by: Gabriel Truong MD 08/04/2024 09:04 AM EDT
== END 2024-07-23 14:21 | disposition home or self-care (01) ==
LOC: HO.MAMMO 14:20
PROVIDERS: PCP Nurse Practitioner Family; Visit Provider Nurse Practitioner Family
DX: Z13.820 Encounter for screening for osteoporosis (principal); M85.80 Other specified disorders of bone density and structure, unspecified site; Z78.0 Asymptomatic menopausal state
CPT/HCPCS: 77080

== ENCOUNTER 2024-09-02 11:28 | Outpatient (REF) | payer OTHER, SELFPAY ==
[2024-09-02 12:10] LABS: MANUAL DIFF FLAG NO
[2024-09-02 12:55] LABS: Basophils Percent Auto 0.5 % (0-2); Eosinophils Percent Auto 0.3 % (0-4); Hematocrit 43.6 % (37.0-47.0); Hemoglobin 14.1 g/dl (12.0-16.0); Imm Gran Abs Auto 0.02 X10*3/uL (0.00-0.03); Imm Gran Pct Auto 0.3 % (0.0-0.4); Lymphocytes Absolute Auto 1.3 X10*3/uL (1.2-4.9); Lymphocytes Percent Auto 20.9 % (20-40); Mean Corpuscular HGB Conc 32.3 g/dl (31.0-35.0); Mean Corpuscular Hemoglobin 28.7 pg (27.0-33.0); Mean Corpuscular Volume 88.6 fL (80.0-98.0); Monocytes Absolute Auto 0.5 X10*3/uL (0.1-1.2); Monocytes Percent Auto 7.3 % (2-11); Neutrophils Absolute Auto 4.5 x10*3/uL (2.0-8.3); Neutrophils Percent Auto 70.7 % (45-73); Red Blood Count 4.92 X10*6/uL (4.20-5.50); Red Cell Distribution Width 13.7 % (11.0-16.0); White Blood Count 6.3 X10*3/uL (4.8-10.8)
[2024-09-02 13:17] LABS: Mean Platelet Volume 12.5 fL (9.4-12.3); Platelet Count 99 X10*3/uL (160-400)
[2024-09-02 13:30] LABS: Alanine Aminotransferase 11 U/L (0-31); Albumin Level 3.9 g/dL (3.5-5.0); Alkaline Phosphatase 92 U/L (39-117); Anion Gap 13 (12-20); Aspartate Amino Transferase 24 U/L (5-31); Bilirubin Total 0.2 mg/dL (0.0-1.0); Blood Urea Nitrogen 11 mg/dL (9-16); Calcium 9.5 mg/dL (8.4-10.2); Carbon Dioxide 25 mmol/L (22-29); Chloride 105 mmol/L (96-108); Cholesterol 129 mg/dL (<200); Estimated Glomerular Filt Rate > 60; Glucose Fasting 108 mg/dL (60-99); HDL Cholesterol 40 mg/dL (>40); LDL Cholesterol Calculated 65 mg/dL (<100); Potassium 3.7 mmol/L (3.3-5.1); Sodium 139 mmol/L (135-145); Triglycerides 122 mg/dL (<150)
[2024-09-02 13:46] LABS: TSH reflex Free T4 1.55 uIU/mL (0.32-4.0)
== END 2024-09-02 11:29 | disposition home or self-care (01) ==
LOC: HO.LAB 11:28
PROVIDERS: PCP Nurse Practitioner Family; Visit Provider Internal Medicine Hypertension Specialist
DX: Z00.01 Encounter for general adult medical examination with abnormal findings (principal); R80.9 Proteinuria, unspecified; I10 Essential (primary) hypertension; N18.30 Chronic kidney disease, stage 3 unspecified
CPT/HCPCS: 36415; 80053; 80061; 84443; 85025; 99212

== ENCOUNTER 2024-09-02 12:20 | Outpatient (AMB) | payer OTHER, SELFPAY ==
[2024-09-02 12:17] VITALS: BP 118/78; BMI 30.2
--- NOTE | 2024-09-02 12:17 | HO.NEPHOV ---
Vital Signs 09/02/24 12:17 Height 5 ft 7 in Weight 193 lb BMI 30.2 BP 118/78 Blood Pressure Location Lt brachial Position Sitting Intake Visit Reasons: Nov follow up/ Conf Nurse Clinician Required: No Accompanied by: Self / Same As Patient Allergies dabigatran etexilate [From PRADAXA] Allergy (Intermediate, Verified 09/02/24 12:19) SWELLING\hives Medication List - Last Reconciled 09/02/24 by Pawel Avalos MD acetaminophen 1,000 mg (2 x 500 mg) PO Q8H PRN 15 days albuterol sulfate 2.5 mg (3 mL) inhalation Q4-6H PRN albuterol sulfate 90 mcg/actuation (Ventolin HFA) 2 puffs inhalation Q4-6H PRN 30 days alcohol swabs (Alcohol Pads) 1 pad topical DAILY amlodipine 2.5 mg PO DAILY atorvastatin 40 mg PO DAILY azelastine 0.05% 1 drp ophthalmic (eye) BID blood pressure test kit-large Use to check BP daily blood sugar diagnostic (FreeStyle Lite Strips) Test blood sugar daily blood-glucose meter (FreeStyle Lite Meter kit) Use to test blood sugar 3 times a day cetirizine 10 mg PO DAILY PRN cetirizine 0.24% 1 drp ophthalmic (eye) BID PRN cholecalciferol (vitamin D3) 50 mcg PO DAILY clonazepam 1 mg PO BID cranberry fruit 450 mg PO BID 90 days fluticasone propion-salmeterol 250-50 mcg/dose (Wixela Inhub) 1 inh inhalation BID ibuprofen 600 mg PO DAILY PRN 30 days lancets (FreeStyle Lancets) Test blood sugar daily lisinopril 20 mg PO DAILY meclizine 25 mg PO TID PRN mirabegron ER 50 mg PO DAILY 90 days nitrofurantoin monohyd/m-cryst 100 mg (Macrobid) 100 mg PO BID 10 days omeprazole 20 mg PO DAILY primidone 0 mg PO propranolol 60 mg PO BID [pull ups The patient is using 8 pull ups a day; size extra large] [Quad care As directed] [Recliner lift chair As directed] rivaroxaban (Xarelto) 20 mg PO BEDTIME sucralfate (Carafate) 2 grams (2 x 1 gram) PO .daily at 11pm tiotropium bromide (Spiriva with HandiHaler) 1 cap inhalation DAILY 30 days trazodone 100 mg PO BEDTIME Ultra-Light Rollator (walker) lower extrem weakness, use daily NS [Upright Posture Walker daily use] Ventolin HFA 90 mcg/actuation (albuterol sulfate) 2 puffs inhalation Q4-6H PRN 30 days NS zolpidem 10 mg PO BEDTIME PRN HPI Comments Details: Myrtle is a middle aged woman with Obesity and HTN , referred for Proteinuria She has no history of diabetes mellitus and not on any antidiabetic medications. She has borderline elevation of blood sugar and this is being monitored. 09/02/24 Doing better Lost few lbs [facility] Medical History (Updated 07/15/24 @ 13:16 by Yamileth Ku PA-C) Cardiac pacemaker in situ (~2014) Paroxysmal atrial fibrillation LVH (left ventricular hypertrophy) Essential hypertension Hyperlipidemia Diabetes COPD (chronic obstructive pulmonary disease) Nicotine dependence, cigarettes, uncomplicated Benign essential tremor Microscopic hematuria Recurrent UTI Osteopenia (~2021) Obesity, Class I, BMI 30-34.9 Hypertensive retinopathy GERD (gastroesophageal reflux disease) Diverticulitis Tubular adenoma of colon (~2017) Mesenteric lymphadenopathy Thrombocytopenia Depression Insomnia Arthritis Breast calcification, right Surgical History History of pacemaker History of cholecystectomy History of tonsillectomy and adenoidectomy History of eye surgery History of tubal ligation History of colonoscopy History of esophagogastroduodenoscopy (EGD) History of pubovaginal sling History of dilatation and curettage History of loop electrical excision procedure (LEEP) History of right breast biopsy History of vocal cord polypectomy Family History Father Family history of diabetes mellitus Mother Diabetes mellitus Substance use disorder Sister Uterine cancer Diabetes mellitus Mental health disorder Substance use disorder Maternal Grandfather No problems noted. Maternal Grandmother Unknown family medical history Paternal Grandfather No problems noted. Paternal Grandmother No problems noted. Social History Household Members: Other Household Members Other:: Ex-, Daughter Housing: Apartment Alcohol intake: former Year quit: 2001 Patient Tobacco Use Status: Current everyday Tobacco user Tobacco use type: Cigarette Cigarettes Per Day: 3 Years Smoked: (onset 16yo, 1ppd x 47yrs, 40pyh) e-Cigarette/Vaping Use: Never Used Second Hand Smoke Exposure: Yes Advance Directives Date on File: 03/21/22 service: No Current occupational status: disabled Cognitive needs: No Hearing needs: No Vision needs: No Female Reproductive History Menstrual Age of Menarche: 7 Physical Exam Vital Signs: Last Vital Signs BP 118/78 09/02/24 12:17 BMI result Body Mass Index 30.2 Results Reviewed Nephrology Results: Hgb 14.1 g/dl (12.0-16.0) 09/02/24 WBC 6.3 X10*3/uL (4.8-10.8) 09/02/24 Plt Count 99 X10*3/uL (160-400) L 09/02/24 Sodium 139 mmol/L (135-145) 09/02/24 Potassium 3.7 mmol/L (3.3-5.1) 09/02/24 Chloride 105 mmol/L (96-108) 09/02/24 Carbon Dioxide 25 mmol/L (22-29) 09/02/24 BUN 11 mg/dL (9-16) 09/02/24 Creatinine 0.79 mg/dL (0.5-1.4) 09/02/24 Calcium 9.5 mg/dL (8.4-10.2) 09/02/24 Assessment & Plan Assessment & Plan (1) Proteinuria: Code(s): R80.9 - Proteinuria, unspecified Category: Medical Plan: Middle-aged woman with hypertension obesity with proteinuria by dipstick. Transient Proteinuria h/o hypertension and obesity. urine protein creatinine ratio was normal Creatinine stable at 0.8 Todays labs are pending- shall revaluate In the meantime continue with the current medications. Maintain blood pressure less than 130/80 mmHg Discussed weight loss Agree with Terrell inhibitors for renal protection. No need for Further workup (2) Essential hypertension: Code(s): I10 - Essential (primary) hypertension Category: Medical Plan: Currently blood pressure is well controlled Discussed weight loss and low-salt diet. Continue with current antihypertensive regimen Coding Level of Care Code Est Pt Level 4 (82585) Diagnoses Proteinuria R80.9 Essential hypertension I10
--- NOTE | 2024-09-02 12:17 | HO.NEPHOV ---
Vital Signs 09/02/24 12:17 Height 5 ft 7 in Weight 193 lb BMI 30.2 BP 118/78 Blood Pressure Location Lt brachial Position Sitting Intake Visit Reasons: Nov follow up/ Conf Allergies dabigatran etexilate [From PRADAXA] Allergy (Intermediate, Verified 09/02/24 12:19) SWELLING\hives Medication List - Last Reconciled 09/02/24 by Pawel Avalos MD acetaminophen 1,000 mg (2 x 500 mg) PO Q8H PRN 15 days albuterol sulfate 2.5 mg (3 mL) inhalation Q4-6H PRN albuterol sulfate 90 mcg/actuation (Ventolin HFA) 2 puffs inhalation Q4-6H PRN 30 days alcohol swabs (Alcohol Pads) 1 pad topical DAILY amlodipine 2.5 mg PO DAILY atorvastatin 40 mg PO DAILY azelastine 0.05% 1 drp ophthalmic (eye) BID blood pressure test kit-large Use to check BP daily blood sugar diagnostic (FreeStyle Lite Strips) Test blood sugar daily blood-glucose meter (FreeStyle Lite Meter kit) Use to test blood sugar 3 times a day cetirizine 10 mg PO DAILY PRN cetirizine 0.24% 1 drp ophthalmic (eye) BID PRN cholecalciferol (vitamin D3) 50 mcg PO DAILY clonazepam 1 mg PO BID cranberry fruit 450 mg PO BID 90 days fluticasone propion-salmeterol 250-50 mcg/dose (Wixela Inhub) 1 inh inhalation BID ibuprofen 600 mg PO DAILY PRN 30 days lancets (FreeStyle Lancets) Test blood sugar daily lisinopril 20 mg PO DAILY meclizine 25 mg PO TID PRN mirabegron ER 50 mg PO DAILY 90 days nitrofurantoin monohyd/m-cryst 100 mg (Macrobid) 100 mg PO BID 10 days omeprazole 20 mg PO DAILY primidone 0 mg PO propranolol 60 mg PO BID [pull ups The patient is using 8 pull ups a day; size extra large] [Quad care As directed] [Recliner lift chair As directed] rivaroxaban (Xarelto) 20 mg PO BEDTIME sucralfate (Carafate) 2 grams (2 x 1 gram) PO .daily at 11pm tiotropium bromide (Spiriva with HandiHaler) 1 cap inhalation DAILY 30 days trazodone 100 mg PO BEDTIME Ultra-Light Rollator (walker) lower extrem weakness, use daily NS [Upright Posture Walker daily use] Ventolin HFA 90 mcg/actuation (albuterol sulfate) 2 puffs inhalation Q4-6H PRN 30 days NS zolpidem 10 mg PO BEDTIME PRN HPI Comments Details: Myrtle is a middle aged woman with Obesity and HTN , referred for Proteinuria She has no history of diabetes mellitus and not on any antidiabetic medications. She has borderline elevation of blood sugar and this is being monitored. 09/02/24 Doing better Lost few lbs [facility] Medical History (Updated 07/15/24 @ 13:16 by Yamileth Ku PA-C) Cardiac pacemaker in situ (~2014) Paroxysmal atrial fibrillation LVH (left ventricular hypertrophy) Essential hypertension Hyperlipidemia Diabetes COPD (chronic obstructive pulmonary disease) Nicotine dependence, cigarettes, uncomplicated Benign essential tremor Microscopic hematuria Recurrent UTI Osteopenia (~2021) Obesity, Class I, BMI 30-34.9 Hypertensive retinopathy GERD (gastroesophageal reflux disease) Diverticulitis Tubular adenoma of colon (~2017) Mesenteric lymphadenopathy Thrombocytopenia Depression Insomnia Arthritis Breast calcification, right Surgical History History of pacemaker History of cholecystectomy History of tonsillectomy and adenoidectomy History of eye surgery History of tubal ligation History of colonoscopy History of esophagogastroduodenoscopy (EGD) History of pubovaginal sling History of dilatation and curettage History of loop electrical excision procedure (LEEP) History of right breast biopsy History of vocal cord polypectomy Family History Father Family history of diabetes mellitus Mother Diabetes mellitus Substance use disorder Sister Uterine cancer Diabetes mellitus Mental health disorder Substance use disorder Maternal Grandfather No problems noted. Maternal Grandmother Unknown family medical history Paternal Grandfather No problems noted. Paternal Grandmother No problems noted. Social History Household Members: Other Household Members Other:: Ex-, Daughter Housing: Apartment Alcohol intake: former Year quit: 2001 Patient Tobacco Use Status: Current everyday Tobacco user Tobacco use type: Cigarette Cigarettes Per Day: 3 Years Smoked: (onset 16yo, 1ppd x 47yrs, 40pyh) e-Cigarette/Vaping Use: Never Used Second Hand Smoke Exposure: Yes Advance Directives Date on File: 03/21/22 service: No Current occupational status: disabled Cognitive needs: No Hearing needs: No Vision needs: No Female Reproductive History Menstrual Age of Menarche: 7 Physical Exam Const General: comfortable Nutritional Appearance: well nourished Orientation/consciousness: patient oriented x3 HEENT Head: No normal to inspection Mouth: moist mucous membranes Neck Neck: Yes supple and Yes no JVD Resp Auscultation: clear to auscultation bilaterally and no rales Cardio Jugular venous distension: no JVD Palpation: no palpable S3 and no palpable S4 Heart sounds: no rubs GI Palpation (GI): Soft to palpation and nontender Percussion: No Fluid wave present General: Yes no CVA tenderness Back/Spine/Pelvis Back: no CVA tenderness Skin General skin exam: no rashes or lesions noted Neuro General: patient oriented x3 Extrem General: Yes no pedal edema and No clubbing Results Reviewed Nephrology Results: Hgb Pending 09/02/24 WBC Pending 09/02/24 Plt Count Pending 09/02/24 Sodium Pending 09/02/24 Potassium Pending 09/02/24 Chloride Pending 09/02/24 Carbon Dioxide Pending 09/02/24 BUN Pending 09/02/24 Creatinine Pending 09/02/24 Calcium Pending 09/02/24 Assessment & Plan Assessment & Plan (1) Proteinuria: Code(s): R80.9 - Proteinuria, unspecified Category: Medical Plan: Middle-aged woman with hypertension obesity with proteinuria by dipstick. Transient Proteinuria h/o hypertension and obesity. urine protein creatinine ratio was normal Creatinine stable at 0.8 Todays labs are pending- shall revaluate In the meantime continue with the current medications. Maintain blood pressure less than 130/80 mmHg Discussed weight loss Agree with Terrell inhibitors for renal protection. No need for Further workup (2) Essential hypertension: Code(s): I10 - Essential (primary) hypertension Category: Medical Plan: Currently blood pressure is well controlled Discussed weight loss and low-salt diet. Continue with current antihypertensive regimen Coding Level of Care Code Est Pt Level 4 (15344) Diagnoses Proteinuria R80.9 Essential hypertension I10
== END 2024-09-02 12:24 | disposition home or self-care (01) ==
PROVIDERS: PCP Nurse Practitioner Family; Visit Provider Internal Medicine Hypertension Specialist
DX: R80.9 Proteinuria, unspecified (principal); I10 Essential (primary) hypertension
CPT/HCPCS: 99214

== ENCOUNTER 2024-09-11 12:42 | Outpatient (AMB) | payer OTHER, SELFPAY ==
--- NOTE | 2024-09-11 12:57 | A.OFFVIS_ITS ---
Intake Visit Reasons: 3m/PVR Intake Note: Patient is present for Follow Up Incontinence, recurrent uti, and microscopic hematuria Urology Med: Neda Antibiotic Allergy: None Blood Thinner: Brandee Pharmacy: [facility] PVR:0ml's [employer] Required: No Accompanied by: Self / Same As Patient Allergies dabigatran etexilate [From PRADAXA] Allergy (Intermediate, Verified 09/11/24 13:34) SWELLING\hives Medication List - Last Reconciled 09/11/24 by DONOVAN Whiting-HECTOR acetaminophen 1,000 mg (2 x 500 mg) PO Q8H PRN 15 days albuterol sulfate 2.5 mg (3 mL) inhalation Q4-6H PRN albuterol sulfate 90 mcg/actuation (Ventolin HFA) 2 puffs inhalation Q4-6H PRN 30 days alcohol swabs (Alcohol Pads) 1 pad topical DAILY amlodipine 2.5 mg PO DAILY atorvastatin 40 mg PO DAILY azelastine 0.05% 1 drp ophthalmic (eye) BID blood pressure test kit-large Use to check BP daily blood sugar diagnostic (FreeStyle Lite Strips) Test blood sugar daily blood-glucose meter (FreeStyle Lite Meter kit) Use to test blood sugar 3 times a day cetirizine 10 mg PO DAILY PRN cetirizine 0.24% 1 drp ophthalmic (eye) BID PRN cholecalciferol (vitamin D3) 50 mcg PO DAILY clonazepam 1 mg PO BID cranberry fruit 450 mg PO BID 90 days fluticasone propion-salmeterol 250-50 mcg/dose (Wixela Inhub) 1 inh inhalation BID ibuprofen 600 mg PO DAILY PRN 30 days lancets (FreeStyle Lancets) Test blood sugar daily lisinopril 20 mg PO DAILY meclizine 25 mg PO TID PRN mirabegron ER 50 mg PO DAILY 90 days omeprazole 20 mg PO DAILY primidone 0 mg PO propranolol 60 mg PO BID [pull ups The patient is using 8 pull ups a day; size extra large] [Quad care As directed] [Recliner lift chair As directed] rivaroxaban (Xarelto) 20 mg PO BEDTIME sucralfate (Carafate) 2 grams (2 x 1 gram) PO .daily at 11pm tiotropium bromide (Spiriva with HandiHaler) 1 cap inhalation DAILY 30 days trazodone 100 mg PO BEDTIME Ultra-Light Rollator (walker) lower extrem weakness, use daily NS [Upright Posture Walker daily use] Ventolin HFA 90 mcg/actuation (albuterol sulfate) 2 puffs inhalation Q4-6H PRN 30 days NS zolpidem 10 mg PO BEDTIME PRN HPI Comments Details: Myrtle is a pleasant 64-year-old female patient of Dr. Botello. She has a past medical history of paroxysmal AFib, hypertension, hyperlipidemia, diabetes, COPD, nicotine dependence, essential tremor, microscopic hematuria, recurrent UTIs, osteopenia, depression, insomnia, arthritis, and GERD. She presents to the office today for follow-up of her recurrent urinary tract infections, overactive bladder, and microscopic hematuria. In discussion with the patient today she reports to be doing and feeling well. She reports compliance with Myrbetriq 50 mg daily and feels this has been helpful in lower urinary tract symptoms of urinary urgency and frequency she had been experiencing. She does continue to report intermittent episodes of dysuria however describes these episodes as infrequent. She currently denies any meghna thersome urinary issues or concerns. Unable to obtain urine for urinalysis today however PVR 0 mL. When asked she denies urinary urgency, urinary frequency, incontinence, nocturia, hematuria, foul smelling urine, changes to urinary stream, flank pain, fever, and or chills. She is happy with her current voiding parameters. [facility] Medical History Cardiac pacemaker in situ (~2014) Paroxysmal atrial fibrillation LVH (left ventricular hypertrophy) Essential hypertension Hyperlipidemia Diabetes COPD (chronic obstructive pulmonary disease) Nicotine dependence, cigarettes, uncomplicated Benign essential tremor Microscopic hematuria Recurrent UTI Osteopenia (~2021) Obesity, Class I, BMI 30-34.9 Hypertensive retinopathy GERD (gastroesophageal reflux disease) Diverticulitis Tubular adenoma of colon (~2017) Mesenteric lymphadenopathy Thrombocytopenia Depression Insomnia Arthritis Breast calcification, right Surgical History History of pacemaker History of cholecystectomy History of tonsillectomy and adenoidectomy History of eye surgery History of tubal ligation History of colonoscopy History of esophagogastroduodenoscopy (EGD) History of pubovaginal sling History of dilatation and curettage History of loop electrical excision procedure (LEEP) History of right breast biopsy History of vocal cord polypectomy Family History Father Family history of diabetes mellitus Mother Diabetes mellitus Substance use disorder Sister Uterine cancer Diabetes mellitus Mental health disorder Substance use disorder Maternal Grandfather No problems noted. Maternal Grandmother Unknown family medical history Paternal Grandfather No problems noted. Paternal Grandmother No problems noted. Social History Household Members: Other Household Members Other:: Ex-, Daughter Housing: Apartment Alcohol intake: former Year quit: 2001 Patient Tobacco Use Status: Current everyday Tobacco user Tobacco use type: Cigarette Cigarettes Per Day: 3 Years Smoked: (onset 16yo, 1ppd x 47yrs, 40pyh) e-Cigarette/Vaping Use: Never Used Second Hand Smoke Exposure: Yes Advance Directives Date on File: 03/21/22 service: No Current occupational status: disabled Cognitive needs: No Hearing needs: No Vision needs: No Female Reproductive History Menstrual Age of Menarche: 7 Review of Systems Eyes Reports no additional complaints ENT Reports no additional complaints Card Reports as per HPI Resp Reports as per HPI GI Reports as per HPI Reports as per HPI Musc Reports as per HPI Neuro Reports as per HPI Psych Reports as per HPI Endo Reports as per HPI Physical Exam Const General: cooperative, comfortable, no acute distress, well developed, alert and awake Orientation/consciousness: patient oriented x3 Limitations: no limitations HEENT Head: Yes normal to inspection, Yes normocephalic and Yes atraumatic Ears: hearing grossly normal bilaterally Eyes General: appearance normal, both eyes and all related structures Neck Neck: Yes normal visual inspection and Yes trachea midline Chest Chest palpation & inspection: normal inspection of the chest Resp Effort & Inspection: normal respiratory effort and able to speak in complete sentences Cardio Rate: regular rate GI Inspection: Yes normal to inspection General: Yes no CVA tenderness Back/Spine/Pelvis Back: no CVA tenderness Skin General skin exam: no rashes or lesions noted Neuro General: patient oriented x3 Extrem General: Yes normal to inspection Psych Appearance: grossly normal and well kempt Mental Status: mental status grossly normal Speech and movement: Normal speech and movement present and Clear speech present Affect: normal affect Attitude: cooperative Thought process: Normal thought process present Thought content: Normal thought content present Insight: Fair insight present (Psych) Judgement: Fair judgement present (Psych) Office Procedures Post Void Residual Post Residual Void Post Void Residual (PVR): 0 [id number] Void Residual by ultrasound Assessment & Plan Assessment & Plan (1) Overactive bladder: Code(s): N32.81 - Overactive bladder Category: Medical (2) Recurrent UTI: Code(s): N39.0 - Urinary tract infection, site not specified Category: Medical (3) Microscopic hematuria: Code(s): R31.29 - Other microscopic hematuria Category: Medical Plan Unable to obtain urine for urinalysis however PVR 0 mL. Patient currently denies any bothersome urinary issues or concerns. She denies any UTI like symptoms. Continue Myrbetriq as discussed and prescribed; refill provided. Discussed bladder triggers/irritants. Discussed potential causes of intermittent episodes of dysuria. Follow up in 6 months with PVR; or sooner . Orders: Orders AMB Urinalysis Automated 09/11/24 Z13.9 - Encounter for screening, unspecified AMB Post Void Residual by ultrasound 09/11/24 N32.81 - Overactive bladder Medications: Refilled mirabegron ER 50 mg PO DAILY 90 days 90 tabs 3RF Patient Instructions: The patient had an opportunity to ask questions regarding the treatment plan. All questions were answered. Physical exam, labs, and imaging were discussed and reviewed in detail. As well as risks, benefits, and discussion of treatment cho ices. No major barriers to understanding were identified. The patient expressed understanding and agreement with the above treatment plan. The patient was made aware they should contact our office by phone for worsening of their current condition, the appearance of new symptoms, or with any questions or concerns. Compliance is encouraged with any medications and follow up testing that is ordered. It is a privilege to be allowed the opportunity to participate in? your urological care.? Again, if you have any questions or concerns If you have any questions or concerns please do not hesitate to contact me. The office is [phone]. This note is constructed using voice recognition software. While every effort has been made to ensure accuracy colorist formulator errors may have been included. Yours sincerely, DONOVAN Whiting- Coding Level of Care Code Est Pt Level 3 (03310) Diagnoses Overactive bladder N32.81 Recurrent UTI N39.0 Microscopic hematuria R31.29 CPT Codes Post Residual Void - PVR CPT Code: 78589-Arxd Void Residual by ultrasound ([id number])
== END 2024-09-11 13:35 | disposition home or self-care (01) ==
PROVIDERS: PCP Nurse Practitioner Family; Visit Provider Nurse Practitioner Family
DX: N32.81 Overactive bladder (principal); N39.0 Urinary tract infection, site not specified; R31.29 Other microscopic hematuria
CPT/HCPCS: 99213

== ENCOUNTER → 2024-09-11 12:42 | Outpatient (BNVA) | payer OTHER, SELFPAY | PROVIDERS: PCP Nurse Practitioner Family; Visit Provider Nurse Practitioner Family | DX: Z45.018 Encounter for adjustment and management of other part of cardiac pacemaker (principal); I48.0 Paroxysmal atrial fibrillation; I10 Essential (primary) hypertension; R07.89 Other chest pain; N32.81 Overactive bladder; N39.0 Urinary tract infection, site not specified; R31.29 Other microscopic hematuria | CPT/HCPCS: 51798; 93005; 93280; 99212 ==

== ENCOUNTER 2024-09-11 13:55 | Outpatient (AMB) | payer MEDICARE, MEDICAID, SELFPAY ==
[2024-09-11 14:25] VITALS: BP 120/80; PULSE 62; BMI 30.4
--- NOTE | 2024-09-11 14:25 | A.OFFVIS_ITS ---
Vital Signs 09/11/24 14:25 Height 5 ft 7 in Weight 194 lb 0.108 oz BMI 30.4 BP 120/80 Blood Pressure Location Lt brachial Position Sitting Pulse 62 Intake Visit Reasons: 6 mth f/up Intake Note: 6 month follow-up ekg and medtronic feeling good Ag Equipment Field Service Technician Required: No Allergies dabigatran etexilate [From PRADAXA] Allergy (Intermediate, Verified 09/11/24 13:34) SWELLING\hives Medication List - Last Reconciled 09/11/24 by Javier Callahan MD acetaminophen 1,000 mg (2 x 500 mg) PO Q8H PRN 15 days albuterol sulfate 2.5 mg (3 mL) inhalation Q4-6H PRN albuterol sulfate 90 mcg/actuation (Ventolin HFA) 2 puffs inhalation Q4-6H PRN 30 days alcohol swabs (Alcohol Pads) 1 pad topical DAILY amlodipine 2.5 mg PO DAILY atorvastatin 40 mg PO DAILY blood pressure test kit-large Use to check BP daily blood sugar diagnostic (FreeStyle Lite Strips) Test blood sugar daily blood-glucose meter (FreeStyle Lite Meter kit) Use to test blood sugar 3 times a day cetirizine 10 mg PO DAILY PRN cholecalciferol (vitamin D3) 50 mcg PO DAILY clonazepam 1 mg PO BID cranberry fruit 450 mg PO BID 90 days fluticasone propion-salmeterol 250-50 mcg/dose (Wixela Inhub) 1 inh inhalation BID ibuprofen 600 mg PO DAILY PRN 30 days lancets (FreeStyle Lancets) Test blood sugar daily lisinopril 20 mg PO DAILY meclizine 25 mg PO TID PRN mirabegron ER 50 mg PO DAILY 90 days omeprazole 20 mg PO DAILY primidone 0 mg PO propranolol 60 mg PO BID [pull ups The patient is using 8 pull ups a day; size extra large] [Quad care As directed] [Recliner lift chair As directed] rivaroxaban (Xarelto) 20 mg PO BEDTIME sucralfate (Carafate) 2 grams (2 x 1 gram) PO .daily at 11pm tiotropium bromide (Spiriva with HandiHaler) 1 cap inhalation DAILY 30 days trazodone 100 mg PO BEDTIME Ultra-Light Rollator (walker) lower extrem weakness, use daily NS [Upright Posture Walker daily use] Ventolin HFA 90 mcg/actuation (albuterol sulfate) 2 puffs inhalation Q4-6H PRN 30 days NS zolpidem 10 mg PO BEDTIME PRN HPI Comments Details: Myrtle comes for follow-up. She said over the last week couple of times while she was getting in his house she got retrosternal chest discomfort which is pressure. She rested the symptoms lasted for 10 minutes and subsided. She has not had any symptoms at rest. She denies any lightheadedness, syncope. No prolonged palpitation irregular heartbeat. Takes all her medications. Blood pressures been well controlled. Intermittently still smokes. [facility] Medical History Cardiac pacemaker in situ (~2014) Paroxysmal atrial fibrillation LVH (left ventricular hypertrophy) Essential hypertension Hyperlipidemia Diabetes COPD (chronic obstructive pulmonary disease) Nicotine dependence, cigarettes, uncomplicated Benign essential tremor Microscopic hematuria Recurrent UTI Osteopenia (~2021) Obesity, Class I, BMI 30-34.9 Hypertensive retinopathy GERD (gastroesophageal reflux disease) Diverticulitis Tubular adenoma of colon (~2017) Mesenteric lymphadenopathy Thrombocytopenia Depression Insomnia Arthritis Breast calcification, right Surgical History History of pacemaker History of cholecystectomy History of tonsillectomy and adenoidectomy History of eye surgery History of tubal ligation History of colonoscopy History of esophagogastroduodenoscopy (EGD) History of pubovaginal sling History of dilatation and curettage History of loop electrical excision procedure (LEEP) History of right breast biopsy History of vocal cord polypectomy Family History Father Family history of diabetes mellitus Mother Diabetes mellitus Substance use disorder Sister Uterine cancer Diabetes mellitus Mental health disorder Substance use disorder Maternal Grandfather No problems noted. Maternal Grandmother Unknown family medical history Paternal Grandfather No problems noted. Paternal Grandmother No problems noted. Social History Household Members: Other Household Members Other:: Ex-, Daughter Housing: Apartment Alcohol intake: former Year quit: 2001 Patient Tobacco Use Status: Current everyday Tobacco user Tobacco use type: Cigarette Cigarettes Per Day: 3 Years Smoked: (onset 16yo, 1ppd x 47yrs, 40pyh) e-Cigarette/Vaping Use: Never Used Second Hand Smoke Exposure: Yes Advance Directives Date on File: 03/21/22 service: No Current occupational status: disabled Cognitive needs: No Hearing needs: No Vision needs: No Female Reproductive History Menstrual Age of Menarche: 7 Review of Systems Const Denies chills, Denies fatigue, Denies fever(s), Denies frequent falls, Denies weakness, Denies weight gain and Denies weight loss ENT Denies dizziness Card Denies chest pain, Denies leg edema, Denies lightheadedness, Denies palpitations, Denies dyspnea, Denies dyspnea on exertion, Denies orthopnea and Denies other (loss of consciousness) Resp Denies cough, Denies dyspnea and Denies dyspnea on exertion GI Denies hematochezia and Denies change in stool character Musc Denies abnormal gait, Denies muscle weakness, Denies numbness, Denies radiating pain into limb and Denies tingling Neuro Denies abnormal gait, Denies dizziness, Denies frequent falls, Denies numbness, Denies tingling and Denies weakness Endo Denies fatigue and Denies palpitations Physical Exam Vital Signs: Last Vital Signs Pulse 62 09/11/24 14:25 BP 120/80 09/11/24 14:25 BMI result Body Mass Index 30.4 Const General: cooperative, comfortable, no acute distress, alert and awake Nutritional Appearance: obese Orientation/consciousness: patient oriented x3 Limitations: no limitations Neck Neck: Yes trachea midline, Yes supple and Yes no JVD Resp Effort & Inspection: normal respiratory effort Auscultation: wheezes scattered wheezes and diminished lung sounds Cardio Jugular venous distension: no JVD Palpation: normal PMI Rate: regular rate Rhythm: abnormal rhythm with ectopic beats Heart sounds: S1 normal heart sound present and S2 normal heart sound present GI Auscultation: normal bowel sounds Skin General skin exam: no rashes or lesions noted Neuro General: patient oriented x3 and no focal motor deficits Extrem General: Yes no clubbing, cyanosis or edema Psych Appearance: grossly normal Affect: Anxious affect present Office Procedures Cardiac Device Check Cardiac Device Check Details: dual-chamber Medtronic pacemaker in place. Programmed in MVP mode with rate response at 60 beats per minute. Atrial pacing 68% of time. One episode of SVT noted. Atrial ventricular sensing is excellent. Atrial pacing thresholds excellent and stable. Ventricular pacing thresholds also excellent and reprogrammed to enhance battery life. Pacing lead impedance is stable. Battery life is at about 1 and half years [id number] Cardiac Device Check, pacemaker dual lead Procedure code (CPT) selection complete EKG Details: EKG shows atrially paced rhythm with nonspecific ST T wave changes, ventricularly sensed rhythm [id number], Complete Assessment & Plan Assessment & Plan (1) Atypical chest pain: Code(s): R07.89 - Other chest pain Category: Medical Plan: patient is having recurrent chest pain at this point time with exertion, risk factors of hypertension, diabetes and smoking. Concern for myocardial ischemia. Will require vasodilating myocardial perfusion imaging to assess for the same. Further treatment and testing based on the findings of stress test. (2) Cardiac pacemaker in situ: Onset Date: ~2014 Comment: (Medtronic DCPP - placed 05/10/2015) Code(s): Z95.0 - Presence of cardiac pacemaker Category: Medical Plan: Cardiac pacemaker in-situ for sick sinus syndrome. Pacemaker is working well. Reprogrammed for adequate function. Will follow remotely every 3 months. Follow up in the clinic in 6 months time. (3) Paroxysmal atrial fibrillation: Code(s): I48.0 - Paroxysmal atrial fibrillation Category: Medical Plan: Paroxysmal atrial fibrillation without any obvious clinical recurrence at this point time. Continue metoprolol therapy. No indication for antiarrhythmic drug therapy. Will follow-up pacer telemetry. Continue full oral anticoagulation, currently on Xarelto 20 mg daily. Semi annual renal function test is recommended. Avoidance of stimulants was discussed. Stress mitigation strate gies were discussed. (4) Essential hypertension: Code(s): I10 - Essential (primary) hypertension Category: Medical Plan: Hypertension which is currently well optimized advised to monitor blood pressure at home maintain a log. Goal blood pressure less than 130/84. Continue current therapy. Aggressive control of diabetes goal hemoglobin A1c less than 7% is recommended. Consider GLP 1 antagonist therapy. Complete smoking cessation advised. Follow up in the clinic in 6 months time, sooner p.r.n.. Thank you for allowing me to partake in her care Coding Level of Care Code Est Pt Level 4 (10385) Complex EM visit Add On G2211 Diagnoses Atypical chest pain R07.89 Cardiac pacemaker in situ Z95.0 Paroxysmal atrial fibrillation I48.0 Essential hypertension I10 CPT Codes Cardiac Device Check - Cardiac Device 2: [id number] Cardiac Device Check, pacemaker dual lead ([id number]) EKG - CPT: 10292-[id number], Complete ([id number])
== END 2024-09-11 14:57 | disposition home or self-care (01) ==
PROVIDERS: PCP Nurse Practitioner Family; Visit Provider Internal Medicine Cardiovascular Disease
DX: R07.89 Other chest pain (principal); Z95.0 Presence of cardiac pacemaker; I48.0 Paroxysmal atrial fibrillation; I10 Essential (primary) hypertension
CPT/HCPCS: 93010; 93280; 99214; G2211

== ENCOUNTER 2024-10-06 13:23 | Outpatient (REF) | payer OTHER, SELFPAY ==
[2024-10-06 16:30] LABS: MANUAL DIFF FLAG NO
[2024-10-06 16:31] LABS: Appearance Urine Turbid; Color Urine Dark Yellow; Glucose Urine UA Negative (Negative); Leukocyte Esterase Urine Small (1+) (Negative); Nitrite Urine Positive (Negative); PH 5.5 (5.0-9.0); Specific Gravity - Urine 1.025 (1.005-1.025); UMIC TRIGGER UACC YES; Urine Blood Negative (Negative); Urine Ketones Trace mg/dL (Negative); Urine Protein 30 (1+) mg/dL (Neg-Trace)
[2024-10-06 16:34] LABS: Basophils Percent Auto 0.5 % (0-2); Eosinophils Absolute Auto 0.1 X10*3/uL (0.0-0.4); Eosinophils Percent Auto 0.8 % (0-4); Hematocrit 39.1 % (37.0-47.0); Hemoglobin 12.7 g/dl (12.0-16.0); Imm Gran Abs Auto 0.02 X10*3/uL (0.00-0.03); Imm Gran Pct Auto 0.3 % (0.0-0.4); Lymphocytes Absolute Auto 1.8 X10*3/uL (1.2-4.9); Lymphocytes Percent Auto 24.7 % (20-40); Mean Corpuscular HGB Conc 32.5 g/dl (31.0-35.0); Mean Corpuscular Hemoglobin 28.3 pg (27.0-33.0); Mean Corpuscular Volume 87.1 fL (80.0-98.0); Mean Platelet Volume 11.9 fL (9.4-12.3); Monocytes Absolute Auto 0.5 X10*3/uL (0.1-1.2); Monocytes Percent Auto 7.2 % (2-11); Neutrophils Absolute Auto 4.9 x10*3/uL (2.0-8.3); Neutrophils Percent Auto 66.5 % (45-73); Platelet Count 166 X10*3/uL (160-400); Red Blood Count 4.49 X10*6/uL (4.20-5.50); Red Cell Distribution Width 13.8 % (11.0-16.0); White Blood Count 7.3 X10*3/uL (4.8-10.8)
[2024-10-06 16:52] LABS: Bacteria Urine 4+ (None Seen); RBC Urine 0-2 /HPF (0-2); UACC Culture Trigger YES
[2024-10-06 17:06] LABS: Creatinine Urine 302.38 mg/dL; Microalbum/Creatinine Ratio Ur 7.2 ug/mg cr (<30)
== END 2024-10-06 13:24 | disposition home or self-care (01) ==
LOC: HO.HMGCLDS 13:23
PROVIDERS: PCP Nurse Practitioner Family; Visit Provider Nurse Practitioner Family
DX: E11.9 Type 2 diabetes mellitus without complications (principal)
CPT/HCPCS: 36415; 81001; 82043; 82570; 85025; 87086; 87088; 87186

== ENCOUNTER 2024-11-03 14:50 | Outpatient (REF) | payer OTHER, SELFPAY | END 2024-11-03 14:51 | disposition home or self-care (01) | LOC: HO.MAMMO 14:50 | PROVIDERS: PCP Nurse Practitioner Family; Visit Provider Nurse Practitioner Family | DX: Z12.31 Encounter for screening mammogram for malignant neoplasm of breast (principal) | CPT/HCPCS: 77063; 77067 ==

== ENCOUNTER → 2024-11-03 15:00 | Outpatient (BNV) | payer OTHER, SELFPAY | PROVIDERS: PCP Nurse Practitioner Family; Visit Provider Internal Medicine | DX: Z12.31 Encounter for screening mammogram for malignant neoplasm of breast (principal) | CPT/HCPCS: 77063; 77067 ==

== ENCOUNTER 2024-11-11 14:02 | Outpatient (AMB) | payer OTHER, MEDICAID, SELFPAY ==
--- NOTE | 2024-11-11 14:28 | MHC.OFFVIS ---
Vital Signs 11/11/24 14:35 Height 5 ft 7 in Weight 192 lb 14.472 oz BMI 30.2 BP 110/78 Blood Pressure Location Lt brachial Position Sitting Pulse 66 Pulse Source Pulse Oximeter Pulse Oximetry (%) 94 Oxygen Delivery Method Room Air Intake Visit Reasons: COPD Intake Note: pt is here for follow up and states she is feeling that she does get short of breath, can't stand for a long period of time Security Business Analyst Required: No Allergies dabigatran etexilate [From PRADAXA] Allergy (Intermediate, Verified 11/11/24 14:47) SWELLING\hives Medication List - Last Reconciled 11/11/24 by Ruth Thomas MD acetaminophen 1,000 mg (2 x 500 mg) PO Q8H PRN 15 days albuterol sulfate 2.5 mg (3 mL) inhalation Q4-6H PRN albuterol sulfate 90 mcg/actuation (Ventolin HFA) 2 puffs inhalation Q4-6H PRN 30 days alcohol swabs (Alcohol Pads) 1 pad topical DAILY amlodipine 2.5 mg PO DAILY atorvastatin 40 mg PO DAILY blood pressure test kit-large Use to check BP daily blood sugar diagnostic (FreeStyle Lite Strips) Test blood sugar daily blood-glucose meter (FreeStyle Lite Meter kit) Use to test blood sugar 3 times a day cetirizine 10 mg PO DAILY PRN cholecalciferol (vitamin D3) 50 mcg PO DAILY clonazepam 1 mg PO BID cranberry fruit 450 mg PO BID 90 days fluticasone propion-salmeterol 250-50 mcg/dose (Wixela Inhub) 1 ea inhalation BID ibuprofen 600 mg PO DAILY PRN 30 days lancets (FreeStyle Lancets) Test blood sugar daily lisinopril 20 mg PO DAILY meclizine 25 mg PO TID PRN mirabegron ER 50 mg PO DAILY 90 days omeprazole 20 mg PO DAILY primidone 0 mg PO propranolol 60 mg PO BID [pull ups The patient is using 8 pull ups a day; size extra large] [Quad care As directed] [Recliner lift chair As directed] rivaroxaban (Xarelto) 20 mg PO BEDTIME sucralfate (Carafate) 2 grams (2 x 1 gram) PO .daily at 11pm tiotropium bromide (Spiriva with HandiHaler) 1 cap inhalation DAILY 30 days trazodone 100 mg PO BEDTIME Ultra-Light Rollator (walker) lower extrem weakness, use daily NS [Upright Posture Walker daily use] Ventolin HFA 90 mcg/actuation (albuterol sulfate) 2 puffs inhalation Q4-6H PRN 30 days NS zolpidem 10 mg PO BEDTIME PRN Do you need a note to return to daycare/school/sports/work: No HPI HPI COPD: Details: ELIO IS 64 YEARS OLD VERY PLEASANT FEMALE, WHO IS HERE FOR 4 MONTHS FOLLOW-UP FOR HER COPD. SHE LIVES IN APARTMENT [facility] AND THE DOOR MAN( 92 YRS OLD ) HAS COME WITH HER TO GIVE HER COMPANY. BREATHING PRATER HAS REMAINED VERY STABLE EXCEPT FOR MILD INTERMITTENT COUGH. SMOKING 4 CIGARETTES A DAY. MILD INTERMITTENT COUGH RELATED TO SMOKING. THERE IS NOT MUCH EXPECTORATION. SHE DOES NOT WALK FAST SO SHE DOES NOT COMPLAIN OF DYSPNEA ON EXERTION. SHE CONTINUES TO HAVE BENIGN TREMORS OF THE HAD AND ALSO TENDS TO LOSE BALANCE WHEN SHE STANDS UP. SHE HAS TO USE A WALKER WHEN SHE IS OUTDOORS. [facility] Medical History Cardiac pacemaker in situ (~2014) Paroxysmal atrial fibrillation LVH (left ventricular hypertrophy) Essential hypertension Hyperlipidemia Diabetes COPD (chronic obstructive pulmonary disease) Nicotine dependence, cigarettes, uncomplicated Benign essential tremor Microscopic hematuria Recurrent UTI Osteopenia (~2021) Obesity, Class I, BMI 30-34.9 Hypertensive retinopathy GERD (gastroesophageal reflux disease) Diverticulitis Tubular adenoma of colon (~2017) Mesenteric lymphadenopathy Thrombocytopenia Depression Insomnia Arthritis Breast calcification, right Surgical History History of pacemaker History of cholecystectomy History of tonsillectomy and adenoidectomy History of eye surgery History of tubal ligation History of colonoscopy History of esophagogastroduodenoscopy (EGD) History of pubovaginal sling History of dilatation and curettage History of loop electrical excision procedure (LEEP) History of right breast biopsy History of vocal cord polypectomy Family History Father Family history of diabetes mellitus Mother Diabetes mellitus Substance use disorder Sister Uterine cancer Diabetes mellitus Mental health disorder Substance use disorder Maternal Grandfather No problems noted. Maternal Grandmother Unknown family medical history Paternal Grandfather No problems noted. Paternal Grandmother No problems noted. Social History (Updated 11/11/24 @ 14:33 by Karena Covington [facility]) Household Members: Other Household Members Other:: Ex-, Daughter Housing: Apartment Alcohol intake: former Year quit: 2001 Patient Tobacco Use Status: Current everyday Tobacco user Tobacco use type: Cigarette Cigarettes Per Day: 4 Years Smoked: (onset 16yo, 1ppd x 47yrs, 40pyh) e-Cigarette/Vaping Use: Never Used Second Hand Smoke Exposure: Yes Advance Directives Date on File: 03/21/22 service: No Current occupational status: disabled Cognitive needs: No Hearing needs: No Vision needs: No Female Reproductive History Menstrual Age of Menarche: 7 Review of Systems Const All systems reviewed & are unremarkable except as noted in HPI and below Eyes Reports no additional complaints ENT Reports no additional complaints Card Denies chest pain, Denies irregular heart rhythm and Reports other (Has demand pacemaker in the left pectoral area) Resp Reports as per HPI GI Reports abdominal pain, Reports constipation, Reports heartburn, Reports diarrhea and Reports other (Irritable bowel syndrome) Reports nocturia Musc Reports back pain Skin/Breast Reports system reviewed and no additional complaints, except as documented Neuro Reports tremor(s) (Essential tremors) Psych Reports anxiety and Reports depression Endo Reports other (Diabetes mellitus) Physical Exam Vital Signs: Last Vital Signs Pulse 66 11/11/24 14:35 BP 110/78 11/11/24 14:35 Pulse Ox 94 11/11/24 14:35 Oxygen Delivery Method Room Air 11/11/24 14:35 BMI result Body Mass Index 30.2 Const General: comfortable, no acute distress, alert and awake Orientation/consciousness: patient oriented x3 HEENT Head: Yes normal to inspection General nose exam: No nasal polyps present and No nasal discharge present Face and sinus: Yes sinuses nontender Mouth: oropharynx normal Throat: Yes posterior oropharynx normal Eyes General: appearance normal, both eyes and all related structures Neck Neck: Yes normal visual inspection, Yes no lymphadenopathy, Yes trachea midline and Yes no JVD Thyroid: Thyroid normal Chest Chest palpation & inspection: normal inspection of the chest, normal palpation of entire chest wall and no tenderness Resp Other: Percussion note is resonant, breath sounds are distant with prolonged expiratory phase. No wheezes rhonchi or crepitations are heard . Cardio Palpation: normal PMI Rate: regular rate Rhythm: regular rhythm and other (Pacemaker in left pectoral area) Heart sounds: no gallops and no murmurs Peripheral pulses: Peripheral pulses 2+ throughout GI Palpation (GI): Soft to palpation, nontender, No hepatosplenomegaly present and no masses Auscultation: normal bowel sounds Back/Spine/Pelvis Thoracic/Lumbar Spine: thoracic and lumbar spine normal to inspection Skin General skin exam: no rashes or lesions noted Neuro Other: Patient has tremors of the head, and slightly tremorous speech General: patient oriented x3 and no focal motor deficits Cranial nerves: Yes CN's II-XII intact bilaterally Extrem General: Yes normal to inspection, Yes no clubbing, cyanosis or edema and Yes no calf tenderness Psych Speech and movement: Normal speech and movement present Affect: Anxious affect present Assessment & Plan Assessment & Plan (1) COPD (chronic obstructive pulmonary disease): Comment: Long-standing history of COPD, severe per PFT with component of asthma. It is relatively stable at this time. Does have some intermittent cough related to smoking but no wheezes. Code(s): J44.9 - Chronic obstructive pulmonary disease, unspecified Category: Medical Plan: Continue to use Wixela 250-51 inhalation b.i.d.. Spiriva HandiHaler 1 inhalation daily ProAir HFA 2 puffs Q 6 hours p.r.n. when outdoors. At home she can use albuterol solution in the nebulizer Q 6 hours p.r.n.. (2) Nicotine dependence, cigarettes, uncomplicated: Comment: (Current smoker - onset 16yo, 1ppd x 47yrs, 40pyh) TRYING TO CUT DOWN AND NOW SMOKES 3-4 CIGARETTES A DAY. Code(s): F17.210 - Nicotine dependence, cigarettes, uncomplicated Category: Medical Plan: Had a good talk with her and I advised her to quit completely if she can. Continue to have annual lung screening with LD CT (3) Benign essential tremor: Comment: Patient has chronic benign tremors, holding stable rPropanolol 60 mg b.i.d. She is being followed by Dr. Vieira ( no adverse effect on lungs and breathing ) Code(s): G25.0 - Essential tremor Category: Medical Plan: as above * She is a very pleasant, luis lady and needs good conversation and reassurance. Medications: Refilled albuterol sulfate 90 mcg/actuation (Ventolin HFA) 2 puffs inhalation Q4-6H PRN 8.5 grams 3RF shortness of breath or wheezing 30 days Coding Level of Care Code Est Pt Level 3 (79025) Diagnoses COPD (chronic obstructive pulmonary disease) J44.9 Nicotine dependence, cigarettes, uncomplicated F17.210 Benign essential tremor G25.0
[2024-11-11 14:35] VITALS: BP 110/78; PULSE 66; O2SAT 94; BMI 30.2
== END 2024-11-11 14:49 | disposition home or self-care (01) ==
PROVIDERS: PCP Nurse Practitioner Family; Visit Provider Internal Medicine
DX: J44.9 Chronic obstructive pulmonary disease, unspecified (principal); F17.210 Nicotine dependence, cigarettes, uncomplicated; G25.0 Essential tremor
CPT/HCPCS: 99213

== ENCOUNTER → 2024-11-11 14:02 | Outpatient (BNVA) | payer OTHER, SELFPAY | PROVIDERS: PCP Nurse Practitioner Family; Visit Provider Internal Medicine | DX: J44.9 Chronic obstructive pulmonary disease, unspecified (principal); G25.0 Essential tremor; F17.210 Nicotine dependence, cigarettes, uncomplicated | CPT/HCPCS: 99212 ==

== ENCOUNTER 2024-11-13 13:09 | Outpatient (AMB) | payer OTHER, SELFPAY ==
[2024-11-13 13:12] VITALS: BP 118/76; PULSE 70; TEMP 36.6; O2SAT 96; BMI 29.8
--- NOTE | 2024-11-13 13:12 | A.OFFPC_ITS ---
Vital Signs 11/13/24 13:12 Height 5 ft 7 in Weight 190 lb BMI 29.8 BP 118/76 Blood Pressure Location Lt brachial Position Sitting Pulse 70 Pulse Source Pulse Oximeter Temp 97.9 F Temp Source Oral Pulse Oximetry (%) 96 Oxygen Delivery Method Room Air Intake Visit Reasons: 4 month follow up Intake Note: pt is here for 4 mon f/up Lead Electrical Engineer Required: No Accompanied by: Self / Same As Patient Allergies dabigatran etexilate [From PRADAXA] Allergy (Intermediate, Verified 11/13/24 13:12) SWELLING\hives Tobacco use date assessed: 11/13/24 Fall risk assessment: No Falls in past year Last assessed Fall Risk: 11/13/24 Dental Screening Dental Screen Date: 11/13/24 Did you have a dental visit in the last 12 months?: Yes Did you have a dental problem in the last 6 months where you did not have access to dental care?: No Was dental information given to patient?: Patient has dentist HPI 4 month follow up HPI Details Chief Complaint Follow-up for diabetes management. History of Present Illness The patient is a 64-year-old female presenting with a follow-up for Diabetes Mellitus. She reports a recent weight loss and feeling generally well. She mentions experiencing intermittent neuropathy in her bilateral extremities but did not specify the duration or frequency. She states that her most recent hemoglobin A1c was 6.0, indicating good glycemic control. The patient receives regular care for her cardiovascular health from a eyeglass lens grinder, renal health from a stitch cleaner, pulmonary health from a inspector packer glass container, and gastrointestinal health from a home administrator. She maintains her eye exams yearly with the next scheduled appointment pending. There are no reported interventions for neuropathy, and she mentions good sensation in her bilateral feet during monofilament testing. The overall progression of her diabetes appears stable at this time. Social History Health Maintenance - Regular eye exams are up-to-date with the next scheduled appointment. - Hemoglobin A1c tested at 6.0. Review of Systems Physical Exam General: Cooperative, healthy appearing, comfortable, no acute distress and well developed Orientation: Patient oriented x3 Limitations: No limitations Head: Normal to inspection Ears: Hearing grossly normal bilaterally Nose: Normal external nose present Face and sinus: Normal facial exam Eyes: Appearance normal, both eyes and all related structures Neck: Normal visual inspection and Yes full ROM Respiratory: Diminished throughout but able to speak in complete sentences. Clear to auscultation bilaterally Cardiovascular: Regular rate and rhythm. Normal S1 and S2 GI: Normal to inspection. Soft to palpation and nontender Skin: No rashes or lesions noted Neuro: Patient oriented x3 Extremities: Intermittent neuropathy to bilateral extremities. Good sensation with the use of monofilament, bilateral feet. Feet were intact bilateral. Results - Lab: Hemoglobin A1c result of 6.0. Plan - Continue monitoring diabetes mellitus and maintain current management given the stable A1c level. - Monitor intermittent neuropathy; neuro pathic pain management may be considered if symptoms worsen. - Ensure follow-up with her eyeglass lens grinder , stitch cleaner, inspector packer glass container, and home administrator as needed. - Encourage attendance at the upcoming e ye exam. Patient was informed and verbally consented to the use of an ambient scribe for clinic note documentation during this visit. Discussion Notes We discussed the patient's current diabetes management and impressive A1c of 6.0, indicating effective control. We addressed her reports of intermittent neuropathy and explored the possibility of further management depending on symptom progression. It is important for her to continue seeing her specialists for comprehensive care and to monitor any potential complications from diabetes. We reinforced the importance of regular eye exams, which she is complying with, given her scheduled upcoming appointment. We also emphasized the importance of maintaining a healthy lifestyle to support her chronic conditions. Patient Instructions - Continue current diabetes management r egimen. - Attend all specialist follow-ups as sc heduled. - Observe and report any changes in symp toms, notably neuropathy. - Ensure the next scheduled eye exam is attended. FOR[facility]LY [facility] Medical History Cardiac pacemaker in situ (~2014) Paroxysmal atrial fibrillation LVH (left ventricular hypertrophy) Essential hypertension Hyperlipidemia Diabetes COPD (chronic obstructive pulmonary disease) Nicotine dependence, cigarettes, uncomplicated Benign essential tremor Microscopic hematuria Recurrent UTI Osteopenia (~2021) Obesity, Class I, BMI 30-34.9 Hypertensive retinopathy GERD (gastroesophageal reflux disease) Diverticulitis Tubular adenoma of colon (~2017) Mesenteric lymphadenopathy Thrombocytopenia Depression Insomnia Arthritis Breast calcification, right Surgical History History of pacemaker History of cholecystectomy History of tonsillectomy and adenoidectomy History of eye surgery History of tubal ligation History of colonoscopy History of esophagogastroduodenoscopy (EGD) History of pubovaginal sling History of dilatation and curettage History of loop electrical excision procedure (LEEP) History of right breast biopsy History of vocal cord polypectomy Family History Father Family history of diabetes mellitus Mother Diabetes mellitus Substance use disorder Sister Uterine cancer Diabetes mellitus Mental health disorder Substance use disorder Maternal Grandfather No problems noted. Maternal Grandmother Unknown family medical history Paternal Grandfather No problems noted. Paternal Grandmother No problems noted. Social History Household Members: Other Household Members Other:: Ex-, Daughter Housing: Apartment Alcohol intake: former Year quit: 2001 Patient Tobacco Use Status: Current everyday Tobacco user Tobacco use type: Cigarette Cigarettes Per Day: 4 Years Smoked: (onset 16yo, 1ppd x 47yrs, 40pyh) e-Cigarette/Vaping Use: Never Used Second Hand Smoke Exposure: Yes Advance Directives Date on File: 03/21/22 service: No Current occupational status: disabled Cognitive needs: No Hearing needs: No Vision needs: No Female Reproductive History Menstrual Age of Menarche: 7 Questionnaire PHQ-9 Over the last 2 weeks, how often have you been bothered by any of the following problems? 1. Little interest or pleasure in doing things: nearly every day 2. Feeling down, depressed, or hopeless: nearly every day 3. Trouble falling or staying asleep, or sleeping too much: nearly every day 4. Feeling tired or having little energy: nearly every day 5. Poor appetite or overeating: not at all 6. Feeling bad about yourself - or that you are a failure or have let yourself or your family down: nearly every day 7. Trouble concentrating on things, such as reading the newspaper or watching television: nearly every day 8. Moving or speaking so slowly that other people could have noticed. Or the opposite - being so fidgety or restless that you have been moving around a lot more than usual: nearly every day 9. Thoughts that you would be better off or of hurting yourself in some way: not at all Total score: 21 Depression Screening Interpretation: Positive (denies any SI or HI) Depression Screening Follow-up: Existing condition and In treatment Depression Screening Done: Yes 86964 - PHQ-9 Billing: Yes Source: Developed by Drs. Rich Colmenares, Kelly Wasserman, Zbigniew Robert and colleagues, with an educational jeffrey from [employer]. Thrive Questionnaire Date Thrive assessed: 11/13/24 I am a: Patient What is your living situation today?: I have a place to live, but I am worried about losing it in the future Within the past 12 months, did the food you bought not last and you didn't have the money to get more?: Never true Within the past 12 months, did you worry whether your food would run out before you got money to buy more?: Never true Do you have trouble paying for medicines?: No Do you have trouble getting transportation to medical appointments?: No Do you have trouble paying your heating and electricity bill?: No Do you have trouble taking care of your child, family member or friend?: No Do you have trouble with day-to-day activities such as bathing, preparing meals, shopping, managing finances, etc.?: No Are you currently unemployed and looking for a job?: No Are you interested in more education?: No Please select the resources that you would like help with: None Currently or been in a relationship where the following occur: No concerns reported THRIVE Score: 1 AUDIT C Alcohol Use Questionnaire (AUDIT-C) 1. How often do you have a drink containing alcohol?: Never 3. How often do you have six or more drinks on one occasion?: Never Total Score: 0 Score Reviewed/Action Taken: Yes ESTEFANIA-7 AMB Questionnaire ESTEFANIA-7 Date ESTEFANIA - 7 assessed: 11/13/24 Feeling nervous, anxious, or on edge: 1 = Several days Not being able to stop or control worryin = Several days Worrying too much about different things: 3 = Nearly every day Trouble relaxin = Not at all Being so restless that it is hard to sit still: 0 = Not at all Becoming easily annoyed or irritable: 3 = Nearly every day Feeling afraid as if something awful might happen: 3 = Nearly every day Total ESTEFANIA-7 score (0-4 normal; 5-9 mild; 10-14 moderate; 15-21 severe): 11 Source: Developed by Drs. Rich Colmenares, Kelly Wasserman, Zbigniew Robert and colleagues, with an educational jeffrey from [employer]. ESTEFANIA-7 Assessment Billing ESTEFANIA-7 Assessment Tool: ESTEFANIA-7 Assessment 00231 Physical exam (Primary Care) Vital Signs: Last Vital Signs Temp 97.9 F 11/13/24 13:12 Pulse 70 11/13/24 13:12 BP 118/76 11/13/24 13:12 Pulse Ox 96 11/13/24 13:12 Oxygen Delivery Method Room Air 11/13/24 13:12 BMI result Body Mass Index 29.8 Tobacco/Smoking Status: Tobacco use Status Tobacco use date assessed 11/13/24 11/13/24 13:14 Patient Tobacco Use Status Current everyday Tobacco 11/13/24 13:14 Tobacco use type Cigarette 11/13/24 13:14 e-Cigarette/Vaping Use Never Used 11/13/24 13:14 PHQ-9: PHQ-9 Score PHQ-9: Total score 11/13/24 13:14 Depression Screening Interpretation: Positive (denies any SI or HI) Depression Screening Follow-up: Existing condition and In treatment Thrive Assessment: Date of Thrive Assessment Date Thrive assessed 11/13/24 11/13/24 13:14 Currently or been in a relationship where the following occur: No concerns reported Coding Level of Care Code Est Pt Level 3 (20794) Diagnoses Diabetes E11.9 Additional Codes ESTEFANIA-7 Assessment Billing - ESTEFANIA-7 Assessment Tool: ESTEFANIA-7 Assessment 68284 ([id number]) PHQ-9 - 99114 - PHQ-9 Billing: Yes ([id number]) Assessment & Plan Assessment & Plan (1) Diabetes: Code(s): E11.9 - Type 2 diabetes mellitus without complications Category: Medical Plan . Orders: Orders Comprehensive Ewing. Panel Fast Today E11.9 - Type 2 diabetes mellitus without complications TSH reflex Free T4 Today E11.9 - Type 2 diabetes mellitus without complications UA CC w/rflx Micro + Cult Today E11.9 - Type 2 diabetes mellitus without complications Lipid Panel Today E11.9 - Type 2 diabetes mellitus without complications CT lung screening 07/15/24 F17.210 - Nicotine dependence, cigarettes, uncomplicated Complete Blood Count Auto Diff Today E11.9 - Type 2 diabetes mellitus without complications
== END 2024-11-13 14:06 | disposition home or self-care (01) ==
PROVIDERS: PCP Nurse Practitioner Family; Visit Provider Nurse Practitioner Family
DX: E11.9 Type 2 diabetes mellitus without complications (principal); Z23 Encounter for immunization

== ENCOUNTER → 2024-11-13 13:09 | Outpatient (BNVA) | payer OTHER, SELFPAY | PROVIDERS: PCP Nurse Practitioner Family; Visit Provider Nurse Practitioner Family | DX: Z23 Encounter for immunization (principal); E11.9 Type 2 diabetes mellitus without complications | CPT/HCPCS: 90471; 90677; 96127; 99212 ==

== ENCOUNTER 2025-02-18 14:58 | Outpatient (AMB) | payer OTHER, SELFPAY ==
[2025-02-18 15:25] VITALS: BP 116/74; PULSE 72; O2SAT 96; BMI 31.0
--- NOTE | 2025-02-18 15:25 | A.OFFPC_ITS ---
Vital Signs 02/18/25 15:25 Height 5 ft 7 in Weight 198 lb BMI 31.0 BP 116/74 Blood Pressure Location Lt brachial Position Sitting Pulse 72 Pulse Source Pulse Oximeter Pulse Oximetry (%) 96 Oxygen Delivery Method Room Air Intake Visit Reasons: 4 months f/up - see comments Allergies dabigatran etexilate [From PRADAXA] Allergy (Intermediate, Verified 02/18/25 16:16) SWELLING\hives Tobacco use date assessed: 11/13/24 Dental Screening Dental Screen Date: 11/13/24 HPI 4 months f/up - see comments HPI Details Chief Complaint Concerns about blood sugar control and intermittent neuropathy History of Present Illness The patient is a 65-year-old female presenting with a follow-up for diabetes management. Her blood sugar levels have been reported in the 90s to low 100s. An A1c test will be added to her recent lab work to monitor her glycemic status accurately. Additionally, she experiences intermittent neuropathy but maintains good sensation in her feet. She has a notable history of smoking, impacting her lung health. Despite consulting a school bus operator, she continues to smoke. Lung sounds are diminished bilaterally, indicating potential respiratory concerns due to her smoking history. Social History - Tobacco use: Patient is a current smok er with a history requiring annual low- dose CAT scans. Health Maintenance - Referral for low-dose CAT scan program due to smoking history - Intermittent neuropathy management and evaluation - Eye exams are up to date Review of Systems - Neurological: Reports intermittent alondra ropathy - Extremities: Reports good sensation in feet with topical treatment - Respiratory: Reports diminished bilate ral lung sounds Physical Exam General: Cooperative, healthy appearing, comfortable, no acute distress and well developed Orientation: Patient oriented x3 Limitations: No limitations Head: Normal to inspection Ears: Hearing grossly normal bilaterally Nose: Normal external nose present Face and sinus: Normal facial exam Eyes: Appearance normal, both eyes and all related structures Neck: Normal visual inspection and Yes full ROM Respiratory: Diminished breath sounds bilaterally. Able to speak in complete sentences. Cardiovascular: Regular rate and rhythm. Normal S1 and S2 GI: Normal to inspection. Soft to palpation and nontender Skin: No rashes or lesions noted Neuro: Patient oriented x3. Reports some intermittent neuropathy. Extremities: Normal to inspection except for a small healing scab to the dorsal aspect of her right foot. Dorsalis pedis pulses were very weak bilaterally. Results Plan We will monitor the patient's diabetes and include an A1c test in the upcoming labs. Neuropathy management continues as symptoms require evaluation. Considering her smoking history, she will enter a low-dose CAT scan program. I advised her of smoking cessation importance. Ultrasound testing is planned to inspect weak dorsalis pedis pulses. Discussion Notes During this visit, I discussed with the patient the importance of maintaining tight blood sugar control through A1c monitoring and the management of her neuropathy symptoms. I emphasized the necessity of smoking cessation due to its impacts on her lung health and the approach to ongoing surveillance with low- dose CAT scans. I also referenced her foot health and plans for imaging to assess her circulation. We discussed treatment options in detail, including potential benefits and risks. I will revisit her case with lab results to refine our strategy according to findings. Patient Instructions - Monitor blood sugar levels as advised - Continue current foot care regimen - Undergo the scheduled ultrasound exami nation - Complete additional A1c testing - Enroll in the low-dose CAT scan lolis m - Discuss her smoking cessation plan wit h her school bus operator [facility] Medical History Cardiac pacemaker in situ (~2014) Paroxysmal atrial fibrillation LVH (left ventricular hypertrophy) Essential hypertension Hyperlipidemia Diabetes COPD (chronic obstructive pulmonary disease) Nicotine dependence, cigarettes, uncomplicated Benign essential tremor Microscopic hematuria Recurrent UTI Osteopenia (~2021) Obesity, Class I, BMI 30-34.9 Hypertensive retinopathy GERD (gastroesophageal reflux disease) Diverticulitis Tubular adenoma of colon (~2017) Mesenteric lymphadenopathy Thrombocytopenia Depression Insomnia Arthritis Breast calcification, right Surgical History History of pacemaker History of cholecystectomy History of tonsillectomy and adenoidectomy History of eye surgery History of tubal ligation History of colonoscopy History of esophagogastroduodenoscopy (EGD) History of pubovaginal sling History of dilatation and curettage History of loop electrical excision procedure (LEEP) History of right breast biopsy History of vocal cord polypectomy Family History Father Family history of diabetes mellitus Mother Diabetes mellitus Substance use disorder Sister Uterine cancer Diabetes mellitus Mental health disorder Substance use disorder Maternal Grandfather No problems noted. Maternal Grandmother Unknown family medical history Paternal Grandfather No problems noted. Paternal Grandmother No problems noted. Social History Household Members: Other Household Members Other:: Ex-, Daughter Housing: Apartment Alcohol intake: former Year quit: 2001 Patient Tobacco Use Status: Current everyday Tobacco user Tobacco use type: Cigarette Cigarettes Per Day: 4 Years Smoked: (onset 16yo, 1ppd x 47yrs, 40pyh) e-Cigarette/Vaping Use: Never Used Second Hand Smoke Exposure: Yes Advance Directives Date on File: 03/21/22 service: No Current occupational status: disabled Cognitive needs: No Hearing needs: No Vision needs: No Female Reproductive History Menstrual Age of Menarche: 7 Questionnaire Thrive Questionnaire Date Thrive assessed: 11/13/24 ESTEFANIA-7 AMB Questionnaire ESTEFANIA-7 Date ESTEFANIA - 7 assessed: 11/13/24 Source: Developed by Drs. Rich Colmenares, Kelly Wasserman, Zbigniew Robert and colleagues, with an educational jeffrey from [employer]. Physical exam (Primary Care) Vital Signs: Last Vital Signs Pulse 72 02/18/25 15:25 BP 116/74 02/18/25 15:25 Pulse Ox 96 02/18/25 15:25 Oxygen Delivery Method Room Air 02/18/25 15:25 BMI result Body Mass Index 31.0 Tobacco/Smoking Status: Tobacco use Status Tobacco use date assessed 11/13/24 02/18/25 15:30 Patient Tobacco Use Status Current everyday Tobacco 02/18/25 15:30 Tobacco use type Cigarette 02/18/25 15:30 e-Cigarette/Vaping Use Never Used 02/18/25 15:30 Thrive Assessment: Date of Thrive Assessment Date Thrive assessed 11/13/24 02/18/25 15:30 Coding Level of Care Code Est Pt Level 3 (39242) Diagnoses Decreased pedal pulses R09.89 COPD (chronic obstructive pulmonary disease) J44.9 Smoking F17.200 Diabetes E11.9 Assessment & Plan Assessment & Plan (1) Decreased pedal pulses: Code(s): R09.89 - Other specified symptoms and signs involving the circulatory and resp iratory systems Category: Medical (2) COPD (chronic obstructive pulmonary disease): Comment: Long-standing history of COPD, severe per PFT with component of asthma. It is relatively stable at this time. Does have some intermittent cough related to smoking but no wheezes. Code(s): J44.9 - Chronic obstructive pulmonary disease, unspecified Category: Medical (3) Smoking: Comment: SHE HAS ALMOST LIFELONG HISTORY OF SMOKING. IN SPITE OF SEVERE COPD SHE CONTINUES TO SMOKE ABOUT 1 PACK A DAY. SHE TELLS ME THAT LAST MONTH SHE QUIT SMOKING ALL OF A SUDDEN, AND NOW DOES NOT EVEN THINK ABOUT SMOKING. HAD A GOOD TALK WITH HER. I COMMENDED HER FOR QUITTING SMOKING. TALKED TO HER NOT TO GO BACK TO . SHE IS HAPPY THAT SHE WAS ABLE TO QUIT FOR THE SAKE OF 8 GRANDCHILDREN Code(s): F17.200 - Nicotine dependence, unspecified, uncomplicated Category: Social Hx (4) Diabetes: Code(s): E11.9 - Type 2 diabetes mellitus without complications Category: Medical Plan . Orders: Orders Hemoglobin A1c Today E11.9 - Type 2 diabetes mellitus without complications US arterial duplex LE BI Today R09.89 - Other specified symptoms and signs involving the circulatory and respiratory systems Referrals Lung Cancer Screening Referral F17.200 - Nicotine dependence, unspecified, uncomplicated, J44.9 - Chronic obstructive pulmonary disease, unspecified
--- OUTSIDE RECORDS SUMMARY | 2025-02-18 16:03 | XMS_ITS ---
Author Name [facility]. Marry Bashir Address [address] [place] [address] Phone [phone] [facility] Care Team Providers Care Family Welfare Social Work Professor Name Role Phone Marry Frausto Unavailable [phone] Reason for Referral Not Available Allergies, adverse reactions, alerts No known allergies History of medication use Medication Class Instructions Start Date End Date Xarelto 20 mg Tab TAKE 1 TABLET BY IRASEMA TH EVERYDAY AT BEDTIME 2023-02-23 No Data Available Atorvastatin Calcium 40 mg Tab TAKE 1 TABLET BY MOUTH DAILY 2023-05-29 No Data Pamela ilable Primidone 50 mg Tab TAKE 1 TABLET TWICE A DAY AND TAKE 2 TABLETS AT BEDTIME 2023-03-27 No Data Available amLODIPine Besylate 2.5 mg Tab TAKE 1 TABLET BY MOUTH DAILY 2023-05-28 No Data Pamela ilable Wixela Inhub 250-50 MCG/ACT Aerosol Powder Breath Activated USE 1 INHALATION 2 TIMES A DAY FOR COPD FOR 30 DAYS 2023-01-24 No Data Available Sucralfate 1 GM Tab TAKE 2 TABLETS BY MO UTH EVERY DAY AT 11PM 2022-11-29 No Data Available Incruse Ellipta 62.5 MCG/ACT Aerosol Powder Breath Activated USE 1 INHALATION BY MOUTH INTO THE LUNGS DAILY FOR COPD FOR 30 DAYS 2023-07-02 No Data Available Zolpidem Tartrate 10 mg Tab TAKE 1 TABLE T BY MOUTH EVERYDAY AT BEDTIME 2023-08-27 No Data Available clonazePAM 1 mg Tab TAKE 1 TABLET BY IRASEMA TH TWICE A DAY FOR 30 DAYS 2023-10-03 No Data Available Sulfamethoxazole-Trimethopri m 800/160 mg Tab TAKE 1 TABLET BY MOUTH 2 TIMES A DAY FOR 3 DAYS 2023-11-08 No Data Available traZODone 100 mg Tab TAKE 1 TABLET BY MO UTH EVERY NIGHT AT BEDTIME. 2023-09-05 No Data Available Sehqporbow-SMXO-Cnkbmgia 50/325/40 mg Tab TAKE 1 TABLET EVERY 4 HOURS NEEDED 2023-11-21 No Data Available Omeprazole 20 mg Cap delayed rel TAKE 1 CAPSULE BY MOUTH EVERY DAY 2023-07-10 No Data Available Myrbetriq 50 mg Tab ER 24hr TAKE 1 TABLE T BY MOUTH EVERY DAY 2023-06-20 No Data Available Ibuprofen 600 mg Tab TAKE 1 TABLET BY MO UTH EVERY DAY NEEDED FOR PAIN *USE SPARINGLY* 2023-11-22 No Data Available FREESTYLE 28G LANCETS USE TO TEST BLOOD SUGAR DAILY 2023-09-06 No Data Available Propranolol 60 mg Tab TAKE 1 TABLET BY M OUTH TWICE A DAY FOR 90 DAYS 2023-11-21 No Data Available Alcohol Prep 70 % Pad USE DIRECTED ONCE DAILY 10-02 No Data Available Cetirizine 10 mg Tab TAKE 1 TABLET BY MO UTH EVERY DAY NEEDED FOR ALLERGY SYMPTOMS 2024-03-18 No Data Available Azithromycin 250 mg Tab TAKE 2 TABLETS B Y MOUTH TODAY, THEN TAKE 1 TABLET DAILY FOR 4 DAYS DIRECTED 2024-04-07 No Data Available Spiriva HandiHaler 18 MCG Cap Inhalation inhale 2 puffs daily 2024-04-18 No Data Available Problem List Problem Status Onset Date Resolved Date OAB (overactive bladder) Active 2024-04-03 N/A GERD (gastroesophageal reflux disease) Active 14-04-13 N/A GADInsomniaMajor depressive disorder in partial remission Active 2024-04-03 N/A Nicotine dependence Active 2024-04-18 N/A COPD (chronic obstructive pulmonary disease) Active 2024-04-03 N/A Type 2 diabetes mellitus wit h ophthalmic complication - cataract Active 2024-04-18 N/A Hypercoagulability due to at rial fibrillationVentricular tachycardiaPacemaker Active 2024-04-03 N/A Other problems related to ca dical facilities and other health care Active 2024-04-03 N/A Impaired functional mobility , balance, gait, and enduranceHistory of fall Active 2024-04-18 N/A Encounters Encounters Type Facility Date of Service Diagnosis/Co mplaint New patient,40-59min; chronic exacerbation, 2 stable chronic or 1 acute illness add add modifier 95 for video (do not use for phone, instead use 37195-21) [facility], ([place]) 04/18/[place] Other thrombophiliaUnspecifi ed atrial fibrillationVentricular tachycardia, unspecifiedPresence of cardiac pacemakerChronic obstructive pulmonary disease, unspecifiedInsomnia, unspecifiedGeneralized anxiety disorderMajor depressive disorder, single episode, in partial remissionOther problems related to medical facilities and other health careGastro-esophageal reflux disease without esophagitisOveractive bladderNicotine dependence, cigarettes, uncomplicatedHistory of fallingOther reduced mobilityType 2 diabetes mellitus with other diabetic ophthalmic complication New patient,40-59min; chronic exacerbation, 2 stable chronic or 1 acute illness add add modifier 95 for video (do not use for phone, instead use 13701-56) [facility] 04[place] New patient,40-59min; chronic exacerbation, 2 stable chronic or 1 acute illness add add modifier 95 for video (do not use for phone, instead use 70642-48) [facility] 04[place]18/[place] New patient,40-59min; chronic exacerbation, 2 stable chronic or 1 acute illness add add modifier 95 for video (do not use for phone, instead use 71882-11) [facility], [place] 04[place]18/[place] New patient,40-59min; chronic exacerbation, 2 stable chronic or 1 acute illness add add modifier 95 for video (do not use for phone, instead use 55700-87) [facility], ([place] 04[place]18/[place] New patient,40-59min; chronic exacerbation, 2 stable chronic or 1 acute illness add add modifier 95 for video (do not use for phone, instead use 52042-28) [facility], ([place] 04[place]18/[place] New patient,40-59min; chronic exacerbation, 2 stable chronic or 1 acute illness add add modifier 95 for video (do not use for phone, instead use 05792-54) [facility], ([place] 04/18/[place] New patient,40-59min; chronic exacerbation, 2 stable chronic or 1 acute illness add add modifier 95 for video (do not use for phone, instead use 18065-74) [facility], ([place] 04/18/20[place] New patient,40-59min; chronic exacerbation, 2 stable chronic or 1 acute illness add add modifier 95 for video (do not use for phone, instead use 56606-93) [facility], ([place]) 04/18/2024 New patient,40-59min; chronic exacerbation, 2 stable chronic or 1 acute illness add add modifier 95 for video (do not use for phone, instead use 82987-02) [facility], ([place] 04/18/2024 Vital Signs Date of Collection Vitals 2024-04-18 12:52:46 Height - 170.18 cmWe ight - 93.44 kgBody Mass Index (BMI) - 32.26 kg/m2BP Diastolic - 77.0 mm[Hg]BP Systolic - 116.0 mm[Hg] Social History Social History Social History Observation Description Effec tive Time Current Smoking Status Current every day smoker 2025-02-18 Sex Female Gender identity Woman History of Procedures Procedures Service Procedure code Service date Servicing provider Phone# New patient,40-59min; chronic exacerbation, 2 stable chronic or 1 acute illness add add modifier 95 for video (do not use for phone, instead use 24280-58) 06207 2024-04-18 No Data Available No Data Availa ble Medication List Documented (1159F) 1159F 2024-04-18 No Data Available No Data Pamela ilable Medication Review by prescribing provider or pharmacist documented (1160F) 1160F 2024-04-18 No Data Available No Data Pamela ilable Advance Care Directive Advance care planning discussion documented in the medical record (1158F) 1158F 2024-04-18 No Data Available No Data Availa ble BMI obtained (3008F) 3008F 2024-04-18 No Data Availab le No Data Available Advance care planning discussed and documented ? advance care plan or surrogate decision-maker was documented in the medical record. (1123F) 1123F 2024-04-18 No Data Available No Data Availa ble Advance Care Directive Advance care planning discussion documented in the medical record (1158F) 1158F 2024-04-18 No Data Available No Data Availa ble SBP < 130 (3074F) 3074F 2024-04-18 No Data Available No Data Available DBP <80 (3078F) 3078F 2024-04-18 No Data Available No Data Available Functional Status Assessed (1170F) 1170F 2024-04-18 No Data Available No Data Avail able Functional Status Functional Category Effective Dates ADL: Bathing Independent , D ressing Independent , Eating Independent , Ambulation Independent , Transferring Independent and Toileting Independent. 2024-04-18 IADL: Medication Needs Zayra tance , Meal Prep Needs Assistance , Shopping Needs Assistance , Driving or Public Transport Needs Assistance , Housework Needs Assistance , Finances Needs Assistance. 2024-04-18 How many falls within the last 6 months? Yes. 2024-04-18 Near falls within the last 6 months? Non e. 2024-04-18 Do you feel unsteady on your feet? No. 2 Do you worry about falling? Yes DME used with ambulation: Rollator Walke r. 2024-04-18 Cognition Status: Oriented to Person, Pl arjun and Time 2024-04-18 Mental Status Status Date AOx3 2024-04-18 Assessments Date of Service Assessments 2024-04-18 12:52:46 Other problems relat ed to medical facilities and other health careHypercoagulability due to atrial fibrillationVentricular tachycardiaPacemakerCOPD (chronic obstructive pulmonary disease)GADInsomniaMajor depressive disorder in partial remissionGERD (gastroesophageal reflux disease)OAB (overactive bladder)Nicotine dependenceImpaired functional mobility, balance, gait, and enduranceHistory of fallType 2 diabetes mellitus with ophthalmic complication - cataract Plan of Care Date of Service Plans 2024-04-18 12:52:46 Pain Assessment - NO pain documented (1126F)Medication Review by prescribing provider or pharmacist documented (1160F)Medication List Documented (1159F)Functional Status Assessed (1170F)Advance Care Directive Advance care planning discussion documented in the medical record (1158F)BMI obtained (3008F)SBP < 130 (3074F)DBP <80 (3078F)Televideo new patient,40-59min; chronic exacerbation, 2 stable chronic or 1 acute illness add modifier 95Advance care planning discussed and documented in the medical record ? beneficiary/patient did not wish to or was unable to provide an advance care plan or name a surrogate decision-maker. (1124F)Continue to see PCP. Follow-up with [facility] as needed for any acute or disease education needs that may arise.ATRIAL FIBRILLATION CONTINGENCY PLANAtrial FibrillationMember to call for the following symptoms: BP >180/100??/ Dizziness/ HR >100??/ PalpitationsPlanned intervention: Review members breathing exercises / Hold anti-coagulation medication for 2 days/ Ensure adherence with medications/ Encourage increased fluid intakeStableXarelto, Propranolol, AmlodipinePacemaker Bleeding risk precautions, monitor for cardiac s/sx (eg. palpitations) and continue f/u care with PCP and cardiology.StableIncruse Ellipta, Wixela, Spiriva Monitor for s/sx of respiratory distress (eg. SOB) and continue with PCP.StableZolpidem, Clonazepam Denies SI/HITherapistMonitor for worsening depression or panic attacks, sleep hygiene, monitor for sedative effect, and continue with PCP.StableOmeprazoleMonitor for GI s/sx, dietary interventions and continue with PCP.StableMyrbetriqMonitor for changes in urine output and continue f/u care with PCP.Patient reports smoking 1/3 box of cigarettes per daySmoking cessation education provided and continue f/u care with PCP.Stableuses walker rollator to ambulate. Reports recent fall.Monitor for falls, fall risk precautions, and continue f/u with PCP.StableDietary and lifestyle interventions, monitor for changes in vision, and continue f/u care and monitoring with PCP and clinical social work aide. Goals Date Goal 2024-04-18 Remember to adhere t o dietary interventions and exercise as tolerable. 2024-04-18 Contact us if develo ping palpitations, fatigue, SOB, worsening depression or anxiety, urinary incontinences, HHS, DKA, falls, or any health-related concerns. 2024-04-18 Continue taking medi cations as prescribed and f/u care and monitoring with PCP every 3-6 months. Health Concerns Date Concern 2024-04-18 Visit completed by a udio and video. Patient/Guardian agreed to visit via telehealth. Introductory visit with [facility] to establish care. Today, patient has chief complaint of: establishing care.Reviewed Allergies, Medications, Active Medical conditions, past medical/surgical history, Social history. 2024-04-18 Most recent hospital stay(s) or ER visit(s) and precipitating factors: Patient reports going to the hospital on 04/13/24 hospital r/t falling down the stair and landing on face. Patient discharged same day. 2024-04-18 ACP: unknown. HCP: sloan guzman - Kirt Ford Jr (ex-). Code: Unknown. 2024-04-18 Informed verbal cons ent was obtained from this patient to communicate and provide care using virtual and other telecommunications tools. This patient has been explained the risks, if any, related to the encounter. I explained that care provided through video or audio communication cannot replace the need for physical examination or an in-person visit for some disorders or urgent problems.
== END 2025-02-18 16:25 | disposition home or self-care (01) ==
LOC: HO.HMCC 14:58
PROVIDERS: PCP Nurse Practitioner Family; Visit Provider Nurse Practitioner Family
DX: R09.89 Other specified symptoms and signs involving the circulatory and respiratory systems (principal); J44.9 Chronic obstructive pulmonary disease, unspecified; F17.200 Nicotine dependence, unspecified, uncomplicated; E11.9 Type 2 diabetes mellitus without complications

== ENCOUNTER 2025-02-18 14:58 | Outpatient (REF) | payer OTHER, SELFPAY ==
[2025-02-18 16:05] LABS: MANUAL DIFF FLAG NO
[2025-02-18 16:09] LABS: Basophils Percent Auto 0.5 % (0-2); Eosinophils Absolute Auto 0.1 X10*3/uL (0.0-0.4); Eosinophils Percent Auto 0.6 % (0-4); Hemoglobin 12.8 g/dl (12.0-16.0); Imm Gran Abs Auto 0.03 X10*3/uL (0.00-0.03); Imm Gran Pct Auto 0.4 % (0.0-0.4); Lymphocytes Absolute Auto 2.2 X10*3/uL (1.2-4.9); Lymphocytes Percent Auto 26.6 % (20-40); Mean Corpuscular HGB Conc 32.8 g/dl (31.0-35.0); Mean Corpuscular Volume 88.4 fL (80.0-98.0); Mean Platelet Volume 12.3 fL (9.4-12.3); Monocytes Absolute Auto 0.7 X10*3/uL (0.1-1.2); Monocytes Percent Auto 8.5 % (2-11); Neutrophils Absolute Auto 5.2 x10*3/uL (2.0-8.3); Neutrophils Percent Auto 63.4 % (45-73); Platelet Count 151 X10*3/uL (160-400); Red Blood Count 4.41 X10*6/uL (4.20-5.50); Red Cell Distribution Width 13.7 % (11.0-16.0); White Blood Count 8.3 X10*3/uL (4.8-10.8)
[2025-02-18 16:09] LABS: Appearance Urine Clear; Color Urine Dark Yellow; Glucose Urine UA Negative (Negative); Leukocyte Esterase Urine Negative (Negative); Nitrite Urine Negative (Negative); PH 5.5 (5.0-9.0); Specific Gravity - Urine 1.025 (1.005-1.025); Urine Blood Negative (Negative); Urine Ketones Trace mg/dL (Negative); Urine Protein Trace mg/dL (Neg-Trace)
--- OUTSIDE RECORDS SUMMARY | 2025-02-18 16:09 | XMS_ITS ---
Author Name [facility]. Marry Bashir Address [address] [place] [address] Phone [phone] [facility] Care Team Providers Care Automation Technologist Name Role Phone Marry Frausto Unavailable [phone] Reason for Referral Not Available Allergies, adverse [...] NIGHT AT BEDTIME. 2023-09-05 No Data Available Tztldeihdf-OELW-Dmnyzfxh 50/325/40 mg Tab TAKE 1 TABLET EVERY [...] Active 2024-04-03 N/A Other problems related to tx dical facilities and other health care Active 2024-04-03 N/A Impaired functional mobility , balance, gait, and enduranceHistory of fall Active 2024-04-18 N/A Encounters Encounters Type Facility Date of Service Diagnosis/Co mplaint New patient,40-59min; chronic exacerbation, 2 stable chronic or 1 acute illness add add modifier 95 for video (do not use for phone, instead use 28836-91) [facility], ([place]) 04/18/2024 Other thrombophiliaUnspecifi ed atrial fibrillationVentricular tachycardia, [...] (do not use for phone, instead use 90882-33) [facility], ([place]) 04/18/20[place] New patient,40-59min; chronic exacerbation, 2 stable chronic or 1 acute illness add add modifier 95 for video (do not use for phone, instead use 33015-47) [facility], ([place]) 04/18/20[place] New patient,40-59min; chronic exacerbation, 2 stable chronic or 1 acute illness add add modifier 95 for video (do not use for phone, instead use 94918-93) [facility], ([place]) 04/18/2024 New patient,40-59min; chronic exacerbation, 2 stable chronic or 1 acute illness add add modifier 95 for video (do not use for phone, instead use 85365-63) [facility], ([place]) 04/18/20[place] New patient,40-59min; chronic exacerbation, 2 stable chronic or 1 acute illness add add modifier 95 for video (do not use for phone, instead use 71525-42) [facility], ([place]) 04/18/20[place] New patient,40-59min; chronic exacerbation, 2 stable chronic or 1 acute illness add add modifier 95 for video (do not use for phone, instead use 98115-13) [facility], ([place]) 04/18/20[place] New patient,40-59min; chronic exacerbation, 2 stable chronic or 1 acute illness add add modifier 95 for video (do not use for phone, instead use 88581-37) [facility], ([place]) 04/18/20[place] New patient,40-59min; chronic exacerbation, 2 stable chronic or 1 acute illness add add modifier 95 for video (do not use for phone, instead use 22091-46) [facility], ([place]) 04/18/20[place] New patient,40-59min; chronic exacerbation, 2 stable chronic or 1 acute illness add add modifier 95 for video (do not use for phone, instead use 32422-50) [facility] ([place] 04[place]/20[place] Vital Signs Date of [...] (do not use for phone, instead use 78788-33) [address]36 2024-04-18 No Data Available No Data Availa [...] f/u care and monitoring with PCP and ornamental iron worker apprentice. Goals Date Goal 2024-04-18 Remember to adhere [...]
[2025-02-18 16:28] LABS: Estimated Average Glucose 126 mg/dL; Hemoglobin A1C 142.8949 umol/L; Total Hemoglobin (HGBA1C) 3383.1102 umol/L
[2025-02-18 16:37] LABS: Alanine Aminotransferase 15 U/L (0-31); Alkaline Phosphatase 80 U/L (39-117); Anion Gap 13 (12-20); Aspartate Amino Transferase 26 U/L (5-31); Bilirubin Total 0.2 mg/dL (0.0-1.0); Blood Urea Nitrogen 13 mg/dL (9-16); Calcium 9.2 mg/dL (8.4-10.2); Carbon Dioxide 27 mmol/L (22-29); Chloride 106 mmol/L (96-108); Cholesterol 153 mg/dL (<200); Estimated Glomerular Filt Rate > 60; Glucose Fasting 99 mg/dL (60-99); HDL Cholesterol 51 mg/dL (>40); LDL Cholesterol Calculated 79 mg/dL (<100); Potassium 4.5 mmol/L (3.3-5.1); Sodium 141 mmol/L (135-145); Total Protein 6.8 g/dL (6.5-8.0); Triglycerides 118 mg/dL (<150)
[2025-02-18 16:50] LABS: TSH reflex Free T4 2.14 uIU/mL (0.32-4.0)
== END 2025-02-18 14:59 | disposition home or self-care (01) ==
LOC: HO.HMGCLDS 14:58
PROVIDERS: PCP Nurse Practitioner Family; Visit Provider Nurse Practitioner Family
DX: R09.89 Other specified symptoms and signs involving the circulatory and respiratory systems (principal); J44.9 Chronic obstructive pulmonary disease, unspecified; E11.9 Type 2 diabetes mellitus without complications; F17.210 Nicotine dependence, cigarettes, uncomplicated
CPT/HCPCS: 36415; 80053; 80061; 81003; 83036; 84443; 85025; 99212

== ENCOUNTER 2025-03-11 15:39 | Outpatient (AMB) | payer OTHER, SELFPAY ==
--- OUTSIDE RECORDS SUMMARY | 2025-03-11 15:44 | XMS_ITS ---
Author Name Arcenio Wasserman NP Address [address] [place] [address] Phone [phone] [facility] Care Team Providers Care Recreation Center Director Name Role Phone Lux Arcenio Unavailable [phone] Reason for Referral Not Available Allergies, adverse [...] NIGHT AT BEDTIME. 2023-09-05 No Data Available Isvnwerqxo-EMVV-Yqdepyjq 50/325/40 mg Tab TAKE 1 TABLET EVERY [...] Active 2024-04-03 N/A Other problems related to co dical facilities and other health care Active 2024-04-03 N/A Impaired functional mobility , balance, gait, and enduranceHistory of fall Active 2024-04-18 N/A Encounters Encounters Type Facility Date of Service Diagnosis/Co mplaint New patient,40-59min; chronic exacerbation, 2 stable chronic or 1 acute illness add add modifier 95 for video (do not use for phone, instead use 24826-52) [facility] ([place]) 04/18/2024 Other thrombophiliaUnspecifi ed atrial fibrillationVentricular tachycardia, [...] (do not use for phone, instead use 63419-85) [facility], ([place] 04[place] New patient,40-59min; chronic exacerbation, 2 stable chronic or 1 acute illness add add modifier 95 for video (do not use for phone, instead use 55722-96) [facility], ([place] 04[place] New patient,40-59min; chronic exacerbation, 2 stable chronic or 1 acute illness add add modifier 95 for video (do not use for phone, instead use 86054-28) [facility], [place] 04[place] New patient,40-59min; chronic exacerbation, 2 stable chronic or 1 acute illness add add modifier 95 for video (do not use for phone, instead use 91782-59) [facility], [place] 04[place] New patient,40-59min; chronic exacerbation, 2 stable chronic or 1 acute illness add add modifier 95 for video (do not use for phone, instead use 13243-30) [facility], [place] 04[place]/20[place] New patient,40-59min; chronic exacerbation, 2 stable chronic or 1 acute illness add add modifier 95 for video (do not use for phone, instead use 35237-16) [facility], [place] 04[place]18/20[place] New patient,40-59min; chronic exacerbation, 2 stable chronic or 1 acute illness add add modifier 95 for video (do not use for phone, instead use 66620-17) [facility], ([place] 04/18/20[place] New patient,40-59min; chronic exacerbation, 2 stable chronic or 1 acute illness add add modifier 95 for video (do not use for phone, instead use 69893-08) [facility], ([place]) 04/18/2024 New patient,40-59min; chronic exacerbation, 2 stable chronic or 1 acute illness add add modifier 95 for video (do not use for phone, instead use 60193-26) [facility], ([place]) 04/18/2024 Vital Signs Date of Collection Vitals 2024-04-18 12:52:46 Height - 170.18 cmWe ight - 93.44 kgBody Mass Index (BMI) - 32.26 kg/m2BP Diastolic - 77.0 mm[Hg]BP Systolic - 116.0 mm[Hg] Social History Social History Social History Observation Description Effec tive Time Current Smoking Status Current every day smoker 2025-03-11 Sex Female Gender identity Woman History of Procedures Procedures Service Procedure code Service date Servicing provider Phone# New patient,40-59min; chronic exacerbation, 2 stable chronic or 1 acute illness add add modifier 95 for video (do not use for phone, instead use 72450-68) 10318 2024-04-18 No Data Available No Data Availa [...] decision-maker. (1124F)Continue to see PCP. Follow-up with [facility] as needed for any acute or disease [...] f/u care and monitoring with PCP and tallow maker. Goals Date Goal 2024-04-18 Remember to adhere [...]
--- NOTE | 2025-03-11 16:04 | MHC.OFFVIS ---
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 Botello. She has a past medical history of paroxysmal AFib, hypertension, hyperlipidemia, diabetes, COPD, nicotine dependence, essential tremor, microscopic hematuria, recurrent UTIs, osteopenia, depression, insomnia, arthritis, and GERD. She presents to the office today for follow-up of her recurrent urinary tract infections, overactive bladder, and microscopic hematuria. In discussion with the patient today she reports to be doing and feeling well. She reports compliance with Myrbetriq 50 mg daily and feels this has been helpful in lower urinary tract symptoms of urinary urgency and frequency she had been experiencing. She denies having had any bothersome urinary issues or concerns since her last office visit here. She reports feeling intermittent episodes of dysuria she had been experiencing has since subsided. In office urinalysis results reviewed with the patient today no microscopic hematuria noted. PVR 163ml's. When asked she denies urinary urgency, urinary frequency, incontinence, nocturia, hematuria, foul smelling urine, changes to urinary stream, flank pain, fever, and or chills. She is happy with her current voiding parameters. We discussed mildly elevated PVR. Will reassess in 3 months. All questions were answered. She otherwise offers no other issues or concerns at this time. [facility] Medical History Cardiac pacemaker in situ (~2014) Paroxysmal atrial fibrillation LVH (left ventricular hypertrophy) Essential hypertension Hyperlipidemia Diabetes COPD (chronic obstructive pulmonary disease) Nicotine dependence, cigarettes, uncomplicated Benign essential tremor Microscopic hematuria Recurrent UTI Osteopenia (~2021) Obesity, Class I, BMI 30-34.9 Hypertensive retinopathy GERD (gastroesophageal reflux disease) Diverticulitis Tubular adenoma of colon (~2017) Mesenteric lymphadenopathy Thrombocytopenia Depression Insomnia Arthritis Breast calcification, right Surgical History History of pacemaker History of cholecystectomy History of tonsillectomy and adenoidectomy History of eye surgery History of tubal ligation History of colonoscopy History of esophagogastroduodenoscopy (EGD) History of pubovaginal sling History of dilatation and curettage History of loop electrical excision procedure (LEEP) History of right breast biopsy History of vocal cord polypectomy Family History Father Family history of diabetes mellitus Mother Diabetes mellitus Substance use disorder Sister Uterine cancer Diabetes mellitus Mental health disorder Substance use disorder Maternal Grandfather No problems noted. Maternal Grandmother Unknown family medical history Paternal Grandfather No problems noted. Paternal Grandmother No problems noted. Social History Household Members: Other Household Members Other:: Ex-, Daughter Housing: Apartment Alcohol intake: former Year quit: 2001 Patient Tobacco Use Status: Current everyday Tobacco user Tobacco use type: Cigarette Cigarettes Per Day: 4 Years Smoked: (onset 16yo, 1ppd x 47yrs, 40pyh) e-Cigarette/Vaping Use: Never Used Second Hand Smoke Exposure: Yes Advance Directives Date on File: 03/21/22 service: No Current occupational status: disabled Cognitive needs: No Hearing needs: No Vision needs: No Female Reproductive History Menstrual Age of Menarche: 7 Review of Systems Eyes Reports no additional complaints ENT Reports no additional complaints Card Reports as per HPI Resp Reports as per HPI GI Reports as per HPI Reports as per HPI Musc Reports as per HPI Neuro Reports as per HPI Psych Reports as per HPI Endo Reports as per HPI Physical Exam Const General: cooperative, comfortable, no acute distress, well developed, alert and awake Orientation/consciousness: patient oriented x3 Limitations: no limitations HEENT Head: Yes normal to inspection, Yes normocephalic and Yes atraumatic Ears: hearing grossly normal bilaterally Eyes General: appearance normal, both eyes and all related structures Neck Neck: Yes normal visual inspection and Yes trachea midline Chest Chest palpation & inspection: normal inspection of the chest Resp Effort & Inspection: normal respiratory effort and able to speak in complete sentences Cardio Rate: regular rate GI Inspection: Yes normal to inspection General: Yes no CVA tenderness Back/Spine/Pelvis Back: no CVA tenderness Skin General skin exam: no rashes or lesions noted Neuro General: patient oriented x3 Extrem General: Yes normal to inspection Psych Appearance: grossly normal and well kempt Mental Status: mental status grossly normal Speech and movement: Normal speech and movement present and Clear speech present Affect: normal affect Attitude: cooperative Thought process: Normal thought process present Thought content: Normal thought content present Insight: Fair insight present (Psych) Judgement: Fair judgement present (Psych) Office Procedures Post Void Residual Post Residual Void Post Void Residual (PVR): 163 [id number] Void Residual by ultrasound Results AMB Urinalysis, Automated UA Leukoctes 0 Tamir/uL Last Edit by [employer] on 03/11/25 16:35 UA Nitrite Last Edit by [employer] on 03/11/25 16:35 UA Urobilinogen 0.2 mg/dL Last Edit by [employer] on 03/11/25 16:35 UA Protein 15 mg/dL Last Edit by [employer] on 03/11/25 16:35 UA pH 6.0 Last Edit by [employer] on 03/11/25 16:35 UA Blood 0 Vik/uL Last Edit by [employer] on 03/11/25 16:35 UA Specific [place] 1.025 Last Edit by [employer] on 03/11/25 16:35 UA Ketone Last Edit by [employer] on 03/11/25 16:35 UA Bilirubin 1 mg/dL Last Edit by [employer] on 03/11/25 16:35 UA Glucose 0 mg/dL Last Edit by [employer] on 03/11/25 16:35 Results Reviewed Results Reviewed: Laboratory Last Values Urine pH (Auto) 6.0 03/11/25 16:32 Specific [place] (Auto) 1.025 03/11/25 16:32 Urine Protein (Auto) 15 mg/dL 03/11/25 16:32 Glucose (UA)(Auto) 0 mg/dL 03/11/25 16:32 Urine Blood (Auto) 0 Vik/uL 03/11/25 16:32 Urine Bilirubin (Auto) 1 mg/dL 03/11/25 16:32 Urine Urobilinogen (Auto) 0.2 mg/dL 03/11/25 16:32 Leukocyte Esterase (Auto) 0 Tamir/uL 03/11/25 16:32 Assessment & Plan Assessment & Plan (1) Overactive bladder: Code(s): N32.81 - Overactive bladder Category: Medical (2) Recurrent UTI: Code(s): N39.0 - Urinary tract infection, site not specified Category: Medical (3) Microscopic hematuria: Code(s): R31.29 - Other microscopic hematuria Category: Medical Plan In office urinalysis results reviewed with the patient today; as noted above. PVR 163mls Patient currently denies any bothersome urinary issues or concerns. She denies any UTI like symptoms. Continue Myrbetriq as discussed and prescribed; refill provided. Discussed bladder triggers/irritants. We discussed sooner follow-up given mildly elevated postvoid residual today. Follow-up in 3 months with PVR; or sooner with any issues, concerns, and or questions. Orders: Orders AMB Urinalysis Automated Today Z13.9 - Encounter for screening, unspecified AMB Post Void Residual by ultrasound Today N32.81 - Overactive bladder Patient Instructions: The patient had an opportunity to ask questions regarding the treatment plan. All questions were answered. Physical exam, labs, and imaging were discussed and reviewed in detail. As well as risks, benefits, and discussion of treatment choices. No major barriers to understanding were identified. The patient expressed understanding and agreement with the above treatment plan. The patient was made aware they should contact our office by phone for worsening of their current condition, the appearance of new symptoms, or with any questions or concerns. Compliance is encouraged with any medications and follow up testing that is ordered. It is a privilege to be allowed the opportunity to participate in? your urological care.? Again, if you have any questions or concerns If you have any questions or concerns please do not hesitate to contact me. The office is [phone]. This note is constructed using voice recognition software. While every effort has been made to ensure accuracy social media content manager errors may have been included. Yours sincerely, AURELIO Whiting Coding Level of Care Code Est Pt Level 3 (34392) Complex EM visit Add On G2211 Diagnoses Overactive bladder N32.81 Recurrent UTI N39.0 Microscopic hematuria R31.29 CPT Codes Post Residual Void - PVR CPT Code: 05021-Wwyh Void Residual by ultrasound ([id number])
== END 2025-03-11 16:39 | disposition home or self-care (01) ==
LOC: HO.HUSH 15:39
PROVIDERS: PCP Nurse Practitioner Family; Visit Provider Nurse Practitioner Family
DX: N32.81 Overactive bladder (principal); N39.0 Urinary tract infection, site not specified; R31.29 Other microscopic hematuria; Z13.9 Encounter for screening, unspecified
CPT/HCPCS: 99213; G2211

== ENCOUNTER → 2025-03-11 15:39 | Outpatient (BNVA) | payer OTHER, SELFPAY | PROVIDERS: PCP Nurse Practitioner Family; Visit Provider Nurse Practitioner Family | DX: N32.81 Overactive bladder (principal); N39.0 Urinary tract infection, site not specified; R31.29 Other microscopic hematuria | CPT/HCPCS: 51798; 81003; 99212 ==

== ENCOUNTER 2025-03-12 15:34 | Outpatient (AMB) | payer OTHER, MEDICAID, SELFPAY ==
--- NOTE | 2025-03-12 15:44 | A.OFFVIS_ITS ---
Vital Signs 03/12/25 15:45 Height 5 ft 7 in Weight 199 lb BMI 31.2 BP 110/80 Blood Pressure Location Lt brachial Position Sitting Pulse 80 Pulse Source Pulse Oximeter Pulse Oximetry (%) 94 Oxygen Delivery Method Room Air Intake Visit Reasons: COPD Intake Note: pt is here for follow up and states she is starting with cold in throat and nasal congestion. coughing. Landing Support Specialist Required: No Allergies dabigatran etexilate [From PRADAXA] Allergy (Intermediate, Verified 03/12/25 15:59) SWELLING\hives Medication List - Last Reconciled 03/12/25 by Ruth Thomas MD acetaminophen 1,000 mg (2 x 500 mg) PO Q8H PRN 15 days albuterol sulfate 2.5 mg (3 mL) inhalation Q4-6H PRN albuterol sulfate 90 mcg/actuation (Ventolin HFA) 2 puffs inhalation Q4-6H PRN 30 days alcohol swabs (Alcohol Pads) 1 pad topical DAILY amlodipine 2.5 mg PO DAILY atorvastatin 40 mg PO DAILY blood pressure test kit-large Use to check BP daily blood sugar diagnostic (FreeStyle Lite Strips) Test blood sugar daily blood-glucose meter (FreeStyle Lite Meter kit) Use to test blood sugar 3 times a day cetirizine 10 mg PO DAILY PRN cholecalciferol (vitamin D3) 50 mcg PO DAILY clonazepam 1 mg PO BID cranberry fruit 450 mg PO BID 90 days fluticasone propion-salmeterol 250-50 mcg/dose (Wixela Inhub) 1 ea inhalation BID ibuprofen 600 mg PO DAILY PRN 30 days lancets (FreeStyle Lancets) Test blood sugar daily lisinopril 20 mg PO DAILY meclizine 25 mg PO TID PRN mirabegron ER 50 mg PO DAILY 90 days omeprazole 20 mg PO DAILY primidone 0 mg PO propranolol 60 mg PO BID [pull ups The patient is using 8 pull ups a day; size extra large] [Quad care As directed] [Recliner lift chair As directed] rivaroxaban (Xarelto) 20 mg PO BEDTIME sucralfate (Carafate) 2 grams (2 x 1 gram) PO .daily at 11pm tiotropium bromide (Spiriva with HandiHaler) 1 cap inhalation DAILY 30 days trazodone 100 mg PO BEDTIME Ultra-Light Rollator (walker) lower extrem weakness, use daily NS [Upright Posture Walker daily use] Ventolin HFA 90 mcg/actuation (albuterol sulfate) 2 puffs inhalation Q4-6H PRN 30 days NS zolpidem 10 mg PO BEDTIME PRN Do you need a note to return to daycare/school/sports/work: No HPI HPI COPD: Details: This 65 years old female with longstanding chronic obstructive pulmonary disease, history of ongoing smoking, a recovering alcoholic, anxious lady. Is here for follow-up after 4 months. She claims that she is having increased bouts of cough lately, she thinks that she had some upper respiratory infection, but denies any fever chills or chest pain. She continues to smoke 6-10 cigarettes a day. Missed her lung scan last year . Comes today for follow-up. [facility] Medical History Cardiac pacemaker in situ (~2014) Paroxysmal atrial fibrillation LVH (left ventricular hypertrophy) Essential hypertension Hyperlipidemia Diabetes COPD (chronic obstructive pulmonary disease) Nicotine dependence, cigarettes, uncomplicated Benign essential tremor Microscopic hematuria Recurrent UTI Osteopenia (~2021) Obesity, Class I, BMI 30-34.9 Hypertensive retinopathy GERD (gastroesophageal reflux disease) Diverticulitis Tubular adenoma of colon (~2017) Mesenteric lymphadenopathy Thrombocytopenia Depression Insomnia Arthritis Breast calcification, right Surgical History History of pacemaker History of cholecystectomy History of tonsillectomy and adenoidectomy History of eye surgery History of tubal ligation History of colonoscopy History of esophagogastroduodenoscopy (EGD) History of pubovaginal sling History of dilatation and curettage History of loop electrical excision procedure (LEEP) History of right breast biopsy History of vocal cord polypectomy Family History Father Family history of diabetes mellitus Mother Diabetes mellitus Substance use disorder Sister Uterine cancer Diabetes mellitus Mental health disorder Substance use disorder Maternal Grandfather No problems noted. Maternal Grandmother Unknown family medical history Paternal Grandfather No problems noted. Paternal Grandmother No problems noted. Social History Household Members: Other Household Members Other:: Ex-, Daughter Housing: Apartment Alcohol intake: former Year quit: 2001 Patient Tobacco Use Status: Current everyday Tobacco user Tobacco use type: Cigarette Cigarettes Per Day: 4 Years Smoked: (onset 16yo, 1ppd x 47yrs, 40pyh) e-Cigarette/Vaping Use: Never Used Second Hand Smoke Exposure: Yes Advance Directives Date on File: 03/21/22 service: No Current occupational status: disabled Cognitive needs: No Hearing needs: No Vision needs: No Female Reproductive History Menstrual Age of Menarche: 7 Review of Systems Const All systems reviewed & are unremarkable except as noted in HPI and below Eyes Reports no additional complaints ENT Reports no additional complaints Card Denies chest pain, Denies irregular heart rhythm and Reports other (Has demand pacemaker in the left pectoral area) Resp Reports as per HPI GI Reports abdominal pain, Reports constipation, Reports heartburn, Reports diarrhea and Reports other (Irritable bowel syndrome) Reports nocturia Musc Reports back pain Skin/Breast Reports system reviewed and no additional complaints, except as documented Neuro Reports tremor(s) (Essential tremors) Psych Reports anxiety and Reports depression Endo Reports other (Diabetes mellitus) Physical Exam Vital Signs: Last Vital Signs Pulse 80 03/12/25 15:45 BP 110/80 03/12/25 15:45 Pulse Ox 94 03/12/25 15:45 Oxygen Delivery Method Room Air 03/12/25 15:45 BMI result Body Mass Index 31.2 Const General: comfortable, no acute distress, alert and awake Orientation/consciousness: patient oriented x3 HEENT Head: Yes normal to inspection General nose exam: No nasal polyps present and No nasal discharge present Face and sinus: Yes sinuses nontender Mouth: oropharynx normal Throat: Yes posterior oropharynx normal Eyes General: appearance normal, both eyes and all related structures Neck Neck: Yes normal visual inspection, Yes no lymphadenopathy, Yes trachea midline and Yes no JVD Thyroid: Thyroid normal Chest Chest palpation & inspection: normal inspection of the chest, normal palpation of entire chest wall and no tenderness Resp Other: Percussion note is resonant, breath sounds are distant with prolonged expiratory phase. No wheezes rhonchi or crepitations are heard . Cardio Palpation: normal PMI Rate: regular rate Rhythm: regular rhythm and other (Pacemaker in left pectoral area) Heart sounds: no gallops and no murmurs Peripheral pulses: Peripheral pulses 2+ throughout GI Palpation (GI): Soft to palpation, nontender, No hepatosplenomegaly present and no masses Auscultation: normal bowel sounds Back/Spine/Pelvis Thoracic/Lumbar Spine: thoracic and lumbar spine normal to inspection Skin General skin exam: no rashes or lesions noted Neuro Other: Patient has tremors of the head, and slightly tremorous speech General: patient oriented x3 and no focal motor deficits Cranial nerves: Yes CN's II-XII intact bilaterally Extrem General: Yes normal to inspection, Yes no clubbing, cyanosis or edema and Yes no calf tenderness Psych Speech and movement: Normal speech and movement present Affect: Anxious affect present Assessment & Plan Assessment & Plan (1) COPD (chronic obstructive pulmonary disease): Comment: Long-standing history of COPD, severe per PFT with component of asthma. It is relatively stable at this time. Does have some intermittent cough related to smoking but no wheezes. I think she is at her baseline. Her main complaint being cough and she is looking for a prescription cough medicine. Code(s): J44.9 - Chronic obstructive pulmonary disease, unspecified Category: Medical Plan: Patient explained in detail that she is on optimal treatment. There is no sign of active. Infection at this time Her cough is going to be chronic and related to her ongoing smoking. Continue Wixela 250-51 inhalation b.i.d.. Spiriva HandiHaler 1 capsule daily Albuterol HFA 2 puffs Q 6 hours p.r.n. Also may use albuterol solution in the nebulizer Q 6 hours p.r.n. She can use OTC cough syrup such as Robitussin DM q.6 hours PRN, but she does not need to have a prescription cough medicine. (2) Nicotine dependence, cigarettes, uncomplicated: Comment: (Current smoker - onset 16yo, 1ppd x 47yrs, 40pyh) TRYING TO CUT DOWN AND NOW SMOKES 5-6 CIGARETTES A DAY. Code(s): F17.210 - Nicotine dependence, cigarettes, uncomplicated Category: Medical Plan: Again discussed about her smoking and she needs to quit completely. With her background of chronic anxiety it is hard for her to quit completely. She is advised to continue with annual lung screening with LDCT. (3) Benign essential tremor: Comment: Patient has chronic benign tremors, holding stable with Propanolol 60 mg b.i.d. She is being followed by Dr. Vieira ( no adverse effect on lungs and breathing ) Code(s): G25.0 - Essential tremor Category: Medical Plan: as above Coding Level of Care Code Est Pt Level 3 (66778) Diagnoses COPD (chronic obstructive pulmonary disease) J44.9 Nicotine dependence, cigarettes, uncomplicated F17.210 Benign essential tremor G25.0
[2025-03-12 15:45] VITALS: BP 110/80; PULSE 80; O2SAT 94; BMI 31.2
== END 2025-03-12 16:01 | disposition home or self-care (01) ==
LOC: HO.HPS 15:35
PROVIDERS: PCP Nurse Practitioner Family; Visit Provider Internal Medicine
DX: J44.9 Chronic obstructive pulmonary disease, unspecified (principal); F17.210 Nicotine dependence, cigarettes, uncomplicated; G25.0 Essential tremor
CPT/HCPCS: 99213

== ENCOUNTER → 2025-03-12 15:34 | Outpatient (BNVA) | payer OTHER, SELFPAY | PROVIDERS: PCP Nurse Practitioner Family; Visit Provider Internal Medicine | DX: J44.9 Chronic obstructive pulmonary disease, unspecified (principal); G25.0 Essential tremor; F17.210 Nicotine dependence, cigarettes, uncomplicated | CPT/HCPCS: 99212 ==

== ENCOUNTER → 2025-04-08 23:59 | Outpatient (BNV) | payer OTHER, SELFPAY ==
--- NOTE | 2025-04-20 12:05 | MHC.OFFVIS ---
Intake Visit Reasons: Remote device check- Medtronic Allergies dabigatran etexilate (From PRADAXA) Allergy (Intermediate, Verified 04/09/25 12:57) SWELLING\hives PFSH Medical History Cardiac pacemaker in situ (~2014) Paroxysmal atrial fibrillation LVH (left ventricular hypertrophy) Essential hypertension Hyperlipidemia Diabetes COPD (chronic obstructive pulmonary disease) Nicotine dependence, cigarettes, uncomplicated Benign essential tremor Microscopic hematuria Recurrent UTI Osteopenia (~2021) Obesity, Class I, BMI 30-34.9 Hypertensive retinopathy GERD (gastroesophageal reflux disease) Diverticulitis Tubular adenoma of colon (~2017) Mesenteric lymphadenopathy Thrombocytopenia Depression Insomnia Arthritis Breast calcification, right Surgical History History of pacemaker History of cholecystectomy History of tonsillectomy and adenoidectomy History of eye surgery History of tubal ligation History of colonoscopy History of esophagogastroduodenoscopy (EGD) History of pubovaginal sling History of dilatation and curettage History of loop electrical excision procedure (LEEP) History of right breast biopsy History of vocal cord polypectomy Family History Father Family history of diabetes mellitus Mother Diabetes mellitus Substance use disorder Sister Uterine cancer Diabetes mellitus Mental health disorder Substance use disorder Maternal Grandfather No problems noted. Maternal Grandmother Unknown family medical history Paternal Grandfather No problems noted. Paternal Grandmother No problems noted. Social History Household Members: Other Household Members Other:: Ex-, Daughter Housing: Apartment Alcohol intake: former Year quit: 2001 Patient Tobacco Use Status: Current everyday Tobacco user Tobacco use type: Cigarette Cigarettes Per Day: 4 Years Smoked: (onset 16yo, 1ppd x 47yrs, 40pyh) e-Cigarette/Vaping Use: Never Used Second Hand Smoke Exposure: Yes Advance Directives Date on File: 03/21/22 service: No Current occupational status: disabled Cognitive needs: No Hearing needs: No Vision needs: No Female Reproductive History Menstrual Age of Menarche: 7 Office Procedures Cardiac Device Check Cardiac Device Check Details: Remote pacemaker report generated 04/12/2025. Pacemaker function is adequate [id number] Cardiac Device Interrogation, pacemaker Procedure code (CPT) selection complete Assessment & Plan Assessment & Plan (1) Cardiac pacemaker in situ: Onset Date: ~2014 Comment: (Medtronic DCPP - placed 05/10/2015) Code(s): Z95.0 - Presence of cardiac pacemaker Category: Medical Plan: See above Coding Level of Care Code Procedure Only Diagnoses Cardiac pacemaker in situ Z95.0 CPT Codes Cardiac Device Check - Cardiac Device 12: [id number] Cardiac Device Interrogation, pacemaker ([id number])
== END ==
PROVIDERS: PCP Nurse Practitioner Family; Visit Provider Internal Medicine Cardiovascular Disease
DX: Z45.018 Encounter for adjustment and management of other part of cardiac pacemaker (principal)
CPT/HCPCS: 93294

== ENCOUNTER 2025-04-09 12:41 | Outpatient (AMB) | payer OTHER, SELFPAY ==
--- NOTE | 2025-04-09 13:06 | A.OFFVIS_ITS ---
Vital Signs 04/09/25 13:07 Height 5 ft 7 in Weight 187 lb 6.287 oz BMI 29.3 BP 110/70 Blood Pressure Location Lt brachial Position Sitting Pulse 66 Intake Visit Reasons: over due follow-up Intake Note: Overdue follow-up with Leondra music feeling good Pharmacy Technician Trainee Required: No Allergies dabigatran etexilate (From PRADAXA) Allergy (Intermediate, Verified 04/09/25 12:57) SWELLING\hives Medication List - Last Reconciled 04/09/25 by KATHLEEN Foley acetaminophen 1,000 mg (2 x 500 mg) PO Q8H PRN 15 days albuterol sulfate 2.5 mg (3 mL) inhalation Q4-6H PRN albuterol sulfate 90 mcg/actuation (Ventolin HFA) 2 puffs inhalation Q4-6H PRN 30 days alcohol swabs (Alcohol Pads) 1 pad topical DAILY amlodipine 2.5 mg PO DAILY atorvastatin 40 mg PO DAILY bisacodyl (Dulcolax (bisacodyl)) take 2 tabs qhs 3 days prior to procedure orally bedtime; 2 days blood pressure test kit-large Use to check BP daily blood sugar diagnostic (FreeStyle Lite Strips) Test blood sugar daily blood-glucose meter (FreeStyle Lite Meter kit) Use to test blood sugar 3 times a day cetirizine 10 mg PO DAILY PRN cholecalciferol (vitamin D3) 50 mcg PO DAILY clonazepam 1 mg PO BID cranberry fruit 450 mg PO BID 90 days fluticasone propion-salmeterol 250-50 mcg/dose (Wixela Inhub) 1 ea inhalation BID ibuprofen 600 mg PO DAILY PRN 30 days lancets (FreeStyle Lancets) Test blood sugar daily lisinopril 20 mg PO DAILY meclizine 25 mg PO TID PRN mirabegron ER 50 mg PO DAILY 90 days omeprazole 20 mg PO DAILY peg 3350-electrolytes 236-22.74-6.74 -5.86 gram (Golytely) 240 mL PO Q10M 1 day primidone 0 mg PO propranolol 60 mg PO BID [pull ups The patient is using 8 pull ups a day; size extra large] [Quad care As directed] [Recliner lift chair As directed] rivaroxaban (Xarelto) 20 mg PO BEDTIME sucralfate (Carafate) 2 grams (2 x 1 gram) PO .daily at 11pm tiotropium bromide (Spiriva with HandiHaler) 1 cap inhalation DAILY 30 days trazodone 100 mg PO BEDTIME Ultra-Light Rollator (walker) lower extrem weakness, use daily NS [Upright Posture Walker daily use] Ventolin HFA 90 mcg/actuation (albuterol sulfate) 2 puffs inhalation Q4-6H PRN 30 days NS HPI HPI over due follow-up: Details: Myrtle is a 65-year-old female with past medical history of hypertension, hyperlipidemia, paroxysmal atrial fibrillation, LVH, pacemaker who reported chest discomfort and recently underwent a nuclear stress test and now presents for follow-up. Today she reports that she has not been getting recurrent chest discomfort. She says her breathing is at its baseline. She has some shortness of breath with exertion which she relates to smoking. No PND, orthopnea or edema. No heart palpitations, lightheadedness, presyncope, syncope. No bleeding issues with Xarelto. She continues to smoke 4 cigarettes per day. Takes her meds as directed. [facility] Medical History Cardiac pacemaker in situ (~2014) Paroxysmal atrial fibrillation LVH (left ventricular hypertrophy) Essential hypertension Hyperlipidemia Diabetes COPD (chronic obstructive pulmonary disease) Nicotine dependence, cigarettes, uncomplicated Benign essential tremor Microscopic hematuria Recurrent UTI Osteopenia (~2021) Obesity, Class I, BMI 30-34.9 Hypertensive retinopathy GERD (gastroesophageal reflux disease) Diverticulitis Tubular adenoma of colon (~2017) Mesenteric lymphadenopathy Thrombocytopenia Depression Insomnia Arthritis Breast calcification, right Surgical History History of pacemaker History of cholecystectomy History of tonsillectomy and adenoidectomy History of eye surgery History of tubal ligation History of colonoscopy History of esophagogastroduodenoscopy (EGD) History of pubovaginal sling History of dilatation and curettage History of loop electrical excision procedure (LEEP) History of right breast biopsy History of vocal cord polypectomy Family History Father Family history of diabetes mellitus Mother Diabetes mellitus Substance use disorder Sister Uterine cancer Diabetes mellitus Mental health disorder Substance use disorder Maternal Grandfather No problems noted. Maternal Grandmother Unknown family medical history Paternal Grandfather No problems noted. Paternal Grandmother No problems noted. Social History Household Members: Other Household Members Other:: Ex-, Daughter Housing: Apartment Alcohol intake: former Year quit: 2001 Patient Tobacco Use Status: Current everyday Tobacco user Tobacco use type: Cigarette Cigarettes Per Day: 4 Years Smoked: (onset 16yo, 1ppd x 47yrs, 40pyh) e-Cigarette/Vaping Use: Never Used Second Hand Smoke Exposure: Yes Advance Directives Date on File: 03/21/22 service: No Current occupational status: disabled Cognitive needs: No Hearing needs: No Vision needs: No Female Reproductive History Menstrual Age of Menarche: 7 Review of Systems Const All systems reviewed & are unremarkable except as noted in HPI and below Denies chills, Denies fatigue, Denies fever(s), Denies frequent falls, Denies weakness, Denies weight gain and Denies weight loss ENT Denies dizziness Card Denies chest pain, Denies leg edema, Denies lightheadedness, Denies palpitations, Reports dyspnea on exertion, Denies orthopnea and Denies other (loss of consciousness) Resp Reports dyspnea on exertion GI Denies hematochezia and Denies change in stool character Musc Details: abrasions on right knee, right ankle, right elbow from recent trip and fall Denies abnormal gait, Denies muscle weakness, Denies numbness, Denies radiating pain into limb and Denies tingling Neuro Denies abnormal gait, Denies dizziness, Denies frequent falls, Denies numbness, Denies tingling and Denies weakness Endo Denies fatigue and Denies palpitations Physical Exam Vital Signs: Last Vital Signs Pulse 66 04/09/25 13:07 BP 110/70 04/09/25 13:07 BMI result Body Mass Index 29.3 Const General: cooperative, healthy appearing, comfortable and no acute distress Orientation/consciousness: patient oriented x3 Resp Effort & Inspection: normal respiratory effort Auscultation: clear to auscultation bilaterally, no rales, no rhonchi and no wheezes Cardio Rate: regular rate Rhythm: regular rhythm Heart sounds: S1 normal heart sound present, S2 normal heart sound present, no murmurs and no rubs Skin Other: abrasions noted right knee, ankle, elbow - no redness, swelling or drainage Neuro General: patient oriented x3 Extrem General: Yes normal to inspection, No no pedal edema and No calf tenderness Psych Appearance: grossly normal Mental Status: mental status grossly normal Speech and movement: Normal speech and movement present Office Procedures Cardiac Device Check Cardiac Device Check Details: Medtronic dual-chamber pacemaker interrogation today battery 16 months AAIR to DDDR mode low rate 60, no VT, no AT or AF, a paced V sense 77.1% a sense V sense 22.8%, patient activity less than 1 hour a day for the last week [id number] Cardiac Device Check, pacemaker dual lead Procedure code (CPT) selection complete Assessment & Plan Assessment & Plan (1) Paroxysmal atrial fibrillation: Code(s): I48.0 - Paroxysmal atrial fibrillation Category: Medical Plan: History of paroxysmal atrial fibrillation treated with rhythm control. She is currently on propranolol for heart rate control. Device interrogation today is showing atrial fibrillation burden less than 0.1%. She is on Xarelto for anticoagulation. Labs 02/18/2025 shows creatinine 0.74. Cardiology follow-up in 6 months, sooner if needed. (2) Cardiac pacemaker in situ: Onset Date: ~2014 Comment: (Medtronic DCPP - placed 05/10/2015) Code(s): Z95.0 - Presence of cardiac pacemaker Category: Medical Plan: Medtronic dual-chamber pacemaker. Interrogation today shows it is functioning normally. Battery 16 months. Remote monitoring in use, instructed on sending transmissions at least every 3 months. Office interrogation due next visit. (3) Essential hypertension: Code(s): I10 - Essential (primary) hypertension Category: Medical Plan: Blood pressure goal less than 130/80, well controlled at this time. Continue propranolol, lisinopril, amlodipine. (4) Hyperlipidemia: Code(s): E78.5 - Hyperlipidemia, unspecified Category: Medical Plan: [place] LDL goal less than 100. Labs done 02/18/2025 shows LDL 79. Continue atorvastatin 40 mg daily. (5) Chest discomfort: Code(s): R07.89 - Other chest pain Category: Medical Plan: Prior reports of nonexertional chest discomfort which she now believes is related to GERD. Pharmacological nuclear stress test done 11/26/2024 showing likely normal myocardial perfusion imaging. Signs and symptoms of angina reviewed with her. Continue with risk factor modification. Plan I discussed with the patient that her hypertension and hyperlipidemia are well- controlled with current medications, and no changes are necessary. We reviewed the pacemaker's status, confirming it is functioning well with a battery life of 16 months, and no atrial fibrillation episodes have been detected. I advised the patient to monitor for chest discomfort with activity and that her prior discomfort waslikely due to acid reflux, and is now manage with her current medications. We discussed the importance of smoking cessation, acknowledging her reduction to four cigarettes per day. The patient is scheduled for cataract surgery and should inform the surgical team about her pacemaker. Follow-up with Dr. Callahan is planned in six months, with remote monitoring of the pacemaker in place. Patient Instructions: - Continue current medications for hypertension and hyperlipidemia. - Monitor chest discomfort with exertion and notify this office, seeking ED evaluation if needed - Inform surgical team about pacemaker before cataract surgery. - Aim to quit smoking, currently reduced to four cigarettes daily. - Follow up with Dr. Callahan in six months. Patient was informed and verbally consented to the use of an ambient scribe for clinic note documentation during this visit. Visit time spent on chart review, interview, assessment, orders, documentation. Coding Level of Care Code Est Pt Level 4 (36734) Complex EM visit Add On G2211 Diagnoses Paroxysmal atrial fibrillation I48.0 Cardiac pacemaker in situ Z95.0 Essential hypertension I10 Hyperlipidemia E78.5 Chest discomfort R07.89 CPT Codes Cardiac Device Check - Cardiac Device 2: [id number] Cardiac Device Check, pacemaker dual lead ([id number]) Time Spent (min) 28
[2025-04-09 13:07] VITALS: BP 110/70; PULSE 66; BMI 29.3
--- OUTSIDE RECORDS SUMMARY | 2025-04-09 13:42 | XMS_ITS ---
Author Name Arcenio Wasserman NP Address [address] [place] [id number] Phone [phone] [facility] Care Team Providers Care Ice Cream Mixer Name Role Phone Lux Arcenio Unavailable [phone] Reason for Referral Not Available Allergies, adverse [...] NIGHT AT BEDTIME. 2023-09-05 No Data Available Dunnvwifew-ONWB-Vmmrxpkg 50/325/40 mg Tab TAKE 1 TABLET EVERY [...] 2 puffs daily 2024-04-18 No Data Available Cranberry 450 mg Tab TAKE 1 TABLET ORALL Y 2 TIMES A DAY FOR 90 DAYS 2024-06-19 No Data Available ALCOHOL 70% PREP PADS USE ONCE DAILY 2024-10-10 No D julieth Available Albuterol Sulfate HFA 108 (90 Base) MCG/ACT Aerosol Solution INHALE 2 PUFFS EVERY 4 TO 6 HOURS NEEDED FOR SHORTNESS OF BREATH OR WHEEZING FOR 30 DAYS 2024-11-11 No Data Available Vitamin D3 50 MCG (1999 UT) Cap TAKE 1 CAPSULE BY MOUTH DAILY. 2024-06-18 No Data Available Problem List Problem Status Onset Date Resolved Date Synopsis OAB (overactive bladder) Active 2024-04-03 N/A MyrbetriqMonitor for changes in urine output and continue f/u care with PCP. GERD (gastroesophageal reflu x disease) Active 2024-04-03 N/A OmeprazoleMonito r for GI s/sx, dietary interventions and continue with PCP. GADInsomniaMajor depressive disorder in partial remission Active 2024-04-03 N/A Zo lpidem, Clonazepam Denies SI/HITherapistMonitor for worsening depression or panic attacks, sleep hygiene, monitor for sedative effect, and continue with PCP. Nicotine dependence Active 2024-04-18 N/A 4 cig arettes per day for the last 2-3 years. Previously 3 ppd. Started smoking since the 1970sEating sugar-free popsicles about 8-9 per day to avoid using cigarettes. States this works for her and wants to continue doing this. Discussed healthier alternatives, but this is what she prefers. Has tried NRT patch- didnt work for her. Doesnt want to try it again.Has tried pills didn't help. COPD (chronic obstructive pulmonary disease) Active 2024-04-03 N/A Incruse Ellip ta, Wixela, Spiriva Monitor for s/sx of respiratory distress (eg. SOB) and continue with PCP. Type 2 diabetes mellitus wit h ophthalmic complication - cataract Active 2024-04-18 N/A Dietary and life style interventions, monitor for changes in vision, and continue f/u care and monitoring with PCP and ophthalmology. States she will be going for cataract sx. Hypercoagulability due to atrial fibrillationVentricular tachycardiaPacemaker Active 2024-04-03 N/A Xarelto, Pr opranolol, AmlodipinePacemaker Bleeding risk precautions, monitor for cardiac s/sx (eg. palpitations) and continue f/u care with PCP and cardiology. Other problems related to medical facilities and other health care Active 2024-04-03 N/A ATRIAL FIBRIL LATION CONTINGENCY PLANAtrial FibrillationMember to call for the following symptoms: BP >180/100 / Dizziness/ HR >100 / PalpitationsPlanned intervention: Review members breathing exercises / Hold anti-coagulation medication for 2 days/ Ensure adherence with medications/ Encourage increased fluid intake Impaired functional mobility , balance, gait, and enduranceHistory of fall Active 2024-04-18 N/A uses Omthera Pharmaceuticalser rollator to ambulate. Reports recent fall.Monitor for falls, fall risk precautions, and continue f/u with PCP.Has night light in bathroom which has helped prevent falls in the last 5 months per member (03/24/25) Type 2 diabetes mellitus wit h chronic kidney disease, Chronic kidney disease, stage 3 unspecified Active 2025-03-24 N/A no lab results availableShe reports FBG range of 92-94 mg/dlRx: member states she is not on pharmacological therapy- Continue to monitor blood sugar, eGFR, UACR, and HbA1C levels.- Low fat/cholesterol, low glycemic index diet & regular exercise (as tolerated) recommended.- Renal Diet- Avoid/limit nephrotoxic substances.- Fasting FBG goal per ADA between 80 and 130 mg/dL- HA1c goal at least <8.0%; ideally <7.0%- Continue to follow up with PCP/Specialists.- Follows with launch leader. Unspecified convulsions Active 2025-03-24 N/A R x: primidone-managed by neurology-Fall/seizure precautions History of alcohol dependence Active 2025-03-24 N/A Member reports she is sober 26 years from alcohol (03/24/25) Screening for colon cancer Active 2025-03-24 N/A CRC: she reports colonoscopy 08/2024. She reports couple of polyps. She was advised to repeat in 3 years. She reports son (47) dx with colon cancer. History of recent fall, Abrasion Active 2025-04-07 N/A 04/07/25:She repo rts she fell yesterday while at [facility]. She banged her both knees, both arms and sustained a little scrape. Did not hit head. She didn't go to ER/urgent care/PCP. States the floor was wet- there was a fluid spilled on the floor, but no one knew per member. She admits she was not using her cane or walker. -reinforced use of assistive devices at all times when ambulating -keep abrasions clean, dry. Monitor for worsening symptoms including increased pain and redness, swelling at the site, warmth at the site, drainage. Contact PCP/CB if symptoms develop. Start mupirocin ointment TID x 5 days for treatment. Encounters Encounters Type Facility Date of Service Diagnosis/Co mplaint New patient,40-59min; chronic exacerbation, 2 stable chronic or 1 acute illness add add modifier 95 for video (do not use for phone, instead use [id number]) [facility] ([place]) 04/18/2024 Other thrombophiliaUnspecifi ed atrial fibrillationVentricular tachycardia, [...] (do not use for phone, instead use 48806-66) [facility], ([place]) 04/18/2024 New patient,40-59min; chronic exacerbation, 2 stable chronic or 1 acute illness add add modifier 95 for video (do not use for phone, instead use [id number]) [facility] [place]18[place]20[place] New patient,40-59min; chronic exacerbation, 2 stable chronic or 1 acute illness add add modifier 95 for video (do not use for phone, instead use 44585-81) [facility] [place] 04[place]18/20[place] New patient,40-59min; chronic exacerbation, 2 stable chronic or 1 acute illness add add modifier 95 for video (do not use for phone, instead use [id number]) [facility] [place] 04[place]18/20[place] New patient,40-59min; chronic exacerbation, 2 stable chronic or 1 acute illness add add modifier 95 for video (do not use for phone, instead use 91359-90) [facility] [place] 04[place]18/2024 New patient,40-59min; chronic exacerbation, 2 stable chronic or 1 acute illness add add modifier 95 for video (do not use for phone, instead use [id number]) [facility] [place] 04/18/2024 New patient,40-59min; chronic exacerbation, 2 stable chronic or 1 acute illness add add modifier 95 for video (do not use for phone, instead use 91143-35) [facility] [place] 04[place]18/2024 New patient,40-59min; chronic exacerbation, 2 stable chronic or 1 acute illness add add modifier 95 for video (do not use for phone, instead use 42434-66) [facility] [place] 04/18/2024 New patient,40-59min; chronic exacerbation, 2 stable chronic or 1 acute illness add add modifier 95 for video (do not use for phone, instead use 77823-77) [facility] [place]/18/2024 Estab. patient 20-29min; 1 stable chronic or 2 minor; add add modifier 95 for video, modifier 93 for phone [facility] [place] 03/24/2025 Other thrombophiliaUnspecifi ed atrial fibrillationVentricular tachycardia, unspecifiedPresence of cardiac pacemakerOther problems related to medical facilities and other health careChronic obstructive pulmonary disease, unspecifiedNicotine dependence, unspecified, uncomplicatedInsomnia, unspecifiedGeneralized anxiety disorderMajor depressive disorder, single episode, in partial remissionGastro-esophageal reflux disease without esophagitisOveractive bladderUnspecified convulsionsOther reduced mobilityHistory of fallingType 2 diabetes mellitus with other diabetic ophthalmic complicationType 2 diabetes mellitus with diabetic chronic kidney diseaseChronic kidney disease, stage 3 unspecifiedAlcohol dependence, in remissionEncounter for screening for malignant neoplasm of colon Estab. patient 20-29min; 1 stable chronic or 2 minor; add add modifier 95 for video, modifier 93 for phone [facility] [place] 03[place]24/20[place] Estab. patient 20-29min; 1 stable chronic or 2 minor; add add modifier 95 for video, modifier 93 for phone [facility] [place] 03/24/2025 Estab. patient 20-29min; 1 stable chronic or 2 minor; add add modifier 95 for video, modifier 93 for phone [facility] [place] 03/24/2025 Estab. patient 20-29min; 1 stable chronic or 2 minor; add add modifier 95 for video, modifier 93 for phone [facility] [place] 03/24/2025 Estab. patient 20-29min; 1 stable chronic or 2 minor; add add modifier 95 for video, modifier 93 for phone [facility] [place] 03/24/2025 Estab. patient 20-29min; 1 stable chronic or 2 minor; add add modifier 95 for video, modifier 93 for phone [facility] [place] 03/24/2025 Estab. patient 20-29min; 1 stable chronic or 2 minor; add add modifier 95 for video, modifier 93 for phone [facility] [place] 03/24/2025 Estab. patient 10-29min; 1 minor problem; add add modifier 95 for video, modifier 93 for phone [facility] [place] 04/07/2025 Type 2 diabetes mellitus wit h diabetic chronic kidney diseaseChronic kidney disease, stage 3 unspecifiedOther thrombophiliaUnspecified atrial fibrillationVentricular tachycardia, unspecifiedPresence of cardiac pacemakerOther problems related to medical facilities and other health careChronic obstructive pulmonary disease, unspecifiedNicotine dependence, unspecified, uncomplicatedInsomnia, unspecifiedGeneralized anxiety disorderMajor depressive disorder, single episode, in partial remissionGastro-esophageal reflux disease without esophagitisOveractive bladderUnspecified convulsionsOther reduced mobilityHistory of fallingType 2 diabetes mellitus with other diabetic ophthalmic complicationAlcohol dependence, in remissionEncounter for screening for malignant neoplasm of colonOther injury of unspecified body region, initial encounter Vital Signs Date of Collection Vitals 2024-04-18 12:52:46 Height - 170.18 cmWe ight - 93.44 kgBody Mass Index (BMI) - 32.26 kg/m2BP Diastolic - 77.0 mm[Hg]BP Systolic - 116.0 mm[Hg] 2025-03-24 07:42:48 Height - 170.18 cmWe ight - 86.18 kgBody Mass Index (BMI) - 29.76 kg/m2BP Diastolic - 60.0 mm[Hg]BP Systolic - 112.0 mm[Hg] Social History Social History Social History Observation Description Effec tive Time Current Smoking Status Current every day smoker 2025-04-09 Sex Female Gender identity Woman History of Procedures Procedures Service Procedure code Service date Servicing provider Phone# New patient,40-59min; chronic exacerbation, 2 stable chronic or 1 acute illness add add modifier 95 for video (do not use for phone, instead use [id number]) [id number] 2024-04-18 No Data Available No Data Availa [...] Available Advance care planning discussed and documented advance care plan or surrogate decision-maker was [...] No Data Available No Data Avail able Estab. patient 20-29min; 1 stable chronic or 2 minor; add add modifier 95 for video, modifier 93 for phone [id number] 2025-03-24 No Data Available No Data Availa ble Medication List Documented (1159F) 1159F 2025-03-24 No Data Available No Data Pamela ilable Medication Review by prescribing provider or pharmacist documented (1160F) 1160F 2025-03-24 No Data Available No Data Pamela ilable Functional Status Assessed (1170F) 1170F 2025-03-24 No Data Available No Data Avail able Advance Care Directive Advance care planning discussion documented in the medical record (1158F) 1158F 2025-03-24 No Data Available No Data Availa ble Advance care planning discussed and documented advance care plan or surrogate decision-maker was documented in the medical record. (1123F) 1123F 2025-03-24 No Data Available No Data Availa ble SBP < 130 (3074F) 3074F 2025-03-24 No Data Available No Data Available DBP <80 (3078F) 3078F 2025-03-24 No Data Available No Data Available Estab. patient 10-29min; 1 minor problem; add add modifier 95 for video, modifier 93 for phone [id number] 2025-04-07 No Data Available No Data Availa ble Functional Status Functional Category Effective Dates Cognition Status: Oriented to Person, Pl arjun and Time 2024-04-18 ADL: Bathing Independent , D ressing Independent , Eating Independent , Ambulation Independent , Transferring Independent and Toileting Independent. 2024-04-18 IADL: Medication Needs Zayra tance , Meal Prep Needs Assistance , Shopping Needs Assistance , Driving or Public Transport Needs Assistance , Housework Needs Assistance , Finances Needs Assistance. 2024-04-18 How many falls within the last 6 months? Yes. 2024-04-18 Do you feel unsteady on your feet? No. 2 Do you worry about falling? Yes DME used with ambulation: Rollator Walke r, cane 2025-03-24 DME: shower chair, night lig ht in bathroom, BP monitor, glucometer, pulse oximeter 2025-03-24 Mental Status Status Date AOx3 2024-04-18 Assessments Date of Service Assessments 2024-04-18 12:52:46 Other problems relat ed to medical facilities and other health careHypercoagulability due to atrial fibrillationVentricular tachycardiaPacemakerCOPD (chronic obstructive pulmonary disease)GADInsomniaMajor depressive disorder in partial remissionGERD (gastroesophageal reflux disease)OAB (overactive bladder)Nicotine dependenceImpaired functional mobility, balance, gait, and enduranceHistory of fallType 2 diabetes mellitus with ophthalmic complication - cataract 2025-03-24 07:42:48 Hypercoagulability d ue to atrial fibrillationVentricular tachycardiaPacemakerOther problems related to medical facilities and other health careCOPD (chronic obstructive pulmonary disease)Nicotine dependenceGADInsomniaMajor depressive disorder in partial remissionGERD (gastroesophageal reflux disease)OAB (overactive bladder)Unspecified convulsionsImpaired functional mobility, balance, gait, and enduranceHistory of fallType 2 diabetes mellitus with ophthalmic complication - cataractType 2 diabetes mellitus with chronic kidney disease, Chronic kidney disease, stage 3 unspecifiedHistory of alcohol dependenceScreening for colon cancer 2025-04-07 05:34:03 History of recent fa ll, AbrasionType 2 diabetes mellitus with chronic kidney disease, Chronic kidney disease, stage 3 unspecifiedHypercoagulability due to atrial fibrillationVentricular tachycardiaPacemakerOther problems related to medical facilities and other health careCOPD (chronic obstructive pulmonary disease)Nicotine dependenceGADInsomniaMajor depressive disorder in partial remissionGERD (gastroesophageal reflux disease)OAB (overactive bladder)Unspecified convulsionsImpaired functional mobility, balance, gait, and enduranceHistory of fallType 2 diabetes mellitus with ophthalmic complication - cataractHistory of alcohol dependenceScreening for colon cancer Plan of Care Date of Service Plans [...] discussed and documented in the medical record beneficiary/patient did not wish to or was unable to provide an advance care plan or name a surrogate decision-maker. (1124F)Continue to see PCP. Follow-up with [facility] as needed for any acute or disease education needs that may arise.ATRIAL FIBRILLATION CONTINGENCY PLANAtrial FibrillationMember to call for the following symptoms: BP >180/100 / Dizziness/ HR >100 / PalpitationsPlanned intervention: Review members breathing exercises / [...] f/u care and monitoring with PCP and process design chemical engineer. 2025-03-24 07:42:48 Functional Status As sessed (1170F)Advance Care Directive Advance care planning discussion documented in the medical record (1158F)Advance care planning discussed and documented advance care plan or surrogate decision-maker was documented in the medical record. (1123F)Estab. patient 20-29min; 1 stable chronic or 2 minor; add add modifier 95 for video, modifier 93 for phoneMedication List Documented (1159F)Medication Review by prescribing provider or pharmacist documented (1160F)SBP < 130 (3074F)DBP <80 (3078F)Continue to see PCP. Follow-up with [facility] as needed for any acute or disease education needs that may arise.Xarelto, Propranolol, AmlodipinePacemaker Bleeding risk precautions, monitor for cardiac s/sx (eg. palpitations) and continue f/u care with PCP and cardiology.ATRIAL FIBRILLATION CONTINGENCY PLANAtrial FibrillationMember to call for the following symptoms: BP >180/100 / Dizziness/ HR >100 / PalpitationsPlanned intervention: Review members breathing exercises / Hold anti-coagulation medication for 2 days/ Ensure adherence with medications/ Encourage increased fluid intakeIncruse Ellipta, Wixela, Spiriva Monitor for s/sx of respiratory distress (eg. SOB) and continue with PCP.4 cigarettes per day for the last 2-3 years. Previously 3 ppd. Started smoking since the Eating sugar-free popsicles about 8-9 per day to avoid using cigarettes. States this works for her and wants to continue doing this. Discussed healthier alternatives, but this is what she prefers. Has tried NRT patch- didnt work for her. Doesnt want to try it again.Has tried pills didn't help.Zolpidem, Clonazepam Denies SI/HITherapistMonitor for worsening depression or panic attacks, sleep hygiene, monitor for sedative effect, and continue with PCP.OmeprazoleMonitor for GI s/sx, dietary interventions and continue with PCP.MyrbetriqMonitor for changes in urine output and continue f/u care with PCP.Rx: primidone-managed by neurology-Fall/seizure precautionsuses walker rollator to ambulate. Reports recent fall.Monitor for falls, fall risk precautions, and continue f/u with PCP.Has night light in bathroom which has helped prevent falls in the last 5 months per member (03/24/25)Dietary and lifestyle interventions, monitor for changes in vision, and continue f/u care and monitoring with PCP and ophthalmology. States she will be going for cataract sx.no lab results availableShe reports FBG range of 92-94 mg/dlRx: member states she is not on pharmacological therapy- Continue to monitor blood sugar, eGFR, UACR, and HbA1C levels.- Low fat/cholesterol, low glycemic index diet & regular exercise (as tolerated) recommended.- Renal Diet- Avoid/limit nephrotoxic substances.- Fasting FBG goal per ADA between 80 and 130 mg/dL- HA1c goal at least <8.0%; ideally <7.0%- Continue to follow up with PCP/Specialists.- Follows with launch leader.Member reports she is sober 26 years from alcohol (03/24/25)CRC: she reports colonoscopy 08/2024. She reports couple of polyps. She was advised to repeat in 3 years. She reports son (47) dx with colon cancer. 2025-04-07 05:34:03 Estab. patient 10-29 min; 1 minor problem; add add modifier 95 for video, modifier 93 for phoneContinue to see PCP. Follow-up with [facility] as needed for any acute or disease education needs that may arise 14/05.04/07/25:She reports she fell yesterday while at [facility]. She banged her both knees, both arms and sustained a little scrape. Did not hit head. She didn't go to ER/urgent care/PCP. States the floor was wet- there was a fluid spilled on the floor, but no one knew per member. She admits she was not using her cane or walker. -reinforced use of assistive devices at all times when ambulating -keep abrasions clean, dry. Monitor for worsening symptoms including increased pain and redness, swelling at the site, warmth at the site, drainage. Contact PCP/CB if symptoms develop. Start mupirocin ointment TID x 5 days for treatment.no lab results availableShe reports FBG range of 92-94 mg/dlRx: member states she is not on pharmacological therapy- Continue to monitor blood sugar, eGFR, UACR, and HbA1C levels.- Low fat/cholesterol, low glycemic index diet & regular exercise (as tolerated) recommended.- Renal Diet- Avoid/limit nephrotoxic substances.- Fasting FBG goal per ADA between 80 and 130 mg/dL- HA1c goal at least <8.0%; ideally <7.0%- Continue to follow up with PCP/Specialists.- Follows with launch leader.Xarelto, Propranolol, AmlodipinePacemaker Bleeding risk precautions, monitor for cardiac s/sx (eg. palpitations) and continue f/u care with PCP and cardiology.ATRIAL FIBRILLATION CONTINGENCY PLANAtrial FibrillationMember to call for the following symptoms: BP >180/100 / Dizziness/ HR >100 / PalpitationsPlanned intervention: Review members breathing exercises / Hold anti-coagulation medication for 2 days/ Ensure adherence with medications/ Encourage increased fluid intakeIncruse Ellipta, Wixela, Spiriva Monitor for s/sx of respiratory distress (eg. SOB) and continue with PCP.4 cigarettes per day for the last 2-3 years. Previously 3 ppd. Started smoking since the Eating sugar-free popsicles about 8-9 per day to avoid using cigarettes. States this works for her and wants to continue doing this. Discussed healthier alternatives, but this is what she prefers. Has tried NRT patch- didnt work for her. Doesnt want to try it again.Has tried pills didn't help.Zolpidem, Clonazepam Denies SI/HITherapistMonitor for worsening depression or panic attacks, sleep hygiene, monitor for sedative effect, and continue with PCP.OmeprazoleMonitor for GI s/sx, dietary interventions and continue with PCP.MyrbetriqMonitor for changes in urine output and continue f/u care with PCP.Rx: primidone-managed by neurology-Fall/seizure precautionsuses walker rollator to ambulate. Reports recent fall.Monitor for falls, fall risk precautions, and continue f/u with PCP.Has night light in bathroom which has helped prevent falls in the last 5 months per member (03/24/25)Dietary and lifestyle interventions, monitor for changes in vision, and continue f/u care and monitoring with PCP and ophthalmology. States she will be going for cataract sx.Member reports she is sober 26 years from alcohol (03/24/25)CRC: she reports colonoscopy 08/2024. She reports couple of polyps. She was advised to repeat in 3 years. She reports son (47) dx with colon cancer. Goals Date Goal 2024-04-18 Remember to adhere t o dietary interventions and exercise as tolerable. 2024-04-18 Contact us if develo ping palpitations, fatigue, SOB, worsening depression or anxiety, urinary incontinences, HHS, DKA, falls, or any health-related concerns. 2024-04-18 Continue taking medi cations as prescribed and f/u care and monitoring with PCP every 3-6 months. 2025-03-24 Continue taking medi cations as directed and keep all follow up appointments with established PCP and Specialist. 2025-03-24 At least 50% of time spent counseling patient, discussing diagnosis, treatment plan, complicance, and coordinating follow up care. 2025-04-07 Continue taking medi cations as directed and keep all follow up appointments with established PCP and Specialist. 2025-04-07 At least 50% of time spent counseling patient, discussing diagnosis, treatment plan, complicance, and coordinating follow up care. Health Concerns Date Concern 2025-04-07 Patient seen using a udio and video.Patient/Guardian agreed to visit via telehealth.Time spent in visit: 2025-04-07 Most recent hospital stay(s) or ER visit(s) and precipitating factors: denies recent visits 2025-04-07 HEDIS review: review edHA1c: no results availableeGFR: no results availableUACR: no results available 2025-04-07 She reports she fell yesterday while at [facility]. She banged her both knees, both arms and sustained a little scrape. Did not hit head. She didn't go to ER/urgent care/PCP. States the floor was wet- there was a fluid spilled on the floor, but no one knew per member. She admits she was not using her cane or walker. 2025-04-07 Otherwise, she repor ts no new concerns, needs, issues, or other changes in medical hx since last visit on 03/24/25. She was reminded of 24/ acute line program.
== END 2025-04-09 13:42 | disposition home or self-care (01) ==
PROVIDERS: PCP Nurse Practitioner Family; Visit Provider Nurse Practitioner Family
DX: I48.0 Paroxysmal atrial fibrillation (principal); Z95.0 Presence of cardiac pacemaker; I10 Essential (primary) hypertension; E78.5 Hyperlipidemia, unspecified; R07.89 Other chest pain
CPT/HCPCS: 93280; 99214; G2211

== ENCOUNTER → 2025-04-09 12:41 | Outpatient (BNVA) | payer OTHER, SELFPAY | PROVIDERS: PCP Nurse Practitioner Family; Visit Provider Nurse Practitioner Family | DX: Z45.018 Encounter for adjustment and management of other part of cardiac pacemaker (principal); I48.0 Paroxysmal atrial fibrillation; I10 Essential (primary) hypertension; R07.89 Other chest pain; E78.5 Hyperlipidemia, unspecified; K21.9 Gastro-esophageal reflux disease without esophagitis; K58.2 Mixed irritable bowel syndrome; D12.6 Benign neoplasm of colon, unspecified; D69.6 Thrombocytopenia, unspecified; J44.9 Chronic obstructive pulmonary disease, unspecified; Z79.01 Long term (current) use of anticoagulants | CPT/HCPCS: 93280; 99212 ==

== ENCOUNTER 2025-04-09 12:48 | Outpatient (AMB) | payer OTHER, SELFPAY ==
--- NOTE | 2025-04-09 12:56 | MHC.OFFVIS ---
Vital Signs 04/09/25 13:58 Height 5 ft 7 in Weight 187 lb BMI 29.3 BP 110/70 Blood Pressure Location Lt brachial Position Sitting Pulse 66 Pulse Source Pulse Oximeter Pulse Oximetry (%) 96 Oxygen Delivery Method Room Air Intake Visit Reasons: Gerd F/u r/s 02/18 Intake Note: Est pt for mgmt of IBS D + GERD CC; Pt denies any GI sx or concerns at this time. Pt states that she needs a refill of their omeprazole at this time. Sem Manager Required: No Accompanied by: Self / Same As Patient Allergies dabigatran etexilate (From PRADAXA) Allergy (Intermediate, Verified 04/09/25 12:57) SWELLING\hives HPI HPI Gerd F/u r/s 02/18: Details: Assessment & Plan (1) Irritable bowel syndrome with both constipation and diarrhea: Code(s): K58.2 - Mixed irritable bowel syndrome Category: Medical (2) GERD (gastroesophageal reflux disease): Code(s): K21.9 - Gastro-esophageal reflux disease without esophagitis Category: Medical Plan She still has diarrhea intermittently. She needs a note for her [employer] hours because they want to reduce them, she needs the assistance for showering with the diarrhea. she has 18.5 hours now and wants to keep these (she has had to have her ex shower her not her dtr). She wants 2 copies of the letter Myrtle needs to get me where to send the letter. She continues on sucralfate and omeprazole. ROV 6 mos. Medications: Changed From sucralfate 2 grams (2 x 1 gram) PO .daily at 11pm 60 tabs 6RF R19.7 - Diarrhea, unspecified To sucralfate (Carafate) 2 grams (2 x 1 gram) PO .daily at 11pm 60 tabs 6RF R19.7 - Diarrhea, unspecified Refilled omeprazole 20 mg PO DAILY 90 caps 2RF K21.9 - Gastro-esophageal reflux disease without esophagitis Laboratory Tests 02/18/25 15:10 WBC 8.3 Hgb 12.8 Hct 39.0 Plt Count 151 L Estimated GFR > 60 Total Bilirubin 0.2 AST 26 ALT 15 Alkaline Phosphatase 80 TSH 2.14 TODAYS VISIT She continues to do well on her omeprazole 20mg and her carafate. She still has reduced [employer] hours that are not working for her. She fell at [facility] slipping on water and she has bruises on her right knee and bilateral elbows. She had a large TA removed in 2021 and rather that wait she would like to have her colonoscopy scheduled. Her afib and her COPD are well controlled. No anes or sed problems. No ID problems . ROV 6 mos. She will be going to have her cataract surgery soon! ROV 6 mos. [facility] Medical History Cardiac pacemaker in situ (~2014) Paroxysmal atrial fibrillation LVH (left ventricular hypertrophy) Essential hypertension Hyperlipidemia Diabetes COPD (chronic obstructive pulmonary disease) Nicotine dependence, cigarettes, uncomplicated Benign essential tremor Microscopic hematuria Recurrent UTI Osteopenia (~2021) Obesity, Class I, BMI 30-34.9 Hypertensive retinopathy GERD (gastroesophageal reflux disease) Diverticulitis Tubular adenoma of colon (~2017) Mesenteric lymphadenopathy Thrombocytopenia Depression Insomnia Arthritis Breast calcification, right Surgical History History of pacemaker History of cholecystectomy History of tonsillectomy and adenoidectomy History of eye surgery History of tubal ligation History of colonoscopy History of esophagogastroduodenoscopy (EGD) History of pubovaginal sling History of dilatation and curettage History of loop electrical excision procedure (LEEP) History of right breast biopsy History of vocal cord polypectomy Family History Father Family history of diabetes mellitus Mother Diabetes mellitus Substance use disorder Sister Uterine cancer Diabetes mellitus Mental health disorder Substance use disorder Maternal Grandfather No problems noted. Maternal Grandmother Unknown family medical history Paternal Grandfather No problems noted. Paternal Grandmother No problems noted. Social History Household Members: Other Household Members Other:: Ex-, Daughter Housing: Apartment Alcohol intake: former Year quit: 2001 Patient Tobacco Use Status: Current everyday Tobacco user Tobacco use type: Cigarette Cigarettes Per Day: 4 Years Smoked: (onset 16yo, 1ppd x 47yrs, 40pyh) e-Cigarette/Vaping Use: Never Used Second Hand Smoke Exposure: Yes Advance Directives Date on File: 03/21/22 service: No Current occupational status: disabled Cognitive needs: No Hearing needs: No Vision needs: No Female Reproductive History Menstrual Age of Menarche: 7 Review of Systems Const Denies fatigue, Denies fever(s), Reports frequent falls, Denies night sweats, Denies poor appetite and Reports weight loss (3-4 lb) ENT Reports Normal hearing present, Denies dental pain, Denies dysphagia, Denies hearing loss, Denies mouth pain, Denies odynophagia, Denies throat swelling, Denies tongue swelling and Reports other (Dentition adequate) Card Reports no additional complaints Resp Reports no additional complaints GI Details: Denies abdominal pain, Denies melena, Reports bloating, Denies hematochezia, Denies constipation, Denies GI cramping, Denies dysphagia, Denies excessive flatus, Denies early satiety, Reports heartburn, Denies diarrhea, Denies nausea, Denies odynophagia, Denies vomiting and Denies hematemesis Musc Reports abnormal gait and Reports myalgias Skin/Breast Details: She fell [facility], slipped on water Denies pruritus, Denies lesions, Denies rash, Reports wounds and Denies jaundice Neuro Reports Normal hearing present, Denies Abnormal speech present, Reports abnormal gait and Reports frequent falls Endo Denies fatigue Aller/Immun Denies throat swelling and Denies tongue swelling Physical Exam Vital Signs: Last Vital Signs Pulse 66 04/09/25 13:58 BP 110/70 04/09/25 13:58 Pulse Ox 96 04/09/25 13:58 Oxygen Delivery Method Room Air 04/09/25 13:58 BMI result Body Mass Index 29.3 Const General: cooperative, no acute distress, well developed and well groomed Nutritional Appearance: well nourished and obese Orientation/consciousness: oriented to person, oriented to place and oriented to time Limitations: No language barrier, ambulation with walker and other limitations HEENT Head: Yes normocephalic and Yes atraumatic Eyes General: appearance normal, both eyes and all related structures Pupils: Equal, round and reactive pupils present Neck Neck: Yes normal visual inspection and Yes no lymphadenopathy Thyroid: Thyroid normal Resp Effort & Inspection: normal respiratory effort and able to speak in complete sentences Auscultation: clear to auscultation bilaterally Cardio Rate: regular rate Rhythm: regular rhythm Heart sounds: Normal, physiologic split S2 sound present Peripheral pulses: radial pulses present and posterior tibial pulses present GI Inspection: No distended, Yes Abdominal panniculus present and Yes obesity Palpation (GI): Soft to palpation, nontender, no guarding, not rigid and No hepatosplenomegaly present Percussion: Yes normal to percussion Auscultation: normal bowel sounds Rectal Exam - Female: deferred Skin Other: Large round bruise and abrasions on her right knee and bilateral elbows General skin exam: turgor normal, skin not dry, ecchymosis, no jaundice, No spider nevi and no striae Rashes: no rashes Trauma: abrasion Nails: normal Neuro General: oriented to person, oriented to place and oriented to time Cranial nerves: Yes Equal, round and reactive pupils present and Yes Normal hearing present Speech: No Abnormal speech present Extrem General: Yes normal to inspection, No clubbing, No cyanosis and No edema Psych Appearance: grossly normal and well kempt Mental Status: mental status grossly normal Speech and movement: Normal speech and movement present Affect: normal affect Attitude: cooperative Thought process: not confabulating and Impoverished thought process present Thought content: Normal thought content present Insight: Limited insight present (Psych) Judgement: Limited judgement present (Psych) Assessment & Plan Assessment & Plan (1) Irritable bowel syndrome with both constipation and diarrhea: Code(s): K58.2 - Mixed irritable bowel syndrome Category: Medical (2) GERD (gastroesophageal reflux disease): Code(s): K21.9 - Gastro-esophageal reflux disease without esophagitis Category: Medical (3) Tubular adenoma of colon: Onset Date: ~2018 Comment: (TA on 2018 & 2021 scope) Code(s): D12.6 - Benign neoplasm of colon, unspecified Category: Medical (4) Thrombocytopenia: Code(s): D69.6 - Thrombocytopenia, unspecified Category: Medical (5) Chronic anticoagulation: Comment: (Xarelto) Code(s): Z79.01 - penitentiary (current) use of anticoagulants Category: Medical (6) COPD (chronic obstructive pulmonary disease): Comment: Long-standing history of COPD, severe per PFT with component of asthma. It is relatively stable at this time. Does have some intermittent cough related to smoking but no wheezes. I think she is at her baseline. Her main complaint being cough and she is looking for a prescription cough medicine. Code(s): J44.9 - Chronic obstructive pulmonary disease, unspecified Category: Medical (7) Paroxysmal atrial fibrillation: Code(s): I48.0 - Paroxysmal atrial fibrillation Category: Medical Plan She continues to do well on her omeprazole 20mg and her carafate. She still has reduced [employer] hours that are not working for her. [facility] water and she has bruises on her right knee and bilateral elbows. She had a large TA removed in 2021 and rather that wait she would like to have her colonoscopy scheduled. Her afib and her COPD are well controlled. No anes or sed problems. No ID problems . ROV 6 mos. She will be going to have her cataract surgery soon! ROV 6 mos. Orders: Orders Colonoscopy - GI Use Only Today D12.6 - Benign neoplasm of colon, unspecified Medications: New peg 3350-electrolytes 236-22.74-6.74 -5.86 gram (Golytely) until fecal effluent is clear; do not exceed a total volume of 2,000 mL 240 mL PO Q10M 4,000 mL 0RF 1 day Z12.11 - Encounter for screening for malignant neoplasm of colon bisacodyl (Dulcolax (bisacodyl)) take 2 tabs qhs 3 days prior to procedure orally bedtime; 8 tabs 0RF 2 days Refilled sucralfate (Carafate) 2 grams (2 x 1 gram) PO .daily at 11pm 60 tabs 6RF R19.7 - Diarrhea, unspecified omeprazole 20 mg PO DAILY 90 caps 2RF K21.9 - Gastro-esophageal reflux disease without esophagitis Coding Level of Care Code Est Pt Level 4 (22307) Diagnoses Irritable bowel syndrome with both constipation and diarrhea K58.2 GERD (gastroesophageal reflux disease) K21.9 Tubular adenoma of colon D12.6 Thrombocytopenia D69.6 Chronic anticoagulation Z79.01 COPD (chronic obstructive pulmonary disease) J44.9 Paroxysmal atrial fibrillation I48.0
[2025-04-09 13:58] VITALS: BP 110/70; PULSE 66; O2SAT 96; BMI 29.3
== END 2025-04-09 14:44 | disposition home or self-care (01) ==
LOC: HO.HGI 12:48
PROVIDERS: PCP Nurse Practitioner Family; Visit Provider Nurse Practitioner
DX: K58.2 Mixed irritable bowel syndrome (principal); K21.9 Gastro-esophageal reflux disease without esophagitis; D12.6 Benign neoplasm of colon, unspecified; D69.6 Thrombocytopenia, unspecified; Z79.01 Long term (current) use of anticoagulants; J44.9 Chronic obstructive pulmonary disease, unspecified; I48.0 Paroxysmal atrial fibrillation
CPT/HCPCS: 99214

== ENCOUNTER 2025-05-18 13:51 | Outpatient (REF) | payer OTHER, SELFPAY ==
--- NOTE | ~2025-05-18 | US_ITS ---
EXAMINATION: Noninvasive assessment of the bilateral lower extremities without ARTERIAL DUPLEX, ANKLE BRACHIAL INDICES (ABIs), and PULSE VOLUME RECORDINGS (PVRs). CLINICAL INFORMATION: Decreased pedal pulses. TECHNIQUE: Duplex Doppler techniques with waveform analysis and measurement of velocities in the bilateral common femoral, profunda femoris, superficial femoral, popliteal and tibial arteries were performed. The study was performed only at rest. COMPARISON: None FINDINGS: DIRECT DUPLEX DOPPLER FINDINGS: RIGHT LEG: Common femoral artery: 120 cm/s, phasicity: Triphasic. Profunda femoris artery: 65 cm/s, phasicity: Triphasic. Superficial femoral artery (proximal): 95 cm/s, phasicity: Triphasic. Superficial femoral artery (mid): 100 cm/s, phasicity: Triphasic. Superficial femoral artery (distal): 122 cm/s, phasicity: Triphasic. Popliteal artery: 62 cm/s, phasicity: Triphasic. Posterior tibial artery: 151 cm/s, phasicity: Triphasic. Peroneal artery: 63 cm/s, phasicity: Triphasic. Anterior tibial artery: 53 cm/s, phasicity: Triphasic. Dorsalis pedis artery: 32 cm/s, phasicity:Monophasic. LEFT LEG: Common femoral artery: 102 cm/s, phasicity: Triphasic. Profunda femoris artery: 84 cm/s, phasicity: Triphasic. Superficial femoral artery (proximal): 99 cm/s, phasicity: Triphasic. Superficial femoral artery (mid): 120 cm/s, phasicity: Triphasic. Superficial femoral artery (distal): 124 cm/s, phasicity: Triphasic. Popliteal artery: 104 cm/s, phasicity: Triphasic. Posterior tibial artery: 135 cm/s, phasicity: Triphasic. Peroneal artery: 27 cm/s, phasicity: Monophasic. Anterior tibial artery: 74 cm/s, phasicity: Monophasic. Dorsalis pedis artery: 69 cm/s, phasicity: Monophasic. US/US arterial duplex LE BI IMPRESSION: Right leg: Severe inflow disease, dorsalis pedis artery. Left leg: Severe inflow disease from the popliteal artery to the dorsalis pedis arteries. Electronically signed by: Franklyn Nye MD 05/18/2025 03:53 PM EDT
[2025-05-18 14:50] LABS: Appearance Urine Cloudy; Glucose Urine UA Negative (Negative); PH 5.5 (5.0-9.0); Specific Gravity - Urine 1.020 (1.005-1.025); UMIC TRIGGER UA YES
[2025-05-18 15:41] LABS: Total Protein Urine Random 16 mg/dL (<12)
== END 2025-05-18 13:52 | disposition home or self-care (01) ==
LOC: HO.US 13:51
PROVIDERS: Absent Provider Nurse Practitioner Family; PCP Nurse Practitioner Family; Visit Provider Internal Medicine Hypertension Specialist
DX: I10 Essential (primary) hypertension (principal); R09.89 Other specified symptoms and signs involving the circulatory and respiratory systems; R80.9 Proteinuria, unspecified
CPT/HCPCS: 81001; 82570; 84156; 93925

== ENCOUNTER → 2025-05-18 14:02 | Outpatient (BNV) | payer OTHER, SELFPAY | PROVIDERS: Absent Provider Nurse Practitioner Family; PCP Nurse Practitioner Family; Visit Provider Radiology Diagnostic Radiology | DX: I70.203 Unspecified atherosclerosis of native arteries of extremities, bilateral legs (principal) | CPT/HCPCS: 93925 ==

== ENCOUNTER 2025-05-19 15:39 | Outpatient (REF) | payer OTHER, SELFPAY ==
--- NOTE | ~2025-05-19 | CT_ITS ---
CLINICAL HISTORY: F17.210 - Nicotine dependence, cigarettes, uncomplicated --- Additional Notes or Special Instructions: please submit CT lung cancer screening (LDCT) Comparison: CT/SR - CT LUNG SCREENING - 08/24/23 15:12 EDT Technique: Axial CT images of the chest using low-dose technique. Referring provider counseled the patient on shared decision-making for LDCT screening. Additional counseling was provided on smoking cessation. Effective radiation dose total: DLP 50.7 mGycm, CTDIvol 1.4 mGy. Findings: Lung: No emphysema. No acute process. No suspicious pleural disease. Parenchymal scar of anterior upper lobes. Left lower lobe stable micronodule posterolaterally on image 121, series 4. Coronary artery calcifications: None Limited upper abdomen: Status post cholecystectomy. Right renal cyst is partially seen. Other: Left imbedded cardiac device leads in the right heart chambers. Degenerative changes of the thoracic spine. Impression: LungRADS 1: Negative exam. Continue annual screening with low dose Chest CT in 12 months. ##L1## Category 1: Normal; continue annual screening Category 2: Benign appearance or behavior, continue annual screening Category 3: Probably benign, [address] recommended Category 4A: Suspicious, [address] recommended; may consider PET/CT Category 4B: Suspicious, Additional diagnostics and/or tissue sampling recommended Category 4X: Suspicious, Additional diagnostics and/or tissue sampling recommended Category 0: Recalls (incomplete screen due to Incomplete coverage, Noise, Respiratory motion, Expiration, Obscured by acute abnormality) This document has been electronically signed by: Karla Ledesma MD on 05/20/2025 11:10:53
--- OUTSIDE RECORDS SUMMARY | 2025-05-19 16:21 | XMS_ITS ---
Author Name Arcenio Wasserman NP Address [address] [place] [address] Phone [phone] [facility] Care Team Providers Care Salvage Mechanic Name Role Phone Lux Arcenio Unavailable [phone] Reason for Referral Not Available Allergies, adverse [...] NIGHT AT BEDTIME. 2023-09-05 No Data Available Gnwzhfcchp-TQIX-Dkxubuih 50/325/40 mg Tab TAKE 1 TABLET EVERY [...] enduranceHistory of fall Active 2024-04-18 N/A uses [employer]er rollator to ambulate. Reports recent fall.Monitor for [...] to follow up with PCP/Specialists.- Follows with ear nose throat surgeon. Unspecified convulsions Active 2025-03-24 N/A R x: [...] repo rts she fell yesterday while at [facility]. She banged her both knees, both arms [...] (do not use for phone, instead use 45259-94) [facility] ([place]) 04/18/2024 Other thrombophiliaUnspecifi [...] (do not use for phone, instead use 04702-37) [facility], ([place]) 04/18/2024 New patient,40-59min; chronic exacerbation, 2 stable chronic or 1 acute illness add add modifier 95 for video (do not use for phone, instead use 89725-30) [facility], [place] 04/18/2024 New patient,40-59min; chronic exacerbation, 2 stable chronic or 1 acute illness add add modifier 95 for video (do not use for phone, instead use 06188-40) [facility], [place] 04/18/2024 New patient,40-59min; chronic exacerbation, 2 stable chronic or 1 acute illness add add modifier 95 for video (do not use for phone, instead use 14892-53) [facility], [place] 04/18/2024 New patient,40-59min; chronic exacerbation, 2 stable chronic or 1 acute illness add add modifier 95 for video (do not use for phone, instead use 52056-27) [facility], [place] 04/18/2024 New patient,40-59min; chronic exacerbation, 2 stable chronic or 1 acute illness add add modifier 95 for video (do not use for phone, instead use 78415-22) [facility], [place] 04/18/2024 New patient,40-59min; chronic exacerbation, 2 stable chronic or 1 acute illness add add modifier 95 for video (do not use for phone, instead use 85760-81) [facility], [place] 04/18/2024 New patient,40-59min; chronic exacerbation, 2 stable chronic or 1 acute illness add add modifier 95 for video (do not use for phone, instead use 77033-97) [facility], [place] 04/18/2024 New patient,40-59min; chronic exacerbation, 2 stable chronic or 1 acute illness add add modifier 95 for video (do not use for phone, instead use 13374-48) [facility], [place] 04/18/2024 Estab. patient 20-29min; 1 stable chronic or 2 minor; add add modifier 95 for video, modifier 93 for phone [facility], [place] 03/24/2025 Other thrombophiliaUnspecifi ed atrial fibrillationVentricular tachycardia, [...] 95 for video, modifier 93 for phone [facility], [place] 03/24/2025 Estab. patient 20-29min; 1 stable chronic or 2 minor; add add modifier 95 for video, modifier 93 for phone [facility], [place] 03/24/2025 Estab. patient 20-29min; 1 stable chronic or 2 minor; add add modifier 95 for video, modifier 93 for phone [facility], [place] 03/24/2025 Estab. patient 20-29min; 1 stable chronic or 2 minor; add add modifier 95 for video, modifier 93 for phone [facility], [place] 03/24/2025 Estab. patient 20-29min; 1 stable chronic or 2 minor; add add modifier 95 for video, modifier 93 for phone [facility], [place] 03/24/2025 Estab. patient 20-29min; 1 stable chronic or 2 minor; add add modifier 95 for video, modifier 93 for phone [facility], [place] 03/24/2025 Estab. patient 20-29min; 1 stable chronic or 2 minor; add add modifier 95 for video, modifier 93 for phone [facility], [place] 03/24/2025 Estab. patient 10-29min; 1 minor problem; add add modifier 95 for video, modifier 93 for phone [facility], [place] 04/07/2025 Type 2 diabetes mellitus wit h [...] Current Smoking Status Current every day smoker 2025-05-19 Sex Female Gender identity Woman History of Procedures Procedures Service Procedure code Service date Servicing provider Phone# New patient,40-59min; chronic exacerbation, 2 stable chronic or 1 acute illness add add modifier 95 for video (do not use for phone, instead use 41313-20) 24888 2024-04-18 No Data Available No Data Availa [...] 95 for video, modifier 93 for phone 67245 2025-03-24 No Data Available No Data Availa [...] 95 for video, modifier 93 for phone 65358 2025-04-07 No Data Available No Data Availa [...] f/u care and monitoring with PCP and wash box operator. 2025-03-24 07:42:48 Functional Status As sessed (1170F)Advance [...] to follow up with PCP/Specialists.- Follows with ear nose throat surgeon.Member reports she is sober 26 years from [...] 14/05.04/07/25:She reports she fell yesterday while at [facility]. She banged her both knees, both arms [...] to follow up with PCP/Specialists.- Follows with ear nose throat surgeon.Xarelto, Propranolol, AmlodipinePacemaker Bleeding risk precautions, monitor for [...] She reports she fell yesterday while at [employer]. She banged her both knees, both arms [...]
[2025-05-19 16:27] LABS: Appearance Urine Cloudy; Glucose Urine UA Negative (Negative); PH 5.5 (5.0-9.0); Specific Gravity - Urine >= 1.030 (1.005-1.025); UMIC TRIGGER UA YES
== END 2025-05-19 15:40 | disposition home or self-care (01) ==
LOC: HO.CT 15:39
PROVIDERS: Internal Medicine Hypertension Specialist; Absent Provider Nurse Practitioner Family; PCP Nurse Practitioner Family; Visit Provider Physician Assistant Medical
DX: Z12.2 Encounter for screening for malignant neoplasm of respiratory organs (principal); F17.210 Nicotine dependence, cigarettes, uncomplicated
CPT/HCPCS: 71271; 81001

== ENCOUNTER → 2025-05-19 15:49 | Outpatient (BNV) | payer OTHER, SELFPAY | PROVIDERS: Absent Provider Nurse Practitioner Family; PCP Nurse Practitioner Family; Visit Provider Radiology Diagnostic Radiology | DX: Z12.2 Encounter for screening for malignant neoplasm of respiratory organs (principal); F17.210 Nicotine dependence, cigarettes, uncomplicated | CPT/HCPCS: 71271 ==

== ENCOUNTER 2025-05-26 15:19 | Outpatient (AMB) | payer OTHER, SELFPAY ==
[2025-05-26 15:26] VITALS: BP 116/80; PULSE 103; O2SAT 95; BMI 30.1
--- NOTE | 2025-05-26 15:26 | HO.NEPHOV_ITS ---
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 Inboard/Outboard Required: No Accompanied by: Self / Same As Patient Allergies dabigatran etexilate (From PRADAXA) Allergy (Intermediate, Verified 05/26/25 15:28) SWELLING\hives Medication List - Last Reconciled 05/26/25 by Pawel Avalos MD acetaminophen 1,000 mg (2 x 500 mg) PO Q8H PRN 15 days albuterol sulfate 2.5 mg (3 mL) inhalation Q4-6H PRN albuterol sulfate 90 mcg/actuation (Ventolin HFA) 2 puffs inhalation Q4-6H PRN 30 days alcohol swabs (Alcohol Pads) 1 pad topical DAILY amlodipine 2.5 mg PO DAILY atorvastatin 40 mg PO DAILY bisacodyl 10 mg (2 x 5 mg) PO BEDTIME blood pressure test kit-large Use to check BP daily blood sugar diagnostic (FreeStyle Lite Strips) Test blood sugar daily blood-glucose meter (FreeStyle Lite Meter kit) Use to test blood sugar 3 times a day dcqwocrufq-zcwnwugptgyrw-rwkm 50-325-40 mg 1 tab PO Q4H PRN cetirizine 10 mg PO DAILY PRN cholecalciferol (vitamin D3) 50 mcg PO DAILY clonazepam (Klonopin) 1 mg PO BID 30 days cranberry fruit 450 mg PO BID 90 days fluticasone propion-salmeterol 250-50 mcg/dose (Wixela Inhub) 1 ea inhalation BID ibuprofen 600 mg PO DAILY PRN 30 days lancets (FreeStyle Lancets) Test blood sugar daily lisinopril 20 mg PO DAILY meclizine 25 mg PO TID PRN mirabegron ER 50 mg PO DAILY 90 days omeprazole 20 mg PO DAILY peg 3350-electrolytes 236-22.74-6.74 -5.86 gram (GaviLyte-G) 240 mL PO ONCE primidone 0 mg PO propranolol 60 mg PO BID 90 days [pull ups The patient is using 8 pull ups a day; size extra large] [Quad care As directed] [Recliner lift chair As directed] rivaroxaban (Xarelto) 20 mg PO BEDTIME sucralfate (Carafate) 2 grams (2 x 1 gram) PO .daily at 11pm tiotropium bromide (Spiriva with HandiHaler) 1 cap inhalation DAILY 30 days trazodone 100 mg PO BEDTIME Ultra-Light Rollator (walker) lower extrem weakness, use daily NS [Upright Posture Walker daily use] Ventolin HFA 90 mcg/actuation (albuterol sulfate) 2 puffs inhalation Q4-6H PRN 30 days NS HPI Comments Details: Myrtle is a middle aged woman with Obesity and HTN , referred for Proteinuria She has no history of diabetes mellitus and not on any antidiabetic medications. She has borderline elevation of blood sugar and this is being monitored. 09/02/24; Doing better;Lost few lbs [facility] Medical History (Updated 05/18/25 @ 13:04 by Harper Barfield [facility]) Ataxia Cervical spondylosis Migraine Cardiac pacemaker in situ (~2014) Paroxysmal atrial fibrillation LVH (left ventricular hypertrophy) Essential hypertension Hyperlipidemia Diabetes COPD (chronic obstructive pulmonary disease) Nicotine dependence, cigarettes, uncomplicated Benign essential tremor Microscopic hematuria Recurrent UTI Osteopenia (~2021) Obesity, Class I, BMI 30-34.9 Hypertensive retinopathy GERD (gastroesophageal reflux disease) Diverticulitis Tubular adenoma of colon (~2017) Mesenteric lymphadenopathy Thrombocytopenia Depression Insomnia Arthritis Breast calcification, right Surgical History History of pacemaker History of cholecystectomy History of tonsillectomy and adenoidectomy History of eye surgery History of tubal ligation History of colonoscopy History of esophagogastroduodenoscopy (EGD) History of pubovaginal sling History of dilatation and curettage History of loop electrical excision procedure (LEEP) History of right breast biopsy History of vocal cord polypectomy Family History Father Family history of diabetes mellitus Mother Diabetes mellitus Substance use disorder Sister Uterine cancer Diabetes mellitus Mental health disorder Substance use disorder Maternal Grandfather No problems noted. Maternal Grandmother Unknown family medical history Paternal Grandfather No problems noted. Paternal Grandmother No problems noted. Social History (Reviewed 05/26/25 @ 15:27 by GOLD Helton Household Members: Other Household Members Other:: Ex-, Daughter Housing: Apartment Alcohol intake: former Year quit: 2001 Patient Tobacco Use Status: Current everyday Tobacco user Tobacco use type: Cigarette Cigarettes Per Day: 4 Years Smoked: (onset 16yo, 1ppd x 47yrs, 40pyh) e-Cigarette/Vaping Use: Never Used Second Hand Smoke Exposure: Yes Advance Directives Date on File: 03/21/22 service: No Current occupational status: disabled Cognitive needs: No Hearing needs: No Vision needs: No Female Reproductive History Menstrual Age of Menarche: 7 Physical Exam Vital Signs: Last Vital Signs Pulse 103 H 05/26/25 15:26 BP 116/80 05/26/25 15:26 Pulse Ox 95 05/26/25 15:26 Oxygen Delivery Method Room Air 05/26/25 15:26 BMI result Body Mass Index 30.1 Const General: comfortable Nutritional Appearance: well nourished Orientation/consciousness: patient oriented x3 HEENT Head: No normal to inspection Mouth: moist mucous membranes Neck Neck: Yes supple and Yes no JVD Resp Auscultation: clear to auscultation bilaterally and no rales Cardio Jugular venous distension: no JVD Palpation: no palpable S3 and no palpable S4 Heart sounds: no rubs GI Palpation (GI): Soft to palpation and nontender Percussion: No Fluid wave present General: Yes no CVA tenderness Back/Spine/Pelvis Back: no CVA tenderness Skin General skin exam: no rashes or lesions noted Neuro General: patient oriented x3 Extrem General: Yes no pedal edema and No clubbing Results Reviewed Nephrology Results: Urine Protein, (Neg-Trace) 30 (1+) mg/dL H 05/19/25 Urine Creatinine 201.96 mg/dL 05/18/25 Renal US 06/04/23 Assessment & Plan Assessment & Plan (1) Proteinuria: Code(s): R80.9 - Proteinuria, unspecified Category: Medical Plan: Middle-aged woman with hypertension obesity with proteinuria by dipstick. Transient Proteinuria h/o hypertension and obesity. urine protein creatinine ratio was normal Creatinine stable at 0.8 Todays labs are pending- shall revaluate In the meantime continue with the current medications. Maintain blood pressure less than 130/80 mmHg Discussed weight loss Agree with Terrell inhibitors for renal protection. (2) Essential hypertension: Code(s): I10 - Essential (primary) hypertension Category: Medical Plan: Currently blood pressure is well controlled Discussed weight loss and low-salt diet. Continue with current antihypertensive regimen Orders: Orders Total Protein Urine Random 8 Months I10 - Essential (primary) hypertension UA and rflx microscopic 8 Months I10 - Essential (primary) hypertension Basic Metabolic Panel 8 Months I10 - Essential (primary) hypertension Creatinine Urine 8 Months I10 - Essential (primary) hypertension Coding Level of Care Code Est Pt Level 4 (94067) Diagnoses Proteinuria R80.9 Essential hypertension I10
--- OUTSIDE RECORDS SUMMARY | 2025-05-26 15:49 | XMS_ITS ---
Author Name Arcenio Wasserman NP Address [address] [place] [id number] Phone [phone] [facility] Care Team Providers Care Data Base Administrator Name Role Phone Lux Arcenio Unavailable [phone] Reason for Referral Not Available Allergies, adverse [...] NIGHT AT BEDTIME. 2023-09-05 No Data Available [id number]-FAOC-Dnsupxrc 50/325/40 mg Tab TAKE 1 TABLET EVERY [...] enduranceHistory of fall Active 2024-04-18 N/A uses [employer] rollator to ambulate. Reports recent fall.Monitor for [...] to follow up with PCP/Specialists.- Follows with day care home mother. Unspecified convulsions Active 2025-03-24 N/A R x: [...] rts she fell yesterday while at [facility]. She banged her both knees, both [...] (do not use for phone, instead use 14975-17) [facility] ([place] 04/18/2024 Other [...] (do not use for phone, instead use 99876-18) [facility] ([place]) 04/18/2024 New patient,40-59min; chronic exacerbation, 2 stable chronic or 1 acute illness add add modifier 95 for video (do not use for phone, instead use 49956-68) [facility] [place] 04/18/2024 New patient,40-59min; chronic exacerbation, 2 stable chronic or 1 acute illness add add modifier 95 for video (do not use for phone, instead use 11879-74) [facility] [place] 04/18/2024 New patient,40-59min; chronic exacerbation, 2 stable chronic or 1 acute illness add add modifier 95 for video (do not use for phone, instead use 53338-98) [facility] [place] 04/18/2024 New patient,40-59min; chronic exacerbation, 2 stable chronic or 1 acute illness add add modifier 95 for video (do not use for phone, instead use 16838-05) [facility] [place] 04/18/2024 New patient,40-59min; chronic exacerbation, 2 stable chronic or 1 acute illness add add modifier 95 for video (do not use for phone, instead use 82328-03) [facility] [place] 04/18/2024 New patient,40-59min; chronic exacerbation, 2 stable chronic or 1 acute illness add add modifier 95 for video (do not use for phone, instead use 71467-82) [facility] [place] 04/18/2024 New patient,40-59min; chronic exacerbation, 2 stable chronic or 1 acute illness add add modifier 95 for video (do not use for phone, instead use 27070-51) [facility] [place] 04/18/2024 New patient,40-59min; chronic exacerbation, 2 stable chronic or 1 acute illness add add modifier 95 for video (do not use for phone, instead use 48477-04) [facility] [place] 04/18/2024 Estab. patient 20-29min; 1 stable chronic or 2 minor; add add modifier 95 for video, modifier 93 for phone [facility] [place] 03/24/2025 Other thrombophiliaUnspecifi ed atrial fibrillationVentricular tachycardia, [...] 95 for video, modifier 93 for phone [facility] [place] 03/24/2025 Estab. patient 20-29min; 1 stable chronic or 2 minor; add add modifier 95 for video, modifier 93 for phone [facility] [place] 03/24/2025 Estab. patient 20-29min; 1 stable chronic or 2 minor; add add modifier 95 for video, modifier 93 for phone [facility] [place] 03/24/2025 Estab. patient 20-29min; 1 stable chronic or 2 minor; add add modifier 95 for video, modifier 93 for phone [facility] [place] 03/24/2025 Estab. patient 20-29min; 1 stable chronic or 2 minor; add add modifier 95 for video, modifier 93 for phone [facility] [place] 03/24/2025 Estab. patient 20-29min; 1 stable chronic or 2 minor; add add modifier 95 for video, modifier 93 for phone [facility] [place] 03/24/2025 Estab. patient 20-29min; 1 stable chronic or 2 minor; add add modifier 95 for video, modifier 93 for phone [facility] [place] 03/24/2025 Estab. patient 10-29min; 1 minor problem; add add modifier 95 for video, modifier 93 for phone [facility] [place] 04/07/2025 Type 2 diabetes mellitus wit h [...] Current Smoking Status Current every day smoker 2025-05-26 Sex Female Gender identity Woman History of Procedures Procedures Service Procedure code Service date Servicing provider Phone# New patient,40-59min; chronic exacerbation, 2 stable chronic or 1 acute illness add add modifier 95 for video (do not use for phone, instead use 16619-16) [id number] 2024-04-18 No Data Available No Data Availa [...] 95 for video, modifier 93 for phone [id number] 2025-03-24 No Data Available No Data Availa [...] 95 for video, modifier 93 for phone [id number] 2025-04-07 No Data Available No Data Availa [...] f/u care and monitoring 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 2025-03-24 07:42:48 Functional Status As sessed (1170F)Advance [...] to follow up with PCP/Specialists.- Follows with day care home mother.Member reports she is sober 26 years from [...] reports she fell yesterday while at [facility]. She banged her both knees, both [...] to follow up with PCP/Specialists.- Follows with day care home mother.Xarelto, Propranolol, AmlodipinePacemaker Bleeding risk precautions, monitor for [...] She reports she fell yesterday while at [employer]. She banged her both knees, both arms [...]
== END 2025-05-26 15:46 | disposition home or self-care (01) ==
LOC: HO.HKA 15:21
PROVIDERS: PCP Nurse Practitioner Family; Visit Provider Internal Medicine Hypertension Specialist
DX: R80.9 Proteinuria, unspecified (principal); I10 Essential (primary) hypertension
CPT/HCPCS: 99214

== ENCOUNTER → 2025-05-26 15:19 | Outpatient (BNVA) | payer OTHER, SELFPAY | PROVIDERS: PCP Nurse Practitioner Family; Visit Provider Internal Medicine Hypertension Specialist | DX: I10 Essential (primary) hypertension (principal); R80.9 Proteinuria, unspecified | CPT/HCPCS: 99212 ==

== ENCOUNTER 2025-05-28 13:43 | Outpatient (AMB) | payer OTHER, SELFPAY ==
--- NOTE | 2025-05-28 13:54 | A.OFFPC_ITS ---
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 Accompanied by: Self / Same As Patient Allergies dabigatran etexilate (From PRADAXA) Allergy (Intermediate, Verified 05/28/25 14:17) SWELLING\hives Medication List - Last Reconciled 05/28/25 by Elmer Dolan, [facility]- acetaminophen 1,000 mg (2 x 500 mg) PO Q8H PRN 15 days albuterol sulfate 2.5 mg (3 mL) inhalation Q4-6H PRN albuterol sulfate 90 mcg/actuation (Ventolin HFA) 2 puffs inhalation Q4-6H PRN 30 days alcohol swabs (Alcohol Pads) 1 pad topical DAILY amlodipine 2.5 mg PO DAILY atorvastatin 40 mg PO DAILY bisacodyl 10 mg (2 x 5 mg) PO BEDTIME blood pressure test kit-large Use to check BP daily blood sugar diagnostic (FreeStyle Lite Strips) Test blood sugar daily blood-glucose meter (FreeStyle Lite Meter kit) Use to test blood sugar 3 times a day ejfpaktujo-cgalrlyyuzokq-yocz 50-325-40 mg 1 tab PO Q4H PRN cetirizine 10 mg PO DAILY PRN cholecalciferol (vitamin D3) 50 mcg PO DAILY clonazepam (Klonopin) 1 mg PO BID 30 days cranberry fruit 450 mg PO BID 90 days fluticasone propion-salmeterol 250-50 mcg/dose (Wixela Inhub) 1 ea inhalation BID ibuprofen 600 mg PO DAILY PRN 30 days lancets (FreeStyle Lancets) Test blood sugar daily lisinopril 20 mg PO DAILY meclizine 25 mg PO TID PRN mirabegron ER 50 mg PO DAILY 90 days omeprazole 20 mg PO DAILY peg 3350-electrolytes 236-22.74-6.74 -5.86 gram (GaviLyte-G) 240 mL PO ONCE primidone 0 mg PO propranolol 60 mg PO BID 90 days [pull ups The patient is using 8 pull ups a day; size extra large] [Quad care As directed] [Recliner lift chair As directed] rivaroxaban (Xarelto) 20 mg PO BEDTIME sucralfate (Carafate) 2 grams (2 x 1 gram) PO .daily at 11pm tiotropium bromide (Spiriva with HandiHaler) 1 cap inhalation DAILY 30 days trazodone 100 mg PO BEDTIME Ultra-Light Rollator (walker) lower extrem weakness, use daily NS [Upright Posture Walker daily use] Ventolin HFA 90 mcg/actuation (albuterol sulfate) 2 puffs inhalation Q4-6H PRN 30 days NS Tobacco use date assessed: 11/13/24 Fall risk assessment: 1 Fall in past year Last assessed Fall Risk: 05/28/25 Dental Screening Dental Screen Date: 05/28/25 Did you have a dental visit in the last 12 months?: No Did you have a dental problem in the last 6 months where you did not have access to dental care?: No Was dental information given to patient?: Patient has dentist HPI 3 months f/up - see comments HPI Details Chief Complaint The patient presents for a follow-up on diabetes management. History of Present Illness The patient is a 65-year-old female presenting with a follow-up visit for diabetes management. Her eye examination is up to date, and she denies any neuropathy, with positive sensation confirmed using a monofilament test on her feet. Her lung health is monitored with a low-dose CT scan, which returned benign results, and the next scan is scheduled in one year. The patient is actively working on lifestyle modifications, including dietary adjustments and reducing smoking. She is encouraged to continue weight loss efforts and is currently fasting for lab work, including an A1c test, to be conducted today. Overall, she reports feeling well and remains in good spirits. Social History - Smoking: Patient is reducing smoking a s part of lifestyle modifications. - Diet: Patient is watching her diet and encouraged to lose weight. Health Maintenance - Lung health monitored with low-dose CT scan, benign results, next scan in one year. - Encouraged weight loss and dietary adj ustments. - Smoking cessation efforts ongoing. Review of Systems - Neurological: Denies neuropathy, posit adri sensation with monofilament test on feet. - Respiratory: Denies respiratory sympto ms, lungs clear to auscultation. -denies any cp, increased sob, fevers, c hills, dizziness, blurred vision, neuropathy Physical Exam General: Cooperative, healthy appearing, comfortable, no acute distress and well developed Orientation: Patient oriented x3 Limitations: No limitations Head: Normal to inspection Ears: Hearing grossly normal bilaterally Nose: Normal external nose present Face and sinus: Normal facial exam Eyes: Appearance normal, both eyes and all related structures Neck: Normal visual inspection and Yes full ROM Respiratory: Diminished respiratory effort but able to speak in complete sentences. moving air bilat Cardiovascular: Regular rate and rhythm. Normal S1 and S2 GI: Normal to inspection. Soft to palpation and nontender Skin: No rashes or lesions noted Neuro: Patient oriented x3 Extremities: Normal to inspection, feet intact bilat, + sensa ion with use of monofilament Results - Tests: Low-dose CT scan of lungs, reanna gn results. Plan The patient will undergo lab work today, including an A1c test, to monitor her diabetes management. She is advised to continue her efforts in smoking cessation and dietary modifications to aid in weight loss. Follow-up is scheduled in three to four months to reassess her diabetes management and overall health status. Discussion Notes I discussed with the patient the importance of maintaining her current lifestyle modifications, including smoking cessation and dietary changes, to manage her diabetes effectively. We reviewed her recent low-dose CT scan results, which were benign, and planned for the next scan in one year. I advised her to complet e her lab work today, including an A1c test, and scheduled a follow-up visit in three to four months. Patient Instructions - Complete lab work today, including A1c test. - Continue efforts to quit smoking and f ollow dietary recommendations. - Return for follow-up in three to four months. [facility] Medical History Ataxia Cervical spondylosis Migraine Cardiac pacemaker in situ (~2014) Paroxysmal atrial fibrillation LVH (left ventricular hypertrophy) Essential hypertension Hyperlipidemia Diabetes COPD (chronic obstructive pulmonary disease) Nicotine dependence, cigarettes, uncomplicated Benign essential tremor Microscopic hematuria Recurrent UTI Osteopenia (~2021) Obesity, Class I, BMI 30-34.9 Hypertensive retinopathy GERD (gastroesophageal reflux disease) Diverticulitis Tubular adenoma of colon (~2017) Mesenteric lymphadenopathy Thrombocytopenia Depression Insomnia Arthritis Breast calcification, right Surgical History History of pacemaker History of cholecystectomy History of tonsillectomy and adenoidectomy History of eye surgery History of tubal ligation History of colonoscopy History of esophagogastroduodenoscopy (EGD) History of pubovaginal sling History of dilatation and curettage History of loop electrical excision procedure (LEEP) History of right breast biopsy History of vocal cord polypectomy Family History Father Family history of diabetes mellitus Mother Diabetes mellitus Substance use disorder Sister Uterine cancer Diabetes mellitus Mental health disorder Substance use disorder Maternal Grandfather No problems noted. Maternal Grandmother Unknown family medical history Paternal Grandfather No problems noted. Paternal Grandmother No problems noted. Social History Household Members: Other Household Members Other:: Ex-, Daughter Housing: Apartment Alcohol intake: former Year quit: 2001 Patient Tobacco Use Status: Current everyday Tobacco user Tobacco use type: Cigarette Cigarettes Per Day: 4 Years Smoked: (onset 16yo, 1ppd x 47yrs, 40pyh) e-Cigarette/Vaping Use: Never Used Second Hand Smoke Exposure: Yes Advance Directives Date on File: 03/21/22 service: No Current occupational status: disabled Cognitive needs: No Hearing needs: No Vision needs: No Female Reproductive History Menstrual Age of Menarche: 7 Questionnaire PHQ-9 Over the last 2 weeks, how often have you been bothered by any of the following problems? 1. Little interest or pleasure in doing things: nearly every day 2. Feeling down, depressed, or hopeless: more than half the days 3. Trouble falling or staying asleep, or sleeping too much: more than half the days 4. Feeling tired or having little energy: more than half the days 5. Poor appetite or overeating: not at all 6. Feeling bad about yourself - or that you are a failure or have let yourself or your family down: more than half the days 7. Trouble concentrating on things, such as reading the newspaper or watching television: more than half the days 8. Moving or speaking so slowly that other people could have noticed. Or the opposite - being so fidgety or restless that you have been moving around a lot more than usual: more than half the days 9. Thoughts that you would be better off or of hurting yourself in some way: not at all Total score: 15 Depression Screening Interpretation: Positive (denies any SI or HI) Depression Screening Follow-up: Existing condition and In treatment Depression Screening Done: Yes 21036 - PHQ-9 Billing: Yes Source: Developed by Drs. Rich Colmenares, Zbigniew Daniels and colleagues, with an educational jeffrey from [employer] Thrive Questionnaire Date Thrive assessed: 11/13/24 ESTEFANIA-7 AMB Questionnaire ESTEFANIA-7 Date ESTEFANIA - 7 assessed: 05/28/25 Feeling nervous, anxious, or on edge: 0 = Not at all Not being able to stop or control worryin = Not at all Worrying too much about different things: 0 = Not at all Trouble relaxin = Not at all Being so restless that it is hard to sit still: 1 = Several days Becoming easily annoyed or irritable: 0 = Not at all Feeling afraid as if something awful might happen: 0 = Not at all Total ESTEFANIA-7 score (0-4 normal; 5-9 mild; 10-14 moderate; 15-21 severe): 1 Source: Developed by Drs. Rich Colmenares, Kelly Wasserman, Zbigniew Robert and colleagues, with an educational jeffrey from [employer] ESTEFANIA-7 Assessment Billing ESTEFANIA-7 Assessment Tool: ESTEFANIA-7 Assessment 60039 Physical exam (Primary Care) Vital Signs: Last Vital Signs Pulse 84 05/28/25 13:55 Resp 16 05/28/25 13:55 BP 116/84 05/28/25 13:55 Pulse Ox 97 05/28/25 13:55 Oxygen Delivery Method Room Air 05/28/25 13:55 BMI result Body Mass Index 30.4 Tobacco/Smoking Status: Tobacco use Status Tobacco use date assessed 11/13/24 05/28/25 13:55 Patient Tobacco Use Status Current everyday Tobacco 05/28/25 13:55 Tobacco use type Cigarette 05/28/25 13:55 e-Cigarette/Vaping Use Never Used 05/28/25 13:55 PHQ-9: PHQ-9 Score PHQ-9: Total score 15 05/28/25 14:01 Depression Screening Interpretation: Positive (denies any SI or HI) Depression Screening Follow-up: Existing condition and In treatment Thrive Assessment: Date of Thrive Assessment Date Thrive assessed 11/13/24 05/28/25 13:55 Coding Level of Care Code Est Pt Level 3 (54436) Diagnoses Diabetes E11.9 Vitamin D deficiency E55.9 Additional Codes ESTEFANIA-7 Assessment Billing - ESTEFANIA-7 Assessment Tool: ESTEFANIA-7 Assessment 23547 ([id number]) PHQ-9 - 90608 - PHQ-9 Billing: Yes ([id number]) Assessment & Plan Assessment & Plan (1) Diabetes: Code(s): E11.9 - Type 2 diabetes mellitus without complications Category: Medical (2) Vitamin D deficiency: Code(s): E55.9 - Vitamin D deficiency, unspecified Category: Medical Plan . Orders: Orders Comprehensive [place]. Panel Fast Today E11.9 - Type 2 diabetes mellitus without complications TSH reflex Free T4 Today E11.9 - Type 2 diabetes mellitus without complications Lipid Panel Today E11.9 - Type 2 diabetes mellitus without complications Microalbumin, Random (w Creat) Today E11.9 - Type 2 diabetes mellitus without complications Hemoglobin A1c Today E11.9 - Type 2 diabetes mellitus without complications Complete Blood Count Auto Diff Today E11.9 - Type 2 diabetes mellitus without complications UA CC w/rflx Micro + Cult Today E11.9 - Type 2 diabetes mellitus without complications Vitamin D 25-OH Total Today E55.9 - Vitamin D deficiency, unspecified
[2025-05-28 13:55] VITALS: BP 116/84; PULSE 84; RESP 16; O2SAT 97; BMI 30.4
== END 2025-05-28 14:32 | disposition home or self-care (01) ==
LOC: HO.HMCC 13:43
PROVIDERS: PCP Nurse Practitioner Family; Visit Provider Nurse Practitioner Family
DX: E11.9 Type 2 diabetes mellitus without complications (principal); E55.9 Vitamin D deficiency, unspecified

== ENCOUNTER 2025-05-28 13:43 | Outpatient (REF) | payer OTHER, SELFPAY ==
[2025-05-28 16:40] LABS: Alanine Aminotransferase 7 U/L (0-31); Albumin Level 3.8 g/dL (3.5-5.0); Alkaline Phosphatase 69 U/L (39-117); Anion Gap 12 (12-20); Appearance Urine Clear; Aspartate Amino Transferase 22 U/L (5-31); Blood Urea Nitrogen 11 mg/dL (9-16); Calcium 8.8 mg/dL (8.4-10.2); Carbon Dioxide 24 mmol/L (22-29); Chloride 109 mmol/L (96-108); Cholesterol 123 mg/dL (<200); Estimated Glomerular Filt Rate > 60; Glucose Urine UA Negative (Negative); HDL Cholesterol 45 mg/dL (>40); PH 5.5 (5.0-9.0); Potassium 3.8 mmol/L (3.3-5.1); Sodium 141 mmol/L (135-145); Specific Gravity - Urine 1.025 (1.005-1.025); Total Protein 6.5 g/dL (6.5-8.0); Triglycerides 71 mg/dL (<150); UMIC TRIGGER UACC YES
[2025-05-28 16:42] LABS: Microalbum/Creatinine Ratio Ur 6.4 ug/mg cr (<30)
[2025-05-28 16:46] LABS: Hematocrit 35.8 % (37.0-47.0); Hemoglobin 12.1 g/dl (12.0-16.0); Mean Corpuscular HGB Conc 33.8 g/dl (31.0-35.0); NRBC Abs Auto 0.000 X10*3/uL (0.0-0.012); NRBC Pct Auto 0.0 /100WBC (0.0-0.2); SCAN SMEAR FLAG 1
[2025-05-28 16:48] LABS: Imm Gran Abs Auto 0.01 X10*3/uL (0.00-0.03); Imm Gran Pct Auto 0.2 % (0.0-0.4); Lymphocytes Absolute Auto 2.0 X10*3/uL (1.2-4.9); MANUAL DIFF FLAG SCAN; Mean Corpuscular Hemoglobin 29.2 pg (27.0-33.0); Mean Corpuscular Volume 86.3 fL (80.0-98.0); PLT CLUMP 1; Red Blood Count 4.15 X10*6/uL (4.20-5.50)
[2025-05-28 16:52] LABS: PLT ABN DIST 1; White Blood Count 6.5 X10*3/uL (4.8-10.8)
[2025-05-28 17:32] LABS: Free T4 (Free Thyroxine) 1.03 ng/dL (0.71-1.85)
[2025-05-28 17:38] LABS: Platelet Count 115 X10*3/uL (160-400)
[2025-05-28 18:56] LABS: Hemoglobin A1C 135.3581 umol/L; Total Hemoglobin (HGBA1C) 3194.1503 umol/L
== END 2025-05-28 13:44 | disposition home or self-care (01) ==
LOC: HO.HMGCLDS 13:43
PROVIDERS: PCP Nurse Practitioner Family; Visit Provider Nurse Practitioner Family
DX: E55.9 Vitamin D deficiency, unspecified (principal); E11.9 Type 2 diabetes mellitus without complications; Z13.31 Encounter for screening for depression; Z13.39 Encounter for screening examination for other mental health and behavioral disorders
CPT/HCPCS: 36415; 80053; 80061; 81001; 82043; 82306; 82570; 83036; 84439; 84443; 85025; 96127; 99212

== ENCOUNTER 2025-06-11 08:04 | Outpatient (REF) | payer OTHER, SELFPAY ==
--- OUTSIDE RECORDS SUMMARY | 2025-06-11 14:44 | XMS_ITS ---
Author Name Franky MALONE Ivonne Saldana Address [address] [place] [id number] Phone [phone] [facility] Care Team Providers Care Dog Bather Name Role Phone Ivonne Wilkins Unavailable [phone] Reason for Referral Not Available Allergies, adverse [...] NIGHT AT BEDTIME. 2023-09-05 No Data Available Ybpnbqallq-TURU-Jpfprmwu 50/325/40 mg Tab TAKE 1 TABLET EVERY [...] enduranceHistory of fall Active 2024-04-18 N/A uses Geostellarer rollator to ambulate. Reports recent fall.Monitor for [...] to follow up with PCP/Specialists.- Follows with drag out man. Unspecified convulsions Active 2025-03-24 N/A R x: [...] repo rts she fell yesterday while at [employer]. She banged her both knees, both arms [...] (do not use for phone, instead use [id number]) [facility] ([place]) 04/18/2024 Other [...] (do not use for phone, instead use 39095-55) [facility], ([place]) 04/18/2024 New patient,40-59min; chronic exacerbation, 2 stable chronic or 1 acute illness add add modifier 95 for video (do not use for phone, instead use 16012-49) [facility] 04/18/2024 New patient,40-59min; chronic exacerbation, 2 stable chronic or 1 acute illness add add modifier 95 for video (do not use for phone, instead use 67241-95) [facility] 04/18/2024 New patient,40-59min; chronic exacerbation, 2 stable chronic or 1 acute illness add add modifier 95 for video (do not use for phone, instead use 60208-89) [facility] 04/18/2024 New patient,40-59min; chronic exacerbation, 2 stable chronic or 1 acute illness add add modifier 95 for video (do not use for phone, instead use 92012-59) [facility] 04/18/2024 New patient,40-59min; chronic exacerbation, 2 stable chronic or 1 acute illness add add modifier 95 for video (do not use for phone, instead use 15781-50) [facility] 04/18/2024 New patient,40-59min; chronic exacerbation, 2 stable chronic or 1 acute illness add add modifier 95 for video (do not use for phone, instead use 01057-79) [facility] 04/18/2024 New patient,40-59min; chronic exacerbation, 2 stable chronic or 1 acute illness add add modifier 95 for video (do not use for phone, instead use 11695-32) [facility] 04/18/2024 New patient,40-59min; chronic exacerbation, 2 stable chronic or 1 acute illness add add modifier 95 for video (do not use for phone, instead use 84913-19) [facility] 04/18/2024 Estab. patient 20-29min; 1 stable chronic or 2 minor; add add modifier 95 for video, modifier 93 for phone [facility] 03/24/2025 Other thrombophiliaUnspecifi ed atrial fibrillationVentricular tachycardia, [...] 95 for video, modifier 93 for phone [facility] 03/24/2025 Estab. patient 20-29min; 1 stable chronic or 2 minor; add add modifier 95 for video, modifier 93 for phone [facility] 03/24/2025 Estab. patient 20-29min; 1 stable chronic or 2 minor; add add modifier 95 for video, modifier 93 for phone [facility] 03/24/2025 Estab. patient 20-29min; 1 stable chronic or 2 minor; add add modifier 95 for video, modifier 93 for phone [facility] 03/24/2025 Estab. patient 20-29min; 1 stable chronic or 2 minor; add add modifier 95 for video, modifier 93 for [facility], ([place]) 03/24/2025 Estab. patient 20-29min; 1 stable chronic or 2 minor; add add modifier 95 for video, modifier 93 for [facility] ([place] 03/24/2025 Estab. patient 20-29min; 1 stable chronic or 2 minor; add add modifier 95 for video, modifier 93 for [facility], ([place] 03/24/2025 Estab. patient 10-29min; 1 minor problem; add add modifier 95 for video, modifier 93 for phone [facility] 04/07/2025 Type 2 diabetes mellitus wit h [...] Current Smoking Status Current every day smoker 2025-06-11 Sex Female Gender identity Woman History of Procedures Procedures Service Procedure code Service date Servicing provider Phone# New patient,40-59min; chronic exacerbation, 2 stable chronic or 1 acute illness add add modifier 95 for video (do not use for phone, instead use 30298-22) [id number] 2024-04-18 No Data Available No Data Availa [...] 95 for video, modifier 93 for phone [id number] 2025-03-24 No Data Available No Data Availa [...] 95 for video, modifier 93 for phone [id number] 2025-04-07 No Data Available No Data Availa [...] f/u 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 2025-03-24 07:42:48 Functional Status As sessed (1170F)Advance [...] to follow up with PCP/Specialists.- Follows with drag out man.Member reports she is sober 26 years from [...] 14/05.04/07/25:She reports she fell yesterday while at [facility]. She banged her both knees, both arms [...] to follow up with PCP/Specialists.- Follows with drag out man.Xarelto, Propranolol, AmlodipinePacemaker Bleeding risk precautions, monitor for [...] She reports she fell yesterday while at [employer]. She banged her both knees, both arms [...]
[2025-06-11 15:23] LABS: Appearance Urine Clear; Glucose Urine UA Negative (Negative); PH 5.5 (5.0-9.0); Specific Gravity - Urine 1.020 (1.005-1.025); UMIC TRIGGER UACC YES
[2025-06-11 16:04] LABS: Free T4 (Free Thyroxine) 0.97 ng/dL (0.71-1.85); Thyroid Stimulating Hormone 1.91 uIU/mL (0.32-4.0)
== END 2025-06-11 08:05 | disposition home or self-care (01) ==
LOC: HO.LAB 08:04
PROVIDERS: PCP Nurse Practitioner Family; Visit Provider Nurse Practitioner Family
DX: Z01.818 Encounter for other preprocedural examination (principal); R79.89 Other specified abnormal findings of blood chemistry; E11.9 Type 2 diabetes mellitus without complications; J44.9 Chronic obstructive pulmonary disease, unspecified; G25.0 Essential tremor; F17.210 Nicotine dependence, cigarettes, uncomplicated; Z79.899 Other long term (current) drug therapy
CPT/HCPCS: 36415; 81001; 83520; 84439; 84443; 84481; 86376; 94010; 99212

== ENCOUNTER 2025-06-11 08:04 | Outpatient (AMB) | payer OTHER, SELFPAY ==
--- NOTE | 2025-06-11 08:05 | A.OFFPC_ITS ---
Intake Visit Reasons: pre-op Allergies dabigatran etexilate (From PRADAXA) Allergy (Intermediate, Verified 06/11/25 08:13) SWELLING\hives Medication List - Last Reconciled 06/11/25 by Elmer Dolan [facility]- acetaminophen 1,000 mg (2 x 500 mg) PO Q8H PRN 15 days albuterol sulfate 2.5 mg (3 mL) inhalation Q4-6H PRN albuterol sulfate 90 mcg/actuation (Ventolin HFA) 2 puffs inhalation Q4-6H PRN 30 days alcohol swabs (Alcohol Pads) 1 pad topical DAILY amlodipine 2.5 mg PO DAILY atorvastatin 40 mg PO DAILY bisacodyl 10 mg (2 x 5 mg) PO BEDTIME blood pressure test kit-large Use to check BP daily blood sugar diagnostic (FreeStyle Lite Strips) Test blood sugar daily blood-glucose meter (FreeStyle Lite Meter kit) Use to test blood sugar 3 times a day hsltvdpgiq-pippdfquymtur-osrr 50-325-40 mg 1 tab PO Q4H PRN cetirizine 10 mg PO DAILY PRN cholecalciferol (vitamin D3) 50 mcg PO DAILY clonazepam (Klonopin) 1 mg PO BID 30 days cranberry fruit 450 mg PO BID 90 days fluticasone propion-salmeterol 250-50 mcg/dose (Wixela Inhub) 1 ea inhalation BID ibuprofen 600 mg PO DAILY PRN 30 days lancets (FreeStyle Lancets) Test blood sugar daily lisinopril 20 mg PO DAILY meclizine 25 mg PO TID PRN mirabegron ER 50 mg PO DAILY 90 days omeprazole 20 mg PO DAILY peg 3350-electrolytes 236-22.74-6.74 -5.86 gram (GaviLyte-G) 240 mL PO ONCE primidone 0 mg PO propranolol 60 mg PO BID 90 days [pull ups The patient is using 8 pull ups a day; size extra large] [Quad care As directed] [Recliner lift chair As directed] rivaroxaban (Xarelto) 20 mg PO BEDTIME sucralfate (Carafate) 2 grams (2 x 1 gram) PO .daily at 11pm tiotropium bromide (Spiriva with HandiHaler) 1 cap inhalation DAILY 30 days trazodone 100 mg PO BEDTIME Ultra-Light Rollator (walker) lower extrem weakness, use daily NS [Upright Posture Walker daily use] Ventolin HFA 90 mcg/actuation (albuterol sulfate) 2 puffs inhalation Q4-6H PRN 30 days NS Tobacco use date assessed: 11/13/24 Dental Screening Dental Screen Date: 05/28/25 HPI pre-op HPI Details History of Present Illness The patient is a 65-year-old female presenting for a telehealth preoperative visit for cataract extraction surgery. She is scheduled for cataract extraction with implants on her right eye on 06/15/2025 and on her left eye on 06/29/2025. She has been instructed to stop her blood thinner, Xarelto, three days before any surgical procedure and to avoid taking Motrin or NSAIDs one week prior to the surgery. The patient denies experiencing any chest pain, fever, lymphadenopathy, sore throat, or increased shortness of breath. She reports feeling nervous and experiencing tremors when anxious, and has requested anti-anxiety medication prior to the surgery. It was suggested that she be given intravenous medication to calm her before the surgery, which is a standard practice that i'm aware of. Review of Systems - Cardiovascular: Denies chest pain. - Constitutional: Denies fever. - Lymphatic: Denies lymphadenopathy. - Respiratory: Denies sore throat and in creased shortness of breath. - Neurological: Reports nervousness and tremors when anxious. Plan The patient is scheduled for cataract extraction with implants on her right eye on 06/15/2025 and on her left eye on 06/29/2025. She has been advised to discontinue her blood thinner, Xarelto, three days before the surgery and to avoid NSAIDs such as Motrin one week prior to the procedure. The patient has expressed anxiety regarding the surgery and experiences tremors when nervous. It was recommended that she receive intravenous medication to alleviate anxiety before the surgery, which is a common practice. SHE IS CLEAR FOR SURGERY FROM MY [facility] Discussion Notes I discussed with the patient the importance of stopping her blood thinner, Xarelto, three days before the surgery and avoiding NSAIDs like Motrin one week prior to the procedure to minimize bleeding risks. We also talked about her anxiety and the plan to administer intravenous medication to help manage her nervousness before the surgery. Patient Instructions - Stop taking Xarelto three days before the surgery. - Avoid taking NSAIDs like Motrin one we ek before the surgery. - Expect to receive medication to help w ith anxiety before the surgery. [facility] Medical History Ataxia Cervical spondylosis Migraine Cardiac pacemaker in situ (~2014) Paroxysmal atrial fibrillation LVH (left ventricular hypertrophy) Essential hypertension Hyperlipidemia Diabetes COPD (chronic obstructive pulmonary disease) Nicotine dependence, cigarettes, uncomplicated Benign essential tremor Microscopic hematuria Recurrent UTI Osteopenia (~2021) Obesity, Class I, BMI 30-34.9 Hypertensive retinopathy GERD (gastroesophageal reflux disease) Diverticulitis Tubular adenoma of colon (~2017) Mesenteric lymphadenopathy Thrombocytopenia Depression Insomnia Arthritis Breast calcification, right Surgical History History of pacemaker History of cholecystectomy History of tonsillectomy and adenoidectomy History of eye surgery History of tubal ligation History of colonoscopy History of esophagogastroduodenoscopy (EGD) History of pubovaginal sling History of dilatation and curettage History of loop electrical excision procedure (LEEP) History of right breast biopsy History of vocal cord polypectomy Family History Father Family history of diabetes mellitus Mother Diabetes mellitus Substance use disorder Sister Uterine cancer Diabetes mellitus Mental health disorder Substance use disorder Maternal Grandfather No problems noted. Maternal Grandmother Unknown family medical history Paternal Grandfather No problems noted. Paternal Grandmother No problems noted. Social History Household Members: Other Household Members Other:: Ex-, Daughter Housing: Apartment Alcohol intake: former Year quit: 2001 Patient Tobacco Use Status: Current everyday Tobacco user Tobacco use type: Cigarette Cigarettes Per Day: 4 Years Smoked: (onset 16yo, 1ppd x 47yrs, 40pyh) Packs per year/per ci.00 e-Cigarette/Vaping Use: Never Used Second Hand Smoke Exposure: Yes Advance Directives Date on File: 03/21/22 service: No Current occupational status: disabled Cognitive needs: No Hearing needs: No Vision needs: No Female Reproductive History Menstrual Age of Menarche: 7 Questionnaire Thrive Questionnaire Date Thrive assessed: 11/13/24 ESTEFANIA-7 AMB Questionnaire ESTEFANIA-7 Date ESTEFANIA - 7 assessed: 05/28/25 Source: Developed by Drs. Rich Colmenares, Kelly Wasserman, Zbigniew Robert and colleagues, with an educational jeffrey from [employer]. Physical exam (Primary Care) Tobacco/Smoking Status: Tobacco use Status Tobacco use date assessed 11/13/24 06/11/25 08:05 Patient Tobacco Use Status Current everyday Tobacco 06/11/25 08:05 Tobacco use type Cigarette 06/11/25 08:05 e-Cigarette/Vaping Use Never Used 06/11/25 08:05 Thrive Assessment: Date of Thrive Assessment Date Thrive assessed 11/13/24 06/11/25 08:05 Coding Level of Care Code Tele Est Pt Level 3 (44457) Diagnoses Pre-op examination Z01.818 Assessment & Plan Assessment & Plan (1) Pre-op examination: Code(s): Z01.818 - Encounter for other preprocedural examination Category: Medical Plan .
== END 2025-06-11 09:10 | disposition home or self-care (01) ==
LOC: HO.HMCC 08:04
PROVIDERS: PCP Nurse Practitioner Family; Visit Provider Nurse Practitioner Family
DX: H26.9 Unspecified cataract (principal); Z01.818 Encounter for other preprocedural examination

== ENCOUNTER 2025-06-11 15:15 | Outpatient (AMB) | payer OTHER, MEDICAID, SELFPAY ==
[2025-06-11 15:21] VITALS: BP 122/80; PULSE 89; O2SAT 96; BMI 31.1
--- NOTE | 2025-06-11 15:21 | MHC.OFFVIS ---
Vital Signs 06/11/25 15:21 Height 5 ft 7 in Weight 198 lb 6.656 oz BMI 31.1 BP 122/80 Blood Pressure Location Lt brachial Position Sitting Pulse 89 Pulse Source Pulse Oximeter Pulse Oximetry (%) 96 Oxygen Delivery Method Room Air Intake Visit Reasons: COPD Intake Note: pt is here for follow up and states her breathing is good, and she is having cataract surgery on Sunday. 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 Allergies dabigatran etexilate (From PRADAXA) Allergy (Intermediate, Verified 06/11/25 15:26) SWELLING\hives Medication List - Last Reconciled 06/11/25 by Ruth Thomas MD acetaminophen 1,000 mg (2 x 500 mg) PO Q8H PRN 15 days albuterol sulfate 2.5 mg (3 mL) inhalation Q4-6H PRN albuterol sulfate 90 mcg/actuation (Ventolin HFA) 2 puffs inhalation Q4-6H PRN 30 days alcohol swabs (Alcohol Pads) 1 pad topical DAILY amlodipine 2.5 mg PO DAILY atorvastatin 40 mg PO DAILY bisacodyl 10 mg (2 x 5 mg) PO BEDTIME blood pressure test kit-large Use to check BP daily blood sugar diagnostic (FreeStyle Lite Strips) Test blood sugar daily blood-glucose meter (FreeStyle Lite Meter kit) Use to test blood sugar 3 times a day iogdkxcpyn-jmldpdnktxnwo-tsbw 50-325-40 mg 1 tab PO Q4H PRN cetirizine 10 mg PO DAILY PRN cholecalciferol (vitamin D3) 50 mcg PO DAILY clonazepam (Klonopin) 1 mg PO BID 30 days cranberry fruit 450 mg PO BID 90 days fluticasone propion-salmeterol 250-50 mcg/dose (Wixela Inhub) 1 ea inhalation BID ibuprofen 600 mg PO DAILY PRN 30 days lancets (FreeStyle Lancets) Test blood sugar daily lisinopril 20 mg PO DAILY meclizine 25 mg PO TID PRN mirabegron ER 50 mg PO DAILY 90 days omeprazole 20 mg PO DAILY peg 3350-electrolytes 236-22.74-6.74 -5.86 gram (GaviLyte-G) 240 mL PO ONCE primidone 100 mg PO TID propranolol 60 mg PO BID 90 days [pull ups The patient is using 8 pull ups a day; size extra large] [Quad care As directed] [Recliner lift chair As directed] rivaroxaban (Xarelto) 20 mg PO BEDTIME sucralfate (Carafate) 2 grams (2 x 1 gram) PO .daily at 11pm tiotropium bromide (Spiriva with HandiHaler) 1 cap inhalation DAILY 30 days trazodone 100 mg PO BEDTIME Ultra-Light Rollator (walker) lower extrem weakness, use daily NS [Upright Posture Walker daily use] Ventolin HFA 90 mcg/actuation (albuterol sulfate) 2 puffs inhalation Q4-6H PRN 30 days NS Do you need a note to return to daycare/school/sports/work: No HPI HPI COPD: Details: This 65 years old female, ongoing smoker, currently smoking 6 cigarettes a day, As chronic obstructive pulmonary disease for many years, Luckily she does not have history of frequent acute exacerbations. She continues to use Advair 250-50 1 inhalation b.i.d. and Spiriva HandiHaler daily. In addition she does use albuterol HFA p.r.n.. She claims that her breathing is as good as it has been. She smokes to alleviate her anxiety. She is going to have cataract surgery , next week.. [facility] Medical History Ataxia Cervical spondylosis Migraine Cardiac pacemaker in situ (~2014) Paroxysmal atrial fibrillation LVH (left ventricular hypertrophy) Essential hypertension Hyperlipidemia Diabetes COPD (chronic obstructive pulmonary disease) Nicotine dependence, cigarettes, uncomplicated Benign essential tremor Microscopic hematuria Recurrent UTI Osteopenia (~2021) Obesity, Class I, BMI 30-34.9 Hypertensive retinopathy GERD (gastroesophageal reflux disease) Diverticulitis Tubular adenoma of colon (~2017) Mesenteric lymphadenopathy Thrombocytopenia Depression Insomnia Arthritis Breast calcification, right Surgical History History of pacemaker History of cholecystectomy History of tonsillectomy and adenoidectomy History of eye surgery History of tubal ligation History of colonoscopy History of esophagogastroduodenoscopy (EGD) History of pubovaginal sling History of dilatation and curettage History of loop electrical excision procedure (LEEP) History of right breast biopsy History of vocal cord polypectomy Family History Father Family history of diabetes mellitus Mother Diabetes mellitus Substance use disorder Sister Uterine cancer Diabetes mellitus Mental health disorder Substance use disorder Maternal Grandfather No problems noted. Maternal Grandmother Unknown family medical history Paternal Grandfather No problems noted. Paternal Grandmother No problems noted. Social History Household Members: Other Household Members Other:: Ex-, Daughter Housing: Apartment Alcohol intake: former Year quit: 2001 Patient Tobacco Use Status: Current everyday Tobacco user Tobacco use type: Cigarette Cigarettes Per Day: 6 Years Smoked: (onset 16yo, 1ppd x 47yrs, 40pyh) e-Cigarette/Vaping Use: Never Used Second Hand Smoke Exposure: Yes Advance Directives Date on File: 03/21/22 service: No Current occupational status: disabled Cognitive needs: No Hearing needs: No Vision needs: No Female Reproductive History Menstrual Age of Menarche: 7 Review of Systems Const All systems reviewed & are unremarkable except as noted in HPI and below Eyes Reports no additional complaints ENT Reports no additional complaints Card Denies chest pain, Denies irregular heart rhythm and Reports other (Has demand pacemaker in the left pectoral area) Resp Reports as per HPI GI Reports abdominal pain, Reports constipation, Reports heartburn, Reports diarrhea and Reports other (Irritable bowel syndrome) Reports nocturia Musc Reports back pain Skin/Breast Reports system reviewed and no additional complaints, except as documented Neuro Reports tremor(s) (Essential tremors) Psych Reports anxiety and Reports depression Endo Reports other (Diabetes mellitus) Physical Exam Vital Signs: Last Vital Signs Pulse 89 06/11/25 15:21 BP 122/80 06/11/25 15:21 Pulse Ox 96 06/11/25 15:21 Oxygen Delivery Method Room Air 06/11/25 15:21 BMI result Body Mass Index 31.1 Const General: comfortable, no acute distress, alert and awake Orientation/consciousness: patient oriented x3 HEENT Head: Yes normal to inspection General nose exam: No nasal polyps present and No nasal discharge present Face and sinus: Yes sinuses nontender Mouth: oropharynx normal Throat: Yes posterior oropharynx normal Eyes General: appearance normal, both eyes and all related structures Neck Neck: Yes normal visual inspection, Yes no lymphadenopathy, Yes trachea midline and Yes no JVD Thyroid: Thyroid normal Chest Chest palpation & inspection: normal inspection of the chest, normal palpation of entire chest wall and no tenderness Resp Other: Percussion note is resonant, breath sounds are distant with prolonged expiratory phase. No wheezes rhonchi or crepitations are heard . Cardio Palpation: normal PMI Rate: regular rate Rhythm: regular rhythm and other (Pacemaker in left pectoral area) Heart sounds: no gallops and no murmurs Peripheral pulses: Peripheral pulses 2+ throughout GI Palpation (GI): Soft to palpation, nontender, No hepatosplenomegaly present and no masses Auscultation: normal bowel sounds Back/Spine/Pelvis Thoracic/Lumbar Spine: thoracic and lumbar spine normal to inspection Skin General skin exam: no rashes or lesions noted Neuro Other: Patient has tremors of the head, and slightly tremorous speech General: patient oriented x3 and no focal motor deficits Cranial nerves: Yes CN's II-XII intact bilaterally Extrem General: Yes normal to inspection, Yes no clubbing, cyanosis or edema and Yes no calf tenderness Psych Speech and movement: Normal speech and movement present Affect: Anxious affect present Office Procedures Spirometry Testing Spirometry Comments: [place] done 49709- Spirometry Results Reviewed Results Reviewed: SPIROMETRY : Assessment & Plan Assessment & Plan (1) COPD (chronic obstructive pulmonary disease): Comment: Long-standing history of COPD, severe per PFT with component of asthma. It is relatively stable at this time. Does have some intermittent cough related to smoking but no wheezes. I think she is at her baseline. Code(s): J44.9 - Chronic obstructive pulmonary disease, unspecified Category: Medical Plan: ADVISED TO CONTINUE USING SPIRIVA HANDIHALER 1 INHALATION DAILY , WIXELA 250-51 INHALATION B.I.D. AND VENTOLIN HFA 2 PUFFS Q 4-6 HOURS P.R.N.. (2) Nicotine dependence, cigarettes, uncomplicated: Comment: (Current smoker - onset 16yo, 1ppd x 47yrs, 40pyh) TRYING TO CUT DOWN AND NOW SMOKES 5-6 CIGARETTES A DAY. Code(s): F17.210 - Nicotine dependence, cigarettes, uncomplicated Category: Medical Plan: ONCE AGAIN TALKED TO HER ABOUT SMOKING AND IDEALLY SHE SHOULD QUIT SMOKING BUT BECAUSE OF HER CHRONIC ANXIETY SHE WOULD NOT BE ABLE TO DO IT. SO AT LEAST CUT DOWN THE NUMBER OF CIGARETTES TO 4 A DAY. (3) Benign essential tremor: Comment: Patient has chronic benign tremors, holding stable with Propanolol 60 mg b.i.d. She is being followed by Dr. Vieira ( no adverse effect on lungs and breathing ) Code(s): G25.0 - Essential tremor Category: Medical Plan: WITH HER CHRONIC LUNG DISEASE HE HAD TO BE CAREFUL AND MONITOR HER CLOSELY FOR ANY INCREASE IN WHEEZING, BECAUSE BETA DIXIE AGENTS CAN AGGRAVATE THE BRONCHOSPASM. SHE SO FOR HAS HAD NO ADVERSE EFFECT. Plan * FOR CATARACT SURGERIES IS CONCERNED, FROM PULMONARY POINT OF VIEW THERE IS NO PROBLEM. Orders: Orders AMB Spirometry Testing Today J44.9 - Chronic obstructive pulmonary disease, unspecified Coding Level of Care Code Est Pt Level 3 (42765) Diagnoses COPD (chronic obstructive pulmonary disease) J44.9 Nicotine dependence, cigarettes, uncomplicated F17.210 Benign essential tremor G25.0 CPT Codes Spirometry - CPT: 11411- Spirometry ([id number])
== END 2025-06-11 15:49 | disposition home or self-care (01) ==
LOC: HO.HPS 15:16
PROVIDERS: PCP Nurse Practitioner Family; Visit Provider Internal Medicine
DX: J44.9 Chronic obstructive pulmonary disease, unspecified (principal); F17.210 Nicotine dependence, cigarettes, uncomplicated; G25.0 Essential tremor
CPT/HCPCS: 94010; 99213

== ENCOUNTER 2025-06-15 08:23 | Day surgery (SDC) | payer OTHER, SELFPAY ==
--- OUTSIDE RECORDS SUMMARY | 2025-05-05 12:21 | XMS_ITS ---
Author Name Arcenio Wasserman NP Address [address] [place] [address] Phone [phone] [facility] Care Team Providers Care Sourcing Analyst Name Role Phone Lux Arcenio Unavailable [phone] Reason for Referral Not Available Allergies, adverse [...] NIGHT AT BEDTIME. 2023-09-05 No Data Available Rseekdtemj-EDLC-Oftkjzmq 50/325/40 mg Tab TAKE 1 TABLET EVERY [...] enduranceHistory of fall Active 2024-04-18 N/A uses Xiaozhu.comer rollator to ambulate. Reports recent fall.Monitor for [...] to follow up with PCP/Specialists.- Follows with power grader operator. Unspecified convulsions Active 2025-03-24 N/A R x: [...] repo rts she fell yesterday while at [facility]. She banged her both knees, both [...] (do not use for phone, instead use 92526-42) [facility] ([place]) 04/18/2024 Other thrombophiliaUnspecifi [...] (do not use for phone, instead use 79199-80) [facility], ([place]) 04/18/20[place] New patient,40-59min; chronic exacerbation, 2 stable chronic or 1 acute illness add add modifier 95 for video (do not use for phone, instead use 71009-12) [facility], [place] 04[place]18/20[place] New patient,40-59min; chronic exacerbation, 2 stable chronic or 1 acute illness add add modifier 95 for video (do not use for phone, instead use 64166-94) [facility], [place] 04/18/20[place] New patient,40-59min; chronic exacerbation, 2 stable chronic or 1 acute illness add add modifier 95 for video (do not use for phone, instead use 44070-40) [facility], [place] 04/18/20[place] New patient,40-59min; chronic exacerbation, 2 stable chronic or 1 acute illness add add modifier 95 for video (do not use for phone, instead use 33386-44) [facility], [place] 04/18/2024 New patient,40-59min; chronic exacerbation, 2 stable chronic or 1 acute illness add add modifier 95 for video (do not use for phone, instead use 89342-56) [facility], [place] 04/18/2024 New patient,40-59min; chronic exacerbation, 2 stable chronic or 1 acute illness add add modifier 95 for video (do not use for phone, instead use 95963-31) [facility], [place] 04/18/2024 New patient,40-59min; chronic exacerbation, 2 stable chronic or 1 acute illness add add modifier 95 for video (do not use for phone, instead use 67942-69) [facility], [place] 04/18/2024 New patient,40-59min; chronic exacerbation, 2 stable chronic or 1 acute illness add add modifier 95 for video (do not use for phone, instead use 81044-47) [facility], ([place] 04/18/2024 Estab. patient 20-29min; 1 stable chronic or 2 minor; add add modifier 95 for video, modifier 93 for phone [facility], [place] 03/24/2025 Other thrombophiliaUnspecifi ed atrial fibrillationVentricular tachycardia, [...] 95 for video, modifier 93 for phone [facility], [place] 03/24/2025 Estab. patient 20-29min; 1 stable chronic or 2 minor; add add modifier 95 for video, modifier 93 for phone [facility], [place] 03/24/2025 Estab. patient 20-29min; 1 stable chronic or 2 minor; add add modifier 95 for video, modifier 93 for phone [facility], [place] 03/24/2025 Estab. patient 20-29min; 1 stable chronic or 2 minor; add add modifier 95 for video, modifier 93 for phone [facility], [place] 03/24/2025 Estab. patient 20-29min; 1 stable chronic or 2 minor; add add modifier 95 for video, modifier 93 for phone [facility], [place] 03/24/2025 Estab. patient 20-29min; 1 stable chronic or 2 minor; add add modifier 95 for video, modifier 93 for phone [facility], [place] 03/24/2025 Estab. patient 20-29min; 1 stable chronic or 2 minor; add add modifier 95 for video, modifier 93 for phone [facility], [place] 03/24/2025 Estab. patient 10-29min; 1 minor problem; add add modifier 95 for video, modifier 93 for phone [facility], ([place] 04/07/2025 Type 2 diabetes mellitus wit h diabetic chronic kidney diseaseChronic kidney disease, stage 3 unspecifiedOther thrombophiliaUnspecified atrial fibrillationVentricular tachycardia, unspecifiedPresence of cardiac pacemakerChronic obstructive pulmonary disease, unspecifiedNicotine dependence, unspecified, uncomplicatedInsomnia, unspecifiedGeneralized anxiety disorderMajor depressive disorder, single episode, in partial remissionGastro-esophageal reflux disease without esophagitisOveractive bladderUnspecified convulsionsOther reduced mobilityHistory of fallingType 2 diabetes mellitus with other diabetic ophthalmic complicationAlcohol dependence, in remissionOther specified counselingOther injury of unspecified body region, subsequent encounterOther problems related to medical facilities and other health care Vital Signs Date of Collection Vitals 2024-04-18 [...] Current Smoking Status Current every day smoker 2025-05-05 Sex Female Gender identity Woman History of Procedures Procedures Service Procedure code Service date Servicing provider Phone# New patient,40-59min; chronic exacerbation, 2 stable chronic or 1 acute illness add add modifier 95 for video (do not use for phone, instead use 02311-32) [id number] 2024-04-18 No Data Available No Data Availa [...] 95 for video, modifier 93 for phone [id number] 2025-03-24 No Data Available No Data Availa [...] 95 for video, modifier 93 for phone [id number] 2025-04-07 No Data Available No Data Availa [...] f/u care and monitoring with PCP and chief wellness officer. 2025-03-24 07:42:48 Functional Status As sessed (1170F)Advance [...] to follow up with PCP/Specialists.- Follows with power grader operator.Member reports she is sober 26 years from [...] 14/05.04/07/25:She reports she fell yesterday while at [facility]. She banged her both knees, both [...] to follow up with PCP/Specialists.- Follows with power grader operator.Xarelto, Propranolol, AmlodipinePacemaker Bleeding risk precautions, monitor for [...] She reports she fell yesterday while at [employer]. She banged her both knees, both arms [...]
[2025-06-11 09:09] VITALS: BMI 30.4
--- NOTE | 2025-06-12 14:04 | P.CONAN_ITS ---
Documented by User: Carno Ibarra NP 06/12/25 14:06 HPI - Anesthesia Eval Consult details Narrative: 65 yr old female for right Cataract Extraction IOL Insertion Medically optimized by PCP 06/11/2025 Advised to hold xarelto 3 days prior COPD with asthma component: stable at 06/11/25 pulmonary follow up Benign essential tremor: stable on propranolol, follows with neuro PMFSH Active Problems Active Problems: All Active Problems Low TSH level (Acute) Chest discomfort (Acute) Decreased pedal pulses (Acute) Atypical chest pain (Acute) Overactive bladder (Acute) Otitis media, left (Acute) Allergic conjunctivitis (Acute) Allergies (Acute) Proteinuria (Acute) Microalbuminuria (Acute) Bug bite (Acute) Cellulitis of finger of left hand (Acute) Foreign body (FB) in soft tissue (Acute) Screening for cervical cancer (Acute) Heel pain (Acute) Hard of hearing (Acute) Lower extremity weakness (Acute) Weakness (Acute) Postmenopausal (Acute) Chronic anticoagulation (Acute) Urinary incontinence (Acute) Vitamin D deficiency (Acute) Irritable bowel syndrome with both constipation and diarrhea (Acute) GERD (gastroesophageal reflux disease) (Acute) Depression (Acute) Thrombocytopenia (Acute) Recurrent UTI (Acute) Microscopic hematuria (Acute) Cardiac pacemaker in situ (Chronic ~2014) Paroxysmal atrial fibrillation (Acute) Essential hypertension (Acute) Hyperlipidemia (Acute) Diabetes (Acute) COPD (chronic obstructive pulmonary disease) (Acute) Nicotine dependence, cigarettes, uncomplicated (Acute) Benign essential tremor (Acute) Tubular adenoma of colon (Acute ~2017) Osteopenia (Acute ~2021) Breast calcification, right (Acute) Arthritis (Acute) Obesity, Class I, BMI 30-34.9 (Acute) Past Medical History Medical History Ataxia Cervical spondylosis Migraine Cardiac pacemaker in situ (~2014) Paroxysmal atrial fibrillation LVH (left ventricular hypertrophy) Essential hypertension Hyperlipidemia Diabetes COPD (chronic obstructive pulmonary disease) Nicotine dependence, cigarettes, uncomplicated Benign essential tremor Microscopic hematuria Recurrent UTI Osteopenia (~2021) Obesity, Class I, BMI 30-34.9 Hypertensive retinopathy GERD (gastroesophageal reflux disease) Diverticulitis Tubular adenoma of colon (~2017) Mesenteric lymphadenopathy Thrombocytopenia Depression Insomnia Arthritis Breast calcification, right Family History Family History Father Family history of diabetes mellitus Mother Diabetes mellitus Substance use disorder Sister Uterine cancer Diabetes mellitus Mental health disorder Substance use disorder Maternal Grandfather No problems noted. Maternal Grandmother Unknown family medical history Paternal Grandfather No problems noted. Paternal Grandmother No problems noted. Surgical History Surgical History History of pacemaker History of cholecystectomy History of tonsillectomy and adenoidectomy History of eye surgery History of tubal ligation History of colonoscopy History of esophagogastroduodenoscopy (EGD) History of pubovaginal sling History of dilatation and curettage History of loop electrical excision procedure (LEEP) History of right breast biopsy History of vocal cord polypectomy History of Problems with Anesthesia: No Social History Social History Household Members: Other Household Members Other:: Ex-, Daughter Housing: Apartment Alcohol intake: former Year quit: 2001 Patient Tobacco Use Status: Current everyday Tobacco user Tobacco use type: Cigarette Cigarettes Per Day: 6 Years Smoked: (onset 16yo, 1ppd x 47yrs, 40pyh) e-Cigarette/Vaping Use: Never Used Second Hand Smoke Exposure: Yes [facility] Practices: Anabaptism Advance Directives: Yes Advance Directives Information Provided: Yes Advance Directives on File: Yes Advance Directives Date on File: 03/21/22 service: No Current occupational status: disabled Cognitive needs: No Hearing needs: No Vision needs: No Meds Allergies Allergy/AdvReac Type Severity Reaction Status Date / Time dabigatran etexilate (From Allergy Intermediate SWELLING\hi Verified 06/11/25 15:26 PRADAXA) ves Home Medications ?Medication ?Instructions ?Recorded ?Confirmed ?Last Taken ?Type trazodone 100 mg tablet 100 mg PO BEDTIME 08/11/20 0 06/11/25 Unknown History lisinopril 40 mg tablet 20 mg PO DAILY 08/24/2105/23 Unknown History primidone 50 mg tablet 100 mg PO TID 06/13/2306/11 Unknown History edghmymjco-awmsvopvhbdxo-nfbrrpva 1 tab PO Q4H PRN Reed kymberly Headache 05/18/25 06/11/25 Unknown History 50 mg-325 mg-40 mg tablet Exam Height,Weight and Vital Signs: Height 5 ft 7 in Weight 87.997 kg Assessment and Plan Final Anesthetic Review History of Problems with Anesthesia: No Documented by User: Soraya Curran MD 06/15/25 11:40 [facility] Past Medical History Medical History Ataxia Cervical spondylosis Migraine Cardiac pacemaker in situ (~2014) Paroxysmal atrial fibrillation LVH (left ventricular hypertrophy) Essential hypertension Hyperlipidemia Diabetes COPD (chronic obstructive pulmonary disease) Nicotine dependence, cigarettes, uncomplicated Benign essential tremor Microscopic hematuria Recurrent UTI Osteopenia (~2021) Obesity, Class I, BMI 30-34.9 Hypertensive retinopathy GERD (gastroesophageal reflux disease) Diverticulitis Tubular adenoma of colon (~2017) Mesenteric lymphadenopathy Thrombocytopenia Depression Insomnia Arthritis Breast calcification, right Family History Family History Father Family history of diabetes mellitus Mother Diabetes mellitus Substance use disorder Sister Uterine cancer Diabetes mellitus Mental health disorder Substance use disorder Maternal Grandfather No problems noted. Maternal Grandmother Unknown family medical history Paternal Grandfather No problems noted. Paternal Grandmother No problems noted. Family history of problems with anesthesia: No Surgical History Surgical History History of pacemaker History of cholecystectomy History of tonsillectomy and adenoidectomy History of eye surgery History of tubal ligation History of colonoscopy History of esophagogastroduodenoscopy (EGD) History of pubovaginal sling History of dilatation and curettage History of loop electrical excision procedure (LEEP) History of right breast biopsy History of vocal cord polypectomy Social History Social History Household Members: Other Household Members Other:: Ex-, Daughter Housing: Apartment Alcohol intake: former Year quit: 2001 Patient Tobacco Use Status: Current everyday Tobacco user Tobacco use type: Cigarette Cigarettes Per Day: 6 Years Smoked: (onset 16yo, 1ppd x 47yrs, 40pyh) e-Cigarette/Vaping Use: Never Used Second Hand Smoke Exposure: Yes [facility] Practices: Anabaptism Advance Directives: Yes Advance Directives Information Provided: Yes Advance Directives on File: Yes Advance Directives Date on File: 03/21/22 service: No Current occupational status: disabled Cognitive needs: No Hearing needs: No Vision needs: No Meds Allergies Allergy/AdvReac Type Severity Reaction Status Date / Time dabigatran etexilate (From Allergy Intermediate SWELLING\hi Verified 06/11/25 15:26 PRADAXA) ves Home Medications ?Medication ?Instructions ?Recorded ?Confirmed ?Last Taken ?Type trazodone 100 mg tablet 100 mg PO BEDTIME 08/11/20 0 06/11/25 Unknown History lisinopril 40 mg tablet 20 mg PO DAILY 08/24/2105/23 Unknown History primidone 50 mg tablet 100 mg PO TID 06/13/2306/11 Unknown History gjqcgnrspf-kgykebgghbobu-anuwhfcl 1 tab PO Q4H PRN Reed kymberly Headache 05/18/25 06/11/25 Unknown History 50 mg-325 mg-40 mg tablet Exam Airway Mallampati Class: II (edentuolous) TM Dist: >3cm Neck ROM: Full Heart: rrr Lungs: cta Assessment and Plan Assessment Anesthesia Assessment: Anesthesia Plan Discussed and Chart Reviewed Final Anesthetic Review Family History of Problems with Anesthesia: No NPO: Yes ASA Class: III Final Preanesthetic Review: No Changes in Pt Med Stat, Meds/Allgs Chart Reviewed and Consent Obtained/Reviewed Patient Risk: Intermediate Procedure Risk: Low Anesthetic Plan Anesthetic Plan: MAC: Disposition: Standard PACU
[2025-06-15 10:34] VITALS: BP 144/90; PULSE 86; RESP 20; TEMP 36.9; O2SAT 94
[2025-06-15] MEDS: Ketorolac Tromethamine 0.5% Op 5 ML DROPS 1 DROP EYE-RIGHT ×3 (10:46→10:48)
[2025-06-15] MEDS: Tropicamide 1 % Ophth Sol 3 ML BTL 1 DROP EYE-RIGHT ×3 (10:46→10:48)
[2025-06-15] MEDS: Tetracaine HCl/PF 0.5% Oph Sol 4 ML DROPS 1 DROP EYE-RIGHT (10:46)
[2025-06-15] MEDS: Cyclopentolate 1 % Ophth Sol 2 ML DRPBTL 1 DROP EYE-RIGHT ×3 (10:46→10:48)
[2025-06-15] MEDS: Lactated Ringers 500 ML 50 ML IV (10:46)
[2025-06-15] MEDS: Phenylephrine HCL 2.5% Oph SoL 2 ML BOTTLE 1 DROP EYE-RIGHT ×3 (10:47→10:48)
--- NOTE | 2025-06-15 11:38 | MHC.SHP ---
Pre-Procedural Eval Section A - 24 Hr Update-Section A only Date of Service: 06/15/25 The patient is an INPATIENT: No Changes since office visit: No Cold of Flu in the past 2 weeks, No New Medical Problems, No Changes in Medication and No Patient answered all questions The patient has been examined within 24 hours of the surgical procedure. The History & Physical has been completed within 30 days and I have reviewed it.: Yes Section B - Complete if H&P > 30 days Chief Complaint: Age-related nuclear cataract, right eye Allergies: Allergies Allergy/AdvReac Type Severity Reaction Status Date / Time dabigatran etexilate (From Allergy Intermediate SWELLING\hi Verified 06/11/25 15:26 PRADAXA) ves Plan Diagnosis/Plan: Unchanged I have reviewed the history and physical and performed a pertinent physical examination on my patient. No changes have occurred unless specified. Time Spent With Patient Time: Total time managing care of this patient today ____ minutes.
--- NOTE | 2025-06-15 11:39 | P.PCNO_ITS ---
Ophthalmology Procedure Procedure Date of Service: 06/15/25 Ophthalmology Viscoelastic: Healon Duet Dual Pack Pro Ophthalmology Lenses: IOL Acrysof MP - MA60AC (20.5) Procedure Notes: PREOPERATIVE DIAGNOSIS: Decreased visual acuity right eye secondary to cataract POSTOPERATIVE DIAGNOSIS: Same PROCEDURE: Right cataract extraction with intraocular lens insertion SURGEON: Collins Horton M.D. ANESTHESIA: Topical/MAC ESTIMATED BLOOD LOSS: None COMPLICATIONS: None After obtaining informed consent, the patient was brought to the operating room suite and placed in the supine position. After adequate sedation per anesthesia, topical drops of Tetracaine were given to the right eye. The eye was then prepped and draped in the usual sterile fashion. The operating room microscope was then positioned over the operative eye and a lid speculum placed. A paracentesis was created. Viscoelastic was then instilled into the anterior chamber. A three plane incision was then created temporally, utilizing a 2.85 mm keratome. Capsulotomy forceps were then utilized to create a circular tear capsulotomy. Hydrodissection and hydrodelineation were carried out until adequate mobilization of the nucleus occurred. Phacoemulsification was then utilized to remove the dense central nu cleus followed by removal of the cortical material utilizing the automated aspiration irrigation unit. Viscoelastic was instilled into the posterior capsular bag followed by placement of a posterior chamber intraocular lens without difficulty. The residual Viscoelastic was then removed utilizing the automated IA machine. The wound was checked and found to be watertight. The patient tolerated the procedure well and the lid speculum was removed. Intracameral injection of Vigamox 0.1 mL followed by a subtenon injection of Kenalog-40 0.2 mL were administered. The patient will be seen in the a.m.
[2025-06-15 12:05] VITALS: BP 114/59; PULSE 61; RESP 18; TEMP 37; O2SAT 98
== END 2025-06-15 12:10 | disposition home or self-care (01) ==
PROVIDERS: PCP Nurse Practitioner Family; Visit Provider Ophthalmology
PROC: (CPT 66985; principal; 2025-06-15 11:30)
DX: H25.11 Age-related nuclear cataract, right eye (principal); H54.7 Unspecified visual loss; Z83.511 Family history of glaucoma; H35.033 Hypertensive retinopathy, bilateral; H04.123 Dry eye syndrome of bilateral lacrimal glands; H18.413 Arcus senilis, bilateral; I10 Essential (primary) hypertension; E11.9 Type 2 diabetes mellitus without complications; J44.9 Chronic obstructive pulmonary disease, unspecified; G25.0 Essential tremor; E78.00 Pure hypercholesterolemia, unspecified; Z95.0 Presence of cardiac pacemaker; Z79.01 Long term (current) use of anticoagulants; Z79.1 Long term (current) use of non-steroidal anti-inflammatories (NSAID); Z79.51 Long term (current) use of inhaled steroids; Z79.899 Other long term (current) drug therapy; Z88.8 Allergy status to other drugs, medicaments and biological substances; F17.210 Nicotine dependence, cigarettes, uncomplicated
CPT/HCPCS: 66984; J2250; J3301; V2632

== ENCOUNTER 2025-06-29 08:48 | Day surgery (SDC) | payer OTHER, SELFPAY ==
--- OUTSIDE RECORDS SUMMARY | 2025-05-18 08:57 | XMS_ITS ---
Author Name Arcenio Wasserman NP Address [address] [place] [address] Phone [phone] [facility] Care Team Providers Care Medical Record Clerk Name Role Phone Lux Arcenio Unavailable [phone] Reason for Referral Not Available Allergies, adverse [...] NIGHT AT BEDTIME. 2023-09-05 No Data Available Lzgcddzgtf-TEGH-Gbkxqnxp 50/325/40 mg Tab TAKE 1 TABLET EVERY [...] enduranceHistory of fall Active 2024-04-18 N/A uses [employer] Healther rollator to ambulate. Reports recent fall.Monitor for [...] to follow up with PCP/Specialists.- Follows with carcass trimmer. Unspecified convulsions Active 2025-03-24 N/A R x: [...] repo rts she fell yesterday while at [facility]. She banged her both knees, [...] (do not use for phone, instead use 68954-81) [facility] ([place]) 04/18/2024 Other [...] (do not use for phone, instead use 85860-51) [facility], ([place]) 04/18/20[place] New patient,40-59min; chronic exacerbation, 2 stable chronic or 1 acute illness add add modifier 95 for video (do not use for phone, instead use 39879-97) [facility] [place] 04[place]18[place]20[place] New patient,40-59min; chronic exacerbation, 2 stable chronic or 1 acute illness add add modifier 95 for video (do not use for phone, instead use 20926-34) [facility] [place] 04[place]18/20[place] New patient,40-59min; chronic exacerbation, 2 stable chronic or 1 acute illness add add modifier 95 for video (do not use for phone, instead use 79385-08) [facility] [place] 04/18/20[place] New patient,40-59min; chronic exacerbation, 2 stable chronic or 1 acute illness add add modifier 95 for video (do not use for phone, instead use 09732-27) [facility], [place] 04/18/20[place] New patient,40-59min; chronic exacerbation, 2 stable chronic or 1 acute illness add add modifier 95 for video (do not use for phone, instead use 09914-71) [facility] [place] 04/18/20[place] New patient,40-59min; chronic exacerbation, 2 stable chronic or 1 acute illness add add modifier 95 for video (do not use for phone, instead use 44124-32) [facility] [place] 04/18/2024 New patient,40-59min; chronic exacerbation, 2 stable chronic or 1 acute illness add add modifier 95 for video (do not use for phone, instead use 23032-64) [facility] [place] 04/18/2024 New patient,40-59min; chronic exacerbation, 2 stable chronic or 1 acute illness add add modifier 95 for video (do not use for phone, instead use 55139-05) [facility], [place] 04/18/20[place] Estab. patient 20-29min; 1 stable chronic or 2 minor; add add modifier 95 for video, modifier 93 for phone [facility] [place] 03/24/2025 Other thrombophiliaUnspecifi ed atrial fibrillationVentricular tachycardia, [...] 95 for video, modifier 93 for phone [facility] [place] 03/24/2025 Estab. patient 20-29min; 1 stable chronic or 2 minor; add add modifier 95 for video, modifier 93 for phone [facility] [place] 03/24/2025 Estab. patient 20-29min; 1 stable chronic or 2 minor; add add modifier 95 for video, modifier 93 for phone [facility] [place] 03/24/2025 Estab. patient 20-29min; 1 stable chronic or 2 minor; add add modifier 95 for video, modifier 93 for phone [facility] [place] 03/24/2025 Estab. patient 20-29min; 1 stable chronic or 2 minor; add add modifier 95 for video, modifier 93 for phone [facility] [place] 03/24/2025 Estab. patient 20-29min; 1 stable chronic or 2 minor; add add modifier 95 for video, modifier 93 for phone [facility] [place] 03/24/2025 Estab. patient 20-29min; 1 stable chronic or 2 minor; add add modifier 95 for video, modifier 93 for phone [facility] [place] 03/24/2025 Estab. patient 10-29min; 1 minor problem; add add modifier 95 for video, modifier 93 for phone [facility], [place] 04/07/2025 Type 2 diabetes mellitus wit h [...] Current Smoking Status Current every day smoker 2025-05-18 Sex Female Gender identity Woman History of Procedures Procedures Service Procedure code Service date Servicing provider Phone# New patient,40-59min; chronic exacerbation, 2 stable chronic or 1 acute illness add add modifier 95 for video (do not use for phone, instead use 92971-93) [id number] 2024-04-18 No Data Available No Data Availa [...] 95 for video, modifier 93 for phone [id number] 2025-03-24 No Data Available No Data Availa [...] 95 for video, modifier 93 for phone 14493 2025-04-07 No Data Available No Data Availa [...] f/u care and monitoring with PCP and neonatal doctor. 2025-03-24 07:42:48 Functional Status As sessed (1170F)Advance [...] to follow up with PCP/Specialists.- Follows with carcass trimmer.Member reports she is sober 26 years from [...] 14/05.04/07/25:She reports she fell yesterday while at [facility]. She banged her both knees, [...] to follow up with PCP/Specialists.- Follows with carcass trimmer.Xarelto, Propranolol, AmlodipinePacemaker Bleeding risk precautions, monitor for [...] She reports she fell yesterday while at [facility]. She banged her both knees, both arms [...]
[2025-06-11 09:12] VITALS: BMI 30.4
--- NOTE | 2025-06-25 14:13 | HO.ANESPROP2 ---
Documented by User: Ligia Rocha NP 06/25/25 14:15 HPI - Anesthesia Eval Consult details Narrative: 65yo F for Left Cataract Extraction IOL Insertion Right eye 06/15/25: Midaz 2 Pacer in situ Xarelto for afib PMFSH Active Problems Active Problems: All Active Problems Low TSH level (Acute) Chest discomfort (Acute) Decreased pedal pulses (Acute) Atypical chest pain (Acute) Overactive bladder (Acute) Otitis media, left (Acute) Allergic conjunctivitis (Acute) Allergies (Acute) Proteinuria (Acute) Microalbuminuria (Acute) Bug bite (Acute) Cellulitis of finger of left hand (Acute) Foreign body (FB) in soft tissue (Acute) Screening for cervical cancer (Acute) Heel pain (Acute) Hard of hearing (Acute) Lower extremity weakness (Acute) Weakness (Acute) Postmenopausal (Acute) Chronic anticoagulation (Acute) Urinary incontinence (Acute) Vitamin D deficiency (Acute) Irritable bowel syndrome with both constipation and diarrhea (Acute) GERD (gastroesophageal reflux disease) (Acute) Depression (Acute) Thrombocytopenia (Acute) Recurrent UTI (Acute) Microscopic hematuria (Acute) Cardiac pacemaker in situ (Chronic ~2014) Paroxysmal atrial fibrillation (Acute) Essential hypertension (Acute) Hyperlipidemia (Acute) Diabetes (Acute) COPD (chronic obstructive pulmonary disease) (Acute) Nicotine dependence, cigarettes, uncomplicated (Acute) Benign essential tremor (Acute) Tubular adenoma of colon (Acute ~2017) Osteopenia (Acute ~2021) Breast calcification, right (Acute) Arthritis (Acute) Obesity, Class I, BMI 30-34.9 (Acute) Past Medical History Medical History Ataxia Cervical spondylosis Migraine Cardiac pacemaker in situ (~2014) Paroxysmal atrial fibrillation LVH (left ventricular hypertrophy) Essential hypertension Hyperlipidemia Diabetes COPD (chronic obstructive pulmonary disease) Nicotine dependence, cigarettes, uncomplicated Benign essential tremor Microscopic hematuria Recurrent UTI Osteopenia (~2021) Obesity, Class I, BMI 30-34.9 Hypertensive retinopathy GERD (gastroesophageal reflux disease) Diverticulitis Tubular adenoma of colon (~2017) Mesenteric lymphadenopathy Thrombocytopenia Depression Insomnia Arthritis Breast calcification, right Family History Family History Father Family history of diabetes mellitus Mother Diabetes mellitus Substance use disorder Sister Uterine cancer Diabetes mellitus Mental health disorder Substance use disorder Maternal Grandfather No problems noted. Maternal Grandmother Unknown family medical history Paternal Grandfather No problems noted. Paternal Grandmother No problems noted. Family history of problems with anesthesia: No Surgical History Surgical History History of pacemaker History of cholecystectomy History of tonsillectomy and adenoidectomy History of eye surgery History of tubal ligation History of colonoscopy History of esophagogastroduodenoscopy (EGD) History of pubovaginal sling History of dilatation and curettage History of loop electrical excision procedure (LEEP) History of right breast biopsy History of vocal cord polypectomy History of Problems with Anesthesia: No Social History Social History Household Members: Other Household Members Other:: Ex-, Daughter Housing: Apartment Alcohol intake: former Year quit: 2001 Patient Tobacco Use Status: Current everyday Tobacco user Tobacco use type: Cigarette Cigarettes Per Day: 6 Years Smoked: (onset 16yo, 1ppd x 47yrs, 40pyh) e-Cigarette/Vaping Use: Never Used Second Hand Smoke Exposure: Yes [employer] Practices: Congregational Advance Directives: Yes Advance Directives Information Provided: Yes Advance Directives on File: Yes Advance Directives Date on File: 03/21/22 service: No Current occupational status: disabled Cognitive needs: No Hearing needs: No Vision needs: No Meds Allergies Allergy/AdvReac Type Severity Reaction Status Date / Time dabigatran etexilate (From Allergy Intermediate SWELLING\hi Verified 06/11/25 15:26 PRADAXA) ves Home Medications ?Medication ?Instructions ?Recorded ?Confirmed ?Last Taken ?Type trazodone 100 mg tablet 100 mg PO BEDTIME 08/11/20 06/11/25 Unknown History lisinopril 40 mg tablet 20 mg PO DAILY 08/24/21 06/11/25 06/29/25 History primidone 50 mg tablet 100 mg PO TID 06/13/23 06/11/25 Unknown History tkssxcmsuq-vsbvfohslktdt-izrqtblt 1 tab PO Q4H PRN Migraine Headache 05/18/25 06/11/25 Unknown History 50 mg-325 mg-40 mg tablet Exam Height,Weight and Vital Signs: Height 5 ft 7 in Weight 87.997 kg Narrative Narrative: Cardiac Device Check 03/2025 Details: Medtronic dual-chamber pacemaker interrogation today battery 16 months AAIR to DDDR mode low rate 60, no VT, no AT or AF, a paced V sense 77.1% a sense V sense 22.8%, patient activity less than 1 hour a day for the last week Assessment and Plan Assessment Anesthesia Assessment: Chart Reviewed Final Anesthetic Review Family History of Problems with Anesthesia: No History of Problems with Anesthesia: No Documented by User: Soraya Curran MD 06/29/25 10:04 [facility] Past Medical History Medical History Ataxia Cervical spondylosis Migraine Cardiac pacemaker in situ (~2014) Paroxysmal atrial fibrillation LVH (left ventricular hypertrophy) Essential hypertension Hyperlipidemia Diabetes COPD (chronic obstructive pulmonary disease) Nicotine dependence, cigarettes, uncomplicated Benign essential tremor Microscopic hematuria Recurrent UTI Osteopenia (~2021) Obesity, Class I, BMI 30-34.9 Hypertensive retinopathy GERD (gastroesophageal reflux disease) Diverticulitis Tubular adenoma of colon (~2017) Mesenteric lymphadenopathy Thrombocytopenia Depression Insomnia Arthritis Breast calcification, right Family History Family History Father Family history of diabetes mellitus Mother Diabetes mellitus Substance use disorder Sister Uterine cancer Diabetes mellitus Mental health disorder Substance use disorder Maternal Grandfather No problems noted. Maternal Grandmother Unknown family medical history Paternal Grandfather No problems noted. Paternal Grandmother No problems noted. Surgical History Surgical History History of pacemaker History of cholecystectomy History of tonsillectomy and adenoidectomy History of eye surgery History of tubal ligation History of colonoscopy History of esophagogastroduodenoscopy (EGD) History of pubovaginal sling History of dilatation and curettage History of loop electrical excision procedure (LEEP) History of right breast biopsy History of vocal cord polypectomy Social History Social History Household Members: Other Household Members Other:: Ex-, Daughter Housing: Apartment Alcohol intake: former Year quit: 2001 Patient Tobacco Use Status: Current everyday Tobacco user Tobacco use type: Cigarette Cigarettes Per Day: 6 Years Smoked: (onset 16yo, 1ppd x 47yrs, 40pyh) e-Cigarette/Vaping Use: Never Used Second Hand Smoke Exposure: Yes [employer] Practices: [employer]regational Advance Directives: Yes Advance Directives Information Provided: Yes Advance Directives on File: Yes Advance Directives Date on File: 03/21/22 service: No Current occupational status: disabled Cognitive needs: No Hearing needs: No Vision needs: No Meds Allergies Allergy/AdvReac Type Severity Reaction Status Date / Time dabigatran etexilate (From Allergy Intermediate SWELLING\hi Verified 06/11/25 15:26 PRADAXA) ves Home Medications ?Medication ?Instructions ?Recorded ?Confirmed ?Last Taken ?Type trazodone 100 mg tablet 100 mg PO BEDTIME 08/11/20 06/11/25 Unknown History lisinopril 40 mg tablet 20 mg PO DAILY 08/24/21 06/11/25 06/29/25 History primidone 50 mg tablet 100 mg PO TID 06/13/23 06/11/25 Unknown History idxwrnuyxu-bmqurhhfftzce-trwntndu 1 tab PO Q4H PRN Migraine Headache 05/18/25 06/11/25 Unknown History 50 mg-325 mg-40 mg tablet Exam Airway Mallampati Class: II (edentulous) TM Dist: >3cm Neck ROM: Full Heart: rrr Lungs: slight lower wheze Assessment and Plan Assessment Anesthesia Assessment: Anesthesia Plan Discussed Final Anesthetic Review NPO: Yes ASA Class: III Final Preanesthetic Review: No Changes in Pt Med Stat, Meds/Allgs Chart Reviewed and Consent Obtained/Reviewed Patient Risk: Intermediate Procedure Risk: Low Anesthetic Plan Anesthetic Plan: MAC: Disposition: Standard PACU
[2025-06-29 09:53] VITALS: BP 124/89; PULSE 65; RESP 16; TEMP 36.3; O2SAT 95
[2025-06-29] MEDS: Tetracaine HCl/PF 0.5% Oph Sol 4 ML DROPS 1 DROP EYE-LEFT (10:00)
[2025-06-29] MEDS: Cyclopentolate 1 % Ophth Sol 2 ML DRPBTL 1 DROP EYE-LEFT ×3 (10:01→10:07)
[2025-06-29] MEDS: Tropicamide 1 % Ophth Sol 3 ML BTL 1 DROP EYE-LEFT ×3 (10:02→10:07)
[2025-06-29] MEDS: Ketorolac Tromethamine 0.5% Op 5 ML DROPS 1 DROP EYE-LEFT ×3 (10:03→10:08)
[2025-06-29] MEDS: Phenylephrine HCL 2.5% Oph SoL 2 ML BOTTLE 1 DROP EYE-LEFT ×3 (10:04→10:08)
[2025-06-29] MEDS: Lactated Ringers 500 ML 50 ML IV (10:09)
[2025-06-29] MEDS: Albuterol Sulfate (0.083%) 2.5 MG/3 ML VIAL.NEB INHALE (10:30)
[2025-06-29 10:42] VITALS: PULSE 60; RESP 12; O2SAT 99
--- NOTE | 2025-06-29 10:43 | MHC.SHP ---
Pre-Procedural Eval Section A - 24 Hr Update-Section A only Date of Service: 06/29/25 The patient is an INPATIENT: No Changes since office visit: No Cold of Flu in the past 2 weeks, No New Medical Problems, No Changes in Medication and No Patient answered all questions The patient has been examined within 24 hours of the surgical procedure. The History & Physical has been completed within 30 days and I have reviewed it.: Yes Section B - Complete if H&P > 30 days Chief Complaint: Age-related nuclear cataract, left eye Allergies: Allergies Allergy/AdvReac Type Severity Reaction Status Date / Time dabigatran etexilate (From Allergy Intermediate SWELLING\hi Verified 06/11/25 15:26 PRADAXA) ves Plan Diagnosis/Plan: Unchanged I have reviewed the history and physical and performed a pertinent physical examination on my patient. No changes have occurred unless specified. Time Spent With Patient Time: Total time managing care of this patient today ____ minutes.
--- NOTE | 2025-06-29 10:44 | HO.PNOPHT ---
Ophthalmology Procedure Procedure Date of Service: 06/29/25 Ophthalmology Viscoelastic: Healon Duet Dual Pack Pro Ophthalmology Lenses: IOL Acrysof MP - MA60AC (20.5) Procedure Notes: PREOPERATIVE DIAGNOSIS: Decreased visual acuity left eye secondary to cataract POSTOPERATIVE DIAGNOSIS: Same PROCEDURE: Left cataract extraction with intraocular lens insertion SURGEON: Collins Horton M.D. ANESTHESIA: Topical/MAC ESTIMATED BLOOD LOSS: None COMPLICATIONS: None After obtaining informed consent, the patient was brought to the operation room suite and placed in the supine position. After adequate sedation per anesthesia, topical drops of Tetracaine were given to the left eye. The eye was then prepped and draped in the usual sterile fashion. The operating room microscope was then positioned over the operative eye and a lid speculum placed. A paracentesis was created. Viscoelastic was then instilled into the anterior chamber. A three plane incision was then created temporally, utilizing a 2.85 mm keratome. Capsulotomy forceps were then utilized to create a circular tear capsulotomy. Hydrodissection and hydrodelineation were carried out until adequate mobilization of the nucleus occurred. Phacoemulsification was then utilized to remove the dense central nucleus followed by removal of the cortical material utilizing the automated aspiration irrigation unit. Viscoat elastic was instilled into the posterior capsular bag followed by placement of a posterior chamber intraocular lens without difficulty. The residual Viscoat elastic was then removed utilizing the automated IA machine. The wound was check and found to be watertight. The patient tolerated the procedure well and the lid speculum was removed. Intracameral injection of Vigamox 0.1 mL followed by a subtenon injection of Kenalog-40 0.2 mL were administered. The patient will be seen in the a.m.
[2025-06-29 11:07] VITALS: BP 142/71; PULSE 62; RESP 16; TEMP 36.6; O2SAT 98
== END 2025-06-29 11:14 | disposition home or self-care (01) ==
PROVIDERS: PCP Nurse Practitioner Family; Visit Provider Ophthalmology
PROC: (CPT 66985; principal; 2025-06-29 11:30)
DX: H25.12 Age-related nuclear cataract, left eye (principal); H54.7 Unspecified visual loss; H35.033 Hypertensive retinopathy, bilateral; H18.413 Arcus senilis, bilateral; H04.123 Dry eye syndrome of bilateral lacrimal glands; Z83.511 Family history of glaucoma; I10 Essential (primary) hypertension; E11.9 Type 2 diabetes mellitus without complications; G25.0 Essential tremor; E78.00 Pure hypercholesterolemia, unspecified; I48.0 Paroxysmal atrial fibrillation; Z95.0 Presence of cardiac pacemaker; Z79.1 Long term (current) use of non-steroidal anti-inflammatories (NSAID); Z79.01 Long term (current) use of anticoagulants; Z79.899 Other long term (current) drug therapy; Z79.51 Long term (current) use of inhaled steroids; Z88.8 Allergy status to other drugs, medicaments and biological substances; Z98.890 Other specified postprocedural states; F17.210 Nicotine dependence, cigarettes, uncomplicated
CPT/HCPCS: 66984; 94640; J2250; J3301; V2630

== ENCOUNTER 2025-07-06 14:30 | Outpatient (AMB) | payer OTHER, SELFPAY ==
--- NOTE | 2025-07-06 14:34 | A.OFFVIS_ITS ---
Intake Visit Reasons: 6m Allergies dabigatran etexilate (From PRADAXA) Allergy (Intermediate, Verified 07/06/25 14:42) SWELLING\hives Medication List - Last Reconciled 07/06/25 by Kimberly Stout CNP acetaminophen 1,000 mg (2 x 500 mg) PO Q8H PRN 15 days albuterol sulfate 2.5 mg (3 mL) inhalation Q4-6H PRN albuterol sulfate 90 mcg/actuation (Ventolin HFA) 2 puffs inhalation Q4-6H PRN 30 days amlodipine 2.5 mg PO DAILY atorvastatin 40 mg PO DAILY nufjdbkwse-mbdydfqyrgsad-ugbe 50-325-40 mg 1 tab PO Q4H PRN cetirizine 10 mg PO DAILY PRN cholecalciferol (vitamin D3) 50 mcg PO DAILY clonazepam (Klonopin) 1 mg PO BID 30 days cranberry fruit 450 mg PO BID 90 days fluticasone propion-salmeterol 250-50 mcg/dose (Wixela Inhub) 1 ea inhalation BID ibuprofen 600 mg PO DAILY PRN 30 days lisinopril 20 mg PO DAILY meclizine 25 mg PO TID PRN mirabegron ER 50 mg PO DAILY 90 days omeprazole 20 mg PO DAILY primidone 50 mg orally 1 tablet twice a day and 2 tablets at bedtime; propranolol 60 mg PO BID 90 days [Quad care As directed] [Recliner lift chair As directed] rivaroxaban (Xarelto) 20 mg PO BEDTIME sucralfate (Carafate) 2 grams (2 x 1 gram) PO .daily at 11pm tiotropium bromide (Spiriva with HandiHaler) 1 cap inhalation DAILY 30 days trazodone 200 mg PO BEDTIME Ultra-Light Rollator (walker) lower extrem weakness, use daily NS [Upright Posture Walker daily use] Ventolin HFA 90 mcg/actuation (albuterol sulfate) 2 puffs inhalation Q4-6H PRN 30 days NS HPI Comments Details: She was nervous today about meeting new provider as she has been treated by Dr. Vieira for many years. Tremors were still there, stable. She needed refill on medications. Has VNA to help manage medications. Had cataract surgery at end of 05/2025 and earlier this month which went well, has follow up tomorrow. Was told to hold Fioricet and has had few more headaches. Sleep was still not so good. Has trouble sleeping at night and sleeps during the day. Tremors are under control. Living with friend. Headaches are less frequent, about 1/ 2weeks, can last all day. Takes Tylenol. Her Fioricet is locked up by her nurse. Ongoing chronic neck pain and tremors. The tremors are mostly controlled, although intermittently they get worse. She still has right hand numbness intermittently. Still unable to sleep at night. Sleep is disrupted and sleep schedule is odd. Polysom does not show BEATRIZ. Has a pacemaker for bradycardia. History of migraines without aura, benign essential tremors affecting her head and hands, and anxiety. Head tremors are a bit worse. Stressed about losing her residence. Headaches all the time when stressed. [facility] Medical History (Updated 07/06/25 @ 14:40 by Kimberly Stout CNP) Ataxia Cervical spondylosis Migraine Cardiac pacemaker in situ (~2014) Paroxysmal atrial fibrillation LVH (left ventricular hypertrophy) Essential hypertension Hyperlipidemia Diabetes COPD (chronic obstructive pulmonary disease) Nicotine dependence, cigarettes, uncomplicated Benign essential tremor Microscopic hematuria Recurrent UTI Osteopenia (~2021) Obesity, Class I, BMI 30-34.9 Hypertensive retinopathy GERD (gastroesophageal reflux disease) Diverticulitis Tubular adenoma of colon (~2017) Mesenteric lymphadenopathy Thrombocytopenia Depression Insomnia Arthritis Breast calcification, right Surgical History (Updated 07/06/25 @ 15:19 by Kimberly Stout CNP) S/P cataract surgery History of pacemaker History of cholecystectomy History of tonsillectomy and adenoidectomy History of eye surgery History of tubal ligation History of colonoscopy History of esophagogastroduodenoscopy (EGD) History of pubovaginal sling History of dilatation and curettage History of loop electrical excision procedure (LEEP) History of right breast biopsy History of vocal cord polypectomy Family History Father Family history of diabetes mellitus Mother Diabetes mellitus Substance use disorder Sister Uterine cancer Diabetes mellitus Mental health disorder Substance use disorder Maternal Grandfather No problems noted. Maternal Grandmother Unknown family medical history Paternal Grandfather No problems noted. Paternal Grandmother No problems noted. Social History Household Members: Other Household Members Other:: Ex-, Daughter Housing: Apartment Alcohol intake: former Year quit: 2001 Patient Tobacco Use Status: Current everyday Tobacco user Tobacco use type: Cigarette Cigarettes Per Day: 6 Years Smoked: (onset 16yo, 1ppd x 47yrs, 40pyh) e-Cigarette/Vaping Use: Never Used Second Hand Smoke Exposure: Yes Advance Directives Date on File: 03/21/22 service: No Current occupational status: disabled Cognitive needs: No Hearing needs: No Vision needs: No Female Reproductive History Menstrual Age of Menarche: 7 Review of Systems Const Denies chills, Denies daytime sleepiness, Denies difficulty sleeping, Denies fatigue, Denies fever(s), Denies frequent falls, Reports headache(s), Denies increased appetite, Denies poor appetite, Denies snoring, Denies weakness, Denies weight gain and Denies weight loss Eyes Denies loss of vision ENT Denies vertigo, Reports dizziness, Reports headache(s) and Denies neck pain Card Denies chest pain at rest, Denies chest pain with activity, Denies syncope, Denies leg edema, Denies palpitations, Denies dyspnea and Denies dyspnea on exertion Resp Denies cough, Denies dyspnea, Denies dyspnea on exertion and Denies snoring GI Denies abdominal pain, Denies constipation, Denies heartburn, Denies diarrhea and Denies nausea Denies urinary frequency, Denies urinary incontinence and Denies urinary urgency Musc Denies abnormal gait, Denies back pain, Denies myalgias, Denies arthralgias, Denies neck pain, Denies numbness and Denies tingling Neuro Denies abnormal gait, Denies vertigo, Reports dizziness, Denies syncope, Denies frequent falls, Reports headache(s), Denies lack of coordination, Denies loss of vision, Denies memory loss, Denies numbness, Denies Other visual disturbances, Denies restless legs, Denies seizure-like activity, Denies tingling, Denies paresthesias, Denies tremor(s) and Denies weakness Psych Reports anxiety, Denies depression, Denies auditory hallucinations, Denies memory loss and Denies visual hallucinations Endo Denies fatigue and Denies palpitations Physical Exam Const Other: General Appearance:? normal, in no acute distress. Heart:? S1, S2 normal, no murmurs. Lungs:? clear anteriorly and posteriorly. Musculoskeletal:? normal. Extremities:? no edema. Psych:? alert, oriented, cognitive function intact, cooperative with exam. Neuro Other: Abnormal Neurological Findings:?Intermittent R hand coarse tremors when held in extended position. Head tremor. Convergent strabismus L eye. Mild truncal ataxia on tandem walking. Mental Status: alert and oriented X 3. Normal attention, orientation, memory, and affect. Cranial Nerves: Pupils are equal, round, and reactive to light. Fundoscopy shows normal disc bilaterally. External ocular muscles are intact. Convergent strabismus L eye. Visual tirado are full, no ptosis. Face is symmetrical, no facial weakness or droop. Facial sensations are normal. Tongue protrudes in midline. Palate elevates symmetrically. Shoulder shrugging is normal Motor Examination: Normal muscle tone, bulk and strength. No atrophy or fasciculations. No drift of the extended upper extremities. DTR 2+. Plantars are flexor. Sensory Exam: Normal light touch, temperature, pinprick, vibration, and joint- position sensations. Rhomberg sign is absent. Coordination: No ataxia. No titubation. Gait Exam: Within normal limits. Mild truncal ataxia on tandem walking. Cerebellar Signs: Kgyzdv-el-acfg is okay. Extrapyramidal System: Tremors of head and hand as above. No rigidity with normal facial expressions. No bradykinesia. No bradyphrenia. Normal arm swing and posture. No propulsion or retropulsion. Speech: Normal. Assessment & Plan Assessment & Plan (1) Tremor: Code(s): R25.1 - Tremor, unspecified Category: Medical Plan: Continue propranolol 60mg 1 tablet twice a day. Continue primidone 50mg 1 tablet twice a day and 2 tablets at bedtime. Continue clonazepam 1mg twice a day #60 for 30 days. (2) Tension headache: Code(s): G44.209 - Tension-type headache, unspecified, not intractable Category: Medical Plan: Continue ulhvwyhfjp-MRUV-xyvl 50-325-40mg 1 tablet as needed q6h for headache #20 for 30 days. (3) Insomnia: Code(s): G47.00 - Insomnia, unspecified Category: Medical Qualifiers: Insomnia type: unspecified Qualified Code(s): G47.00 - Insomnia, uns pecified Plan: Continue trazodone 100mg 2 tablets at bedtime. Medications: Changed From primidone 50 mg orally 1 tablet twice a day and 2 tablets at bedtime; To primidone 50 mg orally 1 tablet twice a day and 2 tablets at bedtime; 360 tabs 1RF 90 days From trazodone 200 mg PO BEDTIME To trazodone 200 mg (2 x 100 mg) PO BEDTIME 180 tabs 1RF 90 days From uqjbiosiqy-ujvahhejhnnhq-hxes 50-325-40 mg 1 tab PO Q4H PRN Migraine Headache To oyjyuyjmmx-tilhjibmbuoxf-wwct 50-325-40 mg 1 tab PO Q4H PRN 20 tabs 3RF Migraine Headache 30 days Refilled clonazepam (Klonopin) 1 mg PO BID 60 tabs 3RF 30 days propranolol 60 mg PO BID 180 tabs 1RF 90 days Coding Level of Care Code Est Pt Level 4 (22336) Diagnoses Tremor R25.1 Tension headache G44.209 Insomnia, unspecified type G47.00 Insomnia type: unspecified
--- OUTSIDE RECORDS SUMMARY | 2025-07-06 19:58 | XMS_ITS ---
Author Name Franky MALONE Ivonne Saldana Address [address] [place] [address] Phone [phone] 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 2023-09-05 No Data Available Rduwazytdt-ATOE-Hqjuqxvx 50/325/40 mg Tab TAKE 1 TABLET EVERY [...] enduranceHistory of fall Active 2024-04-18 N/A uses [employer] rollator to ambulate. Reports recent fall.Monitor for [...] to follow up with PCP/Specialists.- Follows with field tech. Unspecified convulsions Active 2025-03-24 N/A R x: [...] repo rts she fell yesterday while at [facility]. She banged her both knees, both arms [...] (do not use for phone, instead use 78414-41) [facility] ([place]) 04/[place]/20[place] Other [...] (do not use for phone, instead use 34494-61) [facility] ([place] New patient,40-59min; chronic exacerbation, 2 stable chronic or 1 acute illness add add modifier 95 for video (do not use for phone, instead use 58794-35) [facility] New patient,40-59min; chronic exacerbation, 2 stable chronic or 1 acute illness add add modifier 95 for video (do not use for phone, instead use 35436-12) [facility] New patient,40-59min; chronic exacerbation, 2 stable chronic or 1 acute illness add add modifier 95 for video (do not use for phone, instead use 89959-56) [facility] New patient,40-59min; chronic exacerbation, 2 stable chronic or 1 acute illness add add modifier 95 for video (do not use for phone, instead use 02414-33) [facility] New patient,40-59min; chronic exacerbation, 2 stable chronic or 1 acute illness add add modifier 95 for video (do not use for phone, instead use 80066-66) [facility] New patient,40-59min; chronic exacerbation, 2 stable chronic or 1 acute illness add add modifier 95 for video (do not use for phone, instead use 79269-45) [facility] New patient,40-59min; chronic exacerbation, 2 stable chronic or 1 acute illness add add modifier 95 for video (do not use for phone, instead use 24878-60) [facility] New patient,40-59min; chronic exacerbation, 2 stable chronic or 1 acute illness add add modifier 95 for video (do not use for phone, instead use 25580-68) [facility] Estab. patient 20-29min; 1 stable chronic or 2 minor; add add modifier 95 for video, modifier 93 for phone [facility] 03[place]/2025 Other thrombophiliaUnspecifi ed atrial fibrillationVentricular tachycardia, [...] 95 for video, modifier 93 for phone [facility] 03[place]/20[place] Estab. patient 20-29min; 1 stable chronic or 2 minor; add add modifier 95 for video, modifier 93 for phone [facility] 03/[place]/20[place] Estab. patient 20-29min; 1 stable chronic or 2 minor; add add modifier 95 for video, modifier 93 for phone [facility] 03/[place]/20[place] Estab. patient 20-29min; 1 stable chronic or 2 minor; add add modifier 95 for video, modifier 93 for phone [facility] 03/[place]/20[place] Estab. patient 20-29min; 1 stable chronic or 2 minor; add add modifier 95 for video, modifier 93 for [facility] [place] 03[place]24/20[place] Estab. patient 20-29min; 1 stable chronic or 2 minor; add add modifier 95 for video, modifier 93 for [facility] [place] 03[place]24/20[place] Estab. patient 20-29min; 1 stable chronic or 2 minor; add add modifier 95 for video, modifier 93 for [facility] [place]/24/20[place] Estab. patient 10-29min; 1 minor problem; add add modifier 95 for video, modifier 93 for phone [facility]/2025 Type 2 diabetes mellitus wit h [...] Current Smoking Status Current every day smoker 2025-07-06 Sex Female Gender identity Woman History of Procedures Procedures Service Procedure code Service date Servicing provider Phone# New patient,40-59min; chronic exacerbation, 2 stable chronic or 1 acute illness add add modifier 95 for video (do not use for phone, instead use 70599-80) [id number] 2024-04-18 No Data Available No Data Availa [...] 95 for video, modifier 93 for phone [id number] 2025-03-24 No Data Available No Data Availa [...] 95 for video, modifier 93 for phone [id number] 2025-04-07 No Data Available No Data Availa [...] f/u care and monitoring with PCP and animal keeper. 2025-03-24 07:42:48 Functional Status As sessed (1170F)Advance [...] to follow up with PCP/Specialists.- Follows with field tech.Member reports she is sober 26 years from [...] 14/05.04/07/25:She reports she fell yesterday while at [facility]. She banged her both knees, both [...] to follow up with PCP/Specialists.- Follows with field tech.Xarelto, Propranolol, AmlodipinePacemaker Bleeding risk precautions, monitor for [...] She reports she fell yesterday while at [facility]. She banged her both knees, both arms [...]
== END 2025-07-06 15:13 | disposition home or self-care (01) ==
LOC: HO.HSM 14:31
PROVIDERS: PCP Nurse Practitioner Family; Visit Provider Registered Nurse
DX: R25.1 Tremor, unspecified (principal); G44.209 Tension-type headache, unspecified, not intractable; G47.00 Insomnia, unspecified
CPT/HCPCS: 99214

== ENCOUNTER → 2025-07-06 14:30 | Outpatient (BNVA) | payer OTHER, SELFPAY | PROVIDERS: PCP Nurse Practitioner Family; Visit Provider Registered Nurse | DX: R25.1 Tremor, unspecified (principal); G44.209 Tension-type headache, unspecified, not intractable; G47.00 Insomnia, unspecified | CPT/HCPCS: 99212 ==

== ENCOUNTER 2025-07-09 15:28 | Outpatient (REF) | payer OTHER, SELFPAY ==
[2025-07-09 17:38] LABS: Blood Urea Nitrogen 11 mg/dL (9-16); Estimated Glomerular Filt Rate > 60
== END 2025-07-09 15:29 | disposition home or self-care (01) ==
LOC: HO.LAB 15:28
PROVIDERS: PCP Nurse Practitioner Family; Visit Provider Surgery Vascular Surgery
DX: I73.9 Peripheral vascular disease, unspecified (principal)
CPT/HCPCS: 36415; 82565; 84520; 99202

== ENCOUNTER 2025-07-09 15:28 | Outpatient (AMB) | payer OTHER, SELFPAY ==
--- NOTE | 2025-07-09 15:30 | A.OFFVIS_ITS ---
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 She states she has bilateral cramping , swelling and pain. 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 She has a history of diabetes for over 2 years. She may experiences intermittent neuropathy. She is a current smoker smokes about a half a pack per day. She reports that she has persistent pain in the calves she has had noninvasive arterial testing and she now presents to us for vascular evaluation. Of note she is being maintained on Xarelto and a statin. [facility] Medical History Ataxia Cervical spondylosis Migraine Cardiac pacemaker in situ (~2014) Paroxysmal atrial fibrillation LVH (left ventricular hypertrophy) Essential hypertension Hyperlipidemia Diabetes COPD (chronic obstructive pulmonary disease) Nicotine dependence, cigarettes, uncomplicated Benign essential tremor Microscopic hematuria Recurrent UTI Osteopenia (~2021) Obesity, Class I, BMI 30-34.9 Hypertensive retinopathy GERD (gastroesophageal reflux disease) Diverticulitis Tubular adenoma of colon (~2017) Mesenteric lymphadenopathy Thrombocytopenia Depression Insomnia Arthritis Breast calcification, right Surgical History S/P cataract surgery History of pacemaker History of cholecystectomy History of tonsillectomy and adenoidectomy History of eye surgery History of tubal ligation History of colonoscopy History of esophagogastroduodenoscopy (EGD) History of pubovaginal sling History of dilatation and curettage History of loop electrical excision procedure (LEEP) History of right breast biopsy History of vocal cord polypectomy Family History Father Family history of diabetes mellitus Mother Diabetes mellitus Substance use disorder Sister Uterine cancer Diabetes mellitus Mental health disorder Substance use disorder Maternal Grandfather No problems noted. Maternal Grandmother Unknown family medical history Paternal Grandfather No problems noted. Paternal Grandmother No problems noted. Social History Household Members: Other Household Members Other:: Ex-, Daughter Housing: Apartment Alcohol intake: former Year quit: 2001 Patient Tobacco Use Status: Current everyday Tobacco user Tobacco use type: Cigarette Cigarettes Per Day: 6 Years Smoked: (onset 16yo, 1ppd x 47yrs, 40pyh) e-Cigarette/Vaping Use: Never Used Second Hand Smoke Exposure: Yes Advance Directives Date on File: 03/21/22 service: No Current occupational status: disabled Cognitive needs: No Hearing needs: No Vision needs: No Female Reproductive History Menstrual Age of Menarche: 7 Review of Systems Const All systems reviewed & are unremarkable except as noted in HPI and below Reports no additional complaints ENT Reports Normal hearing present Card Denies chest pain, Denies chest pain at rest, Denies chest pain with activity and Denies pedal edema Resp Denies cough GI Denies abdominal pain Musc Denies abnormal gait, Denies muscle cramps and Denies radiating pain into limb Skin/Breast Denies skin ulcer and Denies wounds Neuro Reports Normal hearing present and Denies abnormal gait Psych Reports no additional complaints Physical Exam Const General: cooperative, healthy appearing and comfortable Orientation/consciousness: oriented to person, oriented to place and oriented to time HEENT Head: Yes normal to inspection Neck Neck: Yes normal visual inspection Carotids: no bruits Chest Chest palpation & inspection: normal inspection of the chest Resp Effort & Inspection: normal respiratory effort and able to speak in complete sentences Auscultation: clear to auscultation bilaterally, no crackles, no rales, no rhonchi and no wheezes Cardio Other: I was able to appreciate a palpable right posterior tibial and left dorsalis pedis pulse. Rate: regular rate Rhythm: regular rhythm Heart sounds: S1 normal heart sound present and S2 normal heart sound present Bruits: no carotid bruits Peripheral pulses: Peripheral pulses 2+ throughout GI Inspection: Yes normal to inspection Skin Wounds: no wounds Hair: normal Neuro General: oriented to person, oriented to place and oriented to time Cranial nerves: Yes CN's II-XII intact bilaterally and Yes Normal hearing present Cognition (Neuro): normal cognition Motor exam (neuro): 5/5 motor strength present throughout Extrem Other: venous exam: No significant superficial varicosities or spider telangiectasias, minimal edema General: No clubbing, No cyanosis and No edema Psych Appearance: grossly normal Mental Status: mental status grossly normal Speech and movement: Normal speech and movement present Assessment & Plan Assessment & Plan (1) PAD (peripheral artery disease): Code(s): I73.9 - Peripheral vascular disease, unspecified Category: Medical Plan: Unclear etiology of pain. I did review her noninvasive testing I do feel that it is a bit of an over read. I do feel that she does have tibial disease but she does have palpable pulses. To better elucidate the true amount of disease and the actual runoff I have taken the liberty of ordering CT angiogram with runoff. She will follow up with us after testing. I do believe a fair amount of her pain is related to her back and neuropathy. I have also taken the liberty of ordering a pain management consult for her. Once again she will follow up with us after CAT scan. Thank you for allowing us to assist in her care. Orders: Orders Creatinine Today I73.9 - Peripheral vascular disease, unspecified CT angio abd aorta runoff Today I73.9 - Peripheral vascular disease, unspecified Blood Urea Nitrogen Today I73.9 - Peripheral vascular disease, unspecified Coding Level of Care Code New Pt Level 4 (40752) Diagnoses PAD (peripheral artery disease) I73.9
--- OUTSIDE RECORDS SUMMARY | 2025-07-09 16:52 | XMS_ITS ---
Author Name Franky MALONE Ivonne Saldana Address [address] [place] [address] Phone [phone] [facility] Care Team Providers Care Sales Marketing Director Name Role Phone Ivonne Wilkins Unavailable [phone] Reason for Referral Not Available Allergies, adverse [...] NIGHT AT BEDTIME. 2023-09-05 No Data Available Lfxnerhxvp-LKOR-Bbbhghxt 50/325/40 mg Tab TAKE 1 TABLET EVERY [...] enduranceHistory of fall Active 2024-04-18 N/A uses [employer] rollator to ambulate. Reports recent fall.Monitor for [...] to follow up with PCP/Specialists.- Follows with environmental science program director. Unspecified convulsions Active 2025-03-24 N/A R x: [...] repo rts she fell yesterday while at [employer]. She banged her both knees, both arms [...] (do not use for phone, instead use 35762-67) [facility] ([place]) 04[place]18/2024 Other thrombophiliaUnspecifi [...] (do not use for phone, instead use 22316-02) [facility] ([place] New patient,40-59min; chronic exacerbation, 2 stable chronic or 1 acute illness add add modifier 95 for video (do not use for phone, instead use 94415-15) [facility] New patient,40-59min; chronic exacerbation, 2 stable chronic or 1 acute illness add add modifier 95 for video (do not use for phone, instead use 41296-05) [facility] New patient,40-59min; chronic exacerbation, 2 stable chronic or 1 acute illness add add modifier 95 for video (do not use for phone, instead use 41501-55) [facility] New patient,40-59min; chronic exacerbation, 2 stable chronic or 1 acute illness add add modifier 95 for video (do not use for phone, instead use 42238-35) [facility] New patient,40-59min; chronic exacerbation, 2 stable chronic or 1 acute illness add add modifier 95 for video (do not use for phone, instead use 89469-80) [facility] New patient,40-59min; chronic exacerbation, 2 stable chronic or 1 acute illness add add modifier 95 for video (do not use for phone, instead use 85317-94) [facility] New patient,40-59min; chronic exacerbation, 2 stable chronic or 1 acute illness add add modifier 95 for video (do not use for phone, instead use 83634-06) [facility] New patient,40-59min; chronic exacerbation, 2 stable chronic or 1 acute illness add add modifier 95 for video (do not use for phone, instead use 16663-63) [facility] Estab. patient 20-29min; 1 stable chronic or 2 minor; add add modifier 95 for video, modifier 93 for phone [facility] [place] 03/24/2025 Other thrombophiliaUnspecifi ed atrial fibrillationVentricular [...] 95 for video, modifier 93 for phone [facility] [place] 03/24/20[place] Estab. patient 20-29min; 1 stable chronic or 2 minor; add add modifier 95 for video, modifier 93 for phone [facility] [place] 03/24/20[place] Estab. patient 20-29min; 1 stable chronic or 2 minor; add add modifier 95 for video, modifier 93 for phone [facility] 03/24/2025 Estab. patient 20-29min; 1 stable chronic or 2 minor; add add modifier 95 for video, modifier 93 for phone [facility] 03/24/2025 Estab. patient 20-29min; 1 stable chronic or 2 minor; add add modifier 95 for video, modifier 93 for [facility] 03[place]/20[place] Estab. patient 20-29min; 1 stable chronic or 2 minor; add add modifier 95 for video, modifier 93 for [facility] 03/24/20[place] Estab. patient 20-29min; 1 stable chronic or 2 minor; add add modifier 95 for video, modifier 93 for [facility] 03/[place]/20[place] Estab. patient 10-29min; 1 minor problem; add add modifier 95 for video, modifier 93 for phone [facility] [place]/2025 Type 2 diabetes mellitus wit [...] Current Smoking Status Current every day smoker 2025-07-09 Sex Female Gender identity Woman History of Procedures Procedures Service Procedure code Service date Servicing provider Phone# New patient,40-59min; chronic exacerbation, 2 stable chronic or 1 acute illness add add modifier 95 for video (do not use for phone, instead use 47391-18) 97[address] 2024-04-18 No Data Available No Data Availa [...] 95 for video, modifier 93 for phone [id number] 2025-03-24 No Data Available No Data Availa [...] 95 for video, modifier 93 for phone [id number] 2025-04-07 No Data Available No Data Availa [...] f/u care and monitoring with PCP and bilingual loan processor. 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 She banged her both knees, both arms [...] to follow up with PCP/Specialists.- Follows with environmental science program director.Xarelto, Propranolol, AmlodipinePacemaker Bleeding risk precautions, monitor for [...] She reports she fell yesterday while at [facility]. She banged her both knees, both arms [...]
== END 2025-07-09 15:38 | disposition home or self-care (01) ==
LOC: HO.HVS 15:29
PROVIDERS: PCP Nurse Practitioner Family; Visit Provider Surgery Vascular Surgery
DX: I73.9 Peripheral vascular disease, unspecified (principal)
CPT/HCPCS: 99204

== ENCOUNTER 2025-07-15 18:52 | Emergency (ER) | payer OTHER, SELFPAY ==
--- NOTE | ~2025-07-15 | XR_ITS ---
CLINICAL HISTORY: rib pain after fall in bathroom Single view of the chest with left rib films. COMPARISON: None provided. FINDINGS: Left-sided cardiac pacemaker. Normal heart size. No consolidation. No pleural effusion or pneumothorax. No acute fracture identified. Chronic healed fracture deformity of the lateral left 5th rib. IMPRESSION: 1. No acute cardiopulmonary abnormality. 2. No acute rib fracture identified. This document has been electronically signed by: Dewayne Donis MD on 07/15/2025 20:06:20
--- NOTE | ~2025-07-15 | CT_ITS ---
CLINICAL HISTORY: fall, pain, thrombocytopenia CT head without contrast Comparison: CT/NC/SR - CT HEAD WITHOUT IV CONTRAST - 04/14/24 10:44 EDT Findings: BRAIN: No acute infarct, hemorrhage, or mass effect. Scattered periventricular/deep white matter hypodensities, nonspecific, however may represent chronic microvascular ischemic disease. CSF SPACES: No hydrocephalus or effacement of basal cisterns. SKULL: No calvarial fracture. SINUSES: No significant mucosal thickening or effusion on limited views. ORBITS: Bilateral lens replacements. OTHER: Negative. IMPRESSION: 1. No acute intracranial findings. This document has been electronically signed by: Marialuisa Puentes MD on 07/15/2025 22:54:25
--- NOTE | ~2025-07-15 | CT_ITS ---
CLINICAL HISTORY: fall, pain, thrombocytopenia CT cervical spine without contrast Comparison: CT/MD/SR - CT CERVICAL SPINE WITHOUT IV CONTRAST - 04/14/2024 10:44 AM EDT Findings: Mild motion artifact. Straightening of the normal cervical lordosis. Multilevel degenerative endplate changes of the cervical spine. No high-grade spinal stenosis. No acute fractures or dislocations. No acute findings on limited view of the intracranial contents. Soft tissues of the neck are normal. Scarring/atelectasis at the right lung apex partially visualized. IMPRESSION: No acute traumatic abnormality in the cervical spine. This document has been electronically signed by: Marialuisa Puentes MD on 07/15/2025 22:59:41
[2025-07-15 19:02] VITALS: BP 150/70; PULSE 87; O2SAT 97; BMI 31.5
[2025-07-15 19:07] VITALS: BP 124/91; PULSE 62; RESP 18; TEMP 36.9; O2SAT 96
--- OUTSIDE RECORDS SUMMARY | 2025-07-15 19:46 | XMS_ITS ---
Author Name Franky MALONE Ivonne Saldana Address [address] [place] [address] Phone [phone] [facility] Care Team Providers Care Public Affairs Officer Name Role Phone Ivonne Wilkins Unavailable [phone] Reason for Referral Not Available Allergies, adverse [...] NIGHT AT BEDTIME. 2023-09-05 No Data Available Pdoqywekgv-ICUY-Mukbmvyg 50/325/40 mg Tab TAKE 1 TABLET EVERY [...] enduranceHistory of fall Active 2024-04-18 N/A uses [employer] rollator to ambulate. Reports recent fall.Monitor for [...] to follow up with PCP/Specialists.- Follows with automatic riveting machine operator. Unspecified convulsions Active 2025-03-24 N/A R [...] repo rts she fell yesterday while at [employer]. She banged her both knees, both arms [...] (do not use for phone, instead use 30932-63) [facility] ([place]) 04/18/20[place] Other [...] (do not use for phone, instead use 15691-01) [facility], ([place]/20[place] New patient,40-59min; chronic exacerbation, 2 stable chronic or 1 acute illness add add modifier 95 for video (do not use for phone, instead use 40547-40) [facility] New patient,40-59min; chronic exacerbation, 2 stable chronic or 1 acute illness add add modifier 95 for video (do not use for phone, instead use 80953-70) [facility]20[place] New patient,40-59min; chronic exacerbation, 2 stable chronic or 1 acute illness add add modifier 95 for video (do not use for phone, instead use 10634-36) [facility]20[place] New patient,40-59min; chronic exacerbation, 2 stable chronic or 1 acute illness add add modifier 95 for video (do not use for phone, instead use 16640-23) [facility]20[place] New patient,40-59min; chronic exacerbation, 2 stable chronic or 1 acute illness add add modifier 95 for video (do not use for phone, instead use 57035-87) [facility], [place] 04[place]18/20[place] New patient,40-59min; chronic exacerbation, 2 stable chronic or 1 acute illness add add modifier 95 for video (do not use for phone, instead use 68766-24) [facility], [place] 04[place]18/20[place] New patient,40-59min; chronic exacerbation, 2 stable chronic or 1 acute illness add add modifier 95 for video (do not use for phone, instead use 07863-65) [facility]20[place] New patient,40-59min; chronic exacerbation, 2 stable chronic or 1 acute illness add add modifier 95 for video (do not use for phone, instead use 60953-77) [facility], [place]/18/20[place] Estab. patient 20-29min; 1 stable chronic or 2 minor; add add modifier 95 for video, modifier 93 for phone [facility], [place] 03/24/2025 Other thrombophiliaUnspecifi ed atrial fibrillationVentricular tachycardia, [...] 95 for video, modifier 93 for phone [facility], [place] 03/24/20[place] Estab. patient 20-29min; 1 stable chronic or 2 minor; add add modifier 95 for video, modifier 93 for phone [facility], [place] 03/24/2025 Estab. patient 20-29min; 1 stable chronic or 2 minor; add add modifier 95 for video, modifier 93 for phone [facility], [place] 03/24/2025 Estab. patient 20-29min; 1 stable chronic or 2 minor; add add modifier 95 for video, modifier 93 for phone [facility], [place] 03/24/2025 Estab. patient 20-29min; 1 stable chronic or 2 minor; add add modifier 95 for video, modifier 93 for [facility], [place] 03/24/2025 Estab. patient 20-29min; 1 stable chronic or 2 minor; add add modifier 95 for video, modifier 93 for [facility], [place] 03/24/2025 Estab. patient 20-29min; 1 stable chronic or 2 minor; add add modifier 95 for video, modifier 93 for [facility], [place] 03/24/2025 Estab. patient 10-29min; 1 minor problem; add add modifier 95 for video, modifier 93 for phone [facility], [place]/07/2025 Type 2 diabetes mellitus wit h [...] Current Smoking Status Current every day smoker 2025-07-15 Sex Female Gender identity Woman History of Procedures Procedures Service Procedure code Service date Servicing provider Phone# New patient,40-59min; chronic exacerbation, 2 stable chronic or 1 acute illness add add modifier 95 for video (do not use for phone, instead use 59827-73) [id number] 2024-04-18 No Data Available No Data Availa [...] 95 for video, modifier 93 for phone 31031 2025-03-24 No Data Available No Data Availa [...] 95 for video, modifier 93 for phone [id number] 2025-04-07 No Data Available No Data Availa [...] f/u care and monitoring with PCP and guest room inspector. 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 She banged her both knees, both arms [...] to follow up with PCP/Specialists.- Follows with automatic riveting machine operator.Xarelto, Propranolol, AmlodipinePacemaker Bleeding risk precautions, monitor [...] She reports she fell yesterday while at [employer]. She banged her both knees, both arms [...]
[2025-07-15 19:51] LABS: MANUAL DIFF FLAG NO
[2025-07-15 19:52] LABS: Hematocrit 35.6 % (37.0-47.0); Hemoglobin 12.4 g/dl (12.0-16.0); Imm Gran Abs Auto 0.03 X10*3/uL (0.00-0.03); Imm Gran Pct Auto 0.3 % (0.0-0.4); Lymphocytes Absolute Auto 1.7 X10*3/uL (1.2-4.9); Mean Corpuscular HGB Conc 34.8 g/dl (31.0-35.0); Mean Corpuscular Hemoglobin 29.8 pg (27.0-33.0); Mean Corpuscular Volume 85.6 fL (80.0-98.0); NRBC Abs Auto 0.000 X10*3/uL (0.0-0.012); NRBC Pct Auto 0.0 /100WBC (0.0-0.2); Platelet Count 112 X10*3/uL (160-400); Red Blood Count 4.16 X10*6/uL (4.20-5.50); White Blood Count 9.3 X10*3/uL (4.8-10.8)
[2025-07-15 20:03] LABS: Anion Gap 12 (12-20); Blood Urea Nitrogen 12 mg/dL (9-16); Calcium 9.0 mg/dL (8.4-10.2); Carbon Dioxide 25 mmol/L (22-29); Chloride 104 mmol/L (96-108); Creatinine Clr Calc Pharmacy 86.7; Estimated Glomerular Filt Rate > 60; Potassium 4.0 mmol/L (3.3-5.1); Sodium 137 mmol/L (135-145)
--- NOTE | 2025-07-15 21:20 | ED_ITS ---
HPI - Fall General Chief Complaint: Fall Stated Complaint: Fall, + head strike, -loc, +thinners Time Seen by Provider: 07/15/25 21:01 Source: patient and EMS Mode of arrival: EMS Limitations: no limitations History of Present Illness ED Provider: Dr. Virginia Burris HPI Narrative: Patient comes to the emergency room complaining of a fall. Patient states that earlier today, patient states that she noticed that her shower needed some cleaning. Patient states that there was a spot high up where she could not reach. Patient grabbed a chair, kind but top of it and the chair slipped backwards with her on it. Patient states that she hit the back of her head pretty hard, did not lose consciousness, no lacerations. Patient complaining of lateral rib pain. Patient denies being on blood thinners, however patient does have history of thrombocytopenia. Patient denies any difficulty breathing. Patient states that it took her a while to get up but eventually she was able to do so and walk. Patient denies weakness in lower extremities, denies urinary/fecal incontinence/retention Related Data Home Medications ?Medication ?Instructions ?Recorded ?Confirmed lisinopril 40 mg tablet 20 mg PO DAILY 08/24/2105/23 Previous Rx's ?Medication ?Instructions ?Recorded Recliner lift chair #1 ea 08/25/21 acetaminophen 500 mg tablet 1,000 mg (2 x 500 mg) PO Q 8H PRN 11/15/21 pain 15 days #90 tabs Ventolin HFA 90 mcg/actuation 2 puff inhalation Q4-6H PRN 09/11/22 aerosol inhaler (albuterol sulfate) shortness of breat h or wheezing 30 days #18 grams meclizine 25 mg tablet 25 mg PO TID PRN dizziness # 20 tabs 02/15/23 Ultra-Light Rollator (walker) #1 ea 03/14/23 Upright Posture Walker #1 ea 03/14/23 albuterol sulfate 2.5 mg/3 mL 2.5 mg (3 mL) inhalation Q4-6H PRN 09/26/23 (0.083 %) solution for nebulization for wheezing #150 mL Quad care #1 ea 12/07/23 tiotropium bromide 18 mcg capsule 1 cap inhalation YASMEEN LY COPD 30 05/07/24 with inhalation device (Spiriva days #30 ea with HandiHaler) amlodipine 2.5 mg tablet 2.5 mg PO DAILY #90 tabs mirabegron 50 mg tablet,extended 50 mg PO DAILY 90 day s #90 tabs 09/11/24 release 24 hr rivaroxaban 20 mg tablet (Xarelto) 20 mg PO BEDTIME #9 0 tabs 10/08/24 cetirizine 10 mg tablet 10 mg PO DAILY PRN allergy 0 10/28/24 symptoms #90 tabs albuterol sulfate 90 mcg/actuation 2 puff inhalation Q 4-6H PRN 11/11/24 aerosol inhaler (Ventolin HFA) shortness of breath or wheezing 30 days #8.5 grams atorvastatin 40 mg tablet 40 mg PO DAILY #90 tabs 11/22 05/15 cranberry fruit 450 mg tablet 450 mg PO BID 90 days #1 80 tabs 01/06/25 omeprazole 20 mg capsule,delayed 20 mg PO DAILY #90 ca ps 04/09/25 release sucralfate 1 gram tablet (Carafate) 2 g (2 x 1 gram) P O .daily at 11pm 04/09/25 #60 tabs fluticasone 250 mcg-salmeterol 50 1 ea inhalation BID #60 ea 04/27/25 mcg/dose blistr powdr for inhalation (Malachi Mayo) cholecalciferol (vitamin D3) 50 50 mcg PO DAILY #90 ca ps 07/01/25 mcg (2,000 unit) capsule djfrmzajpo-kromqssmfkhqv-oougorqu 1 tab PO Q4H PRN Reed kymberly Headache 07/06/25 50 mg-325 mg-40 mg tablet 30 days #20 tabs clonazepam 1 mg tablet (Klonopin) 1 mg PO BID 30 days #60 tabs 07/06/25 primidone 50 mg tablet 50 mg PO .COMPLEX 90 days #3 60 tabs 07/06/25 propranolol 60 mg tablet 60 mg PO BID 90 days #180 ta bs 07/06/25 trazodone 100 mg tablet 200 mg (2 x 100 mg) PO BEDTI ME 90 07/06/25 days #180 tabs ibuprofen 600 mg tablet 600 mg PO DAILY PRN pain 30 days 07/10/25 #30 tabs tramadol 50 mg tablet 50 mg PO BID PRN pain #7 tab s 07/15/25 Allergies Allergy/AdvReac Type Severity Reaction Status Date / Time dabigatran etexilate (From Allergy Intermediate SWELLING\hi Verified 07/15/25 19:04 PRADAXA) ves Review of Systems 2 Review of Systems: Constitutional : No Weight loss, No Fever, No Chills, No Night Sweats, No Fatigue, No Malaise ENT/Mouth : No Hearing loss, No Ear Pain, No Nasal Congestion, No Sinus Pain, No Hoarseness, No sore throat, No Rhinorrhea, No Swallowing Difficulty Eyes: No Eye Pain, No Swelling, No Redness, No Foreign Body, No Discharge, No Vision Changes Cardiovascular : No Chest Pain, No SOB, No Dyspnea on Exertion, No Orthopnea, No Edema, No Palpitations Respiratory : No Cough, No Sputum, No Wheezing, No Smoke Exposure, No Dyspnea Gastrointestinal : No Nausea, No Vomiting, No Diarrhea, No Constipation, No abdominal Pain, No Hematochezia, No Melena Genitourinary : no irregular bleeding, No Dysuria, No Urinary Frequency, No Hematuria, No Urinary Incontinence, No Urgency, No Flank Pain, No Urinary Flow Changes, No Hesitancy Musculoskeletal : Complaining of left-sided rib pain and posterior scalp pain, very mild neck pain bilaterally, No joint pain, No Myalgias, No Joint Swelling Skin : No Skin Lesions, No rash Neuro : No Weakness, No Numbness, No Paresthesias, No Loss of Consciousness, No Dizziness, No Headache Psych : No Anxiety/Panic, No Depression, No SI/HI/AH/VH, No Social Issues, Heme/Lymph: No Bruising, No Bleeding,No Lymphadenopathy Endocrine : No Polyuria, No Polydipsia, No Temperature Intolerance [facility] Past Medical History Medical History Ataxia Cervical spondylosis Migraine Cardiac pacemaker in situ (~2014) Paroxysmal atrial fibrillation LVH (left ventricular hypertrophy) Essential hypertension Hyperlipidemia Diabetes COPD (chronic obstructive pulmonary disease) Nicotine dependence, cigarettes, uncomplicated Benign essential tremor Microscopic hematuria Recurrent UTI Osteopenia (~2021) Obesity, Class I, BMI 30-34.9 Hypertensive retinopathy GERD (gastroesophageal reflux disease) Diverticulitis Tubular adenoma of colon (~2017) Mesenteric lymphadenopathy Thrombocytopenia Depression Insomnia Arthritis Breast calcification, right Surgical History S/P cataract surgery History of pacemaker History of cholecystectomy History of tonsillectomy and adenoidectomy History of eye surgery History of tubal ligation History of colonoscopy History of esophagogastroduodenoscopy (EGD) History of pubovaginal sling History of dilatation and curettage History of loop electrical excision procedure (LEEP) History of right breast biopsy History of vocal cord polypectomy Family History Family History Father Family history of diabetes mellitus Mother Diabetes mellitus Substance use disorder Sister Uterine cancer Diabetes mellitus Mental health disorder Substance use disorder Maternal Grandfather No problems noted. Maternal Grandmother Unknown family medical history Paternal Grandfather No problems noted. Paternal Grandmother No problems noted. Social History Social History Household Members: Other Household Members Other:: Ex-, Daughter Housing: Apartment Alcohol intake: former Year quit: 2001 Patient Tobacco Use Status: Current everyday Tobacco user Tobacco use type: Cigarette Cigarettes Per Day: 6 Years Smoked: (onset 16yo, 1ppd x 47yrs, 40pyh) Smoked in Last 30 Days: Yes e-Cigarette/Vaping Use: Never Used Second Hand Smoke Exposure: Yes Use of substances other than those prescribed or required for medical reasons: No Advance Directives: Yes Advance Directives on File: Yes Advance Directives Date on File: 03/21/22 service: No Current occupational status: disabled Cognitive needs: No Hearing needs: No Vision needs: No Physical Exam 2 Exam: Exam: Appearance: Alert. Oriented X3. No acute distress. Eyes: Pupils equal, round and reactive to light. ENT: Pharynx normal. Neck: Normal inspection. Neck supple. No lymph nodes noted. No crepitus CVS: Normal heart rate and rhythm. Pulses normal. Normal S1 and S2 Respiratory: No respiratory distress. Breath sounds normal. No Wheezing. No rales Abdomen: Soft and nontender. No rigidity. No distention. Skin: Skin warm and dry. Normal skin color. Normal skin turgor. No obvious hematomas or scalp lacerations. Mild ecchymosis on the lateral aspects of the left ribs Extremities: No lower extremity edema. No Lacerations. No Rash. Patient is able to flex and extend hips and knees and ankles. Neuro: Oriented X 3. No motor deficit. No sensory deficit. Moving all extremities. No slurred speech. CN 2 through 12 grossly intact Psych: calm, cooperative, normal affect Vital Signs: Vital Signs: Last Vital Signs Temp 98.4 F 07/15/25 19:07 Pulse 62 07/15/25 19:07 Resp 18 07/15/25 19:07 BP 124/91 H 07/15/25 19:07 Pulse Ox 96 07/15/25 19:07 O2 Del Method Room Air 07/15/25 19:07 BMI result Body Mass Index 31.5 Medications Administered Discontinued Medications Generic Name Dose Route Start Last Admin Trade Name Mark PRN Reason Stop Dose Admin Acetaminophen 650 mg 07/15/25 20:24 07/15/25 20:29 Acetaminophen 325 Mg Tablet PO 07/15/25 20:25 650 mg ONCE ONE Administration Tramadol HCl 50 mg 07/15/25 21:52 07/15/25 22:19 Tramadol Hcl 50 Mg Tablet PO 07/15/25 21:53 50 mg ONCE ONE Administration Medical Decision Making Medical Decision Making [facility] Narrative: My interpretation of labs: No significant abnormality in patient's hematology. Patient's platelets 112 which is at patient's baseline and that is chronic for her. No chemistry abnormalities. X-rays of the hip did not show any acute abnormality CT scan of the cervical spine and head: No acute abnormalities. Patient was given a dose of Tylenol and then tramadol. Patient states that she feels much better. Patient is ambulatory with normal steady gait unassisted. Patient states that she feels well enough to go home. Differential Diagnosis Differential Diagnoses: The differential diagnosis associated with the presentation includes (Rib contusions, fractures. Intracranial bleed, contusions, concussion) Admission/Observation Consideration of admission/observation: Escalation of care including admission/observation considered (Given patient's past medical history and mechanism of injury, observation was considered) Lab Data [facility] Lab Attestation statement: I reviewed the patient's lab results. 07/15/25 19:46 07/15/25 19:46 Labs: Lab Results 07/15/25 Range/Units 19:46 WBC 9.3 (4.8-10.8) X10*3/uL RBC 4.16 L (4.20-5.50) X10*6/uL Hgb 12.4 (12.0-16.0) g/dl Hct 35.6 L (37.0-47.0) % MCV 85.6 (80.0-98.0) fL MCH 29.8 (27.0-33.0) pg MCHC 34.8 (31.0-35.0) g/dl RDW 13.7 (11.0-16.0) % Plt Count 112 L (160-400) X10*3/uL MPV 12.7 H (9.4-12.3) fL Immature Gran % (Auto) 0.3 (0.0-0.4) % Neut % (Auto) 73.0 (45-73) % Lymph % (Auto) 18.3 L (20-40) % Archer % (Auto) 7.8 (2-11) % Eos % (Auto) 0.2 (0-4) % Baso % (Auto) 0.4 (0-2) % Lymph # (Auto) 1.7 (1.2-4.9) X10*3/uL Archer # (Auto) 0.7 (0.1-1.2) X10*3/uL Eos # (Auto) 0.0 (0.0-0.4) X10*3/uL Baso # (Auto) 0.0 (0.0-0.2) X10*3/uL Abs Immat Gran (auto) 0.03 (0.00-0.03) X10*3/uL Absolute Neuts (auto) 6.8 (2.0-8.3) x10*3/uL Absolute Nucleated RBC 0.000 (0.0-0.012) X10*3/uL Nucleated RBC % (auto) 0.0 (0.0-0.2) /100WBC Sodium 137 (135-145) mmol/L Potassium 4.0 (3.3-5.1) mmol/L Chloride 104 (96-108) mmol/L Carbon Dioxide 25 (22-29) mmol/L Anion Gap 12 (12-20) BUN 12 (9-16) mg/dL Creatinine 0.73 (0.5-1.4) mg/dL Estim Creat Clear Calc 86.7 Estimated GFR > 60 Random Glucose 93 (60-115) mg/dL Calcium 9.0 (8.4-10.2) mg/dL Independent Interpretation I performed an independent interpretation of an: CT Scan Radiology Impression Discussion of test interpretation with radiology: I have reviewed the radiologist's reading. Radiologist Impression: BRAIN: No acute infarct, hemorrhage, or mass effect. Scattered periventricular/deep white matter hypodensities, nonspecific, however may represent chronic microvascular ischemic disease. CSF SPACES: No hydrocephalus or effacement of basal cisterns. SKULL: No calvarial fracture. SINUSES: No significant mucosal thickening or effusion on limited views. ORBITS: Bilateral lens replacements. OTHER: Negative. Mild motion artifact. Straightening of the normal cervical lordosis. Multilevel degenerative endplate changes of the cervical spine. No high-grade spinal stenosis. No acute fractures or dislocations. No acute findings on limited view of the intracranial contents. Soft tissues of the neck are normal. Scarring/atelectasis at the right lung apex partially visualized. Critical Care Time Critical Care Time Critical Care Time: Yes Total Critical Care Time: 35 Attestation: I have personally provided critical care time. Time includes review of lab data, radiology results, discussion with consultants, and monitoring for potential decompensation. Intervention performed as documented. Discharge Plan Discharge Clinical Impression: Fall, Contusion of head, Contusion of lower back Patient Disposition: Home, Self-Care Instructions: Fall Prevention for Older Adults (ED), Contusion in Adults (ED) Additional Instructions: Please follow-up with your primary care physician tomorrow. If you have any worsening or new symptoms, please return to the emergency room or call 911 Prescriptions: New tramadol 50 mg tablet 50 mg PO BID PRN (Reason: pain) Qty: 7 0RF No Action lisinopril 40 mg tablet 20 mg PO DAILY (DME) Recliner lift chair See Rx Instructions .Route .MEDSUPPLY Qty: 1 0RF Rx Instructions: As directed acetaminophen 500 mg tablet 1,000 mg PO Q8H PRN (Reason: pain) 15 Days Qty: 90 2RF albuterol sulfate [Ventolin HFA] 90 mcg/actuation HFA aerosol inhaler 2 puff inhalation Q4-6H PRN (Reason: shortness of breath or wheezing) 30 Days Qty: 18 3RF (DME) Upright Posture Walker See Rx Instructions .Route .MEDSUPPLY Qty: 1 0RF Rx Instructions: daily use (DME) Ultra-Light Rollator Misc See Rx Instructions .Route Qty: 1 0RF Rx Instructions: lower extrem weakness, use daily albuterol sulfate 2.5 mg /3 mL (0.083 %) solution for nebulization 2.5 mg inhalation Q4-6H PRN (Reason: for wheezing) Qty: 150 4RF (DME) Quad care See Rx Instructions .Route .MEDSUPPLY Qty: 1 0RF Rx Instructions: As directed tiotropium bromide [Spiriva with HandiHaler] 18 mcg capsule, w/inhalation device 1 cap inhalation DAILY 30 Days Qty: 30 4RF amlodipine 2.5 mg tablet 2.5 mg PO DAILY Qty: 90 3RF Xarelto 20 mg tablet 20 mg PO BEDTIME Qty: 90 3RF cetirizine 10 mg tablet 10 mg PO DAILY PRN (Reason: allergy symptoms) Qty: 90 1RF atorvastatin 40 mg tablet 40 mg PO DAILY Qty: 90 1RF cranberry fruit 450 mg tablet 450 mg PO BID 90 Days Qty: 180 2RF fluticasone propion-salmeterol [Wixela Inhub] 250-50 mcg/dose blister with device 1 ea inhalation BID Qty: 60 0RF cholecalciferol (vitamin D3) 50 mcg (2,000 unit) capsule 50 mcg PO DAILY Qty: 90 1RF ibuprofen 600 mg tablet 600 mg PO DAILY PRN (Reason: pain) 30 Days Qty: 30 0RF Rx Instructions: use sparingly: not good for diabetics, and also on xarelto meclizine 25 mg tablet 25 mg PO TID PRN (Reason: dizziness) Qty: 20 0RF albuterol sulfate [Ventolin HFA] 90 mcg/actuation HFA aerosol inhaler 2 puff inhalation Q4-6H PRN (Reason: shortness of breath or wheezing) 30 Days Qty: 8.5 3RF omeprazole 20 mg capsule,delayed release(DR/EC) 20 mg PO DAILY Qty: 90 2RF sucralfate [Carafate] 1 gram tablet 2 g PO .daily at 11pm Qty: 60 6RF clonazepam [Klonopin] 1 mg tablet 1 mg PO BID 30 Days Qty: 60 3RF primidone 50 mg tablet 50 mg PO .COMPLEX 90 Days Qty: 360 1RF Rx Instructions: 50 mg orally 1 tablet twice a day and 2 tablets at bedtime; propranolol 60 mg tablet 60 mg PO BID 90 Days Qty: 180 1RF trazodone 100 mg tablet 200 mg PO BEDTIME 90 Days Qty: 180 1RF bxogzlevvb-rbytxrwigzqgp-bcta 50-325-40 mg tablet 1 tab PO Q4H PRN (Reason: Migraine Headache) 30 Days Qty: 20 3RF mirabegron 50 mg tablet extended release 24 hr 50 mg PO DAILY 90 Days Qty: 90 3RF Print Language: Uzbek
--- NOTE | 2025-07-15 23:23 | PC.NURSE ---
Pt ambulated to and from bathroom without issue.
[2025-07-16] VITALS: BP 148/94; PULSE 91; RESP 18; TEMP 36.9; O2SAT 93
[2025-07-16 00:51] VITALS: BP 148/94; PULSE 91; RESP 18; TEMP 36.9; O2SAT 93
== END 2025-07-16 00:52 | disposition home or self-care (01) ==
PROVIDERS: Emergency Provider Emergency Medicine; PCP Nurse Practitioner Family
DX: S00.93XA Contusion of unspecified part of head, initial encounter (principal); S30.0XXA Contusion of lower back and pelvis, initial encounter; R51.9 Headache, unspecified; R07.89 Other chest pain; W01.10XA Fall on same level from slipping, tripping and stumbling with subsequent striking against unspecified object, initial encounter; Y93.9 Activity, unspecified; Y92.002 Bathroom of unspecified non-institutional (private) residence as the place of occurrence of the external cause; Y99.8 Other external cause status
CPT/HCPCS: 36415; 70450; 71101; 72125; 80048; 85025; 99284

== ENCOUNTER → 2025-07-15 19:15 | Outpatient (BNV) | payer OTHER, SELFPAY | PROVIDERS: PCP Nurse Practitioner Family; Visit Provider Radiology Diagnostic Radiology | DX: R07.89 Other chest pain (principal) | CPT/HCPCS: 71101 ==

== ENCOUNTER → 2025-07-24 23:59 | Outpatient (BNV) | payer OTHER, SELFPAY ==
--- NOTE | 2025-07-29 12:09 | MHC.OFFVIS ---
Intake Visit Reasons: Remote device check- Medtronic Allergies dabigatran etexilate (From PRADAXA) Allergy (Intermediate, Verified 07/15/25 19:04) SWELLING\hives PFSH Medical History Ataxia Cervical spondylosis Migraine Cardiac pacemaker in situ (~2014) Paroxysmal atrial fibrillation LVH (left ventricular hypertrophy) Essential hypertension Hyperlipidemia Diabetes COPD (chronic obstructive pulmonary disease) Nicotine dependence, cigarettes, uncomplicated Benign essential tremor Microscopic hematuria Recurrent UTI Osteopenia (~2021) Obesity, Class I, BMI 30-34.9 Hypertensive retinopathy GERD (gastroesophageal reflux disease) Diverticulitis Tubular adenoma of colon (~2017) Mesenteric lymphadenopathy Thrombocytopenia Depression Insomnia Arthritis Breast calcification, right Surgical History S/P cataract surgery History of pacemaker History of cholecystectomy History of tonsillectomy and adenoidectomy History of eye surgery History of tubal ligation History of colonoscopy History of esophagogastroduodenoscopy (EGD) History of pubovaginal sling History of dilatation and curettage History of loop electrical excision procedure (LEEP) History of right breast biopsy History of vocal cord polypectomy Family History Father Family history of diabetes mellitus Mother Diabetes mellitus Substance use disorder Sister Uterine cancer Diabetes mellitus Mental health disorder Substance use disorder Maternal Grandfather No problems noted. Maternal Grandmother Unknown family medical history Paternal Grandfather No problems noted. Paternal Grandmother No problems noted. Social History Household Members: Other Household Members Other:: Ex-, Daughter Housing: Apartment Alcohol intake: former Year quit: 2001 Patient Tobacco Use Status: Current everyday Tobacco user Tobacco use type: Cigarette Cigarettes Per Day: 6 Years Smoked: (onset 16yo, 1ppd x 47yrs, 40pyh) Smoked in Last 30 Days: Yes e-Cigarette/Vaping Use: Never Used Second Hand Smoke Exposure: Yes Use of substances other than those prescribed or required for medical reasons: No Advance Directives: Yes Advance Directives on File: Yes Advance Directives Date on File: 03/21/22 service: No Current occupational status: disabled Cognitive needs: No Hearing needs: No Vision needs: No Female Reproductive History Menstrual Age of Menarche: 7 Office Procedures Cardiac Device Check Cardiac Device Check Details: Remote pacemaker report generated 07/24/2025. Pacemaker function is adequate [id number] Cardiac Device Interrogation, pacemaker Procedure code (CPT) selection complete Assessment & Plan Assessment & Plan (1) Cardiac pacemaker in situ: Onset Date: ~2014 Comment: (Medtronic DCPP - placed 05/10/2015) Code(s): Z95.0 - Presence of cardiac pacemaker Category: Medical Plan: See above Coding Level of Care Code Procedure Only Diagnoses Cardiac pacemaker in situ Z95.0 CPT Codes Cardiac Device Check - Cardiac Device 12: [id number] Cardiac Device Interrogation, pacemaker ([id number])
== END ==
PROVIDERS: PCP Nurse Practitioner Family; Visit Provider Internal Medicine Cardiovascular Disease
DX: Z45.018 Encounter for adjustment and management of other part of cardiac pacemaker (principal)
CPT/HCPCS: 93294

== ENCOUNTER 2025-09-08 14:20 | Outpatient (AMB) | payer OTHER, SELFPAY ==
[2025-09-08 14:29] VITALS: BP 102/70; PULSE 72; O2SAT 94; BMI 30.4
--- NOTE | 2025-09-08 14:29 | A.OFFVIS_ITS ---
Vital Signs 09/08/25 14:29 Height 5 ft 7 in Weight 194 lb BMI 30.4 BP 102/70 Blood Pressure Location Lt brachial Position Sitting Pulse 72 Pulse Source Pulse Oximeter Pulse Oximetry (%) 94 Oxygen Delivery Method Room Air Intake Visit Reasons: COPD Intake Note: pt is here for follow up and states she has a bad cough and a sore throat, wondering if she can have some cough medicine, this is going on for 4 weeks. Allergies dabigatran etexilate (From PRADAXA) Allergy (Intermediate, Verified 09/08/25 14:55) SWELLING\hives Medication List - Last Reconciled 09/08/25 by Ruth Thomas MD acetaminophen 1,000 mg (2 x 500 mg) PO Q8H PRN 15 days albuterol sulfate 2.5 mg (3 mL) inhalation Q4-6H PRN albuterol sulfate 90 mcg/actuation (Ventolin HFA) 2 puffs inhalation Q4-6H PRN 30 days amlodipine 2.5 mg PO DAILY atorvastatin 40 mg PO DAILY bisacodyl (Dulcolax (bisacodyl)) 10 mg (2 x 5 mg) PO BEDTIME 2 days xbrzfxizdg-ydtdmiwcsvtnt-xccj 50-325-40 mg 1 tab PO Q4H PRN 30 days cetirizine 10 mg PO DAILY PRN cholecalciferol (vitamin D3) 50 mcg PO DAILY clonazepam (Klonopin) 1 mg PO BID 30 days cranberry fruit 450 mg PO BID 90 days fluticasone propion-salmeterol 250-50 mcg/dose (Wixela Inhub) 1 ea inhalation BID ibuprofen 600 mg PO DAILY PRN 30 days lisinopril 20 mg PO DAILY meclizine 25 mg PO TID PRN mirabegron ER 50 mg PO DAILY 90 days omeprazole 20 mg PO DAILY peg 3350-electrolytes 236-22.74-6.74 -5.86 gram (Golytely) 240 mL PO Q10M 1 day primidone 50 mg orally 1 tablet twice a day and 2 tablets at bedtime; 90 days propranolol 60 mg PO BID 90 days [Quad care As directed] [Recliner lift chair As directed] rivaroxaban (Xarelto) 20 mg PO BEDTIME sucralfate (Carafate) 2 grams (2 x 1 gram) PO .daily at 11pm tiotropium bromide (Spiriva with HandiHaler) 1 cap inhalation DAILY 30 days tramadol 50 mg PO BID PRN trazodone 200 mg (2 x 100 mg) PO BEDTIME 90 days Ultra-Light Rollator (walker) lower extrem weakness, use daily NS [Upright Posture Walker daily use] Ventolin HFA 90 mcg/actuation (albuterol sulfate) 2 puffs inhalation Q4-6H PRN 30 days NS Do you need a note to return to daycare/school/sports/work: No HPI HPI COPD: Details: THIS 65 YEARS OLD FEMALE, WITH LONGSTANDING HISTORY OF SMOKING, HAS CHRONIC OBSTRUCTIVE PULMONARY DISEASE. TRYING TO CUT DOWN SMOKING, BUT CAN NOT DO IT. CURRENTLY SMOKES ABOUT 6 CIGARETTES A DAY. ALSO SAY IS THAT SOMETIMES SHE HAS ONGOING COUGH AND THEN SHE CAN NOT SMOKE AT ALL FOR A FEW DAYS. THERE IS NO HISTORY OF ANY RECENT INFECTION FEVER OR CHEST PAIN. BUT SHE COMPLAINS OF FREQUENT DRY COUGH WHICH KEEPS HER AWAKE AT NIGHT AND THEN SHE HAS DAYTIME SLEEPINESS. [facility] Medical History Ataxia Cervical spondylosis Migraine Cardiac pacemaker in situ (~2014) Paroxysmal atrial fibrillation LVH (left ventricular hypertrophy) Essential hypertension Hyperlipidemia Diabetes COPD (chronic obstructive pulmonary disease) Nicotine dependence, cigarettes, uncomplicated Benign essential tremor Microscopic hematuria Recurrent UTI Osteopenia (~2021) Obesity, Class I, BMI 30-34.9 Hypertensive retinopathy GERD (gastroesophageal reflux disease) Diverticulitis Tubular adenoma of colon (~2017) Mesenteric lymphadenopathy Thrombocytopenia Depression Insomnia Arthritis Breast calcification, right Surgical History S/P cataract surgery History of pacemaker History of cholecystectomy History of tonsillectomy and adenoidectomy History of eye surgery History of tubal ligation History of colonoscopy History of esophagogastroduodenoscopy (EGD) History of pubovaginal sling History of dilatation and curettage History of loop electrical excision procedure (LEEP) History of right breast biopsy History of vocal cord polypectomy Family History Father Family history of diabetes mellitus Mother Diabetes mellitus Substance use disorder Sister Uterine cancer Diabetes mellitus Mental health disorder Substance use disorder Maternal Grandfather No problems noted. Maternal Grandmother Unknown family medical history Paternal Grandfather No problems noted. Paternal Grandmother No problems noted. Social History Household Members: Other Household Members Other:: Ex-, Daughter Housing: Apartment Alcohol intake: former Year quit: 2001 Patient Tobacco Use Status: Current someday Tobacco user Tobacco use type: Cigarette Cigarettes Per Day: 4 Years Smoked: (onset 16yo, 1ppd x 47yrs, 40pyh) e-Cigarette/Vaping Use: Never Used Second Hand Smoke Exposure: Yes Advance Directives Date on File: 03/21/22 service: No Current occupational status: disabled Cognitive needs: No Hearing needs: No Vision needs: No Female Reproductive History Menstrual Age of Menarche: 7 Review of Systems Const All systems reviewed & are unremarkable except as noted in HPI and below Eyes Reports no additional complaints ENT Reports no additional complaints Card Denies chest pain, Denies irregular heart rhythm and Reports other (Has demand pacemaker in the left pectoral area) Resp Reports as per HPI GI Reports abdominal pain, Reports constipation, Reports heartburn, Reports diarrhea and Reports other (Irritable bowel syndrome) Reports nocturia Musc Reports back pain Skin/Breast Reports system reviewed and no additional complaints, except as documented Neuro Reports tremor(s) (Essential tremors) Psych Reports anxiety and Reports depression Endo Reports other (Diabetes mellitus) Physical Exam Vital Signs: Last Vital Signs Pulse 72 09/08/25 14:29 BP 102/70 09/08/25 14:29 Pulse Ox 94 09/08/25 14:29 Oxygen Delivery Method Room Air 09/08/25 14:29 BMI result Body Mass Index 30.4 Const General: comfortable, no acute distress, alert and awake Orientation/consciousness: patient oriented x3 HEENT Other: ORAL MUCOSA IS VERY DRY Head: Yes normal to inspection General nose exam: No nasal polyps present and No nasal discharge present Face and sinus: Yes sinuses nontender Mouth: oropharynx normal Throat: Yes posterior oropharynx normal Eyes General: appearance normal, both eyes and all related structures Neck Neck: Yes normal visual inspection, Yes no lymphadenopathy, Yes trachea midline and Yes no JVD Thyroid: Thyroid normal Chest Chest palpation & inspection: normal inspection of the chest, normal palpation of entire chest wall and no tenderness Resp Other: Percussion note is resonant, breath sounds are distant with prolonged expiratory phase. She does have a few scattered expiratory wheezes in the upper parts of the chest. Cardio Palpation: normal PMI Rate: regular rate Rhythm: regular rhythm and other (Pacemaker in left pectoral area) Heart sounds: no gallops and no murmurs Peripheral pulses: Peripheral pulses 2+ throughout GI Palpation (GI): Soft to palpation, nontender, No hepatosplenomegaly present and no masses Auscultation: normal bowel sounds Back/Spine/Pelvis Thoracic/Lumbar Spine: thoracic and lumbar spine normal to inspection Skin General skin exam: no rashes or lesions noted Neuro Other: Patient has tremors of the head, and slightly tremorous speech General: patient oriented x3 and no focal motor deficits Cranial nerves: Yes CN's II-XII intact bilaterally Extrem General: Yes normal to inspection, Yes no clubbing, cyanosis or edema and Yes no calf tenderness Psych Speech and movement: Normal speech and movement present Affect: Anxious affect present Assessment & Plan Assessment & Plan (1) COPD (chronic obstructive pulmonary disease): Comment: Long-standing history of COPD, severe per PFT with component of asthma. It is relatively stable at this time. I think she is at her baseline. Code(s): J44.9 - Chronic obstructive pulmonary disease, unspecified Category: Medical Plan: Continue the present medical regimen for COPD which includes : Wixela 250-50 1 inhalation b.i.d.. Spiriva HandiHaler. 1 inhalation daily Ventolin HFA 2 puffs Q 6 hours prn (2) Nicotine dependence, cigarettes, uncomplicated: Comment: (Current smoker - onset 16yo, 1ppd x 47yrs, 40pyh) TRYING TO CUT DOWN AND NOW SMOKES 5-6 CIGARETTES A DAY. Code(s): F17.210 - Nicotine dependence, cigarettes, uncomplicated Category: Medical Plan: Talked to her and stressed that she has to try to quit smoking completely. (3) Cough: Comment: Cough is multifactorial., secondary to COPD, , smoking, dry air in winter. Code(s): R05.9 - Cough, unspecified Category: Medical Plan: Continue treatment for COPD, try to quit completely. May use Mucinex 600 mg b.i.d., Keep a humidifier in the bedroom at night and in the living room during the da ytime. Medications: New guaifenesin ER (Mucinex) 600 mg PO BID 30 tabs 3RF cough/copd 15 days Refilled Ventolin HFA 90 mcg/actuation (albuterol sulfate) 2 puffs inhalation Q4-6H PRN 18 grams 3RF shortness of breath or wheezing 30 days NS Coding Level of Care Code Est Pt Level 3 (42529) Diagnoses COPD (chronic obstructive pulmonary disease) J44.9 Nicotine dependence, cigarettes, uncomplicated F17.210 Cough R05.9
--- OUTSIDE RECORDS SUMMARY | 2025-09-09 10:59 | XMS_ITS ---
Author Name Isabelle WANG, MRS. Dunlap Address [address] [place] [address] Phone [phone] [facility] Care Team Providers Care Digital Media Designer Name Role Phone Fabi Walton Unavailable [phone] Reason for Referral Not Available Allergies, adverse [...] NIGHT AT BEDTIME. 2023-09-05 No Data Available Bxvvlbokyv-TWGM-Touzhmbn 50/325/40 mg Tab TAKE 1 TABLET EVERY [...] No Data Available Vitamin D3 50 MCG (2000 UT) Cap TAKE 1 CAPSULE BY MOUTH [...] enduranceHistory of fall Active 2024-04-18 N/A uses wa Infusionsofter rollator to ambulate. Reports recent fall.Monitor for [...] to follow up with PCP/Specialists.- Follows with stuffing machine operator. Unspecified convulsions Active 2025-03-24 N/A [...] repo rts she fell yesterday while at [facility]. She banged her both knees, both [...] (do not use for phone, instead use 09972-47) [facility] ([place]) 04/18/2024 Other thrombophiliaUnspecifi ed [...] (do not use for phone, instead use 52020-82) [facility], ([place]) [place]/18/[place] New patient,40-59min; chronic exacerbation, 2 stable chronic or 1 acute illness add add modifier 95 for video (do not use for phone, instead use 16381-49) [facility] New patient,40-59min; chronic exacerbation, 2 stable chronic or 1 acute illness add add modifier 95 for video (do not use for phone, instead use 62755-00) [facility] New patient,40-59min; chronic exacerbation, 2 stable chronic or 1 acute illness add add modifier 95 for video (do not use for phone, instead use 53184-81) [facility]18[place] New patient,40-59min; chronic exacerbation, 2 stable chronic or 1 acute illness add add modifier 95 for video (do not use for phone, instead use 95718-87) [facility]18[place] New patient,40-59min; chronic exacerbation, 2 stable chronic or 1 acute illness add add modifier 95 for video (do not use for phone, instead use 29756-04) [facility]18[place] New patient,40-59min; chronic exacerbation, 2 stable chronic or 1 acute illness add add modifier 95 for video (do not use for phone, instead use 08734-28) [facility]18[place] New patient,40-59min; chronic exacerbation, 2 stable chronic or 1 acute illness add add modifier 95 for video (do not use for phone, instead use 92496-55) [facility]18[place]20[place] New patient,40-59min; chronic exacerbation, 2 stable chronic or 1 acute illness add add modifier 95 for video (do not use for phone, instead use 24235-69) [facility]18/20[place] Estab. patient 20-29min; 1 stable chronic or 2 minor; add add modifier 95 for video, modifier 93 for phone [facility] 03/24/2025 Other thrombophiliaUnspecifi ed atrial fibrillationVentricular [...] 95 for video, modifier 93 for phone [facility] 03/24/20[place] Estab. patient 20-29min; 1 stable chronic or 2 minor; add add modifier 95 for video, modifier 93 for phone [facility] 03/24/20[place] Estab. patient 20-29min; 1 stable chronic or 2 minor; add add modifier 95 for video, modifier 93 for phone [facility] 03/24/20[place] Estab. patient 20-29min; 1 stable chronic or 2 minor; add add modifier 95 for video, modifier 93 for phone [facility] 03/24/2025 Estab. patient 20-29min; 1 stable chronic or 2 minor; add add modifier 95 for video, modifier 93 for phone [facility] 03/24/2025 Estab. patient 20-29min; 1 stable chronic or 2 minor; add add modifier 95 for video, modifier 93 for phone [facility] 03/24/2025 Estab. patient 20-29min; 1 stable chronic or 2 minor; add add modifier 95 for video, modifier 93 for phone [facility] 03/24/2025 Estab. patient 10-29min; 1 minor problem; add add modifier 95 for video, modifier 93 for phone [facility] 04/07/2025 Type 2 diabetes mellitus wit [...] Current Smoking Status Current every day smoker 2025-09-09 Sex Female Gender identity Woman History of Procedures Procedures Service Procedure code Service date Servicing provider Phone# New patient,40-59min; chronic exacerbation, 2 stable chronic or 1 acute illness add add modifier 95 for video (do not use for phone, instead use 72520-23) [id number] 2024-04-18 No Data Available No Data Availa [...] 95 for video, modifier 93 for phone [id number] 2025-03-24 No Data Available No Data Availa [...] 95 for video, modifier 93 for phone 28575 2025-04-07 No Data Available No Data Availa [...] f/u care and monitoring with PCP and health center associate. 2025-03-24 07:42:48 Functional Status As sessed (1170F)Advance [...] to follow up with PCP/Specialists.- Follows with stuffing machine operator.Member reports she is sober 26 [...] 14/05.04/07/25:She reports she fell yesterday while at [facility]. She banged her both knees, both [...] to follow up with PCP/Specialists.- Follows with stuffing machine operator.Xarelto, Propranolol, AmlodipinePacemaker Bleeding risk precautions, [...] She reports she fell yesterday while at [employer]. She banged her both knees, both arms [...]
== END 2025-09-08 14:54 | disposition home or self-care (01) ==
LOC: HO.HPS 14:21
PROVIDERS: PCP Nurse Practitioner Family; Visit Provider Internal Medicine
DX: J44.9 Chronic obstructive pulmonary disease, unspecified (principal); F17.210 Nicotine dependence, cigarettes, uncomplicated; R05.9 Cough, unspecified
CPT/HCPCS: 99213

== ENCOUNTER → 2025-09-08 14:20 | Outpatient (BNVA) | payer OTHER, SELFPAY | PROVIDERS: PCP Nurse Practitioner Family; Visit Provider Internal Medicine | DX: J44.9 Chronic obstructive pulmonary disease, unspecified (principal); R05.9 Cough, unspecified; F17.210 Nicotine dependence, cigarettes, uncomplicated | CPT/HCPCS: 99212 ==

== ENCOUNTER 2025-09-09 15:51 | Outpatient (REF) | payer OTHER, SELFPAY ==
--- NOTE | ~2025-09-09 | CT_ITS ---
EXAMINATION: CT ANGIOGRAPHY LEGS WITH RUNOFF CLINICAL INFORMATION: I73.9 - Peripheral vascular disease, unspecified COMPARISON: Ultrasound of the lower extremity arteries on May 18, 2025 describes severe inflow disease of the right leg (dorsalis pedis artery) and of the left leg (from the popliteal artery to the dorsalis pedis artery). TECHNIQUE: CT angiogram of the abdomen/pelvis and lower extremities was obtained following intravenous administration of 100 cc of Omnipaque 350. Images were reconstructed in the axial, coronal and sagittal planes, as MIP reconstructions. This CT examination was performed using dose optimization techniques as appropriate, variously including the following: *Automated exposure control *Adjustment of mA and/or kV according to patient size (this includes techniques or standardized protocols for targeted exams where dose is matched to indication/reason for exam; i.e. extremities or head) *Use of iterative reconstruction technique FINDINGS: VASCULAR FINDINGS: Abdomen: Mild atherosclerotic disease associated with scattered calcifications. Celiac trunk, superior and inferior mesenteric artery are patent. Abdominal aorta is normal in caliber, without significant stenosis. There are single, patent bilateral renal arteries. RIGHT common, external and internal iliac arteries are patent, without significant stenosis. Common femoral, profunda, superficial femoral, and popliteal arteries are patent, without significant stenosis. There is one-vessel runoff to the ankle by posterior tibial artery, with very faintly opacified anterior tibial and fibular arteries. The dorsalis pedis artery is not well opacified. LEFT common iliac, external and internal iliac arteries are patent, without significant stenosis. Common femoral, profunda, superficial femoral, and popliteal arteries are patent, without significant stenosis.There is two-vessel runoff to the ankle by anterior and posterior tibial arteries, with very faintly opacified fibular artery. Anterior tibial artery continues as the dorsalis pedis artery, which is well opacified. NONVASCULAR FINDINGS: Lung bases are clear. No pleural effusion. Status post cholecystectomy. Liver, pancreas and adrenal nodules are unremarkable. No splenomegaly. Bilateral renal cysts, the largest on the right measuring up to 5.8 cm. No bowel distention. No suspicious bone abnormality. CT/CT angio abd aorta runoff IMPRESSION: -Mild atherosclerotic disease associated with scattered calcifications. -Right lower extremity: One-vessel runoff to the ankle by posterior tibial artery. Faintly opacified anterior tibial and fibular arteries. Dorsalis pedis artery not well opacified. -Left lower extremity: Two vessel runoff to the ankle by anterior and posterior tibial arteries. Faintly opacified fibular artery. Dorsalis pedis well opacified. Electronically signed by: Karlo Toure MD 09/09/2025 06:11 PM EST
[2025-09-09] MEDS: iohexoL 350 MG/ML 100 ML INFUS..BTL IV (16:58)
--- OUTSIDE RECORDS SUMMARY | 2025-09-10 04:29 | XMS_ITS ---
Author Name Isabelle WANG, MRS. Dunlap Address [address] [place] [address] Phone [phone] [facility] Care Team Providers Care Web Development Intern Name Role Phone Fabi Walton Unavailable [phone] Reason for Referral Not Available Allergies, adverse [...] NIGHT AT BEDTIME. 2023-09-05 No Data Available Pfjciaxpbc-IHEF-Gfsbdlai 50/325/40 mg Tab TAKE 1 TABLET EVERY [...] of fall Active 2024-04-18 N/A uses wa Sokikomer rollator to ambulate. Reports recent fall.Monitor for [...] to follow up with PCP/Specialists.- Follows with negative turner apprentice. Unspecified convulsions Active 2025-03-24 N/A R x: [...] rts she fell yesterday while at [facility]. She banged her both knees, both arms [...] (do not use for phone, instead use 83991-93) [facility] ([place]) 04/18/2024 Other thrombophiliaUnspecifi ed [...] (do not use for phone, instead use 36945-37) [facility], ([place]) 04/18/20[place] New patient,40-59min; chronic exacerbation, 2 stable chronic or 1 acute illness add add modifier 95 for video (do not use for phone, instead use 74195-59) [facility] ([place]) 04/18/20[place] New patient,40-59min; chronic exacerbation, 2 stable chronic or 1 acute illness add add modifier 95 for video (do not use for phone, instead use 00361-70) [facility] ([place] 04/18/20[place] New patient,40-59min; chronic exacerbation, 2 stable chronic or 1 acute illness add add modifier 95 for video (do not use for phone, instead use 56242-68) [facility] ([place] 04/18/20[place] New patient,40-59min; chronic exacerbation, 2 stable chronic or 1 acute illness add add modifier 95 for video (do not use for phone, instead use 03970-90) [facility]18/20[place] New patient,40-59min; chronic exacerbation, 2 stable chronic or 1 acute illness add add modifier 95 for video (do not use for phone, instead use 85419-47) [facility] [place]18/20[place] New patient,40-59min; chronic exacerbation, 2 stable chronic or 1 acute illness add add modifier 95 for video (do not use for phone, instead use 94512-66) [facility] [place]18/20[place] New patient,40-59min; chronic exacerbation, 2 stable chronic or 1 acute illness add add modifier 95 for video (do not use for phone, instead use 51738-49) [facility]18/20[place] New patient,40-59min; chronic exacerbation, 2 stable chronic or 1 acute illness add add modifier 95 for video (do not use for phone, instead use 37490-83) [facility]18/20[place] Estab. patient 20-29min; 1 stable chronic or 2 minor; add add modifier 95 for video, modifier [address] [facility] 03/24/20[place] Other thrombophiliaUnspecifi ed atrial fibrillationVentricular tachycardia, [...] 95 for video, modifier [address] [facility] 03/24/20[place] Estab. patient 20-29min; 1 stable chronic or 2 minor; add add modifier 95 for video, modifier [address] [facility] 03/24/20[place] Estab. patient 20-29min; 1 stable chronic or 2 minor; add add modifier 95 for video, modifier [address] [facility] 03/24/20[place] Estab. patient 20-29min; 1 stable chronic or 2 minor; add add modifier 95 for video, modifier [address] [facility] 03/24/20[place] Estab. patient 20-29min; 1 stable chronic or 2 minor; add add modifier 95 for video, modifier [address] [facility] 03/24/20[place] Estab. patient 20-29min; 1 stable chronic or 2 minor; add add modifier 95 for video, modifier [address] [facility] 03/24/20[place] Estab. patient 20-29min; 1 stable chronic or 2 minor; add add modifier 95 for video, modifier [address] [facility] 03/24/20[place] Estab. patient 10-29min; 1 minor problem; add add modifier 95 for video, modifier [address] [facility]/07/2025 Type 2 diabetes mellitus wit h [...] Current Smoking Status Current every day smoker 2025-09-10 Sex Female Gender identity Woman History of Procedures Procedures Service Procedure code Service date Servicing provider Phone# New patient,40-59min; chronic exacerbation, 2 stable chronic or 1 acute illness add add modifier 95 for video (do not use for phone, instead use 04518-18) [id number] 2024-04-18 No Data Available No Data Availa [...] 95 for video, modifier 93 for phone [id number] 2025-03-24 No Data Available No Data Availa [...] 95 for video, modifier 93 for phone [id number] 2025-04-07 No Data Available No Data Availa [...] f/u care and monitoring with PCP and document processing specialist. 2025-03-24 07:42:48 Functional Status As sessed (1170F)Advance [...] to follow up with PCP/Specialists.- Follows with negative turner apprentice.Member reports she is sober 26 years from [...] reports she fell yesterday while at [facility]. She banged her both knees, both arms [...] to follow up with PCP/Specialists.- Follows with negative turner apprentice.Xarelto, Propranolol, AmlodipinePacemaker Bleeding risk precautions, monitor for [...] She reports she fell yesterday while at [employer]. She banged her both knees, both arms [...]
[2025-09-10 10:13] LABS: Creatinine POC 1.0 mg/dL (0.5-1.4); GFR POC 58
== END 2025-09-09 15:52 | disposition home or self-care (01) ==
LOC: HO.CT 15:51
PROVIDERS: PCP Nurse Practitioner Family; Visit Provider Surgery Vascular Surgery
DX: I73.9 Peripheral vascular disease, unspecified (principal)
CPT/HCPCS: 75635; 82565; Q9967

== ENCOUNTER → 2025-09-09 15:53 | Outpatient (BNV) | payer OTHER, SELFPAY | PROVIDERS: PCP Nurse Practitioner Family; Visit Provider Radiology Body Imaging | DX: I73.9 Peripheral vascular disease, unspecified (principal) | CPT/HCPCS: 75635 ==

== ENCOUNTER 2025-09-23 15:00 | Outpatient (AMB) | payer OTHER, SELFPAY ==
--- NOTE | 2025-09-23 15:03 | A.OFFPC_ITS ---
Vital Signs 09/23/25 15:08 Height 5 ft 7 in Weight 192 lb BMI 30.1 BP 110/70 Blood Pressure Location Lt brachial Position Sitting Respiration 16 Pulse 90 Pulse Source Pulse Oximeter Pulse Oximetry (%) 92 Oxygen Delivery Method Room Air Intake Visit Reasons: 3mos follow up Oncology Rn Required: No Accompanied by: Self / Same As Patient Allergies dabigatran etexilate (From PRADAXA) Allergy (Intermediate, Verified 09/23/25 15:56) SWELLING\hives Medication List - Last Reconciled 09/23/25 by Elmer Dolan, [facility]- acetaminophen 1,000 mg (2 x 500 mg) PO Q8H PRN 15 days albuterol sulfate 2.5 mg (3 mL) inhalation Q4-6H PRN albuterol sulfate 90 mcg/actuation (Ventolin HFA) 2 puffs inhalation Q4-6H PRN 30 days amlodipine 2.5 mg PO DAILY atorvastatin 40 mg PO DAILY bisacodyl (Dulcolax (bisacodyl)) 10 mg (2 x 5 mg) PO BEDTIME 2 days mcsxdriiir-ubyvtucvkjkhx-ducl 50-325-40 mg 1 tab PO Q4H PRN 30 days cetirizine 10 mg PO DAILY PRN cholecalciferol (vitamin D3) 50 mcg PO DAILY clonazepam (Klonopin) 1 mg PO BID 30 days cranberry fruit 450 mg PO BID 90 days fluticasone propion-salmeterol 250-50 mcg/dose (Wixela Inhub) 1 ea inhalation BID guaifenesin ER (Mucinex) 600 mg PO BID 15 days ibuprofen 600 mg PO DAILY PRN 30 days lisinopril 20 mg PO DAILY meclizine 25 mg PO TID PRN mirabegron ER 50 mg PO DAILY 90 days omeprazole 20 mg PO DAILY peg 3350-electrolytes 236-22.74-6.74 -5.86 gram (Golytely) 240 mL PO Q10M 1 day primidone 50 mg orally 1 tablet twice a day and 2 tablets at bedtime; 90 days propranolol 60 mg PO BID 90 days [Quad care As directed] [Recliner lift chair As directed] rivaroxaban (Xarelto) 20 mg PO BEDTIME sucralfate (Carafate) 2 grams (2 x 1 gram) PO .daily at 11pm tiotropium bromide (Spiriva with HandiHaler) 1 cap inhalation DAILY 30 days tramadol 50 mg PO BID PRN trazodone 200 mg (2 x 100 mg) PO BEDTIME 90 days Ultra-Light Rollator (walker) lower extrem weakness, use daily NS [Upright Posture Walker daily use] Ventolin HFA 90 mcg/actuation (albuterol sulfate) 2 puffs inhalation Q4-6H PRN 30 days NS Tobacco use date assessed: 09/23/25 Fall risk assessment: No Falls in past year Last assessed Fall Risk: 09/23/25 Dental Screening Dental Screen Date: 09/23/25 Did you have a dental visit in the last 12 months?: Yes Did you have a dental problem in the last 6 months where you did not have access to dental care?: No Was dental information given to patient?: Patient has dentist HPI 3mos follow up HPI Details Chief Complaint The patient presents for a follow-up visit for diabetes management. History of Present Illness The patient is a 65 year old individual presenting for a follow-up visit for diabetes management. The patient reports doing fairly well. The patient denies any current symptoms of neuropathy. The patient is a smoker and reports having a cough. The patient sees a academic affairs specialist (smoker). Preventative screenings, including an eye exam and microalbumin test, are up to date. Social History - Tobacco Use: The patient is a smoker. Health Maintenance - Diabetic eye exam: Up to date. - Microalbumin: Up to date. - Specialty Care: Follows with a pulmona ry specialist. Review of Systems - Constitutional: Reports doing fairly w ell. - Respiratory: Reports a cough. - Neurological: Denies current neuropath y. -denies any fevers, chills, n/v Physical Exam General: Cooperative, healthy appearing, comfortable, no acute distress and well developed Orientation: Patient oriented x3 Limitations: No limitations Head: Normal to inspection Ears: Hearing grossly normal bilaterally Nose: Normal external nose present Face and sinus: Normal facial exam Eyes: Appearance normal, both eyes and all related structures Neck: Normal visual inspection and Yes full ROM Respiratory: Normal respiratory effort and able to speak in complete sentences. dim bilat though moving air Cardiovascular: Regular rate and rhythm. S1 and S2 slightly diminished GI: Normal to inspection. Soft to palpation and nontender Skin: No rashes or lesions noted. Feet dry but intact Neuro: Patient oriented x3. Positive sensation and use of monofilament Extremities: Normal to inspection Results - Eye Exam: Up to date. - Microalbumin: Up to date. Plan 1. Diabetes Mellitus Without Complicatio ns The patient's diabetes is stable, with the patient reporting that they are doing fairly well. The patient denies current neuropathy, and exam confirms positive sensation with monofilament testing. Health maintenance screenings, including an eye exam and microalbumin test, are up to date. Lab orders have been placed for continued monitoring. 2. Cough The patient reports a cough in the setting of being a smoker and having follow- up with a academic affairs specialist. A trial of Tessalon Perles will be prescribed for symptomatic relief. knows to seek medical care if worsening symptoms 3. Tobacco Use Disorder The patient is a current smoker and is being followed by a academic affairs specialist for lung health. Discussion Notes I discussed the patient's diabetes status, noting that they are doing fairly well and that screenings for eye and kidney complications are up to date. Regarding the cough, I informed the patient that I would prescribe Tessalon Perles for a short trial. I also advised that lab orders were placed for ongoing monitoring. Patient Instructions - Please go to the lab to have your bloo d drawn as ordered. - You may try the prescribed Tessalon Pe rles for your cough for a little while. - Continue to keep your follow-up appoin tments with your lung specialist. [facility] Medical History Ataxia Cervical spondylosis Migraine Cardiac pacemaker in situ (~2014) Paroxysmal atrial fibrillation LVH (left ventricular hypertrophy) Essential hypertension Hyperlipidemia Diabetes COPD (chronic obstructive pulmonary disease) Nicotine dependence, cigarettes, uncomplicated Benign essential tremor Microscopic hematuria Recurrent UTI Osteopenia (~2021) Obesity, Class I, BMI 30-34.9 Hypertensive retinopathy GERD (gastroesophageal reflux disease) Diverticulitis Tubular adenoma of colon (~2017) Mesenteric lymphadenopathy Thrombocytopenia Depression Insomnia Arthritis Breast calcification, right Surgical History S/P cataract surgery History of pacemaker History of cholecystectomy History of tonsillectomy and adenoidectomy History of eye surgery History of tubal ligation History of colonoscopy History of esophagogastroduodenoscopy (EGD) History of pubovaginal sling History of dilatation and curettage History of loop electrical excision procedure (LEEP) History of right breast biopsy History of vocal cord polypectomy Family History Father Family history of diabetes mellitus Mother Diabetes mellitus Substance use disorder Sister Uterine cancer Diabetes mellitus Mental health disorder Substance use disorder Maternal Grandfather No problems noted. Maternal Grandmother Unknown family medical history Paternal Grandfather No problems noted. Paternal Grandmother No problems noted. Social History Household Members: Other Household Members Other:: Ex-, Daughter Housing: Apartment Alcohol intake: former Year quit: 2001 Patient Tobacco Use Status: Current someday Tobacco user Tobacco use type: Cigarette Cigarettes Per Day: 4 Years Smoked: (onset 16yo, 1ppd x 47yrs, 40pyh) e-Cigarette/Vaping Use: Never Used Second Hand Smoke Exposure: Yes Advance Directives Date on File: 03/21/22 service: No Current occupational status: disabled Cognitive needs: No Hearing needs: No Vision needs: No Female Reproductive History Menstrual Age of Menarche: 7 Questionnaire PHQ-9 Over the last 2 weeks, how often have you been bothered by any of the following problems? 1. Little interest or pleasure in doing things: not at all 2. Feeling down, depressed, or hopeless: not at all 3. Trouble falling or staying asleep, or sleeping too much: not at all 4. Feeling tired or having little energy: not at all 5. Poor appetite or overeating: not at all 6. Feeling bad about yourself - or that you are a failure or have let yourself or your family down: not at all 7. Trouble concentrating on things, such as reading the newspaper or watching television: not at all 8. Moving or speaking so slowly that other people could have noticed. Or the opposite - being so fidgety or restless that you have been moving around a lot more than usual: not at all 9. Thoughts that you would be better off or of hurting yourself in some way: not at all Total score: 0 Depression Screening Interpretation: Negative Depression Screening Done: Yes 72005 - PHQ-9 Billing: Yes Source: Developed by Drs. Rich Colmenares, Kelly Wasserman, Zbigniew Robert and colleagues, with an educational jeffrey from [employer]. Thrive Questionnaire Date Thrive assessed: 09/16/25 I am a: Patient What is your living situation today?: I choose not to answer this question Within the past 12 months, did the food you bought not last and you didn't have the money to get more?: Sometimes True Within the past 12 months, did you worry whether your food would run out before you got money to buy more?: Sometimes True Do you have trouble paying for medicines?: No Do you have trouble getting transportation to medical appointments?: No Do you have trouble paying your heating and electricity bill?: No Do you have trouble taking care of your child, family member or friend?: Yes Do you have trouble with day-to-day activities such as bathing, preparing meals, shopping, managing finances, etc.?: Yes Are you currently unemployed and looking for a job?: No THRIVE Score: 2 AUDIT C Alcohol Use Questionnaire (AUDIT-C) 1. How often do you have a drink containing alcohol?: Never Total Score: 0 ESTEFANIA-7 AMB Questionnaire ESTEFANIA-7 Date ESTEFANIA - 7 assessed: 09/23/25 Not being able to stop or control worryin = Nearly every day Worrying too much about different things: 3 = Nearly every day Feeling afraid as if something awful might happen: 3 = Nearly every day Source: Developed by Drs. Rich Colmenares, Kelly Wasserman, Zbigniew Robert and colleagues, with an educational jeffrey from [employer]. ESTEFANIA-7 Assessment Billing ESTEFANIA-7 Assessment Tool: ESTEFANIA-7 Assessment 63837 Physical exam (Primary Care) Vital Signs: Last Vital Signs Pulse 90 09/23/25 15:08 Resp 16 09/23/25 15:08 BP 110/70 09/23/25 15:08 Pulse Ox 92 09/23/25 15:08 Oxygen Delivery Method Room Air 09/23/25 15:08 BMI result Body Mass Index 30.1 Tobacco/Smoking Status: Tobacco use Status Tobacco use date assessed 09/23/25 09/23/25 15:17 Patient Tobacco Use Status Current someday Tobacco 09/23/25 15:06 Tobacco use type Cigarette 12/03/25 15:06 e-Cigarette/Vaping Use Never Used 09/23/25 15:06 PHQ-9: PHQ-9 Score PHQ-9: Total score 0 09/23/25 15:17 Depression Screening Interpretation: Negative Thrive Assessment: Date of Thrive Assessment Date Thrive assessed 09/16/25 09/23/25 15:06 Results AMB Hemoglobin A1c AMB Hemoglobin A1c 6.0 % Last Edit by Venice Bejarano MA on 09/23/25 15:45 Coding Level of Care Code Est Pt Level 3 (96819) Diagnoses Diabetes E11.9 Cough R05.9 Additional Codes ESTEFANIA-7 Assessment Billing - ESTEFANIA-7 Assessment Tool: ESTEFANIA-7 Assessment 22923 ([id number]) PHQ-9 - 36509 - PHQ-9 Billing: Yes ([id number]) Assessment & Plan Assessment & Plan (1) Diabetes: Comment: diet controlled Code(s): E11.9 - Type 2 diabetes mellitus without complications Category: Medical (2) Cough: Comment: Cough is multifactorial., secondary to COPD, , smoking, dry air in winter. Code(s): R05.9 - Cough, unspecified Category: Medical Plan . Orders: Orders Complete Blood Count Auto Diff Today E11.9 - Type 2 diabetes mellitus without complications UA CC w/rflx Micro + Cult Today E11.9 - Type 2 diabetes mellitus without complications Lipid Panel Today E11.9 - Type 2 diabetes mellitus without complications AMB Hemoglobin A1c Today Z13.9 - Encounter for screening, unspecified Comprehensive [place]. Panel Fast Today E11.9 - Type 2 diabetes mellitus without complications TSH reflex Free T4 Today E11.9 - Type 2 diabetes mellitus without complications Medications: New benzonatate 100 mg PO BID PRN 40 caps 0RF cough 20 days
[2025-09-23 15:08] VITALS: BP 110/70; PULSE 90; RESP 16; O2SAT 92; BMI 30.1
--- OUTSIDE RECORDS SUMMARY | 2025-09-23 18:00 | XMS_ITS ---
Author Name Isabelle WANG, MRS. Dunlap Address [address] [place] [id number] Phone [phone] [facility] Care Team Providers Care Fishing Rod Trimmer Name Role Phone Fabi Walton Unavailable [phone] Reason for Referral Not Available Allergies, adverse [...] NIGHT AT BEDTIME. 2023-09-05 No Data Available Tbpcjvulvv-NGHB-Qmckjmmp 50/325/40 mg Tab TAKE 1 TABLET EVERY [...] of fall Active 2024-04-18 N/A uses wa SharesPoster rollator to ambulate. Reports recent fall.Monitor for [...] to follow up with PCP/Specialists.- Follows with mica layer. Unspecified convulsions Active 2025-03-24 N/A R x: [...] repo rts she fell yesterday while at [facility]. She banged her both knees, both arms [...] (do not use for phone, instead use 47742-39) [facility] ([place]) 04/18/2024 Other thrombophiliaUnspecifi ed [...] (do not use for phone, instead use 59063-36) [facility] ([place]) 04/18/2024 New patient,40-59min; chronic exacerbation, 2 stable chronic or 1 acute illness add add modifier 95 for video (do not use for phone, instead use 14038-23) [facility] [place] 04/18/20[place] New patient,40-59min; chronic exacerbation, 2 stable chronic or 1 acute illness add add modifier 95 for video (do not use for phone, instead use 22412-41) [facility] [place] 04/18/2024 New patient,40-59min; chronic exacerbation, 2 stable chronic or 1 acute illness add add modifier 95 for video (do not use for phone, instead use 53460-26) [facility] [place] 04/18/2024 New patient,40-59min; chronic exacerbation, 2 stable chronic or 1 acute illness add add modifier 95 for video (do not use for phone, instead use 59178-54) [facility] [place] 04/18/2024 New patient,40-59min; chronic exacerbation, 2 stable chronic or 1 acute illness add add modifier 95 for video (do not use for phone, instead use 74167-88) [facility] [place] 04/18/2024 New patient,40-59min; chronic exacerbation, 2 stable chronic or 1 acute illness add add modifier 95 for video (do not use for phone, instead use 99468-39) [facility] [place] 04/18/2024 New patient,40-59min; chronic exacerbation, 2 stable chronic or 1 acute illness add add modifier 95 for video (do not use for phone, instead use 01406-69) [facility] [place] 04/18/2024 New patient,40-59min; chronic exacerbation, 2 stable chronic or 1 acute illness add add modifier 95 for video (do not use for phone, instead use 28771-95) [facility] [place] 04/18/2024 Estab. patient 20-29min; 1 stable chronic or 2 minor; add add modifier 95 for video, modifier 93 for phone [facility] [place] 03/24/2025 Other thrombophiliaUnspecifi ed atrial fibrillationVentricular tachycardia, [...] 95 for video, modifier 93 for phone [facility] [place] 03/24/2025 Estab. patient 20-29min; 1 stable chronic or 2 minor; add add modifier 95 for video, modifier 93 for phone [facility] [place] 03/24/2025 Estab. patient 20-29min; 1 stable chronic or 2 minor; add add modifier 95 for video, modifier 93 for phone [facility] [place] 03/24/2025 Estab. patient 20-29min; 1 stable chronic or 2 minor; add add modifier 95 for video, modifier 93 for phone [facility] [place] 03/24/2025 Estab. patient 20-29min; 1 stable chronic or 2 minor; add add modifier 95 for video, modifier 93 for phone [facility] [place] 03/24/2025 Estab. patient 20-29min; 1 stable chronic or 2 minor; add add modifier 95 for video, modifier 93 for phone [facility] [place] 03/24/2025 Estab. patient 20-29min; 1 stable chronic or 2 minor; add add modifier 95 for video, modifier 93 for phone [facility] [place] 03/24/2025 Estab. patient 10-29min; 1 minor problem; add add modifier 95 for video, modifier 93 for phone [facility] [place] 04/07/2025 Type 2 diabetes mellitus wit h [...] Current Smoking Status Current every day smoker 2025-09-23 Sex Female Gender identity Woman History of Procedures Procedures Service Procedure code Service date Servicing provider Phone# New patient,40-59min; chronic exacerbation, 2 stable chronic or 1 acute illness add add modifier 95 for video (do not use for phone, instead use 26191-59) [id number] 2024-04-18 No Data Available No Data Availa [...] 95 for video, modifier 93 for phone [id number] 2025-03-24 No Data Available No Data Availa [...] 95 for video, modifier 93 for phone 08002 2025-04-07 No Data Available No Data Availa [...] f/u care and monitoring with PCP and field kiln burner. 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 She banged her both knees, both arms [...] to follow up with PCP/Specialists.- Follows with mica layer.Xarelto, Propranolol, AmlodipinePacemaker Bleeding risk precautions, monitor for [...] She reports she fell yesterday while at [employer]. She banged her both knees, both arms [...]
== END 2025-09-23 15:50 | disposition home or self-care (01) ==
LOC: HO.HMCC 15:01
PROVIDERS: PCP Nurse Practitioner Family; Visit Provider Nurse Practitioner Family
DX: E11.9 Type 2 diabetes mellitus without complications (principal); R05.9 Cough, unspecified; Z13.9 Encounter for screening, unspecified

== ENCOUNTER → 2025-09-23 15:00 | Outpatient (BNVA) | payer OTHER, SELFPAY | PROVIDERS: PCP Nurse Practitioner Family; Visit Provider Nurse Practitioner Family | DX: E11.9 Type 2 diabetes mellitus without complications (principal); R05.9 Cough, unspecified; Z13.31 Encounter for screening for depression; Z13.39 Encounter for screening examination for other mental health and behavioral disorders; F17.200 Nicotine dependence, unspecified, uncomplicated | CPT/HCPCS: 83036; 96127; 99212 ==

== ENCOUNTER 2025-10-06 14:51 | Outpatient (REF) | payer OTHER, SELFPAY ==
[2025-10-06 16:23] LABS: MANUAL DIFF FLAG NO
[2025-10-06 16:35] LABS: Hematocrit 41.4 % (37.0-47.0); Hemoglobin 13.4 g/dl (12.0-16.0); Imm Gran Abs Auto 0.02 X10*3/uL (0.00-0.03); Imm Gran Pct Auto 0.2 % (0.0-0.4); Lymphocytes Absolute Auto 2.4 X10*3/uL (1.2-4.9); Mean Corpuscular HGB Conc 32.4 g/dl (31.0-35.0); Mean Corpuscular Hemoglobin 28.5 pg (27.0-33.0); Mean Corpuscular Volume 87.9 fL (80.0-98.0); NRBC Abs Auto 0.000 X10*3/uL (0.0-0.012); NRBC Pct Auto 0.0 /100WBC (0.0-0.2); Platelet Count 126 X10*3/uL (160-400); Red Blood Count 4.71 X10*6/uL (4.20-5.50); White Blood Count 8.5 X10*3/uL (4.8-10.8)
[2025-10-06 17:06] LABS: Alanine Aminotransferase 11 U/L (0-31); Albumin Level 4.3 g/dL (3.5-5.0); Alkaline Phosphatase 98 U/L (39-117); Anion Gap 13 (12-20); Aspartate Amino Transferase 21 U/L (5-31); Blood Urea Nitrogen 12 mg/dL (9-16); Calcium 9.4 mg/dL (8.4-10.2); Carbon Dioxide 24 mmol/L (22-29); Chloride 106 mmol/L (96-108); Cholesterol 129 mg/dL (<200); Estimated Glomerular Filt Rate > 60; HDL Cholesterol 46 mg/dL (>40); Potassium 4.2 mmol/L (3.3-5.1); Sodium 139 mmol/L (135-145); Total Protein 7.1 g/dL (6.5-8.0); Triglycerides 114 mg/dL (<150)
== END 2025-10-06 14:52 | disposition home or self-care (01) ==
LOC: HO.LAB 14:51
PROVIDERS: PCP Nurse Practitioner Family; Visit Provider Nurse Practitioner Family
DX: Z95.0 Presence of cardiac pacemaker (principal); I48.0 Paroxysmal atrial fibrillation; F17.210 Nicotine dependence, cigarettes, uncomplicated; I73.9 Peripheral vascular disease, unspecified; I10 Essential (primary) hypertension; E11.9 Type 2 diabetes mellitus without complications; Z79.899 Other long term (current) drug therapy; Z79.01 Long term (current) use of anticoagulants
CPT/HCPCS: 36415; 80053; 80061; 84443; 85025; 93005; 93280; 99212

== ENCOUNTER 2025-10-06 14:51 | Outpatient (AMB) | payer OTHER, SELFPAY ==
[2025-10-06 15:04] VITALS: BP 110/64; PULSE 72
--- NOTE | 2025-10-06 15:04 | MHC.OFFVIS ---
Vital Signs 10/06/25 15:04 Height 5 ft 7 in Weight 191 lb 12.835 oz BMI 30.0 BP 110/64 Blood Pressure Location Lt brachial Position Sitting Pulse 72 Pulse Source Monitor Intake Visit Reasons: 6m follow up Intake Note: 6 mth f/up Grid Inspector Required: No Accompanied by: Self / Same As Patient Allergies dabigatran etexilate (From PRADAXA) Allergy (Intermediate, Verified 09/23/25 15:56) SWELLING\hives HPI Comments Details: Myrtle comes for follow-up for pacemaker. Overall she has been doing well. She continues to have exertional shortness of breath. Denies orthopnea, PND, leg edema. Denies any chest pain. She has not had any significant blood pressure issues. Recently peripheral vascular disease workup with a CTA which showed nonobstructive diffuse disease. She unfortunately intermittently smokes. She takes all her medications. Currently on high-intensity statin therapy. I do not see an antiplatelet agent on her regimen. COUNTS INCLUDE 234 BEDS AT THE [facility] Medical History Ataxia Cervical spondylosis Migraine Cardiac pacemaker in situ (~2014) Paroxysmal atrial fibrillation LVH (left ventricular hypertrophy) Essential hypertension Hyperlipidemia Diabetes COPD (chronic obstructive pulmonary disease) Nicotine dependence, cigarettes, uncomplicated Benign essential tremor Microscopic hematuria Recurrent UTI Osteopenia (~2021) Obesity, Class I, BMI 30-34.9 Hypertensive retinopathy GERD (gastroesophageal reflux disease) Diverticulitis Tubular adenoma of colon (~2017) Mesenteric lymphadenopathy Thrombocytopenia Depression Insomnia Arthritis Breast calcification, right Surgical History S/P cataract surgery History of pacemaker History of cholecystectomy History of tonsillectomy and adenoidectomy History of eye surgery History of tubal ligation History of colonoscopy History of esophagogastroduodenoscopy (EGD) History of pubovaginal sling History of dilatation and curettage History of loop electrical excision procedure (LEEP) History of right breast biopsy History of vocal cord polypectomy Family History Father Family history of diabetes mellitus Mother Diabetes mellitus Substance use disorder Sister Uterine cancer Diabetes mellitus Mental health disorder Substance use disorder Maternal Grandfather No problems noted. Maternal Grandmother Unknown family medical history Paternal Grandfather No problems noted. Paternal Grandmother No problems noted. Social History Household Members: Other Household Members Other:: Ex-, Daughter Housing: Apartment Alcohol intake: former Year quit: 2001 Patient Tobacco Use Status: Current someday Tobacco user Tobacco use type: Cigarette Cigarettes Per Day: 4 Years Smoked: (onset 16yo, 1ppd x 47yrs, 40pyh) e-Cigarette/Vaping Use: Never Used Second Hand Smoke Exposure: Yes Advance Directives Date on File: 03/21/22 service: No Current occupational status: disabled Cognitive needs: No Hearing needs: No Vision needs: No Female Reproductive History Menstrual Age of Menarche: 7 Review of Systems Const Denies chills, Denies fatigue, Denies fever(s), Denies frequent falls, Denies weakness, Denies weight gain and Denies weight loss ENT Denies dizziness Card Denies chest pain, Denies leg edema, Denies lightheadedness, Denies palpitations, Denies dyspnea and Denies dyspnea on exertion Resp Denies cough, Denies dyspnea and Denies dyspnea on exertion GI Denies hematochezia Musc Denies abnormal gait, Denies muscle weakness, Denies numbness, Denies radiating pain into limb and Denies tingling Neuro Denies abnormal gait, Denies dizziness, Denies frequent falls, Denies numbness, Denies tingling and Denies weakness Endo Denies fatigue and Denies palpitations Physical Exam Vital Signs: Last Vital Signs Pulse 72 10/06/25 15:04 BP 110/64 10/06/25 15:04 BMI result Body Mass Index 30.0 Const General: cooperative, healthy appearing, comfortable and no acute distress Orientation/consciousness: patient oriented x3 Resp Effort & Inspection: normal respiratory effort Auscultation: no rales, no rhonchi, wheezes scattered wheezes and diminished lung sounds Cardio Rate: regular rate Rhythm: regular rhythm Heart sounds: S1 normal heart sound present, S2 normal heart sound present, no murmurs and no rubs Skin Other: abrasions noted right knee, ankle, elbow - no redness, swelling or drainage Neuro General: patient oriented x3 Extrem General: Yes normal to inspection, No no pedal edema and No calf tenderness Psych Appearance: grossly normal Mental Status: mental status grossly normal Speech and movement: Normal speech and movement present Office Procedures Cardiac Device Check Cardiac Device Check Details: Dual-chamber Medtronic pacemaker in place. Programmed in MVP mode with rate response at 60 beats per minute. Atrial pacing 77% of time. No significant arrhythmias noted. Atrial ventricular sensing is adequate. Atrial and ventricular pacing thresholds adequate. Pacing lead impedance is stable. Battery life is at about 7 months 80499-[place] Cardiac Device Check, pacemaker dual lead Procedure code (CPT) selection complete EKG Details: EKG shows atrially paced, ventricularly sensed rhythm at 72 beats per minute 61373-Xpihqwjlhxcktvwoe, Complete Assessment & Plan Assessment & Plan (1) Cardiac pacemaker in situ: Onset Date: ~2014 Comment: (Medtronic DCPP - placed 05/10/2015) Code(s): Z95.0 - Presence of cardiac pacemaker Category: Medical Plan: Cardiac pacemaker in-situ for sick sinus syndrome, symptomatic. Doing well at current point time since pacemaker placement. Battery is coming close to replacement. Will follow in the clinic in 6 months time. (2) Paroxysmal atrial fibrillation: Code(s): I48.0 - Paroxysmal atrial fibrillation Category: Medical Plan: Paroxysmal atrial fibrillation but with no significant recurrence. Overall burden of atrial fibrillation in his low. Will continue monitor by pacer telemetry. Continue propranolol therapy. Avoidance of stimulants was discussed. Stress mitigation strategies was discussed. Continue full oral anticoagulation by Xarelto. Semi annual renal function test should be pursued. (3) PAD (peripheral artery disease): Code(s): I73.9 - Peripheral vascular disease, unspecified Category: Medical Plan: Peripheral vascular disease nonobstructive. Smoking cessation was advised. Continue Xarelto. Avoid any additional antiplatelet therapy to reduce bleeding risk. Continue aggressive blood pressure control. Should be on statin therapy with target goal LDL less than 70 mg/dL. (4) Essential hypertension: Code(s): I10 - Essential (primary) hypertension Category: Medical Plan: Hypertension which is currently well optimized advised to monitor blood pressure at home maintain a log. Goal blood pressure less than 130/84. Low-salt diet was discussed. Will follow up in the clinic in 6 months time, sooner PRN. Thank you for allowing me to partake in her care Orders: Orders CA echo transthoracic complete Today R06.02 - Shortness of breath Medications: Refilled amlodipine 2.5 mg PO DAILY 90 tabs 3RF Coding Level of Care Code Est Pt Level 4 (19676) Diagnoses Cardiac pacemaker in situ Z95.0 Paroxysmal atrial fibrillation I48.0 PAD (peripheral artery disease) I73.9 Essential hypertension I10 CPT Codes Cardiac Device Check - Cardiac Device 2: 76582-CX Cardiac Device Check, pacemaker dual lead ([id number]) EKG - CPT: 54677-Qeypbtbyqcvykinni, Complete ([id number])
--- OUTSIDE RECORDS SUMMARY | 2025-10-06 19:11 | XMS_ITS ---
Author Name Isabelle WANG, MRS. Dunlap Address [address] [place] [id number] Phone [phone] [facility] Care Team Providers Care Patient Information Coordinator Name Role Phone Fabi Walton Unavailable [phone] Reason for Referral Not Available Allergies, adverse [...] NIGHT AT BEDTIME. 2023-09-05 No Data Available Cyajfedojo-OIPH-Gmhvaycc 50/325/40 mg Tab TAKE 1 TABLET EVERY [...] of fall Active 2024-04-18 N/A uses wa [employer] rollator to ambulate. Reports recent fall.Monitor for [...] to follow up with PCP/Specialists.- Follows with classroom paraprofessional. Unspecified convulsions Active 2025-03-24 N/A R x: [...] repo rts she fell yesterday while at [facility]. She banged her both knees, [...] (do not use for phone, instead use 93996-51) [facility] ([place]) 04/18/2024 Other thrombophiliaUnspecifi [...] (do not use for phone, instead use 98908-39) [facility] ([place]) 04/18/2024 New patient,40-59min; chronic exacerbation, 2 stable chronic or 1 acute illness add add modifier 95 for video (do not use for phone, instead use 77833-49) [facility] [place]18/20[place] New patient,40-59min; chronic exacerbation, 2 stable chronic or 1 acute illness add add modifier 95 for video (do not use for phone, instead use 00540-14) [facility] [place] 04[place]18/20[place] New patient,40-59min; chronic exacerbation, 2 stable chronic or 1 acute illness add add modifier 95 for video (do not use for phone, instead use 53106-82) [facility] [place] 04[place]18/20[place] New patient,40-59min; chronic exacerbation, 2 stable chronic or 1 acute illness add add modifier 95 for video (do not use for phone, instead use 46490-23) [facility] [place] 04/18/20[place] New patient,40-59min; chronic exacerbation, 2 stable chronic or 1 acute illness add add modifier 95 for video (do not use for phone, instead use 57123-66) [facility] [place] 04/18/2024 New patient,40-59min; chronic exacerbation, 2 stable chronic or 1 acute illness add add modifier 95 for video (do not use for phone, instead use 68413-22) [facility] [place] 04/18/20[place] New patient,40-59min; chronic exacerbation, 2 stable chronic or 1 acute illness add add modifier 95 for video (do not use for phone, instead use 20812-97) [facility] [place] 04/18/20[place] New patient,40-59min; chronic exacerbation, 2 stable chronic or 1 acute illness add add modifier 95 for video (do not use for phone, instead use 20149-18) [facility] [place]/18/20[place] Estab. patient 20-29min; 1 stable chronic or 2 minor; add add modifier 95 for video, modifier 93 for phone [facility] [place] 03/24/2025 Other thrombophiliaUnspecifi ed atrial fibrillationVentricular tachycardia, [...] 95 for video, modifier 93 for phone [facility] [place] 03/24/2025 Estab. patient 20-29min; 1 stable chronic or 2 minor; add add modifier 95 for video, modifier 93 for phone [facility] [place] 03/24/2025 Estab. patient 20-29min; 1 stable chronic or 2 minor; add add modifier 95 for video, modifier 93 for phone [facility] [place] 03/24/2025 Estab. patient 20-29min; 1 stable chronic or 2 minor; add add modifier 95 for video, modifier 93 for phone [facility] [place] 03/24/2025 Estab. patient 20-29min; 1 stable chronic or 2 minor; add add modifier 95 for video, modifier 93 for phone [facility] [place] 03/24/2025 Estab. patient 20-29min; 1 stable chronic or 2 minor; add add modifier 95 for video, modifier 93 for phone [facility] [place] 03/24/2025 Estab. patient 20-29min; 1 stable chronic or 2 minor; add add modifier 95 for video, modifier 93 for phone [facility] [place] 03/24/2025 Estab. patient 10-29min; 1 minor problem; add add modifier 95 for video, modifier 93 for phone [facility] [place] 04/07/2025 Type 2 diabetes mellitus wit h [...] Current Smoking Status Current every day smoker 2025-10-07 Sex Female Gender identity Woman History of Procedures Procedures Service Procedure code Service date Servicing provider Phone# New patient,40-59min; chronic exacerbation, 2 stable chronic or 1 acute illness add add modifier 95 for video (do not use for phone, instead use 37968-94) [id number] 2024-04-18 No Data Available No Data Availa [...] 95 for video, modifier 93 for phone [id number] 2025-03-24 No Data Available No Data Availa [...] 95 for video, modifier 93 for phone [id number] 2025-04-07 No Data Available No Data Availa [...] f/u care and monitoring with PCP and director of cardiopulmonary services. 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 She banged her both knees, [...] to follow up with PCP/Specialists.- Follows with classroom paraprofessional.Xarelto, Propranolol, AmlodipinePacemaker Bleeding risk precautions, monitor for [...] She reports she fell yesterday while at [employer]. She banged her both knees, both arms [...]
== END 2025-10-06 15:25 | disposition home or self-care (01) ==
LOC: HO.HCS 14:52
PROVIDERS: PCP Nurse Practitioner Family; Visit Provider Internal Medicine Cardiovascular Disease
DX: I48.0 Paroxysmal atrial fibrillation (principal); Z95.0 Presence of cardiac pacemaker; I73.9 Peripheral vascular disease, unspecified; I10 Essential (primary) hypertension
CPT/HCPCS: 93010; 93280; 99214